=== PATIENT | female | born 1960 | race Hispanic/Latino ===

== ENCOUNTER 2017-09-16 21:11 | Emergency (ER) | payer OTHER ==
[2017-09-16 22:29] LABS: Absolute Lymphocytes (CBC) 1.5 K/uL (0.7-4.9); Absolute Monocytes 0.6 K/uL (0.1-1.3); Absolute Neutrophil 7.5 K/uL (1.8-8.0); Basophils % 0.9 % (0-1.3); Hematocrit 38.6 % (36.0-45.0); Lymphocytes % 14.8 % (15.3-44.8); MCV 85.4 fL (80-100); MPV 9.3 fL (7.6-11.3); RBC Red Blood Cell Count 4.52 M/uL (3.86-4.86)
[2017-09-16] MEDS ORDERED: AZITHROMYCIN 250 MG TAB ONE (23:40)
--- NOTE | 2017-09-16 23:41 | EDPHYS ---
Physician Documentation [facility] Name: Shana Patel Age: 57 yrs Sex: Female : 1960 Arrival Date: 09/16/2017 Time: 21:16 Bed 8 Private MD: ED Physician Brodie Hanson HPI: 09/16 23:38 This 57 yrs old Female presents to ER via Ambulatory with complaints of Sore pkl Throat, Fever, LEFT ARM NUMBNESS. 23:38 The patient presents with sore throat. The patient describes throat pain as constant. pkl Onset: The symptoms/episode began/occurred today. Associated signs and symptoms: Pertinent positives: chest pain. Historical: - Allergies: 21:29 Adhesives; aa1 21:29 Metformin HCl; aa1 - Home Meds: 21:29 hydrocodone-acetaminophen Oral [Active]; Lyrica Oral [Active]; Lisinopril Oral aa1 [Active]; Novolog Sub-Q [Active]; - PMHx: 21:29 Diabetes - IDDM; Fibromyalgia; GERD; Hypothyroidism; Hypertension; aa1 - PSHx: 21:29 ; Hernia repair; Knee surgery; aa1 - Immunization history:: Flu vaccine is not up to date. - Social history:: Smoking status: Patient/guardian denies using tobacco. ROS: 23:38 Eyes: Negative for injury, pain, redness, and discharge, ENT: Negative for injury, pkl pain, and discharge, Neck: Negative for injury, pain, and swelling. 23:38 Cardiovascular: Positive for chest pain. 23:38 Respiratory: Negative for acute changes. 23:38 Abdomen/GI: Negative for abdominal pain, nausea, vomiting, and diarrhea. 23:38 Back: Negative for pain at rest. 23:38 : Negative for urinary symptoms. 23:38 MS/extremity: Negative for acute changes. 23:38 Skin: Negative for rash. 23:38 Neuro: Negative for altered mental status. Exam: 23:38 Head/Face: Normocephalic, atraumatic. Eyes: Pupils equal round and reactive to light, pkl extra-ocular motions intact. Lids and lashes normal. Conjunctiva and sclera are non-icteric and not injected. Cornea within normal limits. Periorbital areas with no swelling, redness, or edema. 23:38 ENT: Posterior pharynx: erythema, that is mild. 23:38 Neck: Exam negative for acute changes. 23:38 Chest/axilla: Exam negative for acute changes. 23:38 Cardiovascular: Rate: normal, Rhythm: regular. 23:38 Respiratory: Exam negative for acute changes. 23:38 Abdomen/GI: Exam negative for acute changes. 23:38 Back: Exam negative for acute changes. 23:38 : Exam negative for acute changes. 23:38 Musculoskeletal/extremity: Exam is negative for acute changes. 23:38 Skin: Exam negative for rash. 23:38 Neuro: Orientation: is normal, Mentation: is normal, Cranial nerves: grossly normal, Motor: is normal. Vital Signs: 21:29 BP 148 / 85; Pulse 82; Resp 18; Temp 100.0(O); Pulse Ox 95% on R/A; Weight 77.11 kg; aa1 Height 5 ft. 0 in. (152.40 cm); Pain 9/10; 23:24 BP 108 / 74; Pulse 74; Resp 18 S; Pulse Ox 94% on R/A; bb 23:51 BP 118 / 77; Pulse 73; Resp 18 S; Temp 97.8(TE); Pulse Ox 94% on R/A; bb 21:29 Body Mass Index 33.20 (77.11 kg, 152.40 cm) aa1 MDM: 22:02 Patient medically screened. pkl 23:38 Data reviewed: vital signs, nurses notes, lab test result(s), EKG. pkl 09/16 22:07 Order name: CBC with Diff; Complete Time: 23:22 pkl 09/16 22:07 Order name: Chem 7; Complete Time: 23:22 pkl 09/16 22:07 Order name: Strep; Complete Time: 23:22 pkl 09/16 22:08 Order name: Troponin (emerg Dept Use Only); Complete Time: 23:22 pkl 09/16 22:35 Order name: Throat Culture EDNJ 09/16 22:08 Order name: EKG; Complete Time: 22:08 pkl 09/16 23:23 Order name: EKG - Nurse/Tech; Complete Time: 23:33 ak1 Administered Medications: 23:45 Drug: Zithromax 500 mg Route: PO; bb 23:51 Follow up: Response: No adverse reaction bb Disposition: 09/16/17 23:41 Discharged to Home. Impression: Acute pharyngitis. Chest pain. - Condition is Stable. - Prescriptions for Zithromax Z- Jerome 250 mg Oral Tablet - take 1 tablet by ORAL route as directed for 5 days Day 1 - take two (2) tablets one time. Day 2, 3, 4 , 5 take one (1) tablet once daily.; 6 tablet. - Medication Reconciliation Form, Thank You Letter, Antibiotic Education, Prescription Opioid Use form. - Follow up: Private Physician; When: 2 - 3 days; Reason: Re-evaluation by your physician. - Problem is new. - Symptoms have improved. Signatures: Dispatcher [employer] EDDiana Pulido RN RN aa1 Brodie Hanson MD MD pkl Ballard, Brenda, RN RN bb Janel Mazariegos RN RN ak1
--- NOTE | 2017-09-16 23:41 | ER ---
Nurse's Notes [facility] Name: Shana Patel Age: 57 yrs Sex: Female : 1960 Arrival Date: 09/16/2017 Time: 21:16 Bed 8 Private MD: Diagnosis: Acute pharyngitis. Chest pain Presentation: 09/16 21:26 Presenting complaint: Patient states: fever and sore throat since this afternoon and aa1 has also had tingling in her L arm. Transition of care: patient was not received from another setting of care. Onset of symptoms was September 16, 2017. Initial Sepsis Screen: Does the patient meet any 2 criteria? No. Patient's initial sepsis screen is negative. Does the patient have a suspected source of infection? No. Patient's initial sepsis screen is negative. Care prior to arrival: None. 21:26 Method Of Arrival: Ambulatory aa1 21:26 Acuity: TERESA 3 aa1 Triage Assessment: 21:29 General: Appears in no apparent distress. comfortable, Behavior is calm, cooperative, aa1 appropriate for age. Historical: - Allergies: 21:29 Adhesives; aa1 21:29 Metformin HCl; aa1 - Home Meds: 21:29 hydrocodone-acetaminophen Oral [Active]; Lyrica Oral [Active]; Lisinopril Oral aa1 [Active]; Novolog Sub-Q [Active]; - PMHx: 21:29 Diabetes - IDDM; Fibromyalgia; GERD; Hypothyroidism; Hypertension; aa1 - PSHx: 21:29 ; Hernia repair; Knee surgery; aa1 - Immunization history:: Flu vaccine is not up to date. - Social history:: Smoking status: Patient/guardian denies using tobacco. Screenin:03 Abuse screen: Denies threats or abuse. Denies injuries from another. Nutritional ak1 screening: No deficits noted. Tuberculosis screening: No symptoms or risk factors identified. Fall Risk None identified. Assessment: 22:03 General: Appears in no apparent distress. Behavior is calm, cooperative. Pain: ak1 Complains of pain in throat. Neuro: Level of Consciousness is awake, alert, obeys commands, Oriented to person, place, time, situation, Lithographic Etcher are equal bilaterally Moves all extremities. Gait is steady, Speech is normal, Facial symmetry appears normal. Cardiovascular: No deficits noted. Respiratory: Airway is patent Respiratory effort is even, unlabored, Breath sounds are clear bilaterally. GI: No signs and/or symptoms were reported involving the gastrointestinal system. : No signs and/or symptoms were reported regarding the genitourinary system. EENT: Throat is clear pt swallowing own secretions. no resp distress noted.. Derm: No signs and/or symptoms reported regarding the dermatologic system. Musculoskeletal: No signs and/or symptoms reported regarding the musculoskeletal system. 23:23 Reassessment: Patient is alert, oriented x 3, equal unlabored respirations, skin bb warm/dry/pink. pt resting quietly awaiting results, IV site intact, family at bedside. 23:50 Reassessment: Patient is alert, oriented x 3, equal unlabored respirations, skin bb warm/dry/pink. pt verbalized understanding of and agrees to plan of care discharge instructions given pt ambulated with steady gait to exit accompanied by family. Vital Signs: 21:29 BP 148 / 85; Pulse 82; Resp 18; Temp 100.0(O); Pulse Ox 95% on R/A; Weight 77.11 kg; aa1 Height 5 ft. 0 in. (152.40 cm); Pain 9/10; 23:24 BP 108 / 74; Pulse 74; Resp 18 S; Pulse Ox 94% on R/A; bb 23:51 BP 118 / 77; Pulse 73; Resp 18 S; Temp 97.8(TE); Pulse Ox 94% on R/A; bb 21:29 Body Mass Index 33.20 (77.11 kg, 152.40 cm) aa1 ED Course: 21:16 Patient arrived in ED. al2 21:27 Triage completed. aa1 21:29 Arm band placed on left wrist. Patient placed in waiting room, Patient notified of wait aa1 time. 22:02 Brodie Hanson MD is Attending Physician. pkl 22:03 Patient has correct armband on for positive identification. Bed in low position. Call ak1 light in reach. Side rails up X 1. Adult w/ patient. 22:15 Initial lab(s) drawn, by me, sent to lab. Strep swab sent to lab. Inserted saline lock: bb 22 gauge in left hand, using aseptic technique. Blood collected. 22:20 Maureen Lr RN is Primary Nurse. bb 23:52 No provider procedures requiring assistance completed. IV discontinued, intact, bb bleeding controlled, No redness/swelling at site. Pressure dressing applied. Administered Medications: 23:45 Drug: Zithromax 500 mg Route: PO; iris 23:51 Follow up: Response: No adverse reaction iris Outcome: 23:41 Discharge ordered by . flor 23:52 Discharged to home ambulatory, with family. iris :52 Condition: stable 23:52 Discharge instructions given to patient, Instructed on discharge instructions, follow up and referral plans. medication usage, Demonstrated understanding of instructions, follow-up care, medications, Prescriptions given X 1. 23:52 Patient left the ED. bb Signatures: Diana Lockhart RN RN Brodie Fernandez MD MD pkl Ballard, Brenda, RN RN Janel Aguilar RN RN ak1 Graciela Singh
[2017-09-16 23:58] VITALS: O2SAT 94
[2017-09-16 23:59] VITALS: BP 118/77; TEMP 97.8
--- NOTE | 2017-09-17 14:38 | EKG ---
Test Date: 2017-09-16 Test Time: 23:27:58 Sheriffs: DIAN MEASUREMENT RESULTS: Intervals: Rate: 71 WI: 148 QRSD: 92 QT: 480 QTc: 521 [place]: P: 35 WI: 148 QRS: -73 T: 4 INTERPRETIVE STATEMENTS: Normal sinus rhythm Left anterior fascicular block Anterolateral infarct, age undetermined Abnormal ECG Compared to ECG 05/30/2017 15:38:05 Myocardial infarct finding now present T-wave abnormality no longer present Electronically Signed On 09-17-17 14:34:18 CDT by Sudhakar Benitez
== END 2017-09-16 23:52 | disposition home or self-care (01) ==
LOC: ER 21:11
DX: J02.9 Acute pharyngitis, unspecified (principal); R07.9 Chest pain, unspecified; E11.9 Type 2 diabetes mellitus without complications; I10 Essential (primary) hypertension; M79.7 Fibromyalgia; Z88.8 Allergy status to other drugs, medicaments and biological substances
CPT/HCPCS: 36415; 80048; 84484; 85025; 87070; 87081; 93005; 99284

== ENCOUNTER 2017-11-16 01:45 | Emergency (ER) | payer OTHER ==
[2017-11-16] MEDS ORDERED: HYDROCODONE/APAP 10/325 TAB ONE (02:51)
--- NOTE | 2017-11-16 03:48 | EDPHYS ---
Physician Documentation [facility] Name: Shana Patel Age: 57 yrs Sex: Female : 1960 Arrival Date: 11/16/2017 Time: 01:49 Bed 8 Private MD: Nicolas Waldrop ED Physician Jerald Melchor HPI: 11/16 03:40 This 57 yrs old Female presents to ER via Ambulatory with complaints of wa Toothache, Urinary Problem. 03:40 This 57 yrs old Female presents to ER via Ambulatory with complaints of wa Toothache, Urinary Problem. 03:40 The patient presents with pain. The problem is located in the R side upper and lower wa jaw. Onset: The symptoms/episode began/occurred 3 day(s) ago. Duration: The symptoms are continuous, and are steadily getting worse. Modifying factors: The symptoms are alleviated by nothing, the symptoms are aggravated by chewing. Associated signs and symptoms: The patient has no apparent associated signs or symptoms. Severity of symptoms: At their worst the symptoms were. The patient has experienced similar episodes in the past. The patient has not recently seen a physician. Historical: - Allergies: 02:20 Adhesives; fc 02:20 Metformin HCl; fc - Home Meds: 02:20 hydrocodone-acetaminophen 7.5-325 mg oral tab 1 tab every 6 hours [Active]; lisinopril fc 10 mg oral tab 1 tab once daily [Active]; levothyroxine oral 1 tab once daily [Active]; Lyrica Oral 2 times per day [Active]; Novolog Sub-Q 40 units in am and 50 units pm [Active]; - PMHx: 02:20 Diabetes - IDDM; Fibromyalgia; GERD; Hypertension; Hypothyroidism; fc - PSHx: 02:20 Hernia repair; knee surg; ; fc - Immunization history:: Last tetanus immunization: up to date. - Social history:: Smoking status: Patient/guardian denies using tobacco. - Ebola Screening: : Patient negative for fever greater than or equal to 101.5 degrees Fahrenheit, and additional compatible Ebola Virus Disease symptoms Patient denies exposure to infectious person Patient denies travel to an Ebola-affected area in the 21 days before illness onset. - Family history:: not pertinent. - Hospitalizations: : No recent hospitalization is reported. ROS: 03:41 Constitutional: Negative for fever, chills, and weight loss, Eyes: Negative for injury, wa pain, redness, and discharge, Neck: Negative for injury, pain, and swelling, Cardiovascular: Negative for chest pain, palpitations, and edema, Respiratory: Negative for shortness of breath, cough, wheezing, and pleuritic chest pain, Back: Negative for injury and pain, MS/Extremity: Negative for injury and deformity, Skin: Negative for injury, rash, and discoloration, Neuro: Negative for headache, weakness, numbness, tingling, and seizure, Psych: Negative for depression, anxiety, suicide ideation, homicidal ideation, and hallucinations. 03:41 ENT: Positive for dental pain. 03:41 Abdomen/GI: Positive for suprapubic pain. 03:41 : Positive for urinary symptoms, urinary frequency, dysuria. Exam: 03:43 Constitutional: This is a well developed, well nourished patient who is awake, alert, wa and in no acute distress. Head/Face: Normocephalic, atraumatic. Eyes: Pupils equal round and reactive to light, extra-ocular motions intact. Lids and lashes normal. Conjunctiva and sclera are non-icteric and not injected. Cornea within normal limits. Periorbital areas with no swelling, redness, or edema. Neck: Trachea midline, no thyromegaly or masses palpated, and no cervical lymphadenopathy. Supple, full range of motion without nuchal rigidity, or vertebral point tenderness. No Meningismus. Chest/axilla: Normal chest wall appearance and motion. Nontender with no deformity. No lesions are appreciated. Cardiovascular: Regular rate and rhythm with a normal S1 and S2. No gallops, murmurs, or rubs. Normal PMI, no JVD. No pulse deficits. Respiratory: Lungs have equal breath sounds bilaterally, clear to auscultation and percussion. No rales, rhonchi or wheezes noted. No increased work of breathing, no retractions or nasal flaring. Back: No spinal tenderness. No costovertebral tenderness. Full range of motion. Skin: Warm, dry with normal turgor. Normal color with no rashes, no lesions, and no evidence of cellulitis. MS/ Extremity: Pulses equal, no cyanosis. Neurovascular intact. Full, normal range of motion. Neuro: Awake and alert, GCS 15, oriented to person, place, time, and situation. Cranial nerves II-XII grossly intact. Motor strength 5/5 in all extremities. Sensory grossly intact. Cerebellar exam normal. Normal gait. Psych: Awake, alert, with orientation to person, place and time. Behavior, mood, and affect are within normal limits. 03:43 ENT: Dental exam: pain, that is moderate, specifically in the upper right first molar (#3) and lower right second bicuspid (#29), no erythema or fluctuance. no swelling. tendre to palpation however. 03:43 Abdomen/GI: Inspection: abdomen appears normal, Bowel sounds: normal, Palpation: soft, mild abdominal tenderness, in the suprapubic area. 03:43 : CVA tenderness, is absent, Bladder: is normal, tenderness, that is mild. Vital Signs: 02:12 BP 172 / 100; Pulse 71; Resp 18; Temp 98.8(O); Pulse Ox 97% on R/A; Weight 77.11 kg fc (R); Height 5 ft. 0 in. (152.40 cm) (R); Pain 9/10; 02:17 BP 145 / 92; bb 03:04 BP 157 / 93; Pulse 68; Resp 18; Pulse Ox 99% on R/A; tl2 04:09 BP 145 / 95; Pulse 65; Resp 18; Pulse Ox 97% on R/A; tl2 02:12 Body Mass Index 33.20 (77.11 kg, 152.40 cm) fc MDM: 02:07 Patient medically screened. wa 03:45 Differential diagnosis: dental pain. no obvious signs of infection. also c/o dysuria wa and freq. will cover with abx. close f/u with dentist. Data reviewed: vital signs, nurses notes. Test interpretation: by ED physician or midlevel provider: UA noted for glucosuria. blood. LE. . Response to treatment: the patient's symptoms have markedly improved after treatment. 11/16 02:26 Order name: Urine Dipstick--Ancillary (enter results) eb Administered Medications: 02:51 Drug: Kimper 10 mg-325 mg 1 tabs Route: PO; bb 03:31 Follow up: Response: No adverse reaction; Pain is decreased bb Disposition: 11/16/17 03:47 Discharged to Home. Impression: Acute Dental Pain , Acute UTI. - Condition is Stable. - Prescriptions for Augmentin 875- 125 mg Oral Tablet - take 1 tablet by ORAL route every 12 hours for 7 days; 14 tablet. - Medication Reconciliation Form, Thank You Letter, Antibiotic Education, Prescription Opioid Use form. - Follow up: Private Physician; Reason: Recheck today's complaints. - Problem is new. - Symptoms have improved. - Notes: take your pain medicines as prescribed. follow up with your doctor as discussed Signatures: Dispatcher [employer] EDEllen Harrington RN RN Maureen Lr RN RN bb Tanika Roque RN RN tl2 Jerald eMlchor MD MD wa Corrections: (The following items were deleted from the chart) 04:10 03:47 11/16/2017 03:47 Discharged to Home. Impression: Acute Dental Pain ; Acute UTI. tl2 Condition is Stable. Forms are Medication Reconciliation Form, Thank You Letter, Antibiotic Education, Prescription Opioid Use. Follow up: Private Physician; Reason: Recheck today's complaints. Problem is new. Symptoms have improved. wa
--- NOTE | 2017-11-16 03:48 | ER ---
Nurse's Notes [facility] Name: Shana Patel Age: 57 yrs Sex: Female : 1960 Arrival Date: 11/16/2017 Time: 01:49 Bed 8 Private MD: Nicolas Waldrop Diagnosis: Acute Dental Pain ;Acute UTI Presentation: 11/16 02:12 Presenting complaint: Patient states: that she has been having right upper and lower fc tooth pain since . Also yesterday started to have urinary frequency and right flank pain. Transition of care: patient was not received from another setting of care. Onset of symptoms was November 14, 2017. Risk Assessment: Do you want to hurt yourself or someone else? Patient reports no desire to harm self or others. Initial Sepsis Screen: Does the patient meet any 2 criteria? No. Patient's initial sepsis screen is negative. Does the patient have a suspected source of infection? No. Patient's initial sepsis screen is negative. Care prior to arrival: None. 02:12 Method Of Arrival: Ambulatory fc 02:12 Acuity: TERESA 3 fc Historical: - Allergies: 02:20 Adhesives; fc 02:20 Metformin HCl; fc - Home Meds: 02:20 hydrocodone-acetaminophen 7.5-325 mg oral tab 1 tab every 6 hours [Active]; lisinopril fc 10 mg oral tab 1 tab once daily [Active]; levothyroxine oral 1 tab once daily [Active]; Lyrica Oral 2 times per day [Active]; Novolog Sub-Q 40 units in am and 50 units pm [Active]; - PMHx: 02:20 Diabetes - IDDM; Fibromyalgia; GERD; Hypertension; Hypothyroidism; fc - PSHx: 02:20 Hernia repair; knee surg; ; fc - Immunization history:: Last tetanus immunization: up to date. - Social history:: Smoking status: Patient/guardian denies using tobacco. - Ebola Screening: : Patient negative for fever greater than or equal to 101.5 degrees Fahrenheit, and additional compatible Ebola Virus Disease symptoms Patient denies exposure to infectious person Patient denies travel to an Ebola-affected area in the 21 days before illness onset. - Family history:: not pertinent. - Hospitalizations: : No recent hospitalization is reported. Screenin:16 Abuse screen: Denies threats or abuse. Nutritional screening: No deficits noted. fc Tuberculosis screening: No symptoms or risk factors identified. Fall Risk None identified. Assessment: 02:17 General: Appears in no apparent distress. Behavior is calm, cooperative. Pain: bb Complains of pain in teeth and abdomen. Neuro: Level of Consciousness is awake, alert, obeys commands, Oriented to person, place, time, situation. Cardiovascular: Heart tones S1 S2 present Capillary refill < 3 seconds Patient's skin is warm and dry. Respiratory: Respiratory effort is even, unlabored, Respiratory pattern is regular, Breath sounds are clear bilaterally. GI: Abdomen is non-distended, Bowel sounds present X 4 quads. Abd is soft X 4 quads Abdomen is tender to palpation X 4 quads. pt reports hernias x 5. EENT: absence of teeth noted. Musculoskeletal: Circulation, motion, and sensation intact. 03:32 Reassessment: Patient is alert, oriented x 3, equal unlabored respirations, skin bb warm/dry/pink. pain is now 5/10 Patient states feeling better. Patient states symptoms have improved. 04:09 Reassessment: Patient appears in no apparent distress at this time. Patient and/or tl2 family updated on plan of care and expected duration. Pain level reassessed. Patient is alert, oriented x 3, equal unlabored respirations, skin warm/dry/pink. Pt verbalized understanding of discharge instructions, need for follow up and prescription usage. Vital Signs: 02:12 BP 172 / 100; Pulse 71; Resp 18; Temp 98.8(O); Pulse Ox 97% on R/A; Weight 77.11 kg (R); Height 5 ft. 0 in. (152.40 cm) (R); Pain 9/10; 02:17 BP 145 / 92; bb 03:04 BP 157 / 93; Pulse 68; Resp 18; Pulse Ox 99% on R/A; tl2 04:09 BP 145 / 95; Pulse 65; Resp 18; Pulse Ox 97% on R/A; tl2 02:12 Body Mass Index 33.20 (77.11 kg, 152.40 cm) ED Course: 01:49 Patient arrived in ED. es 01:49 Nicolas Waldrop MD is Private Physician. es 02:07 Jerald Melchor MD is Attending Physician. wa 02:12 Arm band placed on Patient placed in an exam room, on a stretcher. fc 02:14 Triage completed. fc 02:16 Patient has correct armband on for positive identification. 02:17 Maureen Lr, RN is Primary Nurse. bb 04:09 No provider procedures requiring assistance completed. Patient did not have IV access tl2 during this emergency room visit. Administered Medications: 02:51 Drug: Warner 10 mg-325 mg 1 tabs Route: PO; bb 03:31 Follow up: Response: No adverse reaction; Pain is decreased bb Outcome: 03:47 Discharge ordered by . wa 04:09 Discharged to home ambulatory, with family. tl2 04:09 Condition: stable 04:09 Discharge instructions given to patient, Instructed on discharge instructions, follow up and referral plans. medication usage, Demonstrated understanding of instructions, follow-up care, medications, Prescriptions given X 1. 04:10 Patient left the ED. tl2 Signatures: Suze Hawkins Felicia, RN RN Maureen Lr, Tanika Benavides RN, RN RN tl2 Jerald Melchor MD MD wa
[2017-11-16 04:14] VITALS: TEMP 98.8
[2017-11-16 04:17] VITALS: BP 145/95; O2SAT 97
[2017-11-16 04:41] LABS: Urine Blood TRACE (NEG); Urine Glucose 2+ (NEG); Urine Protein 2+ (NEG)
== END 2017-11-16 04:10 | disposition home or self-care (01) ==
LOC: ER 01:45
DX: K08.89 Other specified disorders of teeth and supporting structures (principal); N39.0 Urinary tract infection, site not specified; E03.9 Hypothyroidism, unspecified; E11.9 Type 2 diabetes mellitus without complications; Z79.4 Long term (current) use of insulin; Z88.8 Allergy status to other drugs, medicaments and biological substances; Z91.048 Other nonmedicinal substance allergy status
CPT/HCPCS: 81003; 99283

== ENCOUNTER 2018-01-04 00:19 | Emergency (ER) | payer OTHER ==
[2018-01-04] MEDS ORDERED: ONDANSETRON 4 MG/2 ML VIAL ONE (01:22)
[2018-01-04] MEDS ORDERED: NA CHLORIDE 0.9% 1,000 ML ONE (01:22)
[2018-01-04] MEDS ORDERED: FAMOTIDINE 20 MG/2 ML VIAL IV ONE (01:22)
[2018-01-04] MEDS ORDERED: MORPHINE 4 MG/ML SYR ONE (01:22)
[2018-01-04 01:56] LABS: Absolute Lymphocytes (CBC) 2.2 K/uL (0.7-4.9); Absolute Monocytes 0.5 K/uL (0.1-1.3); Absolute Neutrophil 3.4 K/uL (1.8-8.0); Basophils % 0.8 % (0-1.3); Eosinophils % 3.1 % (0-4.4); Hematocrit 35.6 % (36.0-45.0); Lymphocytes % 34.8 % (15.3-44.8); MCH 29.5 pg (27.0-35.0); MCV 86.3 fL (80-100); MPV 8.8 fL (7.6-11.3); Monocytes % 7.3 % (3.3-12.3); RBC Red Blood Cell Count 4.13 M/uL (3.86-4.86)
[2018-01-04 01:59] LABS: Protime INR 0.91
[2018-01-04 02:14] LABS: ALT/SGPT 16 U/L (12-78); AST/SGOT 12 U/L (15-37); Albumin 3.1 g/dL (3.4-5.0); Alkaline Phosphatase 108 U/L (45-117); BUN Blood Urea Nitrogen 15 mg/dL (7-18); Bicarbonate 27 mmol/L (21-32); Bilirubin Direct < 0.1 mg/dL (0-0.2); Bilirubin Total 0.5 mg/dL (0.2-1.0); CKMB Creatine Kinase MB < 1.0 ng/mL (0.3-3.6); Creatine Phosphokinase 28 U/L (26-192); Glucose Level 305 mg/dL (74-106); Lipase 141 U/L (73-393); Magnesium 1.7 mg/dL (1.8-2.4); NT PRO-BNP 113 pg/mL (<125); Potassium 3.5 mmol/L (3.5-5.1); Sodium Level 139 mmol/L (136-145)
[2018-01-04] MEDS ORDERED: MAGNESIUM SULFATE 1 gm IVPB 1 GM/100 ML BAG IV ONE (03:01)
[2018-01-04 04:26] LABS: Urine Blood 1+ (NEG); Urine Glucose 2+ (NEG); Urine Protein 2+ (NEG); Urine Specific Gravity >1.030 (1.005-1.030); Urine pH 5.5 (5.0-7.0)
--- NOTE | 2018-01-04 05:00 | ER ---
Nurse's Notes [facility] Name: Shana Patel Age: 57 yrs Sex: Female : 1960 Arrival Date: 01/04/2018 Time: 00:20 Bed 14 Private MD: Diagnosis: Abdominal tenderness;Type 1 diabetes mellitus;Hypomagnesemia;Diarrhea, unspecified;Left sided colitis Presentation: 01/04 00:40 Presenting complaint: Patient states: she is having diarrhea after she eats since bb Saturday she was vomiting but has not vomited today, she is having abdominal pain and was feeling feverish today with a sore throat she could also hear a rattle in her chest. Transition of care: patient was not received from another setting of care. Onset of symptoms was December 31, 2017. Risk Assessment: Do you want to hurt yourself or someone else? Patient reports no desire to harm self or others. Initial Sepsis Screen: Does the patient meet any 2 criteria? No. Patient's initial sepsis screen is negative. Does the patient have a suspected source of infection? No. Patient's initial sepsis screen is negative. Care prior to arrival: None. 00:40 Method Of Arrival: Ambulatory bb 00:40 Acuity: TERESA 3 bb Historical: - Allergies: 01:01 Adhesives; bb 01: Metformin HCl; bb - Home Meds: 01:01 hydrocodone-acetaminophen 7.5-325 mg Oral tab 1 tab every 6 hours [Active]; bb levothyroxine oral 1 tab once daily [Active]; lisinopril 10 mg Oral tab 1 tab once daily [Active]; Lyrica Oral 2 times per day [Active]; Novolog Sub-Q 40 units in am and 50 units pm [Active]; - PMHx: 01:01 Diabetes - IDDM; Fibromyalgia; GERD; Hypertension; Hypothyroidism; bb - PSHx: 01:01 Hernia repair; Knee surgery; ; bb - Immunization history:: Adult Immunizations up to date. - Social history:: Smoking status: Patient/guardian denies using tobacco, Patient/guardian denies using alcohol, street drugs. - Ebola Screening: : No symptoms or risks identified at this time. Screenin:59 Abuse screen: Denies threats or abuse. Denies injuries from another. Nutritional ao screening: No deficits noted. Tuberculosis screening: No symptoms or risk factors identified. Fall Risk None identified. Assessment: 01:10 General: Appears in no apparent distress. comfortable, Behavior is calm, cooperative, ao appropriate for age. Pain: Complains of pain in abdomen Pain currently is 6 out of 10 on a pain scale. Neuro: Level of Consciousness is awake, alert, obeys commands, Oriented to person, place, time, situation, Appropriate for age Moves all extremities. Full function Speech is normal. Cardiovascular: Capillary refill < 3 seconds Patient's skin is warm and dry. Respiratory: Airway is patent Respiratory effort is even, unlabored, Respiratory pattern is regular, symmetrical, Breath sounds are clear bilaterally. GI: Abdomen is round distended. : No signs and/or symptoms were reported regarding the genitourinary system. EENT: Throat is clear is pink. Derm: Skin is intact, Skin is pink, warm \\T\\ dry. normal, Skin temperature is warm. Musculoskeletal: Circulation, motion, and sensation intact. Range of motion: intact in all extremities. 02:20 Reassessment: Patient appears in no apparent distress at this time. Patient and/or ao family updated on plan of care and expected duration. Pain level reassessed. Patient is alert, oriented x 3, equal unlabored respirations, skin warm/dry/pink. 03:40 Reassessment: Was called from CT that patient's IV infiltrated. CT was done without ao contrast. A new IV to be started. 03:57 Reassessment: Patient appears in no apparent distress at this time. Patient and/or ao family updated on plan of care and expected duration. Pain level reassessed. Patient is alert, oriented x 3, equal unlabored respirations, skin warm/dry/pink. IV started using ultrasound technique. 04:50 Reassessment: Patient appears in no apparent distress at this time. Patient and/or ao family updated on plan of care and expected duration. Pain level reassessed. Patient is alert, oriented x 3, equal unlabored respirations, skin warm/dry/pink. Patient to be discharge. Waiting on new orders. 05:35 Reassessment: Patient appears in no apparent distress at this time. Patient and/or ao family updated on plan of care and expected duration. Pain level reassessed. Patient is alert, oriented x 3, equal unlabored respirations, skin warm/dry/pink. Dr Jordan had ordered Cipro and Flagyl IV. Patient to be send after those antibiotic are complete. 06:39 Reassessment: DC instructions given to patient. Patient agree with the POC and to ao follow up with PCP. No questions at this time. Vital Signs: 00:45 BP 149 / 88; Pulse 62; Resp 16 S; Temp 98.8(O); Pulse Ox 95% on R/A; Weight 74.84 kg bb (R); Height 5 ft. 0 in. (152.40 cm) (R); Pain 10/10; 02:20 BP 155 / 84; Pulse 62; Resp 16; Pulse Ox 96% on R/A; ao 03:35 BP 146 / 82; Pulse 62; Resp 16; Pulse Ox 97% on R/A; ao 04:00 BP 152 / 83; Pulse 64; Resp 18; Pulse Ox 98% on R/A; ao 05:10 BP 135 / 76; Pulse 58; Resp 16; Pulse Ox 98% on R/A; ao 06:00 BP 142 / 76; Pulse 60; Resp 18; Pulse Ox 96% on R/A; ao 00:45 Body Mass Index 32.22 (74.84 kg, 152.40 cm) bb ED Course: 00:20 Patient arrived in ED. ds1 00:45 Arm band placed on Patient placed in an exam room, on a stretcher, on pulse oximetry. bb Family accompanied patient. 00:46 Clyde Jordan MD is Attending Physician. orly 01:00 Triage completed. bb 01:10 Zion Moody, RN is Primary Nurse. ao 01:13 EKG done, by ED staff, reviewed by Clyde Jordan MD. Inserted saline lock: 20 gauge in ao right antecubital area, using aseptic technique. ,using aseptic technique. by [employer] exercise equipment repair technician Blood collected. 01:21 X-ray completed. Portable x-ray completed in exam room. Patient tolerated procedure ml well. 01:23 XRAY Chest (1 view) In Process Unspecified. EDMS 03:[address] via stretcher. kw1 03:33 CT Abd/Pelvis - W/Contrast In Process Unspecified. EDMS 03:33 CT completed. Pt tolerated procedure poorly. Patient moved back from CT. kw1 03:59 Patient has correct armband on for positive identification. Pulse ox on. NIBP on. ao 04:59 Tino Mcintosh MD is Referral Physician. orly 06:39 No provider procedures requiring assistance completed. IV discontinued, intact, ao bleeding controlled, No redness/swelling at site. Pressure dressing applied. Administered Medications: 01:24 Drug: morphine 4 mg Route: IVP; Site: right antecubital; ao 03:08 Follow up: Response: No adverse reaction ao 01:25 Drug: Zofran 4 mg Route: IVP; Site: right antecubital; ao 03:08 Follow up: Response: No adverse reaction ao 01:25 Drug: NS 0.9% 1000 ml Route: IV; Rate: 1 bolus; Site: right antecubital; ao 03:08 Follow up: IV Status: Completed infusion; IV Intake: 1000ml ao 01:25 Drug: Pepcid 20 mg Route: IVP; Site: right antecubital; ao 03:08 Follow up: Response: No adverse reaction ao 03:07 Drug: Magnesium Sulfate 1 grams Route: IVPB; Infused Over: 1 hrs; Site: right ao antecubital; 05:25 Drug: Flagyl 500 mg Volume: 100 ml; Route: IVPB; Rate: 200 ml/hr; Infused Over: 30 ea mins; Site: left antecubital; 05:26 Drug: Cipro 400 mg Volume: 200 ml; Route: IVPB; Infused Over: 60 mins; Site: left ea antecubital; Intake: 03:08 IV: 1000ml; Total: 1000ml. ao Outcome: 04:59 Discharge ordered by . orly 06:40 Discharged to home ambulatory. ao 06:40 Condition: stable 06:40 Discharge instructions given to patient, Instructed on discharge instructions, follow up and referral plans. Demonstrated understanding of instructions, follow-up care, medications. 06:43 Patient left the ED. ao Addendum: 01/07/2018 09:14 Addendum: Culture Results: Positive urine culture. "No change to antibiotic if s s improving" per KATERYNA Cox. Attempted to call patient to follow up. No answer, NO VM SETUP. Bacteria is resistant to, has intermediate sensitivity, or is not tested against prescribed antibiotics. Report given to KAYDEN for further evaluation and then to secondary set up man for follow up with patient. Signatures: Dispatcher [employer] Clyde Cooper MD MD cha Sanford, Demi ds1 Maureen Lr RN RN Davina Fonseca Shelby, RN RN ss Ortiz, Alex, RN RN ao Antunez, Elena, RN RN ea Wilhelm, Kimberly kw1 Corrections: (The following items were deleted from the chart) 01/04 01:03 01:01 BP 149 / 88; Pulse 62bpm; Resp 16bpm; Spontaneous; Pulse Ox 95% RA; Temp 98.8F bb Oral; 74.84 kg Reported; Height 5 ft. 0 in. Reported; BMI: 32.2; Pain 10/10; bb
--- NOTE | 2018-01-04 05:00 | EDPHYS ---
Physician Documentation [facility] Name: Shana Patel Age: 57 yrs Sex: Female : 1960 Arrival Date: 01/04/2018 Time: 00:20 Bed 14 Private MD: ED Physician Clyde Jordan HPI: 01/04 01:08 This 57 yrs old Female presents to ER via Ambulatory with complaints of Sore orly Throat, Abdominal Pain, Diarrhea, Fever. 01:08 The patient presents with sore throat. Severity of symptoms: At their worst the orly symptoms were very mild. Historical: - Allergies: 01: Adhesives; bb 01: Metformin HCl; bb - Home Meds: : hydrocodone-acetaminophen 7.5-325 mg Oral tab 1 tab every 6 hours [Active]; bb levothyroxine oral 1 tab once daily [Active]; lisinopril 10 mg Oral tab 1 tab once daily [Active]; Lyrica Oral 2 times per day [Active]; Novolog Sub-Q 40 units in am and 50 units pm [Active]; - PMHx: 01:01 Diabetes - IDDM; Fibromyalgia; GERD; Hypertension; Hypothyroidism; bb - PSHx: 01: Hernia repair; Knee surgery; ; bb - Immunization history:: Adult Immunizations up to date. - Social history:: Smoking status: Patient/guardian denies using tobacco, Patient/guardian denies using alcohol, street drugs. - Ebola Screening: : No symptoms or risks identified at this time. ROS: 01:09 Constitutional: Negative for fever, chills, and weight loss, Eyes: Negative for injury, orly pain, redness, and discharge, Neck: Negative for injury, pain, and swelling, Cardiovascular: Negative for chest pain, palpitations, and edema, Respiratory: Negative for shortness of breath, cough, wheezing, and pleuritic chest pain, Back: Negative for injury and pain, : Negative for injury, bleeding, discharge, and swelling, MS/Extremity: Negative for injury and deformity, Skin: Negative for injury, rash, and discoloration, Neuro: Negative for headache, weakness, numbness, tingling, and seizure, Psych: Negative for depression, anxiety, suicide ideation, homicidal ideation, and hallucinations, Allergy/Immunology: Negative for hives, rash, and allergies, Endocrine: Negative for neck swelling, polydipsia, polyuria, polyphagia, and marked weight changes, Hematologic/Lymphatic: Negative for swollen nodes, abnormal bleeding, and unusual bruising. : ENT: Positive for sore throat. : Abdomen/GI: Positive for abdominal pain, diarrhea, of the left upper quadrant and left lower quadrant. Exam: : Constitutional: This is a well developed, well nourished patient who is awake, alert, orly and in no acute distress. Head/Face: Normocephalic, atraumatic. Eyes: Pupils equal round and reactive to light, extra-ocular motions intact. Lids and lashes normal. Conjunctiva and sclera are non-icteric and not injected. Cornea within normal limits. Periorbital areas with no swelling, redness, or edema. ENT: Nares patent. No nasal discharge, no septal abnormalities noted. Tympanic membranes are normal and external auditory canals are clear. Oropharynx with no redness, swelling, or masses, exudates, or evidence of obstruction, uvula midline. Mucous membranes moist. Neck: Trachea midline, no thyromegaly or masses palpated, and no cervical lymphadenopathy. Supple, full range of motion without nuchal rigidity, or vertebral point tenderness. No Meningismus. Chest/axilla: Normal chest wall appearance and motion. Nontender with no deformity. No lesions are appreciated. Cardiovascular: Regular rate and rhythm with a normal S1 and S2. No gallops, murmurs, or rubs. Normal PMI, no JVD. No pulse deficits. Respiratory: Lungs have equal breath sounds bilaterally, clear to auscultation and percussion. No rales, rhonchi or wheezes noted. No increased work of breathing, no retractions or nasal flaring. Back: No spinal tenderness. No costovertebral tenderness. Full range of motion. Female : Normal external genitalia. Skin: Warm, dry with normal turgor. Normal color with no rashes, no lesions, and no evidence of cellulitis. MS/ Extremity: Pulses equal, no cyanosis. Neurovascular intact. Full, normal range of motion. Neuro: Awake and alert, GCS 15, oriented to person, place, time, and situation. Cranial nerves II-XII grossly intact. Motor strength 5/5 in all extremities. Sensory grossly intact. Cerebellar exam normal. Normal gait. Psych: Awake, alert, with orientation to person, place and time. Behavior, mood, and affect are within normal limits. 01:09 Abdomen/GI: Inspection: distension, Bowel sounds: normal, Palpation: mild abdominal tenderness, in the right upper quadrant, left upper quadrant, right lower quadrant and left lower quadrant, Liver: no appreciated palpable abnormalities, Hernia: not appreciated. Vital Signs: 00:45 BP 149 / 88; Pulse 62; Resp 16 S; Temp 98.8(O); Pulse Ox 95% on R/A; Weight 74.84 kg bb (R); Height 5 ft. 0 in. (152.40 cm) (R); Pain 10/10; 02:20 BP 155 / 84; Pulse 62; Resp 16; Pulse Ox 96% on R/A; ao 03:35 BP 146 / 82; Pulse 62; Resp 16; Pulse Ox 97% on R/A; ao 04:00 BP 152 / 83; Pulse 64; Resp 18; Pulse Ox 98% on R/A; ao 05:10 BP 135 / 76; Pulse 58; Resp 16; Pulse Ox 98% on R/A; ao 06:00 BP 142 / 76; Pulse 60; Resp 18; Pulse Ox 96% on R/A; ao 00:45 Body Mass Index 32.22 (74.84 kg, 152.40 cm) bb MDM: 00:46 Patient medically screened. [facility] 01:10 Data reviewed: vital signs, nurses notes, lab test result(s), EKG, radiologic studies, [facility] CT scan, plain films. 01/04 01:08 Order name: Basic Metabolic Panel [facility] 01/04 01:08 Order name: CBC with Diff; Complete Time: 02:40 [facility] 01/04 01:08 Order name: Ckmb; Complete Time: 02:40 [facility] 01/04 01:08 Order name: CPK; Complete Time: 02:40 [facility] 01/04 01:08 Order name: LFT's; Complete Time: 02:40 [facility] 01/04 01:08 Order name: Magnesium; Complete Time: 02:40 [facility] 01/04 01:08 Order name: NT PRO-BNP; Complete Time: 02:40 [facility] 01/04 01:08 Order name: PT-INR; Complete Time: 02:40 [facility] 01/04 01:08 Order name: Ptt, Activated; Complete Time: 02:40 [facility] 01/04 01:08 Order name: Troponin (emerg Dept Use Only); Complete Time: 02:40 [facility] 01/04 01:08 Order name: Lipase; Complete Time: 02:40 [facility] 01/04 01:08 Order name: Urine Culture [facility] 01/04 01:09 Order name: Basic Metabolic Panel; Complete Time: 02:40 EDMS 01/04 01:08 Order name: XRAY Chest (1 view) [facility] 01/04 01:08 Order name: Cardiac monitoring; Complete Time: 01:13 [facility] 01/04 01:08 Order name: EKG - Nurse/Tech; Complete Time: 01:12 [facility] 01/04 01:08 Order name: IV Saline Lock; Complete Time: 01:13 [facility] 01/04 01:08 Order name: Labs collected and sent; Complete Time: 01: [facility] 01/04 03:14 Order name: Urine Dipstick--Ancillary (enter results); Complete Time: 04:[address] [facility] 01/04 01:08 Order name: O2 Per Protocol; Complete Time: 01:13 [facility] 01/04 01:08 Order name: O2 Sat Monitoring; Complete Time: 01:13 [facility] 01/04 01:08 Order name: Urine Dipstick-Ancillary (obtain specimen); Complete Time: 03:09 [facility] Administered Medications: 01:24 Drug: morphine 4 mg Route: IVP; Site: right antecubital; ao 03:08 Follow up: Response: No adverse reaction ao 01:25 Drug: Zofran 4 mg Route: IVP; Site: right antecubital; ao 03:08 Follow up: Response: No adverse reaction ao 01:25 Drug: NS 0.9% 1000 ml Route: IV; Rate: 1 bolus; Site: right antecubital; ao 03:08 Follow up: IV Status: Completed infusion; IV Intake: 1000ml ao 01:25 Drug: Pepcid 20 mg Route: IVP; Site: right antecubital; ao 03:08 Follow up: Response: No adverse reaction ao 03:07 Drug: Magnesium Sulfate 1 grams Route: IVPB; Infused Over: 1 hrs; Site: right ao antecubital; 05:25 Drug: Flagyl 500 mg Volume: 100 ml; Route: IVPB; Rate: 200 ml/hr; Infused Over: 30 ea mins; Site: left antecubital; 05:26 Drug: Cipro 400 mg Volume: 200 ml; Route: IVPB; Infused Over: 60 mins; Site: left ea antecubital; Disposition: 01/04/18 04:59 Discharged to Home. Impression: Abdominal tenderness, Type 1 diabetes mellitus, Hypomagnesemia, Diarrhea, unspecified, Left sided colitis. - Condition is Stable. - Discharge Instructions: Abdominal Pain, Adult, Food Choices to Help Relieve Diarrhea, Adult, Type 1 Diabetes Mellitus, Diagnosis, Adult, Diarrhea, Adult, Abdominal Pain, Adult, [id number], Diarrhea, Adult, [id number], Type 1 Diabetes Mellitus, Diagnosis, Adult, [id number]. - Prescriptions for Bentyl 20 mg Oral Tablet - take 1 tablet by ORAL route every 6 hours As needed; 20 tablet. Zofran 4 mg Oral Tablet - take 1 tablet by ORAL route every 12 hours As needed; 14 tablet. Flagyl 500 mg Oral Tablet - take 1 tablet by ORAL route every 8 hours for 7 days; 21 tablet. Cipro 500 mg Oral Tablet - take 1 tablet by ORAL route every 12 hours for 7 days; 14 tablet. - Medication Reconciliation Form, Thank You Letter, Antibiotic Education, Prescription Opioid Use form. - Follow up: Private Physician; When: 2 - 3 days; Reason: Recheck today's complaints, Continuance of care, Re-evaluation by your physician. Follow up: Tino Mcintosh; When: 1 - 2 days; Reason: Recheck today's complaints, Continuance of care, Re-evaluation by your physician. - Problem is new. - Symptoms have improved. Signatures: Dispatcher [employer] EDMS Clyde Jordan MD MD cha Ballard, Brenda, RN Zion Earl, RN Kimberly Rankin RN RN ea Corrections: (The following items were deleted from the chart) 06:43 04:59 01/04/2018 04:59 Discharged to Home. Impression: Abdominal tenderness; Type 1 ao diabetes mellitus; Hypomagnesemia; Diarrhea, unspecified; Left sided colitis. Condition is Stable. Discharge Instructions: Abdominal Pain, Adult, Food Choices to Help Relieve Diarrhea, Adult, Type 1 Diabetes Mellitus, Diagnosis, Adult, Diarrhea, Adult, Abdominal Pain, Adult, Sbql-[id number], Diarrhea, Adult, [id number], Type 1 Diabetes Mellitus, Diagnosis, Adult, Wfsy-[id number]. Prescriptions for Bentyl 20 mg Oral Tablet - take 1 tablet by ORAL route every 6 hours As needed; 20 tablet, Zofran 4 mg Oral Tablet - take 1 tablet by ORAL route every 12 hours As needed; 14 tablet. and Forms are Medication Reconciliation Form, Thank You Letter, Antibiotic Education, Prescription Opioid Use. Follow up: Private Physician; When: 2 - 3 days; Reason: Recheck today's complaints, Continuance of care, Re-evaluation by your physician. Follow up: Tino Mcintosh; When: 1 - 2 days; Reason: Recheck today's complaints, Continuance of care, Re-evaluation by your physician. Problem is new. Symptoms have improved. orly
[2018-01-04] MEDS ORDERED: METRONIDAZOLE 500mg IVPB 500 MG/100 ML BAG IV ONE (05:20)
[2018-01-04] MEDS ORDERED: CIPROFLOXACIN 400mg IV 400 MG/200 ML BAG IV ONE (05:20)
[2018-01-04 06:47] VITALS: TEMP 98.8
[2018-01-04 06:52] VITALS: BP 142/76; O2SAT 96
--- NOTE | 2018-01-04 11:22 | RAD REPORT ---
EXAM DESCRIPTION: Panda Single View01/04/2018 1:24 am CLINICAL HISTORY: Chest pain COMPARISON: September 2017 FINDINGS: The lungs appear clear of acute infiltrate. The heart is mildly enlarged IMPRESSION: No acute abnormalities displayed
--- NOTE | 2018-01-04 12:47 | RAD REPORT ---
EXAM DESCRIPTION: CT - Abdomen Pelvis Wo Contrast - 01/04/2018 11:19 am CLINICAL HISTORY: Abdominal pain vomiting and diarrhea COMPARISON: June 2017 TECHNIQUE: Computed axial tomography of the abdomen and pelvis was obtained. Oral contrast was not r equested. Some intravenous contrast was administered but extravasated so no additional IV contrast wa s given. The patient's nurse was notified and came over to the CT department to evaluate. The orderin g physician decided to then performed the examination without IV contrast. A preliminary report was generated by [employer] and reviewed prior to this dictation All CT scans are performed using dose optimization technique as appropriate and may include automated exposure control or mA/KV adjustment according to patient size. FINDINGS: The evaluation of solid organs, vessels and bowel is limited secondary to the lack of con trast administration. The liver, spleen, pancreas, adrenals and kidneys appear grossly normal. The wall of the descending colon is mildly thickened. Diverticula stem from the colon without evidenc e diverticulitis. A 28 millimeter Bartholin cyst is suspected within the vagina. Postsurgical changes of a ventral hernia repair are present. A left anterolateral hernia contains fat within the upper abdomen. The neck measures 1 centimeter IMPRESSION: Mild left colitis
== END 2018-01-04 06:43 | disposition home or self-care (01) ==
LOC: ER 00:19
DX: R10.819 Abdominal tenderness, unspecified site (principal); E83.42 Hypomagnesemia; R19.7 Diarrhea, unspecified; K52.9 Noninfective gastroenteritis and colitis, unspecified; Z88.8 Allergy status to other drugs, medicaments and biological substances; Z91.048 Other nonmedicinal substance allergy status; E10.9 Type 1 diabetes mellitus without complications; Z79.4 Long term (current) use of insulin; M79.7 Fibromyalgia; I10 Essential (primary) hypertension; E03.9 Hypothyroidism, unspecified
CPT/HCPCS: 36415; 71045; 74176; 80048; 80076; 81003; 82550; 82553; 83690; 83735; 83880; 84484; 85025; 85610; 85730; 87077; 87086; 87088; 87186; 99284; J0744; J2405; J3475; J7030

== ENCOUNTER 2018-03-27 12:48 | Emergency (ER) | payer OTHER ==
[2018-03-27] MEDS ORDERED: TETANUS & DIPHTHERIA TOX,ADULT 0.5 ML VIAL ONE (13:30)
[2018-03-27] MEDS ORDERED: LIDOCAINE 1% MPF 30 ML VIAL ONE (13:30)
--- NOTE | 2018-03-27 14:01 | RAD REPORT ---
EXAM DESCRIPTION: RAD - Hand Right 3 View - 03/27/2018 1:45 pm CLINICAL HISTORY: Right hand pain status post injury FINDINGS: No fracture or dislocation is seen. A radiopaque foreign body is not seen. Small bony density adjacent to second DIP joint likely is c hronic
--- NOTE | 2018-03-27 15:04 | EDPHYS ---
Physician Documentation [facility] Name: Shana Patel Age: 57 yrs Sex: Female : 1960 Arrival Date: 03/27/2018 Time: 12:51 Bed 24 Private MD: Nicolas Waldrop ED Physician David Mathur HPI: 03/27 15:00 This 57 yrs old Female presents to ER via Ambulatory with complaints of pm1 Laceration - FINGER. 15:00 The patient or guardian reports a laceration. The complaints affect the palmar aspect pm1 of distal phalanx of right index finger. 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 Onset: The symptoms/episode began/occurred this morning. Modifying factors: The symptoms are alleviated by nothing, the symptoms are aggravated by nothing. Associated signs and symptoms: Pertinent negatives: cyanosis distally, decreased sensation distally, fever, numbness distally, tingling distally. Severity of symptoms: in the emergency department the symptoms are unchanged. The patient has not recently seen a physician. Historical: - Allergies: 13:02 Adhesives; aj1 13:02 Metformin HCl; aj1 - Home Meds: 13:02 hydrocodone-acetaminophen 7.5-325 mg Oral tab 1 tab every 6 hours [Active]; aj1 levothyroxine oral 1 tab once daily [Active]; lisinopril 10 mg Oral tab 1 tab once daily [Active]; Lyrica Oral 2 times per day [Active]; Novolog Sub-Q 40 units in am and 50 units pm [Active]; - PMHx: 13:02 Diabetes - IDDM; Fibromyalgia; GERD; Hypertension; Hypothyroidism; aj1 - Immunization history:: Flu vaccine is not up to date. Last tetanus immunization: unknown. - Social history:: Smoking status: Patient/guardian denies using tobacco. - Ebola Screening: : Patient denies travel to an Ebola-affected area in the 21 days before illness onset. ROS: 15:00 Constitutional: Negative for fever, chills, and weight loss, Eyes: Negative for injury, pm1 pain, redness, and discharge, ENT: Negative for injury, pain, and discharge, Neck: Negative for injury, pain, and swelling, Cardiovascular: Negative for chest pain, palpitations, and edema, Respiratory: Negative for shortness of breath, cough, wheezing, and pleuritic chest pain, Abdomen/GI: Negative for abdominal pain, nausea, vomiting, diarrhea, and constipation, Back: Negative for injury and pain. 15:00 Neuro: Negative for headache, weakness, numbness, tingling, and seizure. 15:00 MS/extremity: Positive for laceration, of the palmar aspect of distal phalanx of right index finger. 15:00 Skin: Positive for laceration(s), of the palmar aspect of distal phalanx of right index finger. Exam: 15:00 Constitutional: This is a well developed, well nourished patient who is awake, alert, pm1 and in no acute distress. Head/Face: Normocephalic, atraumatic. Eyes: Pupils equal round and reactive to light, extra-ocular motions intact. Lids and lashes normal. Conjunctiva and sclera are non-icteric and not injected. Cornea within normal limits. Periorbital areas with no swelling, redness, or edema. ENT: Nares patent. No nasal discharge, no septal abnormalities noted. Tympanic membranes are normal and external auditory canals are clear. Oropharynx with no redness, swelling, or masses, exudates, or evidence of obstruction, uvula midline. Mucous membranes moist. Neck: Trachea midline, no thyromegaly or masses palpated, and no cervical lymphadenopathy. Supple, full range of motion without nuchal rigidity, or vertebral point tenderness. No Meningismus. Chest/axilla: Normal chest wall appearance and motion. Nontender with no deformity. No lesions are appreciated. Cardiovascular: Regular rate and rhythm with a normal S1 and S2. No gallops, murmurs, or rubs. Normal PMI, no JVD. No pulse deficits. Respiratory: Lungs have equal breath sounds bilaterally, clear to auscultation and percussion. No rales, rhonchi or wheezes noted. No increased work of breathing, no retractions or nasal flaring. Abdomen/GI: Soft, non-tender, with normal bowel sounds. No distension or tympany. No guarding or rebound. No evidence of tenderness throughout. Back: No spinal tenderness. No costovertebral tenderness. Full range of motion. 15:00 MS/ Extremity: Pulses equal, no cyanosis. Neurovascular intact. Full, normal range of motion. 15:00 Skin: Appearance: injury, laceration(s), the wound is approximately 2 cm(s), of the palmar aspect of distal phalanx of right index finger. 15:00 Neuro: Orientation: is normal, Mentation: is normal, Motor: moves all fours, Sensation: is normal, no obvious gross deficits. Vital Signs: 13:02 BP 149 / 92; Pulse 66; Resp 18; Temp 98.7; Pulse Ox 96% on R/A; Weight 77.11 kg (R); aj1 Height 5 ft. 0 in. (152.40 cm) (R); Pain 9/10; 13:30 BP 146 / 73 LA Sitting (auto/lg); Pulse 69; Pulse Ox 98% on R/A; Pain 8/10; jp3 14:26 BP 148 / 80; Pulse 61; Resp 18; Pulse Ox 96% on R/A; kr2 15:00 BP 152 / 81 LA Sitting (auto/reg); Pulse 66; Resp 18; Pulse Ox 98% ; jp3 13:02 Body Mass Index 33.20 (77.11 kg, 152.40 cm) aj1 Laceration: 15:00 Wound Repair of 2cm ( 0.8in ) subcutaneous laceration to palmar aspect of distal pm1 phalanx of right index finger. Distal neuro/vascular/tendon intact. Anesthesia: Digital block administered with 2 mls of 1% lidocaine. Wound prep: Extensive cleansing with betadine by apprentice technician, Wound irrigation with saline by apprentice technician, Wound explored extensively, Copious irrigation. Skin closed with 3 5-0 Prolene using simple suture x 2 and horizontal mattress x 1. Dressed with 4x4's. Patient tolerated well. MDM: 13:18 Patient medically screened. pm1 15:00 Data reviewed: vital signs. Data interpreted: Pulse oximetry: on room air is 96 %. pm1 Interpretation: normal. Counseling: I had a detailed discussion with the patient and/or guardian regarding: the historical points, exam findings, and any diagnostic results supporting the discharge/admit diagnosis, radiology results, the need for outpatient follow up, to return to the emergency department if symptoms worsen or persist or if there are any questions or concerns that arise at home. 03/27 13:19 Order name: Hand Right 3 View XRAY; Complete Time: 14:04 pm1 03/27 13:19 Order name: Wound Care; Complete Time: 13:27 pm1 03/27 13:19 Order name: Prolene, Sutures; Complete Time: 13:32 pm1 03/27 13:19 Order name: Dressing - Wound; Complete Time: 15:22 pm1 03/27 13:19 Order name: Gloves, Sterile; Complete Time: 13:32 pm1 03/27 13:19 Order name: Setup Suture Tray; Complete Time: 13:32 pm1 Administered Medications: 13:27 Drug: Tetanus-Diphtheria Toxoid Adult 0.5 ml {Per Diem: [employer]. Exp: kr2 05/07/2020. Lot #: [id number]. } Route: IM; Site: right deltoid; 15:36 Follow up: Response: No adverse reaction kr2 15:00 Drug: Lidocaine (1 %) 5 ml {Note: Given by provider, NP. Hosea} Volume: 5 ml; kr2 Route: Infiltration; 15:36 Follow up: Response: No adverse reaction; Pain is decreased kr2 Disposition: 16:27 Co-signature as Attending Physician, David Mathur MD I agree with the assessment and kdr plan of care. Disposition: 03/27/18 15:03 Discharged to Home. Impression: Laceration without foreign body of right index finger without damage to nail. - Condition is Stable. - Discharge Instructions: Laceration Care, Adult. - Prescriptions for Keflex 500 mg Oral Capsule - take 1 capsule by ORAL route every 12 hours for 10 days; 20 capsule. - Medication Reconciliation Form, Thank You Letter, Antibiotic Education, Prescription Opioid Use form. - Follow up: Emergency Department; When: As needed; Reason: Worsening of condition. Follow up: Nicolas Waldrop MD; When: 7 - 10 days; Reason: Recheck today's complaints, Continuance of care, Staple/Suture removal, Re-evaluation by your physician. - Problem is new. - Symptoms have improved. Signatures: Dispatcher [employer] EDMS Mena Philippe RN RN aj1 David Mathur MD MD kdr Marinas, Patrick, NP TELEPHONE MAINTAINER pm1 Zaina North RN RN kr2 Corrections: (The following items were deleted from the chart) 15:36 15:03 03/27/2018 15:03 Discharged to Home. Impression: Laceration without foreign body kr2 of right index finger without damage to nail. Condition is Stable. Forms are Medication Reconciliation Form, Thank You Letter, Antibiotic Education, Prescription Opioid Use. Follow up: Emergency Department; When: As needed; Reason: Worsening of condition. Follow up: Nicolas Waldrop; When: 7 - 10 days; Reason: Recheck today's complaints, Continuance of care, Staple/Suture removal, Re-evaluation by your physician. Problem is new. Symptoms have improved. pm1
--- NOTE | 2018-03-27 15:04 | ER ---
Nurse's Notes [facility] Name: Shana Patel Age: 57 yrs Sex: Female : 1960 Arrival Date: 03/27/2018 Time: 12:51 Bed 24 Private MD: Nicolas Waldrop Diagnosis: Laceration without foreign body of right index finger without damage to nail Presentation: 03/27 13:00 Presenting complaint: Patient states: "I cut my finger on my back office lead" Laceration aj1 noted to right index finger. Transition of care: patient was not received from another setting of care. Complicating Factors: There are no complicating factors for this patient. Onset of symptoms was March 27, 2018 at 00:30. Risk Assessment: Do you want to hurt yourself or someone else? Patient reports no desire to harm self or others. Initial Sepsis Screen: Does the patient meet any 2 criteria? No. Patient's initial sepsis screen is negative. Does the patient have a suspected source of infection? Yes: Skin breakdown/wound. Care prior to arrival: None. 13:00 Method Of Arrival: Ambulatory aj1 13:00 Acuity: TERESA 4 aj1 Triage Assessment: 13:02 General: Appears in no apparent distress. comfortable, Behavior is calm, cooperative, aj1 appropriate for age. Pain: Complains of pain in right hand Pain currently is 9 out of 10 on a pain scale. Neuro: Level of Consciousness is awake, alert, obeys commands. Cardiovascular: Patient's skin is warm and dry. Respiratory: Airway is patent Respiratory effort is even, unlabored, Respiratory pattern is regular, symmetrical. Injury Description: Laceration sustained to right index finger. Historical: - Allergies: 13:02 Adhesives; aj1 13:02 Metformin HCl; aj1 - Home Meds: 13:02 hydrocodone-acetaminophen 7.5-325 mg Oral tab 1 tab every 6 hours [Active]; aj1 levothyroxine oral 1 tab once daily [Active]; lisinopril 10 mg Oral tab 1 tab once daily [Active]; Lyrica Oral 2 times per day [Active]; Novolog Sub-Q 40 units in am and 50 units pm [Active]; - PMHx: 13:02 Diabetes - IDDM; Fibromyalgia; GERD; Hypertension; Hypothyroidism; aj1 - Immunization history:: Flu vaccine is not up to date. Last tetanus immunization: unknown. - Social history:: Smoking status: Patient/guardian denies using tobacco. - Ebola Screening: : Patient denies travel to an Ebola-affected area in the 21 days before illness onset. Screenin:30 Abuse screen: Denies threats or abuse. Denies injuries from another. Nutritional kr2 screening: No deficits noted. Tuberculosis screening: No symptoms or risk factors identified. Fall Risk None identified. Assessment: 13:20 General: Appears in no apparent distress. comfortable, well groomed, well developed, kr2 well nourished, Behavior is calm, cooperative, appropriate for age. Pain: Complains of pain in palmar aspect of distal phalanx of right index finger Pain radiates to right hand Pain currently is 8 out of 10 on a pain scale. Quality of pain is described as aching, tender, Pain began 1 day ago. Is continuous, Alleviated by medications. Neuro: Level of Consciousness is awake, alert, obeys commands, Oriented to person, place, time, situation, Orchid Transplanter are equal bilaterally Moves all extremities. Gait is steady. Cardiovascular: Capillary refill < 3 seconds in bilateral fingers Patient's skin is warm and dry. Respiratory: Airway is patent Respiratory effort is even, unlabored, Respiratory pattern is regular, symmetrical. GI: Abdomen is non-distended. EENT: Oral mucosa is moist. Derm: Skin is healthy with good turgor, Skin is pink, warm \\T\\ dry. Musculoskeletal: Circulation, motion, and sensation intact. Injury Description: Puncture sustained to palmar aspect of distal phalanx of right index finger is through and through, was sustained 12-24 hours ago. 14:26 Reassessment: Patient appears in no apparent distress at this time. Patient and/or kr2 family updated on plan of care and expected duration. Pain level reassessed. Patient is alert, oriented x 3, equal unlabored respirations, skin warm/dry/pink. 15:34 Reassessment: Patient appears in no apparent distress at this time. Patient and/or kr2 family updated on plan of care and expected duration. Pain level reassessed. Patient is alert, oriented x 3, equal unlabored respirations, skin warm/dry/pink. Vital Signs: 13:02 BP 149 / 92; Pulse 66; Resp 18; Temp 98.7; Pulse Ox 96% on R/A; Weight 77.11 kg (R); aj1 Height 5 ft. 0 in. (152.40 cm) (R); Pain 9/10; 13:30 BP 146 / 73 LA Sitting (auto/lg); Pulse 69; Pulse Ox 98% on R/A; Pain 8/10; jp3 14:26 BP 148 / 80; Pulse 61; Resp 18; Pulse Ox 96% on R/A; kr2 15:00 BP 152 / 81 LA Sitting (auto/reg); Pulse 66; Resp 18; Pulse Ox 98% ; jp3 13:02 Body Mass Index 33.20 (77.11 kg, 152.40 cm) aj1 ED Course: 12:51 Patient arrived in ED. sb2 12:51 Nicolas Waldrop MD is Private Physician. sb2 13:02 Triage completed. aj1 13:02 Arm band placed on Patient placed in an exam room. aj1 13:15 Pulse ox on. NIBP on. jp3 13:16 Marin Boyle NP is PHCP. pm1 13:16 David Mathur MD is Attending Physician. pm1 13:20 Wound care: to puncture located on palmar aspect of distal phalanx of right index jp3 finger was cleaned with soap and water, soaked in normal saline solution, Patient tolerated well. 13:30 Call light in reach. Side rails up X 1. Warm blanket given. Pillow given. jp3 13:45 Hand Right 3 View XRAY In Process Unspecified. EDMS 14:25 Zaina North, ESPERANZA is Primary Nurse. kr2 15:03 Nicolas Waldrop MD is Referral Physician. pm1 15:15 Wound care: was cleaned with soap and water, dressed with Neosporin, band aid. jp3 15:34 No provider procedures requiring assistance completed. Patient did not have IV access kr2 during this emergency room visit. Administered Medications: 13:27 Drug: Tetanus-Diphtheria Toxoid Adult 0.5 ml {Move Coordinator: [employer]. Exp: kr2 05/07/2020. Lot #: [id number]. } Route: IM; Site: right deltoid; 15:36 Follow up: Response: No adverse reaction kr2 15:00 Drug: Lidocaine (1 %) 5 ml {Note: Given by provider, PEDRO Jc.} Volume: 5 ml; kr2 Route: Infiltration; 15:36 Follow up: Response: No adverse reaction; Pain is decreased kr2 Outcome: 15:03 Discharge ordered by MD. pm1 15:35 Discharged to home ambulatory, with family. kr2 15:35 Condition: good 15:35 Discharge instructions given to patient, family, Instructed on discharge instructions, follow up and referral plans. medication usage, Demonstrated understanding of instructions, follow-up care, medications, Prescriptions given X 1. 15:36 Patient left the ED. kr2 Signatures: Dispatcher [employer] EDMS Mena Philippe RN RN aj1 Marin Boyle NP RESORT KEEPER pm1 Zaina North RN RN kr2 Harmony Arambula sb2 Toni Myers jp3
[2018-03-27 15:41] VITALS: TEMP 98.7
[2018-03-27 15:45] VITALS: BP 152/81; O2SAT 98
== END 2018-03-27 15:36 | disposition home or self-care (01) ==
LOC: ER 12:48
PROC: 0JQJ0ZZ Repair Right Hand Subcutaneous Tissue and Fascia, Open Approach (ICD-10-PCS; principal; 2018-03-27)
DX: S61.210A Laceration without foreign body of right index finger without damage to nail, initial encounter (principal); Z23 Encounter for immunization; W45.8XXA Other foreign body or object entering through skin, initial encounter; Y93.9 Activity, unspecified; Y92.009 Unspecified place in unspecified non-institutional (private) residence as the place of occurrence of the external cause; Z79.4 Long term (current) use of insulin; Z88.8 Allergy status to other drugs, medicaments and biological substances; I10 Essential (primary) hypertension; E03.9 Hypothyroidism, unspecified; E11.9 Type 2 diabetes mellitus without complications
CPT/HCPCS: 90714; 99284

== ENCOUNTER 2018-04-04 23:40 | Emergency (ER) | payer OTHER ==
--- NOTE | 2018-04-05 01:26 | EDPHYS ---
Physician Documentation [facility] Name: Shana Patel Age: 57 yrs Sex: Female : 1960 Arrival Date: 04/04/2018 Time: 23:45 Bed 5 Private MD: Nicolas Waldrop ED Physician Clyde Jordan HPI: 04/05 00:40 This 57 yrs old Female presents to ER via Ambulatory with complaints of Suture cp Removal, cough. 00:40 The patient has sutures on the palmar aspect of distal phalanx of right index finger. cp Previous treatment: The patient was initially treated on March 27, 2018, the care was rendered at [facility], Treatment type: The patient's original treatment included sutures. Sutures/harmeet progress: The patient has no c/o's. The wound is well-healing with no redness, swelling, discharge, or dehiscence reported. 00:41 The patient or guardian reports cough, that is intermittent, with productive sputum, cp that is yellow. Onset: The symptoms/episode began/occurred yesterday. Associated signs and symptoms: Pertinent positives: sore throat, Pertinent negatives: chest pain, diarrhea, fever, vomiting. Severity of symptoms: in the emergency department the symptoms are unchanged patient denies taking any OTC ibuprofen or tylenol today. Historical: - Allergies: 00:04 Adhesives; ao 00:04 Metformin HCl; ao - Home Meds: 00:04 hydrocodone-acetaminophen 7.5-325 mg Oral tab 1 tab every 6 hours [Active]; ao levothyroxine oral 1 tab once daily [Active]; lisinopril 10 mg Oral tab 1 tab once daily [Active]; Lyrica Oral 2 times per day [Active]; Novolog Sub-Q 40 units in am and 50 units pm [Active]; - PMHx: 00:04 Diabetes - IDDM; Fibromyalgia; GERD; Hypertension; Hypothyroidism; ao - PSHx: 00:04 None; ao - Immunization history:: Adult Immunizations up to date. - Social history:: Smoking status: Patient/guardian denies using tobacco, Patient/guardian denies using alcohol, street drugs. - Ebola Screening: : Patient negative for fever greater than or equal to 101.5 degrees Fahrenheit, and additional compatible Ebola Virus Disease symptoms Patient denies exposure to infectious person Patient denies travel to an Ebola-affected area in the 21 days before illness onset. ROS: 00:45 Constitutional: Negative for body aches, chills, fever, poor PO intake. cp 00:45 Eyes: Negative for injury, pain, redness, and discharge. cp 00:45 ENT: Positive for sore throat, Negative for drainage from ear(s), ear pain, sinus congestion, sinus pain, difficulty swallowing, difficulty handling secretions. 00:45 Neck: Negative for pain with movement, pain at rest, stiffness. 00:45 Cardiovascular: Negative for chest pain, edema. 00:45 Respiratory: Positive for cough, with yellow sputum, Negative for shortness of breath, wheezing. 00:45 Abdomen/GI: Negative for abdominal pain, vomiting, diarrhea, constipation. 00:45 Neuro: Negative for altered mental status, headache, weakness. 00:45 All other systems are negative. Exam: 00:50 Constitutional: The patient appears in no acute distress, alert, awake, comfortable, cp non-toxic, well developed, well nourished. 00:50 Head/Face: Normocephalic, atraumatic. cp 00:50 Eyes: Periorbital structures: appear normal, Conjunctiva: normal, no exudate, no injection, Sclera: no appreciated abnormality, Lids and lashes: appear normal, bilaterally. 00:50 ENT: External ear(s): are unremarkable, Ear canal(s): are normal, clear, TM's: bulging, is not appreciated, bilaterally, dullness, bilaterally, erythema, is not appreciated, bilaterally, Nose: is normal, Mouth: Lips: moist, Oral mucosa: pink and intact, moist, Posterior pharynx: Airway: no evidence of obstruction, patent, Tonsils: no enlargement, no exudate, Uvula: midline, swelling, is not appreciated, erythema, that is mild, exudate, is not appreciated, Voice: is normal. 00:50 Neck: ROM/movement: is normal, is supple, without pain, no range of motions limitations, no meningismus, no nuchal rigidity, Lymph nodes: no appreciated lymphadenopathy. 00:50 Chest/axilla: Inspection: normal, Palpation: is normal, no crepitus, no tenderness. 00:50 Cardiovascular: Rate: normal, Rhythm: regular, Edema: is not appreciated, JVD: is not appreciated. 00:50 Respiratory: the patient does not display signs of respiratory distress, Respirations: normal, no use of accessory muscles, no retractions, no splinting, no tachypnea, labored breathing, is not present, Breath sounds: decreased breath sounds, are not appreciated, rhonchi, are not appreciated, stridor, is not appreciated, + upper airway congestion. wheezing: is not appreciated. 00:50 Abdomen/GI: Exam negative for discomfort, distension, guarding, Inspection: abdomen appears normal. 00:50 Skin: cellulitis, is not appreciated, no rash present. 00:50 Skin: Wound recheck: Suture laceration closure: the wound is healing well, the edges are well approximated, no evidence of dehiscence, no drainage, no erythema, no swelling. 00:50 Neuro: Orientation: to person, place \T\ time. Mentation: is normal, Cerebellar function: is grossly normal, Motor: moves all fours, strength is normal, Sensation: is normal. Vital Signs: 00:04 BP 176 / 93; Pulse 71; Resp 18; Temp 98.4(O); Pulse Ox 98% on R/A; Weight 77.11 kg (R); ao Height 1 ft. 50 in. (157.48 cm); Pain 4/10; 01:12 BP 142 / 80; Pulse 64; Resp 17; Pulse Ox 98% on R/A; rr5 01:32 BP 134 / 80; Pulse 65; Resp 16; Pulse Ox 99% on R/A; Pain 0/10; rr5 00:04 Body Mass Index 31.09 (77.11 kg, 157.48 cm) ao Procedures: 00:29 Suture/Staple removal: Removed 3 sutures, from palmar aspect of distal phalanx of right cp index finger, site appears well healed, Patient tolerated well. MDM: 04/04 23:52 Patient medically screened. cp 04/05 01:25 Data reviewed: vital signs, nurses notes, lab test result(s), and as a result, I will cp discharge patient. 01:25 Counseling: I had a detailed discussion with the patient and/or guardian regarding: the cp historical points, exam findings, and any diagnostic results supporting the discharge/admit diagnosis, lab results, to return to the emergency department if symptoms worsen or persist or if there are any questions or concerns that arise at home. 04/05 00:29 Order name: Influenza Screen (a \T\ B) 04/05 00:29 Order name: Strep cp 04/05 01:16 Order name: Throat Culture [facility] Administered Medications: No medications were administered Disposition: 04/05/18 01:26 Discharged to Home. Impression: Encounter for removal of sutures, Cough. - Condition is Stable. - Discharge Instructions: Suture Removal, Care After, Cool Mist Vaporizer, Cough, Adult. - Prescriptions for Tessalon Perles 100 mg Oral Capsule - take 1 capsule by ORAL route every 8 hours As needed; 15 capsule. - Medication Reconciliation Form, Thank You Letter, Antibiotic Education, Prescription Opioid Use form. - Follow up: Private Physician; When: 2 - 3 days; Reason: symptoms continue. - Problem is new. - Symptoms have improved. Addendum: 04/07/2018 06:59 Co-signature as Attending Physician, Clyde Jordan MD I agree with the assessment and c garcia plan of care. Signatures: Dispatcher [employer] [facility] Clyde Jordan MD MD cha Page, Corey, PA PA Zion Moody, RN RN Germain León, RN RN rr5 Corrections: (The following items were deleted from the chart) 04/05 01:33 01:26 04/05/2018 01:26 Discharged to Home. Impression: Encounter for removal of rr5 sutures; Cough. Condition is Stable. Forms are Medication Reconciliation Form, Thank You Letter, Antibiotic Education, Prescription Opioid Use. Follow up: Private Physician; When: 2 - 3 days; Reason: symptoms continue. Problem is new. Symptoms have improved. cp
--- NOTE | 2018-04-05 01:26 | ER ---
Nurse's Notes [facility] Name: Shana Patel Age: 57 yrs Sex: Female : 1960 Arrival Date: 04/04/2018 Time: 23:45 Bed 5 Private MD: Nicolas Waldrop Diagnosis: Encounter for removal of sutures;Cough Presentation: 04/04 23:57 Presenting complaint: Patient states: "I'm her to get my stitches remove as I was ao instructed last time I was here. I also have some time of pressure of my Bronchitis and I cough with no sputum.". Transition of care: patient was not received from another setting of care. Onset of symptoms is unknown. Risk Assessment: Do you want to hurt yourself or someone else? Patient reports no desire to harm self or others. Initial Sepsis Screen: Does the patient meet any 2 criteria? No. Patient's initial sepsis screen is negative. Does the patient have a suspected source of infection? No. Patient's initial sepsis screen is negative. Care prior to arrival: None. 23:57 Method Of Arrival: Ambulatory ao 23:57 Acuity: TERESA 3 ao Triage Assessment: 04/05 00:07 General: Appears in no apparent distress. comfortable, Behavior is calm, cooperative, ao appropriate for age. Pain: Complains of pain in chest from bronchotis as reported by patient. Historical: - Allergies: 00:04 Adhesives; ao 00:04 Metformin HCl; ao - Home Meds: 00:04 hydrocodone-acetaminophen 7.5-325 mg Oral tab 1 tab every 6 hours [Active]; ao levothyroxine oral 1 tab once daily [Active]; lisinopril 10 mg Oral tab 1 tab once daily [Active]; Lyrica Oral 2 times per day [Active]; Novolog Sub-Q 40 units in am and 50 units pm [Active]; - PMHx: 00:04 Diabetes - IDDM; Fibromyalgia; GERD; Hypertension; Hypothyroidism; ao - PSHx: 00:04 None; ao - Immunization history:: Adult Immunizations up to date. - Social history:: Smoking status: Patient/guardian denies using tobacco, Patient/guardian denies using alcohol, street drugs. - Ebola Screening: : Patient negative for fever greater than or equal to 101.5 degrees Fahrenheit, and additional compatible Ebola Virus Disease symptoms Patient denies exposure to infectious person Patient denies travel to an Ebola-affected area in the 21 days before illness onset. Screenin:06 Abuse screen: Denies threats or abuse. Denies injuries from another. Nutritional ao screening: No deficits noted. Tuberculosis screening: No symptoms or risk factors identified. Fall Risk None identified. Assessment: 00:12 General: Appears in no apparent distress. comfortable, Behavior is calm, cooperative. rr5 Pain: Denies pain. Neuro: Level of Consciousness is awake, alert, obeys commands, Oriented to person, place, time, situation. Cardiovascular: Capillary refill < 3 seconds Patient's skin is warm and dry. Respiratory: Reports cough that is dry, Airway is patent Respiratory effort is even, unlabored, Respiratory pattern is regular, symmetrical. GI: Abdomen is round. : No signs and/or symptoms were reported regarding the genitourinary system. EENT: No signs and/or symptoms were reported regarding the EENT system. Derm: Skin is intact, Skin is dry, Skin is pink, warm \\T\\ dry. Wound noted palmar aspect of distal phalanx of right index finger. Musculoskeletal: No signs and/or symptoms reported regarding the musculoskeletal system. Capillary refill < 3 seconds, Range of motion: intact in all extremities. 00:35 Reassessment: suture removed by alexander AVENDAÑO wound is dry and intact. simple dressing rr5 applied. 01:13 Reassessment: Patient and/or family updated on plan of care and expected duration. Pain rr5 level reassessed. Patient is alert, oriented x 3, equal unlabored respirations, skin warm/dry/pink. Patient states feeling better. Patient states symptoms have improved. Vital Signs: 00:04 BP 176 / 93; Pulse 71; Resp 18; Temp 98.4(O); Pulse Ox 98% on R/A; Weight 77.11 kg (R); ao Height 1 ft. 50 in. (157.48 cm); Pain 4/10; 01:12 BP 142 / 80; Pulse 64; Resp 17; Pulse Ox 98% on R/A; rr5 01:32 BP 134 / 80; Pulse 65; Resp 16; Pulse Ox 99% on R/A; Pain 0/10; rr5 00:04 Body Mass Index 31.09 (77.11 kg, 157.48 cm) ao ED Course: 04/04 23:45 Patient arrived in ED. es 23:46 Nicolas Waldrop MD is Private Physician. es 23:52 Clyde Ortiz PA is PHCP. cp 23:52 Clyde Jordan MD is Attending Physician. cp 04/05 00:02 Triage completed. ao 00:05 Arm band placed on right wrist. Patient placed in an exam room, on a stretcher, on ao market investigator, on pulse oximetry, Patient notified of wait time. 00:06 Patient has correct armband on for positive identification. Bed in low position. Call ao light in reach. Side rails up X2. baggage checker on. Pulse ox on. NIBP on. 00:08 Germain Peraza, RN is Primary Nurse. rr5 01:30 No provider procedures requiring assistance completed. Patient did not have IV access rr5 during this emergency room visit. Administered Medications: No medications were administered Outcome: 01:26 Discharge ordered by MD. cp 01:30 Discharged to home ambulatory. rr5 01:30 Condition: stable 01:30 Discharge instructions given to patient, Instructed on discharge instructions, follow up and referral plans. medication usage, Demonstrated understanding of instructions, follow-up care, medications, Prescriptions given X 1. 01:33 Patient left the ED. rr5 Signatures: Suze Hawkins Corey, PA PA cp Ortiz, Alex, RN RN Germain León, RN RN rr5
[2018-04-05 03:08] VITALS: TEMP 98.4
[2018-04-05 03:10] VITALS: BP 134/80; O2SAT 99
== END 2018-04-05 01:33 | disposition home or self-care (01) ==
LOC: ER 23:40
DX: Z48.02 Encounter for removal of sutures (principal); R05 Cough
CPT/HCPCS: 87070; 87081; 87804; 99284

== ENCOUNTER 2018-04-19 03:43 | Emergency (ER) | payer OTHER ==
--- NOTE | 2018-04-19 04:14 | ER ---
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 04:00 Transition of care: patient was not received from another setting of care. Onset of rr5 symptoms was February 2018. Risk Assessment: Do you want to hurt yourself or someone else? Patient reports no desire to harm self or others. Initial Sepsis Screen: Does the patient meet any 2 criteria? No. Patient's initial sepsis screen is negative. Does the patient have a suspected source of infection? No. Patient's initial sepsis screen is negative. Care prior to arrival: None. 04:00 Method Of Arrival: Ambulatory rr5 04:00 Acuity: TERESA 4 rr5 Triage Assessment: 04:00 General: Appears in no apparent distress. comfortable. General: Behavior is calm, rr5 cooperative, appropriate for age. Pain: Complains of pain in right foot heel area Pain does not radiate. Pain: Pain currently is 4 out of 10 on a pain scale. Quality of pain is described as aching. EENT: No signs and/or symptoms were reported regarding the EENT system. Musculoskeletal: Capillary refill < 3 seconds, Range of motion: intact in all extremities, Swelling present in right foot. Injury Description: cut wound. Historical: - Allergies: 04:00 Adhesives; rr5 04:00 Metformin HCl; rr5 - Home Meds: 04:00 hydrocodone-acetaminophen 7.5-325 mg Oral tab 1 tab every 6 hours [Active]; rr5 levothyroxine oral 1 tab once daily [Active]; lisinopril 10 mg Oral tab 1 tab once daily [Active]; Lyrica Oral 2 times per day [Active]; Novolog Sub-Q 40 units in am and 50 units pm [Active]; - PMHx: 04:00 Diabetes - IDDM; Fibromyalgia; GERD; Hypertension; Hypothyroidism; rr5 - PSHx: 04:00 ; rr5 - Immunization history:: Adult Immunizations up to date. - Social history:: Smoking status: Patient/guardian denies using tobacco, Patient/guardian denies using alcohol, street drugs. - Ebola Screening: : Patient negative for fever greater than or equal to 101.5 degrees Fahrenheit, and additional compatible Ebola Virus Disease symptoms Patient denies exposure to infectious person Patient denies travel to an Ebola-affected area in the 21 days before illness onset. Screenin:00 Abuse screen: Denies threats or abuse. Denies injuries from another. Nutritional rr5 screening: No deficits noted. Tuberculosis screening: No symptoms or risk factors identified. Fall Risk None identified. Assessment: 04:05 General: Appears in no apparent distress. comfortable, Behavior is calm, cooperative, rr5 appropriate for age. Pain: Complains of pain in right foot heel area Pain currently is 4 out of 10 on a pain scale. Quality of pain is described as aching, Pain began gradually. Neuro: Level of Consciousness is awake, alert, Oriented to person, place, time, situation. Cardiovascular: Denies chest pain, Capillary refill < 3 seconds Patient's skin is warm and dry. Respiratory: Airway is patent Respiratory effort is even, unlabored, Respiratory pattern is regular, symmetrical. GI: No signs and/or symptoms were reported involving the gastrointestinal system. : No signs and/or symptoms were reported regarding the genitourinary system. EENT: No signs and/or symptoms were reported regarding the EENT system. Derm: Skin cut wound right heel area. Musculoskeletal: Capillary refill < 3 seconds, Range of motion: intact in all extremities, Swelling present in right foot. Injury Description: cut wound. 04:32 Reassessment: Patient appears in no apparent distress at this time. Patient is alert, aa1 oriented x 3, equal unlabored respirations, skin warm/dry/pink. Discussed d/c \T\ f/u instructions with pt \T\ spouse; denies questions or concerns at this time. Vital Signs: 04:00 BP 158 / 90; Pulse 70; Resp 17; Temp 98.2; Pulse Ox 98% on R/A; Weight 79.38 kg; Height rr5 5 ft. 5 in. (165.10 cm); 04:00 Body Mass Index 29.12 (79.38 kg, 165.10 cm) rr5 ED Course: 03:47 Patient arrived in ED. al2 03:55 Germain Peraza, RN is Primary Nurse. rr5 03:59 Irvin Hicks MD is Attending Physician. gs 04:00 Arm band placed on right wrist. rr5 04:10 Triage completed. rr5 04:10 Patient has correct armband on for positive identification. Placed in gown. Bed in low rr5 position. Call light in reach. Side rails up X 1. 04:32 No provider procedures requiring assistance completed. Patient did not have IV access aa1 during this emergency room visit. Dressings: Band aid x 1 lateral side of right heel. Administered Medications: No medications were administered Outcome: 04:13 Discharge ordered by . 04:32 Discharged to home ambulatory, with significant other. aa1 04:32 Condition: good 04:32 Discharge instructions given to patient, significant other, Instructed on discharge instructions, follow up and referral plans. medication usage, Demonstrated understanding of instructions, follow-up care, medications, Prescriptions given X 2. 04:33 Patient left the ED. aa1 Signatures: Diana Lockhart, RN RN aa1 Irvin Hicks MD MD gs Love, Angelica al2 Germain Peraza, RN RN rr5
--- NOTE | 2018-04-19 04:14 | EDPHYS ---
Physician Documentation [facility] Name: Shana Patel Age: 57 yrs Sex: Female : 1960 Arrival Date: 04/19/2018 Time: 03:47 Bed 17 Private MD: ED Physician Irvin Hciks HPI: 04/19 04:08 This 57 yrs old Female presents to ER via Unassigned with complaints of Foot gs Lesion. 04:08 The patient presents with sore/ulcer. The complaints affect the right foot, lateral gs side of right heel. Onset: The symptoms/episode began/occurred 3 day(s) ago. Associated signs and symptoms: Pertinent negatives: fever. Severity of symptoms: At their worst the symptoms were moderate, in the emergency department the symptoms are unchanged. Historical: - Allergies: 04:00 Adhesives; rr5 04:00 Metformin HCl; rr5 - Home Meds: 04:00 hydrocodone-acetaminophen 7.5-325 mg Oral tab 1 tab every 6 hours [Active]; rr5 levothyroxine oral 1 tab once daily [Active]; lisinopril 10 mg Oral tab 1 tab once daily [Active]; Lyrica Oral 2 times per day [Active]; Novolog Sub-Q 40 units in am and 50 units pm [Active]; - PMHx: 04:00 Diabetes - IDDM; Fibromyalgia; GERD; Hypertension; Hypothyroidism; rr5 - PSHx: 04:00 ; rr5 - Immunization history:: Adult Immunizations up to date. - Social history:: Smoking status: Patient/guardian denies using tobacco, Patient/guardian denies using alcohol, street drugs. - Ebola Screening: : Patient negative for fever greater than or equal to 101.5 degrees Fahrenheit, and additional compatible Ebola Virus Disease symptoms Patient denies exposure to infectious person Patient denies travel to an Ebola-affected area in the 21 days before illness onset. ROS: 04:08 All other systems are negative. gs Exam: 04:08 Constitutional: The patient appears in no acute distress, alert, awake. gs 04:08 Musculoskeletal/extremity: Extremities: noted in the : 2cm callous with central ulcer no purelent dc noted, minimal if any cellulitis, Perfusion: the patient is pink. 04:08 Skin: Exam negative for abscess. Vital Signs: 04:00 BP 158 / 90; Pulse 70; Resp 17; Temp 98.2; Pulse Ox 98% on R/A; Weight 79.38 kg; Height rr5 5 ft. 5 in. (165.10 cm); 04:00 Body Mass Index 29.12 (79.38 kg, 165.10 cm) rr5 MDM: 04:08 Patient medically screened. 04:08 Data reviewed: vital signs, nurses notes. Counseling: I had a detailed discussion with the patient and/or guardian regarding: the historical points, exam findings, and any diagnostic results supporting the discharge/admit diagnosis, the need for outpatient follow up. Administered Medications: No medications were administered Disposition: 04/19/18 04:13 Discharged to Home. 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 - Condition is Stable. - Discharge Instructions: Diabetes and Foot Care. - Prescriptions for Levaquin 250 mg Oral Tablet - take 1 tablet by ORAL route once daily for 5 days; 5 tablet. Silvadene 1 % Topical Cream - Apply to affected area 1 application by TOPICAL route every 12 hours; 20 gram. - Medication Reconciliation Form, Thank You Letter, Antibiotic Education, Prescription Opioid Use form. - Follow up: Private Physician; When: 2 - 3 days; Reason: Re-evaluation by your physician. Signatures: Diana Lockhart RN RN aa1 Irvin Hicks MD MD Germain Peraza RN RN rr5 Corrections: (The following items were deleted from the chart) 04:33 04:13 04/19/2018 04:13 Discharged to Home. Impression: Non-pressure chronic ulcer of aa1 unspecified heel and midfoot. Condition is Stable. Forms are Medication Reconciliation Form, Thank You Letter, Antibiotic Education, Prescription Opioid Use. Follow up: Private Physician; When: 2 - 3 days; Reason: Re-evaluation by your physician.
[2018-04-19 14:39] VITALS: BP 158/90; TEMP 98.2; O2SAT 98
== END 2018-04-19 04:33 | disposition home or self-care (01) ==
LOC: ER 03:43
DX: E11.621 Type 2 diabetes mellitus with foot ulcer (principal); L97.419 Non-pressure chronic ulcer of right heel and midfoot with unspecified severity; L84 Corns and callosities; E03.9 Hypothyroidism, unspecified; I10 Essential (primary) hypertension; K21.9 Gastro-esophageal reflux disease without esophagitis; M79.7 Fibromyalgia; Z79.4 Long term (current) use of insulin; Z79.891 Long term (current) use of opiate analgesic; Z79.899 Other long term (current) drug therapy
CPT/HCPCS: 99282

== ENCOUNTER 2018-05-18 17:11 | Emergency (ER) | payer OTHER ==
[2018-05-18] MEDS ORDERED: HYDROCODONE/APAP 5/325 MG TAB ONE (18:22)
--- NOTE | 2018-05-18 19:06 | RAD REPORT ---
EXAM DESCRIPTION: RAD - Ribs Left - 05/18/2018 6:34 pm CLINICAL HISTORY: injury Left-sided chest pain following injury COMPARISON: Chest Single View dated 01/04/2018 FINDINGS: No displaced rib fracture is seen on the left. No aggressive rib lesion.
--- NOTE | 2018-05-18 19:35 | ER ---
Nurse's Notes [facility] Name: Shana Patel Age: 57 yrs Sex: Female : 1960 Arrival Date: 05/18/2018 Time: 17:14 Bed 23 Private MD: Nicolas Waldrop Diagnosis: Strain of muscle and tendon of front wall of thorax Presentation: 05/18 17:19 Presenting complaint: Patient states: i was reaching for my purse last night and i tw2 think i pulled a muscle between my ribs on the left side and now its swollen, it might be fractured. Transition of care: patient was not received from another setting of care. Onset of symptoms was May 18, 2018. Risk Assessment: Do you want to hurt yourself or someone else? Patient reports no desire to harm self or others. Initial Sepsis Screen: Does the patient meet any 2 criteria? No. Patient's initial sepsis screen is negative. Does the patient have a suspected source of infection? No. Patient's initial sepsis screen is negative. Care prior to arrival: None. 17:19 Method Of Arrival: Wheelchair tw2 17:19 Acuity: TERESA 4 tw2 Triage Assessment: 17:21 General: Appears in no apparent distress. Behavior is calm, cooperative, appropriate tw2 for age. Pain: Complains of pain in left ribs. Historical: - Allergies: 17:20 Adhesives; tw2 17:20 Metformin HCl; tw2 - Home Meds: 17:20 Novolog Sub-Q 40 units in am and 50 units pm [Active]; Lyrica Oral 2 times per day tw2 [Active]; lisinopril 10 mg Oral tab 1 tab once daily [Active]; levothyroxine oral 1 tab once daily [Active]; hydrocodone-acetaminophen 7.5-325 mg Oral tab 1 tab every 6 hours [Active]; - PMHx: 17:20 Diabetes - IDDM; Fibromyalgia; GERD; Hypertension; Hypothyroidism; tw2 - PSHx: 17:20 ; tw2 - Immunization history:: Adult Immunizations. - Social history:: Smoking status: Patient/guardian denies using tobacco. - Ebola Screening: : Patient denies travel to an Ebola-affected area in the 21 days before illness onset. Screenin:38 Abuse screen: Denies threats or abuse. Denies injuries from another. Nutritional ed1 screening: No deficits noted. Tuberculosis screening: No symptoms or risk factors identified. Fall Risk None identified. Assessment: 17:38 General: Appears uncomfortable, Behavior is calm, cooperative. Pain: Complains of pain ed1 in left lateral anterior chest Pain does not radiate. Pain currently is 9 out of 10 on a pain scale. Quality of pain is described as sharp, Pain began 1 day ago. Is continuous. Neuro: Level of Consciousness is awake, alert, obeys commands, Oriented to person, place, time, situation. Cardiovascular: Denies chest pain, Heart tones S1 S2 present. Respiratory: Airway is patent Respiratory effort is even, unlabored, Respiratory pattern is regular, symmetrical, Breath sounds are clear bilaterally. GI: No signs and/or symptoms were reported involving the gastrointestinal system. : No signs and/or symptoms were reported regarding the genitourinary system. EENT: No signs and/or symptoms were reported regarding the EENT system. Derm: Skin is intact, is healthy with good turgor, Skin is dry, Skin is normal, Skin temperature is warm. Musculoskeletal: Circulation, motion, and sensation intact. 17:40 General: The previous assessment is accurate, call light remains within reach. ss Vital Signs: 17:19 BP 149 / 68; Pulse 73; Resp 17; Temp 97.5(TE); Pulse Ox 95% on R/A; Pain 9/10; tw2 ED Course: 17:14 Patient arrived in ED. sb2 17:15 Nicolas Waldrop MD is Private Physician. sb2 17:19 Triage completed. tw2 17:19 Arm band placed on. tw2 17:21 Karen Martinez LVN is Primary Nurse. ed1 17:25 Anastacio Casanova PA is PHCP. jmm 17:25 Didier Gonzalez MD is Attending Physician. jmm 17:38 Patient has correct armband on for positive identification. Bed in low position. Call ed1 light in reach. Side rails up X 1. Adult w/ patient. 18:30 Ribs Left XRAY In Process Unspecified. EDMS 19:03 Primary Nurse role handed off by Karen Martinez LVN ed1 19:13 Gary Lerma, RN is Primary Nurse. la1 19:32 Nicolas Waldrop MD is Referral Physician. jmm 19:46 No provider procedures requiring assistance completed. Patient did not have IV access la1 during this emergency room visit. Administered Medications: 18:14 Drug: [place] 5 mg-325 mg 1 tabs Route: PO; ed1 Outcome: 19:34 Discharge ordered by . [facility] 19:46 Discharged to home ambulatory. la1 19:46 Condition: stable 19:46 Discharge instructions given to patient, Instructed on discharge instructions, follow up and referral plans. medication usage, Demonstrated understanding of instructions, follow-up care, incentive spirpmetry 19:47 Patient left the ED. la1 Signatures: Dispatcher [employer] EDMS Anastacio Casanova PA PA [facility] Sydni Corbin, RN RN ss Karen Martinez LVN WELL TENDER ed1 Gary Lerma RN RN la1 Therese Jurado RN RN tw2 Harmony Arambula sb2
--- NOTE | 2018-05-18 19:35 | EDPHYS ---
Physician Documentation [facility] Name: Shana Patel Age: 57 yrs Sex: Female : 1960 Arrival Date: 05/18/2018 Time: 17:14 Bed 23 Private MD: Nicolas Waldrop ED Physician Didier Gonzalez HPI: 05/18 18:16 This 57 yrs old Female presents to ER via Wheelchair with complaints of SIDE jmm PAIN. 18:16 The patient presents with pain that is acute. Onset: The symptoms/episode jmm began/occurred acutely, 1 day(s) ago. The pain does not radiate. Associated signs and symptoms: Pertinent negatives: SOB. This is a 57 year old female with a history of DM, fibromyalgia, that presents to the ED with left sided rib pain after reaching for an object on her right side. patient states sustaining rib fractures with a similar episode. patient denies shortness of breath. . Historical: - Allergies: 17:20 Adhesives; tw2 17:20 Metformin HCl; tw2 - Home Meds: 17:20 Novolog Sub-Q 40 units in am and 50 units pm [Active]; Lyrica Oral 2 times per day tw2 [Active]; lisinopril 10 mg Oral tab 1 tab once daily [Active]; levothyroxine oral 1 tab once daily [Active]; hydrocodone-acetaminophen 7.5-325 mg Oral tab 1 tab every 6 hours [Active]; - PMHx: 17:20 Diabetes - IDDM; Fibromyalgia; GERD; Hypertension; Hypothyroidism; tw2 - PSHx: 17:20 ; tw2 - Immunization history:: Adult Immunizations. - Social history:: Smoking status: Patient/guardian denies using tobacco. - Ebola Screening: : Patient denies travel to an Ebola-affected area in the 21 days before illness onset. ROS: 18:16 Constitutional: Negative for fever, chills, and weight loss, Cardiovascular: Negative jmm for chest pain, palpitations, and edema, Respiratory: Negative for shortness of breath, cough, wheezing, and pleuritic chest pain. 18:16 Back: Positive for pain at rest. 18:16 All other systems are negative. Exam: 18:16 Constitutional: This is a well developed, well nourished patient who is awake, alert, jmm and in no acute distress. Head/Face: atraumatic. Eyes: EOMI, no conjunctival erythema appreciated ENT: Moist Mucus Membranes Neck: Trachea midline, Supple 18:16 Chest/axilla: Palpation: tenderness, that is moderate, of the left lateral posterior chest. 18:16 Cardiovascular: Rate: normal, Rhythm: regular. 18:16 Respiratory: the patient does not display signs of respiratory distress, Respirations: normal, Breath sounds: are clear throughout. 18:16 Abdomen/GI: Inspection: abdomen appears normal, Bowel sounds: normal. 18:16 Back: left side rib pain. 18:16 Musculoskeletal/extremity: ROM: intact in all extremities. 18:16 Skin: Appearance: Color: normal in color. 18:16 Neuro: Orientation: is normal, Mentation: is normal, Memory: is normal. 18:16 Psych: Behavior/mood is pleasant, cooperative. Vital Signs: 17:19 BP 149 / 68; Pulse 73; Resp 17; Temp 97.5(TE); Pulse Ox 95% on R/A; Pain 9/10; tw2 MDM: 18:06 Patient medically screened. [facility] 19:30 Data reviewed: vital signs, nurses notes, radiologic studies, plain films. Data [facility] interpreted: Pulse oximetry: on room air is 95 %. Interpretation: normal. Counseling: I had a detailed discussion with the patient and/or guardian regarding: the historical points, exam findings, and any diagnostic results supporting the discharge/admit diagnosis, radiology results, the need for outpatient follow up, to return to the emergency department if symptoms worsen or persist or if there are any questions or concerns that arise at home. Response to treatment: the patient's symptoms have markedly improved after treatment, and as a result, I will discharge patient. ED course: Patient is alert, in no respiratory distress, non toxic in appearance on discharge. Patient given IS with education. Patient given return precautions and otherwise advised to follow up with PCP for reevaluation. . 05/18 18:08 Order name: Ribs Left XRAY; Complete Time: 19:08 [facility] 05/18 18:08 Order name: INCENTIVE SPIROMETRY [facility] 05/18 18:42 Order name: RC INCENTIVE SPIROMETRY EDMS Administered Medications: 18:14 Drug: [place] 5 mg-325 mg 1 tabs Route: PO; ed1 Disposition: 05/19 09:54 Co-signature as Attending Physician, Didier Gonzalez MD. rn Disposition: 05/18/18 19:34 Discharged to Home. Impression: Strain of muscle and tendon of front wall of thorax. - Condition is Stable. - Discharge Instructions: Rib Contusion, Incentive Spirometer. - Medication Reconciliation Form, Thank You Letter, Antibiotic Education, Prescription Opioid Use form. - Follow up: Nicolas Waldrop MD; When: 2 - 3 days; Reason: Recheck today's complaints, Continuance of care, Re-evaluation by your physician. Signatures: Dispatcher [employer] EDMS Anastacio Casanova, KATERYNA PA Didier Rosado MD MD rn Karen Martinez, HOG CUTTER HOG CUTTER ed1 Gary Lerma RN RN la1 Therese Jurado RN RN tw2 Corrections: (The following items were deleted from the chart) 05/18 19:47 19:34 05/18/2018 19:34 Discharged to Home. Impression: Strain of muscle and tendon of la1 front wall of thorax. Condition is Stable. Forms are Medication Reconciliation Form, Thank You Letter, Antibiotic Education, Prescription Opioid Use. Follow up: Nicolas Waldrop; When: 2 - 3 days; Reason: Recheck today's complaints, Continuance of care, Re-evaluation by your physician. stephany
[2018-05-18 20:45] VITALS: BP 149/68; TEMP 97.5; O2SAT 95
== END 2018-05-18 19:47 | disposition home or self-care (01) ==
LOC: ER 17:11
DX: S29.011A Strain of muscle and tendon of front wall of thorax, initial encounter (principal); X58.XXXA Exposure to other specified factors, initial encounter; Y93.89 Activity, other specified; Y92.9 Unspecified place or not applicable; Z79.4 Long term (current) use of insulin; Z88.8 Allergy status to other drugs, medicaments and biological substances; Z91.048 Other nonmedicinal substance allergy status; I10 Essential (primary) hypertension; E11.9 Type 2 diabetes mellitus without complications; E03.9 Hypothyroidism, unspecified; K21.9 Gastro-esophageal reflux disease without esophagitis
CPT/HCPCS: 99283

== ENCOUNTER 2018-09-24 14:12 | Emergency (ER) | payer OTHER ==
[2018-09-24 16:16] LABS: Urine Blood 3+ (NEG); Urine Glucose NEGATIVE (NEG); Urine Protein 2+ (NEG); Urine Specific Gravity 1.025 (1.005-1.030)
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
[2018-09-24 18:30] VITALS: O2SAT 99
[2018-09-24 18:32] VITALS: TEMP 98.7
[2018-09-24 18:35] VITALS: BP 144/86
== END 2018-09-24 18:23 | disposition home or self-care (01) ==
LOC: ER 14:12
DX: R10.84 Generalized abdominal pain (principal); V49.50XA Passenger injured in collision with unspecified motor vehicles in traffic accident, initial encounter; Z79.4 Long term (current) use of insulin; I10 Essential (primary) hypertension; E03.9 Hypothyroidism, unspecified; E11.9 Type 2 diabetes mellitus without complications; K21.9 Gastro-esophageal reflux disease without esophagitis
CPT/HCPCS: 74176; 81003; 82962; 99285

== ENCOUNTER 2018-10-16 22:20 | Emergency (ER) | payer OTHER ==
--- OUTSIDE RECORDS SUMMARY | 2018-10-16 22:22 | XMS REPORT ---
:1960 [facility] [address] [place] [address] Care Team Providers Name Role Phone Unavailable Unavailable Unavailable Problems This patient has no known problems. Allergies, Adverse Reactions, Alerts This patient has no known allergies or adverse reactions. Medications This patient has no known medications.
--- NOTE | 2018-10-16 23:51 | EDPHYS ---
Physician Documentation [facility] Name: Shana Patel Age: 58 yrs Sex: Female : 1960 Arrival Date: 10/16/2018 Time: 22:21 Bed 17 Private MD: Nioclas Waldrop ED Physician Didier Gonzalez HPI: 10/16 22:48 This 58 yrs old Female presents to ER via Ambulatory with complaints of Sore snw Throat. 22:48 The patient presents with sore throat. The patient describes throat pain as raw, snw scratchy. Onset: The symptoms/episode began/occurred suddenly, today. Severity of symptoms: At their worst the symptoms were moderate. Associated signs and symptoms: Pertinent positives: dry cough. It is unknown whether or not the patient has had similar symptoms in the past. It is unknown whether or not the patient has recently seen a physician. Historical: - Allergies: 22:50 Adhesives; bb 22:50 Metformin HCl; bb - Home Meds: 22:50 hydrocodone-acetaminophen 7.5-325 mg Oral tab 1 tab every 6 hours [Active]; bb levothyroxine oral 1 tab once daily [Active]; lisinopril 10 mg Oral tab 1 tab once daily [Active]; Novolog Sub-Q [Active]; Lyrica Oral 2 times per day [Active]; - PMHx: 22:50 Diabetes - IDDM; Fibromyalgia; GERD; Hypertension; Hypothyroidism; rectocele; bb - PSHx: 22:50 ; Cholecystectomy; Knee surgery; Hernia repair; bb - Immunization history:: Adult Immunizations up to date. - Social history:: Smoking status: Patient/guardian denies using tobacco. - Ebola Screening: : No symptoms or risks identified at this time. ROS: 22:47 Constitutional: Negative for fever, chills, and weight loss, Eyes: Negative for injury, snw pain, redness, and discharge, Neck: Negative for injury, pain, and swelling, Cardiovascular: Negative for chest pain, palpitations, and edema, Respiratory: Negative for shortness of breath, cough, wheezing, and pleuritic chest pain. 22:47 Back: Negative for injury and pain, : Negative for injury, bleeding, discharge, and swelling, MS/Extremity: Negative for injury and deformity, Skin: Negative for injury, rash, and discoloration, Neuro: Negative for headache, weakness, numbness, tingling, and seizure. 22:47 ENT: Positive for sore throat. 22:47 Abdomen/GI: Positive for history of multiple hernias, will be having surgery soon per Dr. Mcintosh, awaiting finding a accounts specialist surgeon to repair another hernia on the same day.. Exam: 22:46 Constitutional: This is a well developed, well nourished patient who is awake, alert, snw and in no acute distress. Head/Face: Normocephalic, atraumatic. Eyes: Pupils equal round and reactive to light, extra-ocular motions intact. Lids and lashes normal. Conjunctiva and sclera are non-icteric and not injected. Cornea within normal limits. Periorbital areas with no swelling, redness, or edema. Neck: Trachea midline, no thyromegaly or masses palpated, and no cervical lymphadenopathy. Supple, full range of motion without nuchal rigidity, or vertebral point tenderness. No Meningismus. Chest/axilla: Normal chest wall appearance and motion. Nontender with no deformity. No lesions are appreciated. Cardiovascular: Regular rate and rhythm with a normal S1 and S2. No gallops, murmurs, or rubs. Normal PMI, no JVD. No pulse deficits. Respiratory: Lungs have equal breath sounds bilaterally, clear to auscultation and percussion. No rales, rhonchi or wheezes noted. No increased work of breathing, no retractions or nasal flaring. Back: No spinal tenderness. No costovertebral tenderness. Full range of motion. Skin: Warm, dry with normal turgor. Normal color with no rashes, no lesions, and no evidence of cellulitis. MS/ Extremity: Pulses equal, no cyanosis. Neurovascular intact. Full, normal range of motion. Neuro: Awake and alert, GCS 15, oriented to person, place, time, and situation. Cranial nerves II-XII grossly intact. Motor strength 5/5 in all extremities. Sensory grossly intact. Cerebellar exam normal. Normal gait. 22:46 Abdomen/GI: Inspection: obese Bowel sounds: normal, Palpation: abdomen is soft and non-tender. Vital Signs: 22:50 BP 153 / 94; Pulse 72; Resp 18 S; Temp 99.2(O); Pulse Ox 99% on R/A; Weight 77.11 kg bb (R); Height 5 ft. 0 in. (152.40 cm) (R); Pain 10/10; 23:35 BP 132 / 74; Pulse 70; Resp 17; Temp 99.4; Pulse Ox 99% on R/A; rr5 10/17 00:10 BP 133 / 70; Pulse 78; Resp 18; Temp 98.4; Pulse Ox 99% on R/A; Pain 5/10; rr5 10/16 22:50 Body Mass Index 33.20 (77.11 kg, 152.40 cm) bb MDM: 10/16 22:36 Patient medically screened. snw 23:52 Data reviewed: vital signs, nurses notes. Data interpreted: Pulse oximetry: on room air snw is 99 %. Interpretation: normal. Counseling: I had a detailed discussion with the patient and/or guardian regarding: the historical points, exam findings, and any diagnostic results supporting the discharge/admit diagnosis, lab results, the need for outpatient follow up, to return to the emergency department if symptoms worsen or persist or if there are any questions or concerns that arise at home. Special discussion: Based on the history and exam findings, there is no indication for further emergent testing or inpatient evaluation. I discussed with the patient/guardian the need to see the primary care provider for further evaluation of the symptoms. 10/16 22:46 Order name: Strep snw 10/16 22:47 Order name: Group A Streptococcus Rapid Sc; Complete Time: 23:49 EDMS 10/16 23:50 Order name: Throat Culture EDMS Administered Medications: 23:55 Drug: GI Cocktail without - (Maalox Suspension 30 ml, Lidocaine Liquid 2 % 15 rr5 ml) Route: PO; 10/17 00:10 Follow up: Response: Medication administered at discharge. rr5 Disposition: 00:25 Co-signature as Attending Physician, Didier Gonzalez MD. rn Disposition: 10/16/18 23:50 Discharged to Home. Impression: Acute pharyngitis. - Condition is Stable. - Discharge Instructions: Clear Liquid Diet, Adult, Pharyngitis, Rehydration, Adult. - Medication Reconciliation Form, Thank You Letter, Antibiotic Education, Prescription Opioid Use form. - Follow up: Nicolas Waldrop MD; When: 2 - 3 days; Reason: Recheck today's complaints, Continuance of care, Re-evaluation by your physician. Follow up: Emergency Department; When: As needed; Reason: Worsening of condition. Signatures: Dispatcher [employer] EDMS Sirisha Herrera, ANITA-C OPTICAL EFFECTS CAMERA OPERATOR-Csnw Maureen Lr RN RN Didier Quintana MD MD rn Roque, Raymond, RN RN rr5 Corrections: (The following items were deleted from the chart) 00:15 10/16 23:50 10/16/2018 23:50 Discharged to Home. Impression: Acute pharyngitis. rr5 Condition is Stable. Discharge Instructions: Pharyngitis. Forms are Medication Reconciliation Form, Thank You Letter, Antibiotic Education, Prescription Opioid Use. Follow up: Nicolsa Waldrop; When: 2 - 3 days; Reason: Recheck today's complaints, Continuance of care, Re-evaluation by your physician. Follow up: Emergency Department; When: As needed; Reason: Worsening of condition. snw
--- NOTE | 2018-10-16 23:51 | ER ---
Nurse's Notes [facility] Name: Shana Patel Age: 58 yrs Sex: Female : 1960 Arrival Date: 10/16/2018 Time: 22:21 Bed 17 Private MD: Nicolas Waldrop Diagnosis: Acute pharyngitis Presentation: 10/16 02:35 Presenting complaint: Patient states: she has a dry cough and a sore throat since this bb morning states her immune system is low because she is a diabetic. Transition of care: patient was not received from another setting of care. Onset of symptoms was October 16, 2018. Risk Assessment: Do you want to hurt yourself or someone else? Patient reports no desire to harm self or others. Initial Sepsis Screen: Does the patient meet any 2 criteria? No. Patient's initial sepsis screen is negative. Does the patient have a suspected source of infection? No. Patient's initial sepsis screen is negative. Care prior to arrival: None. 02:35 Method Of Arrival: Ambulatory bb 02:35 Acuity: TERESA 4 bb Historical: - Allergies: 22:50 Adhesives; bb 22:50 Metformin HCl; bb - Home Meds: 22:50 hydrocodone-acetaminophen 7.5-325 mg Oral tab 1 tab every 6 hours [Active]; bb levothyroxine oral 1 tab once daily [Active]; lisinopril 10 mg Oral tab 1 tab once daily [Active]; Novolog Sub-Q [Active]; Lyrica Oral 2 times per day [Active]; - PMHx: 22:50 Diabetes - IDDM; Fibromyalgia; GERD; Hypertension; Hypothyroidism; rectocele; bb - PSHx: 22:50 ; Cholecystectomy; Knee surgery; Hernia repair; bb - Immunization history:: Adult Immunizations up to date. - Social history:: Smoking status: Patient/guardian denies using tobacco. - Ebola Screening: : No symptoms or risks identified at this time. Screenin:37 Abuse screen: Denies threats or abuse. Denies injuries from another. Nutritional rr5 screening: No deficits noted. Tuberculosis screening: No symptoms or risk factors identified. Fall Risk None identified. Total Francis Fall Scale indicates No Risk (0-24 pts). Assessment: 23:00 General: Appears in no apparent distress. uncomfortable, Behavior is calm, cooperative, rr5 appropriate for age. Pain: Complains of pain in throat Pain does not radiate. Pain currently is 8 out of 10 on a pain scale. Quality of pain is described as aching, Pain began gradually, Is intermittent. 23:00 Neuro: Level of Consciousness is awake, alert, obeys commands, Oriented to person, rr5 place, time, situation, Appropriate for age. Cardiovascular: Capillary refill < 3 seconds Patient's skin is warm and dry. Respiratory: Airway is patent Respiratory effort is even, unlabored, Respiratory pattern is regular, symmetrical. GI: No signs and/or symptoms were reported involving the gastrointestinal system. : No signs and/or symptoms were reported regarding the genitourinary system. EENT: Throat is clear with gag reflex present. Derm: Skin is intact, Skin temperature is warm. Musculoskeletal: Capillary refill < 3 seconds, Range of motion: intact in all extremities. 23:00 Respiratory: Breath sounds are clear bilaterally. rr5 23:37 Reassessment: Patient appears in no apparent distress at this time. No changes from rr5 previously documented assessment. Patient is alert, oriented x 3, equal unlabored respirations, skin warm/dry/pink. 10/17 00:10 Reassessment: Patient appears in no apparent distress at this time. Patient is alert, rr5 oriented x 3, equal unlabored respirations, skin warm/dry/pink. discharge instruction given and explained without complaints made. Patient states feeling better. Patient states symptoms have improved. Vital Signs: 10/16 22:50 BP 153 / 94; Pulse 72; Resp 18 S; Temp 99.2(O); Pulse Ox 99% on R/A; Weight 77.11 kg bb (R); Height 5 ft. 0 in. (152.40 cm) (R); Pain 10/10; 23:35 BP 132 / 74; Pulse 70; Resp 17; Temp 99.4; Pulse Ox 99% on R/A; rr5 10/17 00:10 BP 133 / 70; Pulse 78; Resp 18; Temp 98.4; Pulse Ox 99% on R/A; Pain 5/10; rr5 10/16 22:50 Body Mass Index 33.20 (77.11 kg, 152.40 cm) ED Course: 10/16 22:21 Patient arrived in ED. am2 22:21 Nicolas Waldrop MD is Private Physician. am2 22:23 Sirisha Herrera FNP-C [facility]. snw 22:23 Didier Gonzalez MD is Attending Physician. snw 22:47 Triage completed. bb 22:50 Arm band placed on Patient placed in an exam room, on a stretcher, on pulse oximetry. bb Family accompanied patient. 23:00 Patient has correct armband on for positive identification. Bed in low position. Call rr5 light in reach. Side rails up X2. Pulse ox on. NIBP on. 23:31 Germain Peraza, RN is Primary Nurse. rr5 23:37 No provider procedures requiring assistance completed. rr5 23:49 Nicolas Waldrop MD is Referral Physician. snw 10/17 00:13 Patient did not have IV access during this emergency room visit. rr5 Administered Medications: 10/16 23:55 Drug: GI Cocktail without - (Maalox Suspension 30 ml, Lidocaine Liquid 2 % 15 rr5 ml) Route: PO; 10/17 00:10 Follow up: Response: Medication administered at discharge. rr5 Outcome: 10/16 23:50 Discharge ordered by . snw 10/17 00:10 Discharged to home ambulatory, with family. rr5 Condition: stable Discharge instructions given to patient, Instructed on discharge instructions, follow up and referral plans. Demonstrated understanding of instructions, follow-up care, Prescriptions given X 00:15 Patient left the ED. rr5 Signatures: Sirisha Herrera FNP-C SUBSTANCE ADDICTION COORDINATOR[facility] Maureen Lr RN RN bb Citlalli Sam [facility] Germain Peraza, RN RN rr5
[2018-10-17] MEDS ORDERED: MAGNE/ALUM HYDROXD 30 ML UCUP ONE (00:10)
[2018-10-17] MEDS ORDERED: LIDOCAINE VISCOUS 2% SOLN 15 ML UDC ONE (00:10)
[2018-10-17 01:22] VITALS: O2SAT 99
[2018-10-17 01:25] VITALS: BP 133/70; TEMP 98.4
== END 2018-10-17 00:15 | disposition home or self-care (01) ==
LOC: ER 22:20
DX: J02.9 Acute pharyngitis, unspecified (principal); I10 Essential (primary) hypertension; E11.9 Type 2 diabetes mellitus without complications; E03.9 Hypothyroidism, unspecified; K21.9 Gastro-esophageal reflux disease without esophagitis; Z79.4 Long term (current) use of insulin; Z88.8 Allergy status to other drugs, medicaments and biological substances; Z91.048 Other nonmedicinal substance allergy status
CPT/HCPCS: 87070; 87081; 99283

== ENCOUNTER 2019-02-01 12:07 | Emergency (ER) | payer OTHER ==
--- OUTSIDE RECORDS SUMMARY | 2019-02-01 12:09 | XMS REPORT ---
:1960 [facility] [address] [place] [address] Care Team Providers Name Role Phone Unavailable Unavailable Unavailable Problems This patient has no known problems. Allergies, Adverse Reactions, Alerts This patient has no known allergies or adverse reactions. Medications This patient has no known medications. Encounters Start End Encounter Admission Attending Care Care Encounter Date/Time Date/Time Type Type Clinicians Facility Department ID 2018-10-20 2018-10-20 Emergency E [id number] 10:28:00 10:28:00
[2019-02-01] MEDS ORDERED: ONDANSETRON 4 MG/2 ML VIAL ONE (13:36)
[2019-02-01] MEDS ORDERED: MORPHINE 4 MG/ML SYR ONE (13:36)
[2019-02-01 13:59] LABS: Absolute Lymphocytes (CBC) 1.3 K/uL (0.7-4.9); Basophils % 0.9 % (0-1.3); Hematocrit 35.4 % (36.0-45.0); Lymphocytes % 25.7 % (15.3-44.8); MPV 9.1 fL (7.6-11.3); RBC Red Blood Cell Count 4.12 M/uL (3.86-4.86)
[2019-02-01 14:34] LABS: ALT/SGPT 13 U/L (12-78); AST/SGOT 6 U/L (15-37); Albumin 3.4 g/dL (3.4-5.0); Alkaline Phosphatase 121 U/L (45-117); BUN Blood Urea Nitrogen 20 mg/dL (7-18); Bicarbonate 26 mmol/L (21-32); Bilirubin Direct < 0.1 mg/dL (0-0.2); Bilirubin Total 0.5 mg/dL (0.2-1.0); Lipase 68 U/L (73-393); Potassium 4.1 mmol/L (3.5-5.1); Protein, Total 7.4 g/dL (6.4-8.2); Sodium Level 138 mmol/L (136-145)
[2019-02-01 14:37] LABS: Glucose Level 413 mg/dL (74-106)
--- NOTE | 2019-02-01 14:37 | RAD REPORT ---
EXAM DESCRIPTION: CT - Stone Protocol - 02/01/2019 2:26 pm CLINICAL HISTORY: Flank pain. abdominal pain, back pain COMPARISON: Abdomen Pelvis Wo Contrast dated 09/24/2018 TECHNIQUE: Axial images were obtained without oral or IV contrast. Lack of contrast limits solid org an and vascular assessment. The [id number] spans the entirety of the system partially obscuring uppermost abdomen and lung bases. Coronal reformatted images were obtained and reviewed. All CT scans are performed using dose optimization technique as appropriate and may include automated exposure control or mA/KV adjustment according to patient size. FINDINGS: The lower lung mckenzie are clear. Cholecystectomy clips. Imaged portions of the liver and spleen show no suspicious findings on non-contrast imaging. The panc reas and adrenal glands are normal. No pathologic lymphadenopathy in the abdomen or pelvis. No urinary tract stones or obstructive uropathy. No bowel obstruction, free air, free fluid or abscess. Prominent sigmoid diverticulosis is present wi thout evidence of diverticulitis. Evidence of previous anterior ventral hernia repair. Mild lower lumbar spondylosis. Small fat containing bilateral inguinal hernias. IMPRESSION: No urinary tract stones or obstructive uropathy. Sigmoid diverticulosis without diverticulitis. Small bilateral fat containing inguinal hernias.
--- NOTE | 2019-02-01 15:27 | RAD REPORT ---
EXAM DESCRIPTION: US - Extremity Venous Uni Ltd - 02/01/2019 2:58 pm CLINICAL HISTORY: leg pain Leg swelling and edema. COMPARISON: No comparisons FINDINGS: Right lower extremity venous system was interrogated with Doppler technique. Normal flow, compressibility and augmentation was noted. There is no DVT present.3 cm Steel's cyst. IMPRESSION: No evidence of right lower extremity deep venous thrombosis.
--- NOTE | 2019-02-01 16:36 | ER ---
Nurse's Notes [facility] Name: Shana Patel Age: 58 yrs Sex: Female : 1960 Arrival Date: 02/01/2019 Time: 12:09 Bed 17 Private MD: Nicolas Waldrop Diagnosis: Low back pain;Unspecified abdominal pain;Synovial cyst of popliteal space [Steel], right knee Presentation: 02/01 12:30 Presenting complaint: Patient states: bilateral low back pain x 1 week, bilateral hand sv tingling, RLE pain and swelling. States she has a rectocele. Transition of care: patient was not received from another setting of care. Onset of symptoms was January 2019. Risk Assessment: Do you want to hurt yourself or someone else? Patient reports no desire to harm self or others. Care prior to arrival: None. 12:30 Method Of Arrival: Ambulatory sv 12:30 Acuity: TERESA 3 sv 13:10 Initial Sepsis Screen: Does the patient meet any 2 criteria? No. Patient's initial em sepsis screen is negative. Does the patient have a suspected source of infection? No. Patient's initial sepsis screen is negative. Triage Assessment: 12:30 General: Appears in no apparent distress. uncomfortable, Behavior is cooperative, sv appropriate for age, anxious. Pain: Complains of pain in left low back and right low back Pain radiates to right leg. Neuro: Level of Consciousness is awake, alert, obeys commands, Moves all extremities. Full function Gait is steady, Reports tingling to bilateral hands. Respiratory: Respiratory effort is even, unlabored, Respiratory pattern is regular, symmetrical. Historical: - Allergies: 12:33 Adhesives; sv 12:33 Metformin HCl; sv 13:41 iv contrast; em - PMHx: 12:33 Diabetes - IDDM; Fibromyalgia; GERD; Hypertension; Hypothyroidism; rectocele; sv - PSHx: 12:33 ; Cholecystectomy; Knee surgery; Hernia repair; sv - Immunization history:: Adult Immunizations up to date. - Social history:: Smoking status: Patient/guardian denies using tobacco. - Ebola Screening: : Patient negative for fever greater than or equal to 101.5 degrees Fahrenheit, and additional compatible Ebola Virus Disease symptoms Patient denies exposure to infectious person Patient denies travel to an Ebola-affected area in the 21 days before illness onset No symptoms or risks identified at this time. Screenin:10 Abuse screen: Denies threats or abuse. Nutritional screening: No deficits noted. em Tuberculosis screening: No symptoms or risk factors identified. Fall Risk None identified. Assessment: 13:10 General: Appears in no apparent distress. comfortable, Behavior is calm, cooperative, em Denies fever. Pain: Complains of pain in abdomen, pelvis, right leg and left leg Pain currently is 10 out of 10 on a pain scale. Neuro: Level of Consciousness is awake, alert, obeys commands, Oriented to person, place, time, situation, Appropriate for age. Cardiovascular: Capillary refill < 3 seconds Patient's skin is warm and dry. Respiratory: Airway is patent Respiratory effort is even, unlabored, Respiratory pattern is regular, symmetrical. GI: Patient currently denies nausea, vomiting. Derm: Skin is intact, is healthy with good turgor, Skin is pink, warm \T\ dry. Musculoskeletal: Capillary refill < 3 seconds, Range of motion: intact in all extremities. 13:30 Reassessment: I agree with previous assessment. hb 14:22 Reassessment: Patient appears in no apparent distress at this time. Patient and/or em family updated on plan of care and expected duration. Pain level reassessed. Patient is alert, oriented x 3, equal unlabored respirations, skin warm/dry/pink. 16:10 Reassessment: Patient appears in no apparent distress at this time. Patient and/or em family updated on plan of care and expected duration. Pain level reassessed. Patient is alert, oriented x 3, equal unlabored respirations, skin warm/dry/pink. Vital Signs: 12:33 BP 160 / 102; Pulse 72; Resp 20; Temp 97.8; Pulse Ox 99% ; Weight 77.11 kg; Height 5 sv ft. 0 in. (152.40 cm); Pain 10/10; 13:37 BP 153 / 95; Pulse 68; Resp 17; Pulse Ox 98% on R/A; Pain 10/10; em 15:35 BP 146 / 92; Pulse 72; Resp 19; Pulse Ox 100% on R/A; Pain 7/10; em 12:33 Body Mass Index 33.20 (77.11 kg, 152.40 cm) sv ED Course: 12:09 Patient arrived in ED. rg4 12:09 Nicolas Waldrop MD is Private Physician. rg4 12:32 Triage completed. sv 12:33 Arm band placed on Patient placed in waiting room, Patient notified of wait time. sv 12:51 Carmelo Chi LVN is Primary Nurse. em 13:08 Anastacio Casanova PA is PHCP. [facility] 13:08 David Mathur MD is Attending Physician. [facility] 13:10 Patient has correct armband on for positive identification. Placed in gown. Bed in low em position. Call light in reach. Side rails up X2. Adult w/ patient. Pulse ox on. NIBP on. 14:08 Initial lab(s) drawn, by me, sent to lab. Inserted saline lock: 22 gauge in left kj1 antecubital area, using aseptic technique. 14:56 Ultrasound completed. Patient tolerated well. Notified HOUSEKEEPING LEAD/PA . sg3 16:30 Nicolas Waldrop MD is Referral Physician. [facility] 16:30 Dao Rivera MD is Referral Physician. [facility] 17:03 No provider procedures requiring assistance completed. IV discontinued, intact, em bleeding controlled, No redness/swelling at site. Pressure dressing applied. Administered Medications: 13:49 Drug: morphine 4 mg Route: IVP; Site: right antecubital; hb 14:31 Follow up: Response: No adverse reaction; Pain is decreased em 13:49 Drug: Zofran 4 mg Route: IVP; Site: right antecubital; hb 14:31 Follow up: Response: No adverse reaction em Outcome: 16:30 Discharge ordered by MD. [facility] 17:03 Discharged to home ambulatory, with family. em 17:03 Condition: good 17:03 Discharge instructions given to patient, family, Instructed on discharge instructions, follow up and referral plans. medication usage, Demonstrated understanding of instructions, follow-up care, medications, Prescriptions given X 1. 17:05 Patient left the ED. em Signatures: Deborah Clark RN RN Anastacio Casanova PA PA [facility] Carmelo Chi LVN LVN em Cadence Mills RN RN Kristie Chacon rg4 Lizzie Denis sg3 Maureen Tavera kj1 Corrections: (The following items were deleted from the chart) 12:34 12:33 Pulse 72bpm; Resp 20bpm; Pulse Ox 99%; Temp 97.8F; 77.11 kg; Height 5 ft. 0 in.; sv BMI: 33.2; Pain 10/10; sv
--- NOTE | 2019-02-01 16:36 | EDPHYS ---
Physician Documentation [facility] Name: Shana Patel Age: 58 yrs Sex: Female : 1960 Arrival Date: 02/01/2019 Time: 12:09 Bed 17 Private MD: Nicolas Waldrop ED Physician David Mathur HPI: 02/01 13:09 This 58 yrs old Female presents to ER via Ambulatory with complaints of Low jmm Back Pain, Leg Pain, Hip Pain, Numbness Of Hand. 13:09 The patient presents with pain that is acute. The symptoms are located in the low back. jmm The pain radiates to the right leg. Onset: The symptoms/episode began/occurred gradually, 2 day(s) ago. Associated signs and symptoms: Pertinent positives: abdominal pain. This is a 58 year old female with a history of DM, fibromyalgia, GERD, HTN, hypothyroidism that presents to the ED with complaints of bilateral hand pain, lower back pain, generalized abdominal pain, and right leg pain beginning approx 2 days ago worsening today. Patient denies injury. Patient denies fever. . Historical: - Allergies: 12:33 Adhesives; sv 12:33 Metformin HCl; sv 13:41 iv contrast; em - PMHx: 12:33 Diabetes - IDDM; Fibromyalgia; GERD; Hypertension; Hypothyroidism; rectocele; sv - PSHx: 12:33 ; Cholecystectomy; Knee surgery; Hernia repair; sv - Immunization history:: Adult Immunizations up to date. - Social history:: Smoking status: Patient/guardian denies using tobacco. - Ebola Screening: : Patient negative for fever greater than or equal to 101.5 degrees Fahrenheit, and additional compatible Ebola Virus Disease symptoms Patient denies exposure to infectious person Patient denies travel to an Ebola-affected area in the 21 days before illness onset No symptoms or risks identified at this time. ROS: 13:09 Constitutional: Negative for fever, chills, and weight loss, Cardiovascular: Negative jmm for chest pain, palpitations, and edema, Respiratory: Negative for shortness of breath, cough, wheezing, and pleuritic chest pain. 13:09 Abdomen/GI: Positive for abdominal pain. 13:09 Back: Positive for pain at rest. 13:09 MS/extremity: Positive for pain. 13:09 All other systems are negative. Exam: 13:09 Constitutional: This is a well developed, well nourished patient who is awake, alert, jmm and in no acute distress. Head/Face: atraumatic. Eyes: EOMI, no conjunctival erythema appreciated ENT: Moist Mucus Membranes Neck: Trachea midline, Supple Chest/axilla: Normal chest wall appearance and motion. 13:09 Abdomen/GI: Non distended, soft Back: Normal ROM Skin: General appearance color normal MS/ Extremity: Moves all extremities, no obvious deformities appreciated, no edema noted to the lower extremities Neuro: Awake and alert, normal gait Psych: Behavior is normal, Mood is normal, Patient is cooperative and pleasant 13:09 Cardiovascular: Rate: normal, Rhythm: regular, Pulses: no pulse deficits are appreciated. 13:09 Respiratory: the patient does not display signs of respiratory distress, Respirations: normal, Breath sounds: are clear throughout. Vital Signs: 12:33 BP 160 / 102; Pulse 72; Resp 20; Temp 97.8; Pulse Ox 99% ; Weight 77.11 kg; Height 5 sv ft. 0 in. (152.40 cm); Pain 10/10; 13:37 BP 153 / 95; Pulse 68; Resp 17; Pulse Ox 98% on R/A; Pain 10/10; em 15:35 BP 146 / 92; Pulse 72; Resp 19; Pulse Ox 100% on R/A; Pain 7/10; em 12:33 Body Mass Index 33.20 (77.11 kg, 152.40 cm) sv MDM: 13:09 Patient medically screened. [facility] 16:28 Data reviewed: vital signs, nurses notes. Counseling: I had a detailed discussion with [facility] the patient and/or guardian regarding: the historical points, exam findings, and any diagnostic results supporting the discharge/admit diagnosis, lab results, radiology results, the need for outpatient follow up, to return to the emergency department if symptoms worsen or persist or if there are any questions or concerns that arise at home. ED course: Patient is alert and non toxic in appearance in the ED. Patient advised to follow up with ortho for cyst and follow up with pcp otherwise. Patient is otherwise given strict return precautions. patient understood and agrees with the plan of care. . 02/01 13:30 Order name: Basic Metabolic Panel [facility] 02/01 13:30 Order name: CBC with Diff [facility] 02/01 13:30 Order name: Creatinine for Radiology [facility] 02/01 13:30 Order name: Hepatic Function [facility] 02/01 13:30 Order name: Lipase [facility] 02/01 14:08 Order name: CBC with Automated Diff; Complete Time: 14:38 EDMN 02/01 13:31 Order name: CT Abd/Pelvis - IV Contrast Only [facility] 02/01 13:50 Order name: CT Stone Protocol [facility] 02/01 13:50 Order name: US Extremity Venous Unilateral Ltd [facility] 02/01 14:09 Order name: Creatinine (Radiology Only); Complete Time: 14:38 EDMN 02/01 14:38 Order name: Basic Metabolic Panel; Complete Time: 14:38 EDMN 02/01 14:38 Order name: Liver (Hepatic) Function; Complete Time: 14:38 [facility] 02/01 14:38 Order name: Lipase; Complete Time: 14:38 [facility] 02/01 17:00 Order name: Urine Dipstick--Ancillary (enter results) 02/01 13:30 Order name: IV Saline Lock; Complete Time: 13:49 [facility] 02/01 13:30 Order name: Labs collected and sent; Complete Time: 13:56 [facility] 02/01 14:39 Order name: CT; Complete Time: 14:39 [facility] 02/01 15:29 Order name: US; Complete Time: 15:37 [facility] 02/01 16:04 Order name: Urine Dipstick-Ancillary (obtain specimen); Complete Time: 16:20 [facility] Administered Medications: 13:49 Drug: morphine 4 mg Route: IVP; Site: right antecubital; hb 14:31 Follow up: Response: No adverse reaction; Pain is decreased em 13:49 Drug: Zofran 4 mg Route: IVP; Site: right antecubital; hb 14:31 Follow up: Response: No adverse reaction em Disposition: 02/02 08:58 Co-signature as Attending Physician, David Mathur MD I agree with the assessment and kdr plan of care. Disposition: 02/01/19 16:30 Discharged to Home. Impression: Low back pain, Unspecified abdominal pain, Synovial cyst of popliteal space [Steel], right knee. - Condition is Stable. - Discharge Instructions: Abdominal Pain, Adult, Back Pain, Adult, Steel Cyst. - Prescriptions for Ultram 50 mg Oral Tablet - take 1 tablet by ORAL route every 6 hours As needed; 12 tablet. - Medication Reconciliation Form, Thank You Letter, Antibiotic Education, Prescription Opioid Use form. - Follow up: Nicolas Waldrop MD; When: 2 - 3 days; Reason: Recheck today's complaints, Continuance of care, Re-evaluation by your physician. Follow up: Dao Rivera MD; When: 2 - 3 days; Reason: Recheck today's complaints, Continuance of care, Re-evaluation by your physician. Signatures: Dispatcher [employer] Deborah Sanchez, RN RN sv David Mathur MD MD kdr Mickail, Joel, PA PA jmm Munoz, Edgar, DISTILLATION OPERATOR DISTILLATION OPERATOR em Cadence Mills RN RN Corrections: (The following items were deleted from the chart) 02/01 17:05 16:30 02/01/2019 16:30 Discharged to Home. Impression: Low back pain; Unspecified em abdominal pain; Synovial cyst of popliteal space [Steel], right knee. Condition is Stable. Forms are Medication Reconciliation Form, Thank You Letter, Antibiotic Education, Prescription Opioid Use. Follow up: Nicolas Waldrop; When: 2 - 3 days; Reason: Recheck today's complaints, Continuance of care, Re-evaluation by your physician. Follow up: Dao Rivera; When: 2 - 3 days; Reason: Recheck today's complaints, Continuance of care, Re-evaluation by your physician. [facility]
[2019-02-01 17:33] LABS: Urine Blood 1+ (NEG); Urine Glucose 3+ (NEG); Urine Protein 3+ (NEG)
[2019-02-01 17:34] VITALS: TEMP 97.8
[2019-02-01 17:43] VITALS: BP 146/92; O2SAT 100
== END 2019-02-01 17:05 | disposition home or self-care (01) ==
LOC: ER 12:07
DX: M71.21 Synovial cyst of popliteal space [Baker], right knee (principal); R10.9 Unspecified abdominal pain; I10 Essential (primary) hypertension; E03.9 Hypothyroidism, unspecified; K21.9 Gastro-esophageal reflux disease without esophagitis; Z88.8 Allergy status to other drugs, medicaments and biological substances; Z91.041 Radiographic dye allergy status; Z91.048 Other nonmedicinal substance allergy status
CPT/HCPCS: 85025; 80048; 36415; 80076; 81003; 83690; 76377; 74176; 93971; 96375; 96374; 99284; J2405

== ENCOUNTER 2019-04-10 14:39 | Emergency (ER) | payer OTHER ==
--- OUTSIDE RECORDS SUMMARY | 2019-04-10 14:40 | XMS REPORT ---
:1960 [facility] Address [address] [place] [address] [address] [place] [address] Care Team Providers Name Role Phone Unavailable Unavailable Unavailable Problems This patient has no known problems. Allergies, Adverse Reactions, Alerts This patient has no known allergies or adverse reactions. Medications This patient has no known medications. Encounters Start End Encounter Admission Attending Care Care Encounter Date/Time Date/Time Type Type Clinicians Facility Department ID 2019-04-08 2019-04-08 Emergency E [id number] 20:32:00 20:32:00 2018-10-20 2018-10-20 Emergency E [id number] 10:28:00 10:28:00
--- OUTSIDE RECORDS SUMMARY | 2019-04-10 14:41 | XMS REPORT | Summary of Care ---
:1960 Author Organization [facility] Address [address] [place] [address] Care Team Providers Name Role Phone Nicolas Waldrop Primary Care Provider Reason for Referral Radiology Services (Routine) Status Reason Specialty Diagnoses / Referred By Referred To Procedures Contact Contact New Request Diagnostic Diagnoses Bilateral primary osteoarthritis of knee Reese Steel Radiology Procedures XR KNEE <3 VW RIGHT S, [place] [address] Reason for Visit Reason Comments New Patient Knee Pain steel cyst behind right knee Auth/Cert Status Reason Specialty Diagnoses / Referred By Referred To Procedures Contact Contact Orthopedic Surgery [facility] [address] [place] [address] Encounter Details Date Type Department Care Team Description 02/05/2019 Office Visit [facility] Reese Steel S, Bilateral primary Orthopaedic Surgery- PAC osteoarthritis of knee [place] [address] Sharmaine Sanchez (Primary Dx) [address] [place] [phone] Allergies Active Allergy Reactions Severity Noted Date Comments Adhesive Rash 10/07/2018 Iodine And Iodide Containing Products Itching 10/31/2018 Metformin Anaphylaxis 04/05/2015 documented as of this encounter (statuses as of 02/05/2019) Medications Medication Sig Dispensed Refills Start Date End Date Status INSULIN NPH HUM/REG inject under the 0 Active INSULIN HM (NOVOLIN skin. 70/30 PENFILL SC) LEVOTHYROXINE SODIUM Take by mouth. 0 Active (LEVOTHYROXINE ORAL) PREGABALIN (LYRICA Take by mouth. 0 Active ORAL) GABAPENTIN ORAL Take by mouth. 0 Active PHENYLEPHRINE/HYDROCO Take by mouth. 0 Active DONE/CP (HYDROCODONE HD ORAL) CARISOPRODOL (SOMA Take by mouth. 0 Active ORAL) famotidine (PEPCID) Take 1 Tab by 30 Tab 0 09/05/2015 Active 20 mg tablet mouth 2 (two) times daily. sulfamethoxazole-trim Take 1 tablet by 20 tablet 0 09/09/2015 Active ethoprim (BACTRIM DS) mouth every 12 800-160 mg per tablet (twelve) hours. traMADOL (ULTRAM) 50 Take 1 tablet by mouth every 6 (six) hours as needed for Pain (scale 4-6). Dominik Oleary PA-C / Ramirez Jay MD 20 tablet 0 2015 Active mg tablet EVELYN# [id number] DPS# [id number] [place] Lic.# [id number] NPI# [id number] benzonatate (TESSALON Take 1 capsule by 14 capsule 0 04/08/2016 Active PERLES) 100 mg mouth 3 (three) capsule times daily as needed for Cough. azithromycin 250 mg Take 1 tablet by 1 Package 0 12/01/2016 Active tablet mouth daily. clindamycin 300 mg TAKE 1 CAPSULE BY 0 09/26/2018 Active capsule MOUTH THREE TIMES DAILY NOVOLOG MIX 70-30 100 INJECT 40 UNITS 2 09/02/2018 Active unit/mL (70-30) UNDER THE SKIN injection EVERY MORNING AND 15 UNITS EVERY EVENING gabapentin 300 mg TAKE 1 CAPSULE BY 3 09/30/2018 Active capsule MOUTH THREE TIMES DAILY HYDROcodone-acetamino TAKE 1 TABLET BY 0 10/02/2018 Active phen 7.5-325 mg per MOUTH FOUR TIMES tablet DAILY LYRICA 150 mg capsule TAKE 1 CAPSULE BY 1 09/30/2018 Active MOUTH TWICE DAILY traMADOL (ULTRAM) 50 Take 1 tablet by 20 tablet 0 11/01/2018 Active mg tabletIndications: mouth every 6 Acute pharyngitis, (six) hours as unspecified etiology needed for Pain (scale 7-10). diclofenac 75 mg EC Take 1 tablet by 60 tablet 0 02/05/2019 03/07/2019 Active tabletIndications: mouth 2 (two) Bilateral primary times daily with osteoarthritis of meals for 30 knee days. documented as of this encounter (statuses as of 02/05/2019) Active Problems Problem Noted Date Rectocele 10/07/2018 Overview: 10/06/18 rectocele and enterocele on clinical exam Enterocele 10/07/2018 Obesity (BMI 30-39.9) 04/08/2016 documented as of this encounter (statuses as of 02/05/2019) Social History Tobacco Use Types Packs/Day Years Used Date Never Smoker Smokeless Tobacco: Never Used Alcohol Use Drinks/Week oz/Week Comments No Sex Assigned at Date Recorded Not on file Job Start Date Occupation Industry Not on file Not on file Not on file Travel History Travel Start Travel End No recent travel history available. documented as of this encounter Last Filed Vital Signs Vital Sign Reading Time Taken Comments Blood Pressure - - Pulse - - Temperature - - Respiratory Rate - - Oxygen Saturation - - Inhaled Oxygen Concentration - - Weight 77.1 kg (170 lb) 02/05/2019 1:33 PM CDT Height - - Body Mass Index 33.2 10/07/2018 3:10 PM CDT documented in this encounter Progress Notes Reese Steel, PAC - 02/05/2019 1:45 PM CDT Cc: Chief Complaint Patient presents with New Patient Knee Pain steel cyst behind right knee Shana Patel is a 58 year old female. Here for a Steel cyst that was identified on an ultrasound at [facility] she brought the ultrasound in with no report. She is having pain in her right knee has been going on since 01/21/2019, the pain is intense enough tomake her cry. The pain in her knee is lancinating down her pretibial area. 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 She has hydrocodone [address] Lafleur. She also has of fibromyalgia and peripheral neuropathy. Allergies Shana is allergic to adhesive; ivp dye [iodine and iodide containing products]; and metformin. Medications Outpatient Medications Prior to Visit Medication Sig Dispense Refill traMADOL (ULTRAM) 50 mg tablet Take 1 tablet by mouth every 6 (six) hours as needed for Pain (scale 7-10). 20 tablet 0 clindamycin 300 mg capsule TAKE 1 CAPSULE BY MOUTH THREE TIMES DAILY 0 gabapentin 300 mg capsule TAKE 1 CAPSULE BY MOUTH THREE TIMES DAILY 3 HYDROcodone-acetaminophen 7.5-325 mg per tablet TAKE 1 TABLET BY MOUTH FOUR TIMES DAILY 0 LYRICA 150 mg capsule TAKE 1 CAPSULE BY MOUTH TWICE DAILY 1 NOVOLOG MIX 70-30 100 unit/mL (70-30) injection INJECT 40 UNITS UNDER THE SKIN EVERY MORNING AND15 UNITS EVERY EVENING 2 azithromycin 250 mg tablet Take 1 tablet by mouth daily. 1 Package 0 benzonatate (TESSALON PERLES) 100 mg capsule Take 1 capsule by mouth 3 ( three) times daily as needed for Cough. 14 capsule 0 sulfamethoxazole-trimethoprim (BACTRIM DS) 800-160 mg per tablet Take 1 tablet by mouth every 12(twelve) hours. 20 tablet 0 traMADOL (ULTRAM) 50 mg tablet Take 1 tablet by mouth every 6 (six) hours as needed for Pain (scale 4-6). Dominik Oleary PA-C / Ramirez Jay MD EVELYN# [id number] DPS# [id number] Al Lic.# [id number] NPI# [id number] 20 tablet 0 famotidine (PEPCID) 20 mg tablet Take 1 Tab by mouth 2 (two) times daily. 30 Tab 0 CARISOPRODOL (SOMA ORAL) Take by mouth. GABAPENTIN ORAL Take by mouth. INSULIN NPH HUM/REG INSULIN HM (NOVOLIN 70/30 PENFILL SC) inject under the skin. LEVOTHYROXINE SODIUM (LEVOTHYROXINE ORAL) Take by mouth. PHENYLEPHRINE/HYDROCODONE/CP (HYDROCODONE HD ORAL) Take by mouth. PREGABALIN (LYRICA ORAL) Take by mouth. No facility-administered medications prior to visit. Histories Past Medical History: Diagnosis Date Diabetes mellitus Fibromyalgia Hypertension Neuropathy Tendinitis Thyroid disease Transfusion history Past Surgical History: Procedure Laterality Date SECTION CHOLECYSTECTOMY [place] ANESTH,KNEE AREA SURGERY Social History Socioeconomic History Marital status: Spouse name: Not on file Number of children: Not on file Years of education: Not on file Highest education level: Not on file Occupational History Not on file Social Needs Financial resource strain: Not on file Food insecurity: Worry: Not on file Inability: Not on file Transportation needs: Medical: Not on file Non-medical: Not on file Tobacco Use Smoking status: Never Smoker Smokeless tobacco: Never Used Substance and Sexual Activity Alcohol use: No Drug use: No Sexual activity: Not Currently Partners: Male Lifestyle Physical activity: Days per week: Not on file Minutes per session: Not on file Stress: Not on file Relationships Social connections: Talks on phone: Not on file Gets together: Not on file Attends pentecostal service: Not on file Active member of club or organization: Not on file Attends meetings of clubs or organizations: Not on file Relationship status: Not on file Intimate partner violence: Fear of current or ex partner: Not on file Emotionally abused: Not on file Physically abused: Not on file Forced sexual activity: Not on file Other Topics Concern Not on file Social History Narrative Pt denies physical and sexual abuse. Family History Problem Relation Age of Onset Diabetes Mother Heart Brother Review of Systems Constitutional: Negative. HENT: Negative. Eyes: Negative. Respiratory: Negative. Breasts: Negative. Cardiovascular: Negative. Gastrointestinal: Negative. Genitourinary: Negative. Musculoskeletal: Negative. Skin: Negative. Neurological: Negative. Psychiatric/Behavioral: Negative. Endocrine: Endocrine negative Vital Signs Wt 77.1 kg (170 lb) | BMI 33.20 kg/m Physical Exam Musculoskeletal: Physical Exam Constitutional: oriented to person, place, and time. appears well-developed and well-nourished. HENT: Head: Normocephalic and atraumatic. Right Ear: External ear normal. Left Ear: External ear normal. Eyes: Conjunctivae are normal. Neck: Normal range of motion. No strabismus Neck supple. Cardiovascular: Normal rate and regular rhythm. Pulmonary/Chest: Normal respiratory rate equal chest rise and fall in no apparent distress Abdominal: Abdomen nondistended nontender Neurological: alert and oriented to person, place, and time. No asymmetry Skin: Skin is warm and dry. Psychiatric: normal mood and affect. behavior is normal. Judgment and thought content normal. Nursing note and vitals reviewed. Right knee has some grossly varus alignment she is complaining of pain in her medial joint line as well as some proximal pretibial pain stable ligamentous exam Assessment/Plan Diagnosis 1. Bilateral primary osteoarthritis of knee XR KNEE <3 VW RIGHT Osteoarthritis is first managed with twbi-pqz-lmkltzu medications such as Tylenol arthritis or anti-inflammatories without no longer working we can go to prescription strength anti-inflammatory medicationsNo medication is without risk anti-inflammatory's inhibit the buffy coat of the stomach which canlead to gastrointestinal bleeding. They can decrease the blood flow to the kidneys. If you're taking an anticoagulant to prevent cardiac disease they can inhibit that anticoagulants ability to protect you. Whether they are prescribed or over -the-counter. Cortisone injections take a day to take effect and have a duration of 1-2 months you cannot get morethan 3 cortisone injections in a year and may have to be at least 3 months apart If the cortisone injections work, I molecular hyaluronic acid injections are effective for 6 months of pain relief in 3 out of 4 people there administered one shot a week for 3 weeks Through a combination of these conservative methods we will try as long as possible not to do surgery. Eventually we may need to do a total knee replacement total knee replacements are effective in alleviating the pain of arthritis in the knee but there is a chance of needing revision and so we shouldwait as long as possible before doing that. No decision for surgery has been made. Plan She has tried Tylenol arthritis without getting relief Her pain was severe enough for her to have some episodes of crying so we will go ahead and administered a cortisone injection today there are no signs of heat or swelling or infection. Her her weight is down to 170 from 360. Patient received an ultrasound guided injection of 1cc kenalog and 4cc lidocaine to the right knee. The knee was examined and the knee was marked with the needle In the middle of the lateral joint linejust lateral to the patellar tendon the knee was then prepped 3 times with Betadine in a Bullseye fashion and then once with alcohol allowing it to soak at least 20 seconds. Ultrasound guidance was used to direct the needle posterior to the fat pad and an injection was administered of 1 cc Kenalog with 4 cc 1% lidocaine without epinephrine without resistance. The skin was cleansed with alcohol and then dried with a sterile 4 x 4 and a sterile Band-Aid was applied patient tolerated procedure without difficulty.Electronically signed by Reese Steel PAC at 2:32 PM CDTdocumented in this encounter Plan of Treatment Date Type Specialty Care Team Description 10/08/2019 Office Visit Obstetrics & Gynecology Celeste Avalos PA-C [address] [place] [phone] Health Maintenance Due Date Last Done Comments HEPATITIS C (HCV) SCREEN 1960 DTaP,Tdap,and Td Vaccines 1980 (1 - Tdap) MAMMOGRAM 04/04/2011 04/04/2010 COLONOSCOPY 08/30/2011 Zoster Recombinant Vaccine 08/30/2011 (SHINGRIX) (1 of 2) INFLUENZA VACCINE (#1) 2019 PAP SMEAR 10/08/2023 10/07/2018, 02/14/2010, 04/24/2007, Additional history exists PNEUMOCOCCAL 0-64 YEARS Aged Out No longer eligible COMBINED SERIES based on patient's age to complete this topic documented as of this encounter Results XR KNEE <3 VW RIGHT (02/05/2019 2:09 PM CDT) Specimen Narrative Performed At [facility] osteoarthritis in the medial and lateral joint space of the PACS right knee and in the lateral joint space of the left knee there is a valgus deformity in the left knee and a varus deformity in the right knee that is subtle there is also some patellofemoral arthritic change on the lateral view of the right knee with iptc-vu-blnr at the joint line in the lateral view Performing Organization Address City/State/Zipcode Phone Number PACS documented in this encounter Visit Diagnoses Diagnosis Bilateral primary osteoarthritis of knee - Primary documented in this encounter Insurance Payer Benefit Plan / Subscriber ID Effective Dates Phone Address Type Group [facility] xxxxxxxxx 2015-[facility] Medicaid COMM PLAN - PLUS t MANAGED MEDICAID documented as of this encounter"
--- OUTSIDE RECORDS SUMMARY | 2019-04-10 14:41 | XMS REPORT | Summary of Care ---
:[address] [facility] Address [address] [place] [address] Care Team Providers Name Role Phone Nicolas Waldrop Primary Care Provider Reason for Visit Reason Comments Rx Concern/Question Encounter Details Date Type Department Care Team Description 02/05/2019 Telephone [facility] Orthopaedic Reese Steel, LUCIANA Rx Concern/Question Surgery- [place] [address] [facility] [address] [facility], [place] [address] [place] [phone] Allergies Active Allergy Reactions Severity Noted Date Comments Adhesive Rash 10/07/2018 Iodine And Iodide Containing Products Itching 10/31/2018 Metformin Anaphylaxis 04/05/2015 documented as of this encounter (statuses as of 02/06/2019) Medications Medication Sig Dispensed Refills Start Date [...] 20 tablet 0 2015 Active mg tablet [facility]# [id number] DPS# [id number] [place] Lic.# [id number] [facility]# [id number] benzonatate (TESSALON Take 1 capsule by 14 [...] as of this encounter (statuses as of 02/06/2019) Active Problems Problem Noted Date Rectocele 10/07/2018 Overview: 10/06/18 rectocele and enterocele on clinical exam Enterocele 10/07/2018 Obesity (BMI 30-39.9) 04/08/2016 documented as of this encounter (statuses as of 02/06/2019) Social History Tobacco Use Types Packs/Day Years Used Date Never Smoker Smokeless Tobacco: Never Used Alcohol Use Drinks/Week oz/Week Comments No Sex Assigned at Date Recorded Not on file Job Start Date Occupation Industry Not on file Not on file Not on file Travel History Travel Start Travel End No recent travel history available. documented as of this encounter Last Filed Vital Signs Not on filedocumented in this encounter Plan of Treatment Date Type Specialty Care Team Description 10/08/2019 Office Visit Obstetrics & Gynecology Celeste Avalos PA-C [address] [phone] Health Maintenance Due Date Last Done Comments [...] topic documented as of this encounter Results Not on filedocumented in this encounter Insurance Payer Benefit Plan / Subscriber ID Effective Dates Phone Address Type Group [facility] xxxxxxxxx 2015-[facility] Medicaid COMM PLAN - PLUS t MANAGED MEDICAID documented as of this encounter
--- OUTSIDE RECORDS SUMMARY | 2019-04-10 14:41 | XMS REPORT | Summary of Care ---
:1960 Author Organization [facility] Address [address] [place] [address] Care Team Providers Name Role Phone Nicolas Waldrop Primary Care Provider Reason for Referral Radiology Services (Routine) Status Reason Specialty Diagnoses / Referred By Referred To Procedures Contact Contact New Request Diagnostic Diagnoses Bilateral primary osteoarthritis of knee Reese Steel Radiology Procedures XR KNEE <3 VW RIGHT S, [place] [address] Reason for Visit Reason Comments New Patient Knee Pain steel cyst behind right knee Auth/Cert Status Reason Specialty Diagnoses / Referred By Referred To Procedures Contact Contact Orthopedic Surgery [facility] [address] [place] [address] Encounter Details Date Type Department Care Team Description 02/05/2019 Office Visit [facility] Reese Steel S, Bilateral primary Orthopaedic Surgery- PAC osteoarthritis of knee [place] [address] Sharmaine Sanchez (Primary Dx) [address] [place] [phone] Allergies Active Allergy Reactions [...] tablet 0 2015 Active mg tablet EVELYN# [id number] DPS# [id number] [place] Lic.# [id number] NPI# [id number] benzonatate (TESSALON Take 1 capsule by 14 [...] that was identified on an ultrasound at [facility] she brought the ultrasound in with no [...] Oleary PA-C / Ramirez Jay MD EVELYN# [id number] DPS# [id number] [place] Lic.# [id number] NPI# [id number] 20 tablet 0 famotidine (PEPCID) 20 mg [...] Surgical History: Procedure Laterality Date SECTION CHOLECYSTECTOMY [place] ANESTH,KNEE AREA SURGERY Social History Socioeconomic History [...] file Gets together: Not on file Attends presybeterian service: Not on file Active member of [...] VW RIGHT Osteoarthritis is first managed with huld-aho-njxvloz medications such as Tylenol arthritis or anti-inflammatories [...] Visit Obstetrics & Gynecology Celeste Avalos PA-C [address] [place] [phone] Health Maintenance Due Date Last Done Comments [...] 2:09 PM CDT) Specimen Narrative Performed At [facility] osteoarthritis in the medial and lateral joint space of the PACS right knee and in the lateral joint space of the left knee there is a valgus deformity in the left knee and a varus deformity in the right knee that is subtle there is also some patellofemoral arthritic change on the lateral view of the right knee with yzsq-cw-jpiu at the joint line in the lateral view Performing Organization Address City/State/Zipcode Phone Number PACS documented in this encounter Visit Diagnoses Diagnosis Bilateral primary osteoarthritis of knee - Primary documented in this encounter Insurance Payer Benefit Plan / Subscriber ID Effective Dates Phone Address Type Group [facility] xxxxxxxxx 2015-[facility] Medicaid COMM PLAN - PLUS t MANAGED MEDICAID documented as of this encounter"
--- OUTSIDE RECORDS SUMMARY | 2019-04-10 14:41 | XMS REPORT | Summary of Care ---
:1960 Author Organization [facility] Address [address] [place] [address] Care Team Providers Name Role Phone Nicolas Waldrop Primary Care Provider Reason for Visit Auth/Cert Status Reason Specialty Diagnoses / Referred By Referred To Procedures Contact Contact Orthopedic Surgery [facility] [address] [place] [address] Encounter Details Date Type Department Care Team Description 02/05/2019 [facility] Radiology [address] [facility] [place] [address] [place] [address] [place], [place] [phone] Allergies Active Allergy Reactions Severity Noted [...] 20 tablet 0 2015 Active mg tablet [facility]# [id number] [facility]# [id number] [place] Lic.# [id number] NPI# [id number] benzonatate (TESSALON Take 1 capsule by 14 [...] Visit Obstetrics & Gynecology Celeste Avalos PA-C [address] [place] [phone] Health Maintenance Due Date Last Done [...] this topic documented as of this encounter Procedures Procedure Name Priority Date/Time Associated Diagnosis Comments XR KNEE <3 VW RIGHT Routine 02/05/2019 2:09 PM Right knee pain, Results for this CDT unspecified procedure are in chronicity the results section. documented in this encounter Results XR KNEE <3 VW RIGHT (02/05/2019 2:09 PM CDT) Specimen Narrative Performed At [facility] osteoarthritis in the medial and lateral joint space of the PACS right knee and in the lateral joint space of the left knee there is a valgus deformity in the left knee and a varus deformity in the right knee that is subtle there is also some patellofemoral arthritic change on the lateral view of the right knee with kiul-rg-nkee at the joint line in the lateral view Performing Organization Address City/State/Zipcode Phone Number PACS documented in this encounter Visit Diagnoses Diagnosis Right knee pain, unspecified chronicity documented in this encounter Insurance Payer Benefit Plan / Subscriber ID Effective Dates Phone Address Type Group [facility] xxxxxxxxx 2015-[employer] Medicaid COMM PLAN - PLUS t MANAGED MEDICAID documented as of this encounter
--- OUTSIDE RECORDS SUMMARY | 2019-04-10 14:41 | XMS REPORT | Summary of Care ---
:1960 Author Organization [facility] Address [address] [place] [id number] Care Team Providers Name Role Phone Nicolas Waldrop Primary Care Provider Reason for Referral Radiology Services (Routine) Status Reason Specialty Diagnoses / Referred By Referred To Procedures Contact Contact New Request Diagnostic Diagnoses Bilateral primary osteoarthritis of knee Reese Steel Radiology Procedures XR KNEE <3 VW RIGHT S, [place] [address] Reason for Visit Reason Comments New Patient Knee Pain steel cyst behind right knee Auth/Cert Status Reason Specialty Diagnoses / Referred By Referred To Procedures Contact Contact Orthopedic Surgery [facility] [address] [place] [address] Encounter Details Date Type Department Care Team Description 02/05/[address] [facility] Reese Steel S, Bilateral primary Orthopaedic Surgery- PAC osteoarthritis of knee [place] [address] Sharmaine Sanchez (Primary Dx) [address] [place] [phone] Allergies Active Allergy Reactions [...] tablet 0 2015 Active mg tablet EVELYN# [id number] DPS# [id number] Ar Lic.# [id number] NPI# [id number] benzonatate (TESSALON Take 1 capsule by 14 [...] that was identified on an ultrasound at [facility] she brought the ultrasound in with no [...] Oleary PA-C / Ramirez Jay MD EVELYN# [id number] DPS# [id number] Ar Lic.# [id number] NPI# [id number] 20 tablet 0 famotidine (PEPCID) 20 mg [...] Surgical History: Procedure Laterality Date SECTION CHOLECYSTECTOMY MA ANESTH,KNEE AREA SURGERY Social History Socioeconomic History [...] file Gets together: Not on file Attends denominational service: Not on file Active member of [...] VW RIGHT Osteoarthritis is first managed with wmum-woq-lyjpreo medications such as Tylenol arthritis or anti-inflammatories [...] Visit Obstetrics & Gynecology Celeste Avalos PA-C [address] [place] [phone] Health Maintenance Due Date Last Done Comments [...] 2:09 PM CDT) Specimen Narrative Performed At [facility] osteoarthritis in the medial and lateral joint space of the PACS right knee and in the lateral joint space of the left knee there is a valgus deformity in the left knee and a varus deformity in the right knee that is subtle there is also some patellofemoral arthritic change on the lateral view of the right knee with gyqr-jg-jokz at the joint line in the lateral view Performing Organization Address City/State/Zipcode Phone Number PACS documented in this encounter Visit Diagnoses Diagnosis Bilateral primary osteoarthritis of knee - Primary documented in this encounter Insurance Payer Benefit Plan / Subscriber ID Effective Dates Phone Address Type Group [facility] xxxxxxxxx 2015-[facility] Medicaid COMM PLAN - PLUS t MANAGED MEDICAID documented as of this encounter"
[2019-04-10] MEDS ORDERED: HYDROCODONE/APAP 10/325 TAB ONE (14:58)
--- NOTE | 2019-04-10 15:48 | RAD REPORT ---
EXAM DESCRIPTION: RAD - Knee Right 3 View - 04/10/2019 3:22 pm CLINICAL HISTORY: Right knee pain, twisting injury, limited ability to bear weight COMPARISON: None. FINDINGS: No fracture, dislocation or periosteal reaction.No joint effusion seen. No joint space thai rowing. Minimal spurring along the articular margins of the patella and minimal spurring along the ti bial spine. No significant soft tissue finding. IMPRESSION: Minimal degenerative change with no acute bone or joint finding. Clinical concerns for internal derangement or occult bony injury could be further assessed with MR im aging.
--- NOTE | 2019-04-10 16:06 | EDPHYS ---
Physician Documentation [facility] Name: Shana Patel Age: 58 yrs Sex: Female : 1960 Arrival Date: 04/10/2019 Time: 14:40 Bed 14 Private MD: ED Physician David Mathur HPI: 04/10 15:57 This 58 yrs old Female presents to ER via Wheelchair with complaints of Knee nh Pain, Leg Pain. 15:57 Onset: The symptoms/episode began/occurred acutely, just prior to arrival. The patient nh has not experienced similar symptoms in the past. The patient has not recently seen a physician. Patient states she was walking into [facility] and felt a pop in right knee with pain immediately following. Denies fall. Historical: - Allergies: 14:48 Adhesives; sv 14:48 IV contrast; sv 14:48 Metformin HCl; sv - PMHx: 14:48 Diabetes - IDDM; Fibromyalgia; GERD; Hypertension; Hypothyroidism; rectocele; sv Arthritis; spinal stenosis; Neuropathy; - PSHx: 14:48 ; Cholecystectomy; Knee surgery; Hernia repair; sv - Immunization history:: Flu vaccine is not up to date. - Social history:: Smoking status: Patient/guardian denies using tobacco. - Ebola Screening: : No symptoms or risks identified at this time. ROS: 15:57 Constitutional: Negative for fever, chills, and weight loss, Eyes: Negative for injury, nh pain, redness, and discharge, ENT: Negative for injury, pain, and discharge, Neck: Negative for injury, pain, and swelling, Cardiovascular: Negative for chest pain, palpitations, and edema, Respiratory: Negative for shortness of breath, cough, wheezing, and pleuritic chest pain, Abdomen/GI: Negative for abdominal pain, nausea, vomiting, diarrhea, and constipation, Back: Negative for injury and pain, : Negative for injury, bleeding, discharge, and swelling, Skin: Negative for injury, rash, and discoloration, Neuro: Negative for headache, weakness, numbness, tingling, and seizure, Psych: Negative for depression, anxiety, suicide ideation, homicidal ideation, and hallucinations. 15:57 MS/extremity: Positive for pain, swelling, tenderness. Exam: 15:57 Constitutional: This is a well developed, well nourished patient who is awake, alert, nh and in no acute distress. Head/Face: Normocephalic, atraumatic. Eyes: Pupils equal round and reactive to light, extra-ocular motions intact. Lids and lashes normal. Conjunctiva and sclera are non-icteric and not injected. Cornea within normal limits. Periorbital areas with no swelling, redness, or edema. ENT: Nares patent. No nasal discharge, no septal abnormalities noted. Tympanic membranes are normal and external auditory canals are clear. Oropharynx with no redness, swelling, or masses, exudates, or evidence of obstruction, uvula midline. Mucous membranes moist. Neck: Trachea midline, no thyromegaly or masses palpated, and no cervical lymphadenopathy. Supple, full range of motion without nuchal rigidity, or vertebral point tenderness. No Meningismus. Chest/axilla: Normal chest wall appearance and motion. Nontender with no deformity. No lesions are appreciated. Cardiovascular: Regular rate and rhythm with a normal S1 and S2. No gallops, murmurs, or rubs. Normal PMI, no JVD. No pulse deficits. Respiratory: Lungs have equal breath sounds bilaterally, clear to auscultation and percussion. No rales, rhonchi or wheezes noted. No increased work of breathing, no retractions or nasal flaring. Abdomen/GI: Soft, non-tender, with normal bowel sounds. No distension or tympany. No guarding or rebound. No evidence of tenderness throughout. Back: No spinal tenderness. No costovertebral tenderness. Full range of motion. Skin: Warm, dry with normal turgor. Normal color with no rashes, no lesions, and no evidence of cellulitis. Neuro: Awake and alert, GCS 15, oriented to person, place, time, and situation. Cranial nerves II-XII grossly intact. Motor strength 5/5 in all extremities. Sensory grossly intact. Cerebellar exam normal. Normal gait. Psych: Awake, alert, with orientation to person, place and time. Behavior, mood, and affect are within normal limits. 15:57 Musculoskeletal/extremity: Extremities: noted in the right knee: pain, swelling, tenderness, ROM: limited active range of motion due to pain, in the right knee, limited passive range of motion due to pain, in the right knee, Circulation is intact in all extremities. Sensation intact. Vital Signs: 14:48 BP 151 / 78; Pulse 73; Resp 22; Temp 97.9; Pulse Ox 96% ; Weight 74.84 kg; Height 5 ft. sv 0 in. (152.40 cm); Pain 10/10; 15:42 BP 153 / 85; Pulse 65; Resp 16; Pulse Ox 99% on R/A; mh5 16:30 BP 143 / 85; Pulse 67; Resp 18 S; Pulse Ox 98% on R/A; Pain 4/10; ca1 14:48 Body Mass Index 32.22 (74.84 kg, 152.40 cm) sv Procedures: 15:57 Splinting: Splint applied to right knee using knee immobilizer, applied by tech. nh Examined by me, post splint application: neurovascular intact, 2+ distal pulses palpable, brisk capillary refill noted, Patient tolerated well. MDM: 14:42 Patient medically screened. ca 15:57 Data reviewed: vital signs, nurses notes, radiologic studies, I have discussed the ca patient's presentation/case with the attending Emergency Department Physician; and as a result, I will discharge patient. Counseling: I had a detailed discussion with the patient and/or guardian regarding: the historical points, exam findings, and any diagnostic results supporting the discharge/admit diagnosis, radiology results, the need for outpatient follow up, to return to the emergency department if symptoms worsen or persist or if there are any questions or concerns that arise at home. 04/10 14:51 Order name: Knee Right 3 View XRAY; Complete Time: 15:54 ca 04/10 15:54 Order name: Knee Immobilizer; Complete Time: 16:09 ca Administered Medications: 14:59 Drug: Wildrose 10 mg-325 mg 1 tabs Route: PO; ca1 16:30 Follow up: Response: No adverse reaction; Pain is decreased ca1 Disposition: 04/11 07:20 Co-signature as Attending Physician, David Mathur MD I agree with the assessment and kdr plan of care. Disposition: 04/10/19 16:05 Discharged to Home. Impression: Pain in right knee. - Condition is Stable. - Discharge Instructions: Knee Pain. - Prescriptions for Tramadol 50 mg Oral Tablet - take 1 tablet by ORAL route every 8 hours As needed as needed; 12 tablet. - Medication Reconciliation Form, Thank You Letter, Antibiotic Education, Prescription Opioid Use form. - Follow up: Hebert Caballero MD; When: 2 - 3 days; Reason: Recheck today's complaints. - Problem is new. - Symptoms are unchanged. Signatures: Dispatcher [employer] Deborah Sanchez, RN RN David Pena MD MD [facility] Graciela Leigh, HOME CARE NURSE HOME CARE NURSE ca Laura, Anahi RN RN ca1 Corrections: (The following items were deleted from the chart) 04/10 16:31 16:05 04/10/2019 16:05 Discharged to Home. Impression: Pain in right knee. Condition is ca1 Stable. Forms are Medication Reconciliation Form, Thank You Letter, Antibiotic Education, Prescription Opioid Use. Follow up: Dr. Hebert Caballero; When: 2 - 3 days; Reason: Recheck today's complaints. Problem is new. Symptoms are unchanged. nh
--- NOTE | 2019-04-10 16:06 | ER ---
Nurse's Notes [facility] Name: Shana Patel Age: 58 yrs Sex: Female : 1960 Arrival Date: 04/10/2019 Time: 14:40 Bed 14 Private MD: Diagnosis: Pain in right knee Presentation: 04/10 14:46 Presenting complaint: Patient states: "I heard a pop in my right knee today after sv twisting wrong and then I couldn't put any weight on it.". Transition of care: patient was not received from another setting of care. Onset of symptoms was April 10, 2019. Risk Assessment: Do you want to hurt yourself or someone else? Patient reports no desire to harm self or others. Initial Sepsis Screen: Does the patient meet any 2 criteria? No. Patient's initial sepsis screen is negative. Does the patient have a suspected source of infection? No. Patient's initial sepsis screen is negative. Care prior to arrival: None. 14:46 Method Of Arrival: Wheelchair sv 14:46 Acuity: TERESA 4 sv Historical: - Allergies: 14:48 Adhesives; sv 14:48 IV contrast; sv 14:48 Metformin HCl; sv - PMHx: 14:48 Diabetes - IDDM; Fibromyalgia; GERD; Hypertension; Hypothyroidism; rectocele; sv Arthritis; spinal stenosis; Neuropathy; - PSHx: 14:48 ; Cholecystectomy; Knee surgery; Hernia repair; sv - Immunization history:: Flu vaccine is not up to date. - Social history:: Smoking status: Patient/guardian denies using tobacco. - Ebola Screening: : No symptoms or risks identified at this time. Screenin:47 Abuse screen: Denies threats or abuse. Denies injuries from another. Nutritional ca1 screening: No deficits noted. Tuberculosis screening: No symptoms or risk factors identified. Fall Risk Ambulatory Aid- Crutches/Cane/Walker (15 pts). Assessment: 14:47 General: Appears in no apparent distress. comfortable, Behavior is calm, cooperative, ca1 appropriate for age. Pain: Complains of pain in right knee Pain currently is 10 out of 10 on a pain scale. Pain began today. Neuro: Level of Consciousness is awake, alert, obeys commands, Oriented to person, place, time, situation. Derm: Skin is intact, is healthy with good turgor, Skin is pink, warm \\T\\ dry. Musculoskeletal: Circulation, motion, and sensation intact. Capillary refill < 3 seconds, Range of motion: intact in all extremities. 16:00 Reassessment: Patient appears in no apparent distress at this time. Patient is alert, ca1 oriented x 3, equal unlabored respirations, skin warm/dry/pink. Vital Signs: 14:48 BP 151 / 78; Pulse 73; Resp 22; Temp 97.9; Pulse Ox 96% ; Weight 74.84 kg; Height 5 ft. sv 0 in. (152.40 cm); Pain 10/10; 15:42 BP 153 / 85; Pulse 65; Resp 16; Pulse Ox 99% on R/A; mh5 16:30 BP 143 / 85; Pulse 67; Resp 18 S; Pulse Ox 98% on R/A; Pain 4/10; ca1 14:48 Body Mass Index 32.22 (74.84 kg, 152.40 cm) sv ED Course: 14:40 Patient arrived in ED. rg4 14:42 Graciela Leigh FNP is [facility]. nh 14:42 David Mathur MD is Attending Physician. nh 14:43 Anahi Sanchez, ESPERANZA is Primary Nurse. ca1 14:47 Triage completed. sv 14:48 Arm band placed on Patient placed in an exam room, on a stretcher. sv 14:49 Patient has correct armband on for positive identification. Bed in low position. Call ca1 light in reach. Side rails up X 1. Pulse ox on. NIBP on. 14:49 No provider procedures requiring assistance completed. ca1 15:23 Knee Right 3 View XRAY In Process Unspecified. EDMS 16:05 Hebert Caballero MD is Referral Physician. nh 16:09 Knee immobilizer applied on right knee. mh5 16:30 Patient did not have IV access during this emergency room visit. ca1 Administered Medications: 14:59 Drug: Howard 10 mg-325 mg 1 tabs Route: PO; ca1 16:30 Follow up: Response: No adverse reaction; Pain is decreased ca1 Outcome: 16:05 Discharge ordered by . nh 16:30 Discharged to home ambulatory, with family. ca1 16:30 Condition: stable 16:30 Discharge instructions given to patient, Instructed on discharge instructions, follow up and referral plans. medication usage, Demonstrated understanding of instructions, follow-up care, medications, Prescriptions given X 1. 16:31 Patient left the ED. ca1 Signatures: Dispatcher [employer] Deborah Sanchez, RN RN Graciela Brown, VICE PRESIDENT [employer] VICE PRESIDENT [employer] Kristie Pimentel 4 Shana Leonard [facility] Anahi Sanchez RN RN ca1 Corrections: (The following items were deleted from the chart) 14:49 14:47 Patient has correct armband on for positive identification. Bed in low position. ca1 Call light in reach. Side rails up X 1. ca1 14:49 14:47 Pulse ox on. NIBP on. ca1 ca1
[2019-04-10 16:49] VITALS: TEMP 97.9
[2019-04-10 16:58] VITALS: BP 143/85; O2SAT 98
== END 2019-04-10 16:31 | disposition home or self-care (01) ==
LOC: ER 14:39
DX: M25.561 Pain in right knee (principal); I10 Essential (primary) hypertension; Z88.8 Allergy status to other drugs, medicaments and biological substances; Z91.041 Radiographic dye allergy status; Z91.048 Other nonmedicinal substance allergy status
CPT/HCPCS: 99284

== ENCOUNTER 2019-08-02 20:55 | Emergency (ER) | payer OTHER ==
--- OUTSIDE RECORDS SUMMARY | 2019-08-02 20:57 | XMS REPORT ---
:1960 [facility] Address [address] [place] [address] Care Team Providers Name Role Phone Unavailable [...]
--- OUTSIDE RECORDS SUMMARY | 2019-08-02 20:58 | XMS REPORT | Summary of Care ---
:1960 Author Organization [facility] Address [address] [place] [address] Care Team Providers Name Role Phone Aldo Waldropricathleen Cruz Primary Care Provider Reason for Referral Radiology Services (STAT) Status Reason Specialty Diagnoses / Referred By Referred To Procedures Contact Contact New Request Diagnostic Diagnoses Rib pain Ana Means Radiology Procedures XR RIBS <3 VW LEFT J, DO [address] [place] [address] Reason for Visit Reason Comments Rib Pain Auth/Cert Status Reason Specialty Diagnoses / Referred By Referred To Procedures Contact Contact Emergency Medicine Diagnoses L FLANK PAIN [facility] Emergency Dept [address] [place] [address] [place] [address] Encounter Details Date Type Department Care Team Description 07/21/2019 Emergency ADC-Emergency Ana Means, Rib pain (Primary Dx ) Department DO [address] [place], [place] [id number] [phone] Allergies Active Allergy Reactions Severity Noted Date Comments Adhesive Rash 10/07/2018 Iodine And Iodide Containing Products Itching 10/31/2018 Metformin Anaphylaxis 04/05/2015 documented as of this encounter (statuses as of 07/21/2019) Medications Medication Sig Dispensed Refills Start Date End Date Status LEVOTHYROXINE SODIUM Take 150 mcg by 0 Active (LEVOTHYROXINE ORAL) mouth every morning. NOVOLOG MIX 70-30 100 INJECT 40 UNITS 2 09/02/2018 Active unit/mL (70-30) UNDER THE SKIN injection EVERY MORNING AND 15 UNITS EVERY EVENING gabapentin 300 mg TAKE 1 CAPSULE BY 3 09/30/2018 Active capsule MOUTH THREE TIMES DAILY HYDROcodone-acetaminop TAKE 1 TABLET BY 0 10/02/2018 Active hen 7.5-325 mg per MOUTH FOUR TIMES tablet DAILY LYRICA 150 mg capsule TAKE 1 CAPSULE BY 1 09/30/2018 Active MOUTH TWICE DAILY amLODIPine 10 mg Take by mouth 0 Active tablet daily. atorvastatin 40 mg Take 40 mg by 0 Active tablet mouth at bedtime. enalapril 20 mg tablet Take 20 mg by 0 Active mouth daily. FAMOTIDINE ORAL Take 20 mg by 0 Active mouth daily. FLUoxetine 40 mg Take 40 mg by 0 Active capsule mouth daily. albuterol (PROAIR HFA) Inhale 2 Puffs 0 Active 90 mcg/actuation every 6 (six) inhaler hours as needed for Wheezing or Shortness of Breath. diclofenac 50 mg Take 1 tablet by 60 tablet 1 04/08/2019 Active tabletIndications: mouth 2 (two) Primary osteoarthritis times daily. of right knee benzonatate 100 mg Take 1 capsule by 20 capsule 0 04/30/2019 Active capsuleIndications: mouth 3 (three) Viral URI with cough times daily as needed for Cough. ibuprofen 600 mg Take 1 tablet by 30 tablet 0 04/30/2019 Active tabletIndications: mouth every 6 Viral URI with cough (six) hours as needed for Pain (scale 4-6). documented as of this encounter (statuses as of 07/21/2019) Active Problems Problem Noted Date Acute pancreatitis without infection or necrosis, unspecified pancreatitis type Pancreatitis 02/09/2019 Diabetes 02/09/2019 Hypertension 02/09/2019 Rectocele 10/07/2018 Overview: 10/06/18 rectocele and enterocele on clinical exam Enterocele 10/07/2018 Obesity (BMI 30-39.9) 04/08/2016 documented as of this encounter (statuses as of 07/21/2019) Social History Tobacco Use Types Packs/Day Years [...] Sign Reading Time Taken Comments Blood Pressure 211/104 07/21/2019 8:17 PM CHIPPER Pulse 69 07/21/2019 8:17 PM CHIPPER Temperature 37.4 C (99.4 F) 07/21/2019 8:17 PM CHIPPER Respiratory Rate 18 07/21/2019 8:17 PM CHIPPER Oxygen Saturation 97% 07/21/2019 8:17 PM CHIPPER Inhaled Oxygen Concentration - - Weight 76.2 kg (168 lb) 07/21/2019 8:17 PM CHIPPER Height 152.4 cm (5') 07/21/2019 8:17 PM CHIPPER Body Mass Index 32.81 07/21/2019 8:17 PM CHIPPER documented in this encounter Discharge Instructions Ana Perry, - 07/21/2019DIAGNOSIS 1. Rib pain NO LIFE-THREATENING FINDINGS ON TODAY'S EXAM. PROCEDURES IN THE ER TODAY: Rib xray MEDICATIONS ADMINISTERED IN THE ER TODAY: [place] YOUR PRESCRIPTIONS AND [id number] MEDICATION RECOMMENDATIONS: You may use over the counter anti-inflammatories such as Advil or Motrin three times a day with foodas needed for pain. You may use warm compresses, icy hot and rest. SPECIAL CARE INSTRUCTIONS: None FOLLOW-UP RECOMMENDATIONS: RECOMMEND FOLLOW-UP WITH A PRIMARY CARE PROVIDER OR SPECIALIST IN 2-5 DAYS, ESPECIALLY IF NO IMPROVEMENT IN SYMPTOMS. TO FOLLOW-UP WITHIN THE [facility], TRY THESE OPTIONS (CLINIC APPOINTMENTS AVAILABLE ON KVKT-WH-IVGH BASIS): 1. SCHEDULE AN APPOINTMENT ONLINE AT [email or web address] 2. OR CALL THE [facility] AT OR 3. OR CALL YOUR [facility] PHYSICIAN'S OFFICE DIRECTLY IF YOU ARE ALREADY AN ESTABLISHED [facility] PATIENT. OR, YOU MAY FOLLOW-UP WITH A PROVIDER OF YOUR CHOICE, SUCH : 1. A PHYSICIAN OF YOUR CHOICE 2. [facility], . LOCATIONS IN [facility] 3. [facility], [address], [place]; RETURN TO ER FOR WORSENING OF SYMPTOMS. AttachmentsThe following attachments cannot be sent through Care Everywhere.Contusion, Rib (Kazakh)documented in this encounter Plan of Treatment Date Type Specialty Care Team Description 10/08/2019 Office Visit Obstetrics & Gynecology Celeste Avalos PA-C [address] [place] [phone] Name Type Priority Associated Diagnoses Date/Time XR RIBS <3 VW LEFT IMAGING STAT Rib pain 07/21/2019 9:06 PM CHIPPER Health Maintenance Due Date Last Done Comments HEPATITIS C (HCV) SCREEN 1960 PNEUMOCOCCAL 0-64 YEARS COMBINED 08/30/1967 SERIES (1 of 1 - PPSV23) EYE EXAM 08/30/1971 DTaP,Tdap,and Td Vaccines (1 - 1972 Tdap) FOOT EXAM 08/30/1979 Breast Cancer Screening 04/04/2011 04/04/2010 (MAMMOGRAM) COLONOSCOPY 08/30/2011 Zoster Recombinant Vaccine 08/30/2011 (SHINGRIX) (1 of 2) INFLUENZA VACCINE (#1) 2019 URINE MICROALBUMIN 08/12/2019 08/11/2018 HgA1C 09/23/2019 03/25/2019 LDL-C 02/10/2020 02/09/2019 CREATININE (SERUM) 02/11/2020 02/10/2019, 02/09/2019, 04/08/2016, Additional history exists PAP SMEAR 10/08/2023 10/07/2018, 02/14/2010, 04/24/2007, Additional history exists documented as of this encounter Procedures Procedure Name Priority Date/Time Associated Diagnosis Comments XR RIBS <3 VW LEFT STAT 07/21/2019 9:06 PM CHIPPER Rib pain Procedure Note - [facility], Radiant Results Inft User - 07/21/2019 9:17 PM CHIPPER XR RIBS <3 VW LEFT HISTORY: left lateral rib pain COMPARISON: X-ray dated 11/18/2015 FINDINGS: Radiographs of the left ribs were obtained. No acute rib fracture. Slight S-shaped curvature of the thoracolumbar spine Mild pulmonary edema. The costophrenic angles are clear. The heart is normal in size. No pneumothorax is found. IMPRESSION No acute osseous abnormality Mild pulmonary edema. Preliminary Report Dictated by Resident: Lyly Howell Zavala NOTICE OF PRIVACY PRACTICES Routine 07/21/2019 7:40 PM CHIPPER CONSENT/REFUSAL FOR DIAGNOSIS AND TREATMENT Routine 07/21/2019 7:40 PM CHIPPER documented in this encounter Results Not on filedocumented in this encounter Visit Diagnoses Diagnosis Rib pain - Primary Chest pain, unspecified documented in this encounter Administered Medications Medication Order MAR Action Action Date Dose Rate Site HYDROcodone-acetaminophen Given 07/21/2019 8:35 PM CHIPPER 1 tablet (NORCO 5) 5-325 mg tablet 1 tablet 1 tablet, Oral, ONCE, 1 dose, Tu07/21/19 at 2130, JUAN documented in this encounter Insurance Payer Benefit Plan / Subscriber ID Effective Dates Phone Address Type Group [facility] xxxxxxxxx 2015-[facility] Medicaid COMM PLAN - PLUS t MANAGED MEDICAID documented as of this encounter
--- NOTE | 2019-08-02 21:54 | RAD REPORT ---
EXAM DESCRIPTION: RAD - Ankle Left 3 View - 08/02/2019 9:47 pm CLINICAL HISTORY: PAIN COMPARISON: No comparisons FINDINGS: No acute fracture or dislocation is seen. Moderate soft tissue swelling is present about t he ankle.
--- NOTE | 2019-08-02 22:02 | ER ---
Nurse's Notes [facility] Name: Shana Patel Age: 58 yrs Sex: Female : 1960 Arrival Date: 08/02/2019 Time: 20:59 Bed 25 Private MD: Diagnosis: Sprain of unspecified ligament of left ankle Presentation: 08/01 21:13 Chief complaint: Patient states: Tripped today while walking. Landed on both knees, ll1 worse pain to left knee. Left ankle pain also. No blood thinners. Coronavirus screen: The patient has NOT traveled to a country currently being monitored by the CDC within the last 14 days. Ebola Screen: Patient denies travel to an Ebola-affected area in the 21 days before illness onset. Initial Sepsis Screen: Does the patient meet any 2 criteria? No. Patient's initial sepsis screen is negative. Does the patient have a suspected source of infection? No. Patient's initial sepsis screen is negative. Risk Assessment: Do you want to hurt yourself or someone else? Patient reports no desire to harm self or others. 21:13 Method Of Arrival: Wheelchair [facility] 21:13 Acuity: TERESA 4 1 21:23 Care prior to arrival: None. Mechanism of Injury: Fall tripped, fell from standing. 1 Trauma event details: Injury occurred: August 02, 2019. 21:25 Onset of symptoms was August 02, 2019 at 20:00. 1 Triage Assessment: 21:21 General: Appears in no apparent distress. Behavior is calm, cooperative, appropriate ll1 for age. Pain: Complains of pain in left leg Pain currently is 10 out of 10 on a pain scale. Quality of pain is described as aching, Pain began suddenly, Is continuous. Trauma Activation: Not Applicable Physician: ED Physician; Name: ; Notified At: ; Arrived At: Physician: General Surgeon; Name: ; Notified At: ; Arrived At: Physician: Radiology; Name: ; Notified At: ; Arrived At: Physician: Respiratory; Name: ; Notified At: ; Arrived At: Physician: Lab; Name: ; Notified At: ; Arrived At: Historical: - Allergies: 21:17 Adhesives; ll1 21:17 Metformin HCl; ll1 21:17 IV contrast; ll1 - PMHx: 21:17 Arthritis; Fibromyalgia; GERD; Hypothyroidism; Diabetes - IDDM; Hypertension; ll1 neuropathy; spinal stenosis; rectocele; - PSHx: 21:17 ; Cholecystectomy; Hernia repair; Knee surgery; ll1 - Immunization history:: Adult Immunizations up to date. - Social history:: Smoking status: Patient denies any tobacco usage or history of. Patient/guardian denies using alcohol, street drugs, tobacco products. - Immunization history: Last tetanus immunization: - up to date. Screenin:17 Abuse screen: Denies threats or abuse. Nutritional screening: No deficits noted. ll1 Tuberculosis screening: No symptoms or risk factors identified. Fall Risk Fall in past 12 months (25 points). Secondary diagnosis (15 points) impaired mobility, Gait- Impaired (20 pts.). Total Francis Fall Scale indicates High Risk Score (45 or more points). Fall prevention measures have been instituted. Side Rails Up X 2 Placed Close to Nursing Station Frequent Obs/Assessments Occuring Family Present and informed to notify staff if the need to leave the bedside As available patient and family educated on Fall Prevention Program and Strategies. Primary Survey: 21:18 NO uncontrolled hemorrhage observed. A: The patient is alert. Airway: patent, Trachea ll1 midline. Breathing/Chest: Respiratory pattern: regular, Respiratory effort: spontaneous, unlabored, Breath sounds: clear, bilaterally. Chest inspection: symmetrical rise and fall of the chest. Circulation: Cardiac rhythm: sinus rhythm Heart tones present. Pulses: palpable right radial artery, right dorsalis pedis artery, left radial artery and left dorsalis pedis artery. Skin color: pink, Skin temperature: warm, dry. Disability Alert. Exposure/Environment: There is no evidence of uncontrolled external bleeding. Obvious injury(ies) are noted at this time: left knee and left ankle. Given ice packs. A warming method has been applied: A warm blanket has been provided to the patient. 21:22 Reassessment Airway Airway Patent Breathing/Chest Respiratory pattern Regular ll1 Respiratory effort Spontaneous Unlabored Breath sounds Clear Circulation Heart rhythm Sinus rhythm Heart tones Present Pulses Palpable Color [place] Temperature Warm Dry Disability Alert. Assessment: 21:00 General: Appears in no apparent distress. Behavior is calm, cooperative. Pain: ll1 Complains of pain in left leg. Musculoskeletal: Circulation, motion, and sensation intact. Capillary refill < 3 seconds, Range of motion: intact in all extremities, Tenderness present in left knee Reports pain in left leg. Injury Description: Bruise. 21:00 Neuro: No deficits noted. Cardiovascular: No deficits noted. Respiratory: No deficits ll1 noted. GI: No deficits noted. 22:00 Reassessment: No changes from previously documented assessment. Patient and/or family ll1 updated on plan of care and expected duration. Pain level reassessed. Patient is alert, oriented x 3, equal unlabored respirations, skin warm/dry/pink. Vital Signs: 21:11 BP 180 / 93; Pulse 68; Resp 16; Temp 98.4(O); Pulse Ox 100% ; lt1 21:13 Weight 72.57 kg; Height 5 ft. 0 in. (152.40 cm); Pain 10/10; ll1 22:30 BP 161 / 96; Pulse 66; Resp 18; Temp 98.4; Pulse Ox 100% ; Pain 8/10; ll1 21:13 Body Mass Index 31.25 (72.57 kg, 152.40 cm) ll1 Sita Coma Score: 21:24 Eye Response: spontaneous(4). Verbal Response: oriented(5). Motor Response: obeys ll1 commands(6). Total: 15. Trauma Score (Adult): 21:20 Eye Response: spontaneous(1); Verbal Response: oriented(1); Motor Response: obeys ll1 commands(2); Systolic BP: > 89 mm Hg(4); Respiratory Rate: 10 to 29 per min(4); Sita Score: 15; Trauma Score: 12 ED Course: 20:59 Patient arrived in ED. cl3 21:00 Arm band placed on Patient placed in an exam room. ll1 21:02 Stephon Olivera MD is Attending Physician. tw4 21:04 Michael Lui RN is Primary Nurse. ll1 21:14 Triage completed. ll1 21:15 Door closed. Lights dimmed. Warm blanket given. Ice pack to injury. lt1 21:24 Patient has correct armband on for positive identification. Fall risk band placed. Bed ll1 in low position. Call light in reach. Side rails up X 1. Adult w/ patient. 21:25 Patient maintains SpO2 saturation greater than 95% on room air. ll1 21:25 Thermoregulation: warm blanket given to patient. ll1 21:44 Ankle Left 3 View In Process Unspecified. EDMS 22:18 Patient did not have IV access during this emergency room visit. Air splint to LLE. PMS ll1 intact pre and post splint application. 22:19 No provider procedures requiring assistance completed. ll1 Administered Medications: 22:13 Drug: Ibuprofen 800 mg Route: PO; ll1 22:31 Follow up: Response: No adverse reaction; Pain is decreased; RASS: Alert and Calm (0) ll1 Intake: 22:30 PO: 20ml; Total: 20ml. ll1 Output: 22:30 Urine: 0ml; Total: 0ml. ll1 Outcome: 22:00 Discharge ordered by . tw4 22:19 Discharged to home ambulatory. ll1 22:19 Condition: good 22:19 Patient's length of stay in the Emergency Department was greater than 2 hours. being discharged home, not a trauma alert.Patient's length of stay extended due to 22:32 Discharge instructions given to patient, Instructed on discharge instructions, follow ll1 up and referral plans. medication usage, Demonstrated understanding of instructions, follow-up care, medications, Prescriptions given X 2. 22:43 Patient left the ED. mw2 Signatures: Dispatcher [employer] EDMS Stephon Olivera MD MD tw4 Miriam Durbin mw2 Su Humphrey lt1 Tika Lui cl3 Michael Lui, RN RN ll1
--- NOTE | 2019-08-02 22:02 | EDPHYS ---
Physician Documentation [facility] Name: Shana Patel Age: 58 yrs Sex: Female : 1960 Arrival Date: 08/02/2019 Time: 20:59 Bed 25 Private MD: ED Physician Stephon Olivera HPI: 08/02 01:35 This 58 yrs old Female presents to ER via Wheelchair with complaints of Fall tw4 Injury, Ankle Injury. 01:35 Details of fall: The patient fell from an upright position, while walking. Onset: The tw4 symptoms/episode began/occurred just prior to arrival. Associated injuries: The patient sustained left lateral ankle, left Achilles, left medial ankle and anterior aspect of left ankle. Severity of symptoms: At their worst the symptoms were moderate, in the emergency department the symptoms are unchanged. The patient has not experienced similar symptoms in the past. Historical: - Allergies: 08/01 21:17 Adhesives; ll1 21:17 Metformin HCl; ll1 21:17 IV contrast; ll1 - PMHx: 21:17 Arthritis; Fibromyalgia; GERD; Hypothyroidism; Diabetes - IDDM; Hypertension; ll1 neuropathy; spinal stenosis; rectocele; - PSHx: 21:17 ; Cholecystectomy; Hernia repair; Knee surgery; ll1 - Immunization history:: Adult Immunizations up to date. - Social history:: Smoking status: Patient denies any tobacco usage or history of. Patient/guardian denies using alcohol, street drugs, tobacco products. - Immunization history: Last tetanus immunization: - up to date. ROS: 08/02 01:35 Constitutional: Negative for fever, chills, and weight loss, Eyes: Negative for injury, tw4 pain, redness, and discharge, Cardiovascular: Negative for chest pain, palpitations, and edema, Respiratory: Negative for shortness of breath, cough, wheezing, and pleuritic chest pain, Abdomen/GI: Negative for abdominal pain, nausea, vomiting, diarrhea, and constipation, Back: Negative for injury and pain. Skin: Negative for injury, rash, and discoloration, Neuro: Negative for headache, weakness, numbness, tingling, and seizure. MS/extremity: Positive for pain, tenderness. Exam: 01:35 Constitutional: This is a well developed, well nourished patient who is awake, alert, tw4 and in no acute distress. Head/Face: Normocephalic, atraumatic. Chest/axilla: Normal chest wall appearance and motion. Nontender with no deformity. No lesions are appreciated. Cardiovascular: Regular rate and rhythm with a normal S1 and S2. No gallops, murmurs, or rubs. Normal PMI, no JVD. No pulse deficits. Respiratory: Lungs have equal breath sounds bilaterally, clear to auscultation and percussion. No rales, rhonchi or wheezes noted. No increased work of breathing, no retractions or nasal flaring. Abdomen/GI: Soft, non-tender, with normal bowel sounds. No distension or tympany. No guarding or rebound. No evidence of tenderness throughout. Back: No spinal tenderness. No costovertebral tenderness. Full range of motion. Neuro: Awake and alert, GCS 15, oriented to person, place, time, and situation. Cranial nerves II-XII grossly intact. Motor strength 5/5 in all extremities. Sensory grossly intact. Cerebellar exam normal. Normal gait. 01:35 Musculoskeletal/extremity: Extremities: noted in the left lateral malleolus: contusion, pain, swelling, tenderness, There is no evidence of bite, contusion, deformity, ecchymosis, erythema, laceration, puncture, rash. Vital Signs: 08/01 21:11 BP 180 / 93; Pulse 68; Resp 16; Temp 98.4(O); Pulse Ox 100% ; lt1 21:13 Weight 72.57 kg; Height 5 ft. 0 in. (152.40 cm); Pain 10/10; ll1 22:30 BP 161 / 96; Pulse 66; Resp 18; Temp 98.4; Pulse Ox 100% ; Pain 8/10; ll1 21:13 Body Mass Index 31.25 (72.57 kg, 152.40 cm) ll1 Sita Coma Score: 21:24 Eye Response: spontaneous(4). Verbal Response: oriented(5). Motor Response: obeys ll1 commands(6). Total: 15. Trauma Score (Adult): 21:20 Eye Response: spontaneous(1); Verbal Response: oriented(1); Motor Response: obeys ll1 commands(2); Systolic BP: > 89 mm Hg(4); Respiratory Rate: 10 to 29 per min(4); Sita Score: 15; Trauma Score: 12 MDM: 21:09 Patient medically screened. tw4 08/02 01:35 Differential diagnosis: abrasion, fracture, laceration, sprain, strain. Data reviewed: tw4 vital signs, nurses notes. Data reviewed: radiologic studies, plain films. Counseling: I had a detailed discussion with the patient and/or guardian regarding: the historical points, exam findings, and any diagnostic results supporting the discharge/admit diagnosis. Medication response: ibuprofen administration has improved the patient's pain. Response to treatment: and as a result, I will discharge patient, administer pain medication, morphine. Special discussion: I discussed with the patient/guardian in detail that at this point there is no indication for admission to the hospital. It is understood, however, that if the symptoms persist or worsen the patient needs to return immediately for re-evaluation. 08/01 21:42 Order name: Ankle Left 3 View [facility] 08/01 21:59 Order name: Ankle Splint: Aircast; Complete Time: 22:14 tw4 Administered Medications: 08/01 22:13 Drug: Ibuprofen 800 mg Route: PO; ll1 22:31 Follow up: Response: No adverse reaction; Pain is decreased; RASS: Alert and Calm (0) ll1 Disposition: 08/02/19 22:00 Discharged to Home. Impression: Sprain of unspecified ligament of left ankle. - Condition is Stable. - Discharge Instructions: Ankle Sprain, [id number]. - Prescriptions for Ibuprofen 800 mg Oral Tablet - take 1 tablet by ORAL route every 8 hours As needed take with food; 30 tablet. - Medication Reconciliation Form, Thank You Letter, Antibiotic Education, Prescription Opioid Use form. - Follow up: Private Physician; When: Upon discharge from the Emergency Department; Reason: Recheck today's complaints, Continuance of care, Re-evaluation by your physician. - Problem is new. - Symptoms have improved. Signatures: Dispatcher [employer] JENNIEPR Stephon Olivera MD MD tw4 Miriam Durbin 2 Michael Lui RN RN ll1 Corrections: (The following items were deleted from the chart) 21:41 21:04 Ankle Right 3 View+RAD.RAD.BRZ ordered. [facility] 22:43 22:00 08/02/2019 22:00 Discharged to Home. Impression: Sprain of unspecified ligament mw2 of left ankle. Condition is Stable. Forms are Medication Reconciliation Form, Thank You Letter, Antibiotic Education, Prescription Opioid Use. Follow up: Private Physician; When: Upon discharge from the Emergency Department; Reason: Recheck today's complaints, Continuance of care, Re-evaluation by your physician. Problem is new. Symptoms have improved. tw4
[2019-08-02] MEDS ORDERED: IBUPROFEN 400 MG TAB ONE (22:11)
[2019-08-02 23:04] VITALS: BP 180/93; TEMP 98.4; O2SAT 100
== END 2019-08-02 22:43 | disposition home or self-care (01) ==
LOC: ER 20:55
DX: S93.402A Sprain of unspecified ligament of left ankle, initial encounter (principal); W19.XXXA Unspecified fall, initial encounter; Y93.01 Activity, walking, marching and hiking; Y92.9 Unspecified place or not applicable; I10 Essential (primary) hypertension; Z88.8 Allergy status to other drugs, medicaments and biological substances; Z91.041 Radiographic dye allergy status
CPT/HCPCS: 99284

== ENCOUNTER 2019-11-15 19:17 | Emergency (ER) | payer OTHER ==
--- OUTSIDE RECORDS SUMMARY | 2019-11-15 19:19 | XMS REPORT | Continuity of Care Document ---
:1960 Author Organization [facility] t Address [address] [place] [address] Care Team Providers Name Role Phone Arslan Means DO Attending Clinician Harjinder Sotelo Attending Clinician Doctor Unassigned, Name Attending Clinician Unavailable Mary Ellen Aguilar Attending Clinician Problems This patient has no known problems. Allergies, Adverse Reactions, Alerts This patient has no known allergies or adverse reactions. Medications This patient has no known medications. Procedures This patient has no known procedures. Encounters Start End Encounter Admission Attending Care Care Encounter Source Date/Time Date/Time Type Type Clinicians Facility Department ID 2019-07-21 2019-07-21 Emergency [facility] [id number] 20:08:29 21:48:00 Ana Grimaldo [id number] [place] [id number] [employer] [id number] 2019-07-01 2019-07-01 Emergency Wilmer [facility] [id number] 17:43:00 18:36:00 Garima Grimaldo [id number] [place] [id number] [employer] [id number] 2019-07-01 2019-07-01 Orders Doctor [place] [id number] 00:00:00 00:00:00 Only UnassignedJEFFREY [id number] [place] [id number] [id number] 2019-04-08 2019-04-08 Emergency E [facility]BL [facility] [id number] [facility]BL 20:32:00 20:32:00 2019-02-05 2019-02-05 [facility] [id number] 14:09:39 23:59:00 Encounter [facility] [employer] [id number] Surgical [id number] [employer] [id number] [address] [place] 2019-02-05 2019-02-05 Office [facility] [id number] 13:29:09 14:49:06 Visit [facility] [employer] [id number] Surgical [id number] [facility] [id number] [address] [place] 2019-02-05 2019-02-05 [facility] [id number] 00:00:00 00:00:00 [facility] [employer] [id number] Surgical [id number] [employer] [id number] [address] [place] 2018-10-20 2018-10-20 Emergency E MHBL MHBL [id number] MHBL 10:28:00 10:28:00 Results This patient has no known results.
[2019-11-15] MEDS ORDERED: HYDROCODONE/APAP 7.5/325 MG TAB ONE (20:32)
--- NOTE | 2019-11-15 20:56 | RAD REPORT ---
EXAM DESCRIPTION: RAD - Ribs Left - 11/15/2019 8:46 pm CLINICAL HISTORY: Rib pain FINDINGS: No fracture seen. Bones are osteoporotic
--- NOTE | 2019-11-15 20:57 | RAD REPORT ---
EXAM DESCRIPTION: Panda Single View11/15/2019 8:46 pm CLINICAL HISTORY: Congestion COMPARISON: 2017 FINDINGS: The lungs appear clear of acute infiltrate. The heart is borderline enlarged IMPRESSION: No acute abnormalities displayed
--- NOTE | 2019-11-15 22:01 | EDPHYS ---
Physician Documentation [facility] Name: Shana Patel Age: 59 yrs Sex: Female : 1960 Arrival Date: 11/15/2019 Time: 19:19 Bed 18 Private MD: ED Physician Omega Melgar HPI: 11/14 21:57 This 59 yrs old Female presents to ER via Ambulatory with complaints of Rib ma2 Pain. 21:57 The patient or guardian reports chest pain that is located primarily in the left ma2 breast. Associated signs and symptoms: Pertinent negatives: cough, headache, lower extremity pain. Severity of pain: At its worst the pain was moderate in the emergency department the pain is unchanged. The patient has not experienced similar symptoms in the past. lorena is started after her husbands tried to pick her up, she felt a pop . Historical: - Allergies: 19:48 Adhesives; ca1 19:48 IV contrast; ca1 19:48 Metformin HCl; ca1 - Home Meds: 19:48 levothyroxine oral 1 tab once daily [Active]; hydrocodone-acetaminophen 7.5-325 mg Oral ca1 tab 1 tab every 6 hours [Active]; lisinopril 10 mg Oral tab 1 tab once daily [Active]; Lyrica Oral 2 times per day [Active]; Novolog Sub-Q [Active]; - PMHx: 19:48 Arthritis; Diabetes - IDDM; Fibromyalgia; GERD; Hypertension; Hypothyroidism; ca1 neuropathy; rectocele; spinal stenosis; - PSHx: 19:48 ; Cholecystectomy; Hernia repair; Knee surgery; ca1 - Immunization history:: Adult Immunizations up to date. - Social history:: Smoking status: Patient denies any tobacco usage or history of. Patient/guardian denies using alcohol, street drugs, The patient lives with family. - Family history:: not pertinent. ROS: 21:57 Constitutional: Negative for fever, chills, and weight loss. ma2 21:57 All other systems are negative. Exam: 21:57 Constitutional: This is a well developed, well nourished patient who is awake, alert, ma2 and in no acute distress. Neck: Trachea midline, no thyromegaly or masses palpated, and no cervical lymphadenopathy. Supple, full range of motion without nuchal rigidity, or vertebral point tenderness. No Meningismus. Chest/axilla: has left lower ribs bruises, and ttp, denies abu no deformity. No lesions are appreciated. Cardiovascular: Regular rate and rhythm with a normal S1 and S2. No gallops, murmurs, or rubs. Normal PMI, no JVD. No pulse deficits. Respiratory: Lungs have equal breath sounds bilaterally, clear to auscultation and percussion. No rales, rhonchi or wheezes noted. No increased work of breathing, no retractions or nasal flaring. Abdomen/GI: Soft, non-tender, with normal bowel sounds. No distension or tympany. No guarding or rebound. No evidence of tenderness throughout. Back: No spinal tenderness. No costovertebral tenderness. Full range of motion. MS/ Extremity: Pulses equal, no cyanosis. Neurovascular intact. Full, normal range of motion. Neuro: Awake and alert, GCS 15, oriented to person, place, time, and situation. Cranial nerves II-XII grossly intact. Motor strength 5/5 in all extremities. Sensory grossly intact. Cerebellar exam normal. Normal gait. Vital Signs: 19:44 BP 152 / 89; Pulse 68; Resp 15 S; Temp 97.1(TE); Pulse Ox 100% on R/A; Weight 74.84 kg ca1 (R); Height 5 ft. 0 in. (152.40 cm) (R); Pain 9/10; 21:49 BP 155 / 81; Pulse 68; Resp 18; Temp 97.5; Pulse Ox 100% on R/A; mg2 19:44 Body Mass Index 32.22 (74.84 kg, 152.40 cm) ca1 MDM: 19:59 Patient medically screened. ma2 21:57 Differential diagnosis: Blunt Chest Trauma Chest Wall Contusion Chest Wall Injury Rib ma2 Fracture. Data reviewed: vital signs, nurses notes. Counseling: I had a detailed discussion with the patient and/or guardian regarding: the historical points, exam findings, and any diagnostic results supporting the discharge/admit diagnosis, the presence of at least one elevated blood pressure reading (>120/80) during this emergency department visit. Response to treatment: the patient's symptoms have markedly improved after treatment. 11/14 20:11 Order name: Chest Single View XRAY; Complete Time: 21:11 ma2 11/14 20:11 Order name: Ribs Left XRAY; Complete Time: 21:11 ma2 Administered Medications: 20:45 Drug: [place] (7.5 mg-325 mg) 2 tabs Route: PO; mg2 21:43 Follow up: Response: No adverse reaction mg2 Disposition: 11/15/19 22:00 Discharged to Home. Impression: Chest pain on breathing - left lower rib contusion. - Condition is Stable. - Discharge Instructions: Chest Wall Pain. - Prescriptions for Diclofenac Sodium 75 mg Oral Tablet Sustained Release - take 1 tablet by ORAL route 2 times per day; 30 tablet. - Medication Reconciliation Form, Thank You Letter, Antibiotic Education, Prescription Opioid Use form. - Follow up: Private Physician; When: Tomorrow; Reason: Continuance of care. Signatures: Dispatcher [employer] EDMS Omega Melgar MD MD ma2 Anmol Ogden RN RN mg2 Anahi Sanchez RN RN ca1 Corrections: (The following items were deleted from the chart) 22:12 22:00 11/15/2019 22:00 Discharged to Home. Impression: Chest pain on breathing - left mg2 lower rib contusion. Condition is Stable. Forms are Medication Reconciliation Form, Thank You Letter, Antibiotic Education, Prescription Opioid Use. Follow up: Private Physician; When: Tomorrow; Reason: Continuance of care. ma2
--- NOTE | 2019-11-15 22:01 | ER ---
Nurse's Notes [facility] Name: Shana Patel Age: 59 yrs Sex: Female : 1960 Arrival Date: 11/15/2019 Time: 19:19 Bed 18 Private MD: Diagnosis: Chest pain on breathing-left lower rib contusion Presentation: 11/14 19:44 Chief complaint: Patient states: I was sitting on the ground, my lifted me up ca1 and I heard a rib pop on the L side. This happened yesterday. C/O pain on L ribcage. Denies cough. Denies SOB. Coronavirus screen: Proceed with normal triage. Patient denies a cough. Patient denies shortness of breath or difficulty breathing. Patient denies measured and/or subjective temperature greater than 100.4F prior to today's visit. Patient denies travel on a cruise ship or to a country the [facility] currently lists as an affected area. Patient denies contact with known and/or suspected case of COVID-19. Ebola Screen: Patient negative for fever greater than or equal to 101.5 degrees Fahrenheit, and additional compatible Ebola Virus Disease symptoms Patient denies exposure to infectious person. Patient denies travel to an Ebola-affected area in the 21 days before illness onset. No symptoms or risks identified at this time. Initial Sepsis Screen: Does the patient meet any 2 criteria? No. Patient's initial sepsis screen is negative. Does the patient have a suspected source of infection? No. Patient's initial sepsis screen is negative. Risk Assessment: Do you want to hurt yourself or someone else? Patient reports no desire to harm self or others. Onset of symptoms was November 15, 2019. 19:44 Method Of Arrival: Ambulatory ca1 19:44 Acuity: TERESA 4 ca1 Triage Assessment: 21:30 General: Behavior is calm, cooperative. mg2 Historical: - Allergies: 19:48 Adhesives; ca1 19:48 IV contrast; ca1 19:48 Metformin HCl; ca1 - Home Meds: 19:48 levothyroxine oral 1 tab once daily [Active]; hydrocodone-acetaminophen 7.5-325 mg Oral ca1 tab 1 tab every 6 hours [Active]; lisinopril 10 mg Oral tab 1 tab once daily [Active]; Lyrica Oral 2 times per day [Active]; Novolog Sub-Q [Active]; - PMHx: 19:48 Arthritis; Diabetes - IDDM; Fibromyalgia; GERD; Hypertension; Hypothyroidism; ca1 neuropathy; rectocele; spinal stenosis; - PSHx: 19:48 ; Cholecystectomy; Hernia repair; Knee surgery; ca1 - Immunization history:: Adult Immunizations up to date. - Social history:: Smoking status: Patient denies any tobacco usage or history of. Patient/guardian denies using alcohol, street drugs, The patient lives with family. - Family history:: not pertinent. Screenin:45 Abuse screen: Denies threats or abuse. Denies injuries from another. Nutritional mg2 screening: No deficits noted. Tuberculosis screening: No symptoms or risk factors identified. Fall Risk None identified. Assessment: 20:35 General: patient in xray or ct scan, . mg2 20:45 General: Appears in no apparent distress. comfortable. Pain: Complains of pain in left mg2 lower chest. Neuro: Level of Consciousness is awake, alert, obeys commands, Oriented to person, place, time, situation. Cardiovascular: Capillary refill < 3 seconds Patient's skin is warm and dry. Respiratory: Airway is patent Respiratory effort is even, unlabored, Respiratory pattern is regular, symmetrical. GI: No signs and/or symptoms were reported involving the gastrointestinal system. : No signs and/or symptoms were reported regarding the genitourinary system. EENT: No signs and/or symptoms were reported regarding the EENT system. Derm: Skin is intact, is healthy with good turgor, Skin is pink, warm \T\ dry. normal. Musculoskeletal: Circulation, motion, and sensation intact. Capillary refill < 3 seconds, Reports pain in left lower chest. Vital Signs: 19:44 BP 152 / 89; Pulse 68; Resp 15 S; Temp 97.1(TE); Pulse Ox 100% on R/A; Weight 74.84 kg ca1 (R); Height 5 ft. 0 in. (152.40 cm) (R); Pain 9/10; 21:49 BP 155 / 81; Pulse 68; Resp 18; Temp 97.5; Pulse Ox 100% on R/A; mg2 19:44 Body Mass Index 32.22 (74.84 kg, 152.40 cm) ca1 ED Course: 19:19 Patient arrived in ED. ds1 19:46 Triage completed. ca1 19:48 Arm band placed on right wrist. ca1 19:58 Omega Melgar MD is Attending Physician. ma2 20:06 Anoml Ogden, RN is Primary Nurse. mg2 20:46 Chest Single View XRAY In Process Unspecified. EDMS 20:46 Ribs Left XRAY In Process Unspecified. EDMS 20:46 Patient has correct armband on for positive identification. Door closed. Warm blanket mg2 given. 20:46 No provider procedures requiring assistance completed. Patient did not have IV access mg2 during this emergency room visit. Administered Medications: 20:45 Drug: Tuttle (7.5 mg-325 mg) 2 tabs Route: PO; mg2 21:43 Follow up: Response: No adverse reaction mg2 Outcome: 22:00 Discharge ordered by . ma2 22:12 Discharged to home ambulatory, with family. mg2 22:12 Condition: stable 22:12 Discharge instructions given to patient, family, Instructed on discharge instructions, follow up and referral plans. medication usage, Demonstrated understanding of instructions, follow-up care, medications, Prescriptions given X 1. 22:12 Patient left the ED. mg2 Signatures: Dispatcher [employer] EDAZ Inés Velasuqez ds1 Omega Melgar MD MD ma2 Anmol Ogden, RN RN mg2 Anahi Sanchez RN RN ca1
[2019-11-15 22:20] VITALS: O2SAT 100
[2019-11-15 22:21] VITALS: BP 155/81; TEMP 97.5
== END 2019-11-15 22:12 | disposition home or self-care (01) ==
LOC: ER 19:17
DX: S20.212A Contusion of left front wall of thorax, initial encounter (principal); I10 Essential (primary) hypertension; E03.9 Hypothyroidism, unspecified; E11.9 Type 2 diabetes mellitus without complications; Z79.4 Long term (current) use of insulin; Z88.8 Allergy status to other drugs, medicaments and biological substances; Z91.041 Radiographic dye allergy status; Z91.048 Other nonmedicinal substance allergy status
CPT/HCPCS: 71045; 99283

== ENCOUNTER 2020-03-14 21:14 | Emergency (ER) | payer OTHER ==
--- OUTSIDE RECORDS SUMMARY | 2020-03-14 21:16 | XMS REPORT | Continuity of Care Document ---
:1960 Author Organization [facility] t Address [address] [place] [address] Care Team Providers Name Role Phone Doctor Unassigned, Name Attending Clinician Unavailable Evangelist GIBSON L Attending Clinician Problems This patient has no known problems. Allergies, Adverse Reactions, Alerts This patient has no known allergies or adverse reactions. Medications This patient has no known medications. Procedures This patient has no known procedures. Encounters Start End Encounter Admission Attending Care Care Encounter Source Date/Time Date/Time Type Type Clinicians Facility Department ID 2019-12-04 2019-12-04 Orders Doctor DARSHANA [id number] 00:00:00 00:00:00 Only Unassigned, JEFFREY [id number] [facility] [id number] 2019-11-25 2019-11-25 Office PARIS Blanca [id number] 14:41:52 15:49:56 Visit Erica Grimaldo [id number] [place] [id number] Tia [id number] [address] 2019-04-08 2019-04-08 Emergency E [facility] [id number] [facility] 20:32:00 20:32:00 2018-10-20 2018-10-20 Emergency E [facility] [id number] [facility] 10:28:00 10:28:00 Results This patient has no known results.
[2020-03-14] MEDS ORDERED: HYDROCODONE/APAP 10/325 TAB ONE (22:26)
--- NOTE | 2020-03-14 23:44 | EDPHYS ---
Physician Documentation [facility] Name: Shana Patel Age: 59 yrs Sex: Female : 1960 Arrival Date: 03/14/2020 Time: 21:17 Bed 8 Private MD: ED Physician Darien Faith HPI: 03/14 23:00 This 59 yrs old Female presents to ER via Ambulatory with complaints of Right pm1 ankle pain and left rib pain. 23:01 Details of fall: The patient fell from an upright position, while standing. Onset: The pm1 symptoms/episode began/occurred today. Associated injuries: The patient sustained right ankle, left lateral rib cage. Patient was bending over to put water in the dog bowl and she fell forward. She fell with her hands forward and landed on her left side on a guitar case on the floor. Patient presenting with left lateral rib cage pain and right ankle swelling. Patient able to walk without difficulty. 23:01 No head injury, headache, neck pain, LOC. pm1 Historical: - Allergies: 21:35 Adhesives; ca1 21:35 IV contrast; ca1 21:35 Metformin HCl; ca1 - Home Meds: 21:35 hydrocodone-acetaminophen 7.5-325 mg Oral tab 1 tab every 6 hours [Active]; ca1 levothyroxine oral 1 tab once daily [Active]; Novolog Sub-Q [Active]; Lyrica Oral 2 times per day [Active]; lisinopril 10 mg Oral tab 1 tab once daily [Active]; - PMHx: 21:35 Arthritis; Diabetes - IDDM; Fibromyalgia; GERD; Hypertension; Hypothyroidism; ca1 neuropathy; rectocele; spinal stenosis; - PSHx: 21:35 ; Cholecystectomy; Hernia repair; Knee surgery; ca1 - Immunization history:: Adult Immunizations up to date. - Social history:: Smoking status: Patient denies any tobacco usage or history of. ROS: 23:01 Constitutional: Negative for fever, chills, and weight loss, Neck: Negative for injury, pm1 pain, and swelling, Cardiovascular: Negative for chest pain, palpitations, and edema, Respiratory: Negative for shortness of breath, cough, wheezing, and pleuritic chest pain, Abdomen/GI: Negative for abdominal pain, nausea, vomiting, diarrhea, and constipation, Back: Negative for injury and pain. 23:01 Skin: Negative for injury, rash, and discoloration, Neuro: Negative for headache, weakness, numbness, tingling, and seizure. 23:01 MS/extremity: Positive for pain, swelling, of the right ankle, Negative for decreased range of motion, deformity. Exam: 23:01 Constitutional: This is a well developed, well nourished patient who is awake, alert, pm1 and in no acute distress. Head/Face: Normocephalic, atraumatic. Neck: Trachea midline, no thyromegaly or masses palpated, and no cervical lymphadenopathy. Supple, full range of motion without nuchal rigidity, or vertebral point tenderness. No Meningismus. 23:01 Back: No spinal tenderness. No costovertebral tenderness. Full range of motion. Skin: Warm, dry with normal turgor. Normal color with no rashes, no lesions, and no evidence of cellulitis. 23:01 Chest/axilla: Inspection: normal, Palpation: tenderness, of the left lateral anterior chest, that totally reproduces the patient's complaints. 23:01 Cardiovascular: Exam negative for acute changes, Rate: normal, Rhythm: regular, Pulses: no pulse deficits are appreciated. 23:01 Respiratory: Exam negative for acute changes, respiratory distress, shortness of breath. 23:01 Abdomen/GI: Inspection: abdomen appears normal, Palpation: abdomen is soft and non-tender, in all quadrants. 23:01 Musculoskeletal/extremity: Extremities: grossly normal except: noted in the right ankle: swelling, There is no evidence of decreased ROM, deformity, tenderness. 23:01 Neuro: Exam negative for acute changes, Orientation: is normal, Motor: is normal, moves all fours. Vital Signs: 21:27 BP 159 / 86; Pulse 72; Resp 16 S; Temp 97.4(TE); Pulse Ox 99% on R/A; Weight 77.11 kg ca1 (R); Height 5 ft. 0 in. (152.40 cm) (R); 23:30 BP 175 / 95; Pulse 79; Resp 19; Pulse Ox 99% ; Pain 8/10; rr5 03/15 00:00 BP 151 / 85; Pulse 70; Resp 17; Pulse Ox 98% ; rr5 03/14 21:27 Body Mass Index 33.20 (77.11 kg, 152.40 cm) ca1 MDM: 03/14 22:00 Patient medically screened. pm1 23:06 Data reviewed: vital signs. Data interpreted: Pulse oximetry: on room air is 99 %. pm1 Interpretation: normal. 23:42 Counseling: I had a detailed discussion with the patient and/or guardian regarding: the pm1 historical points, exam findings, and any diagnostic results supporting the discharge/admit diagnosis, radiology results, the need for outpatient follow up, to return to the emergency department if symptoms worsen or persist or if there are any questions or concerns that arise at home. 23:47 ED course: FILM COLOR TESTER aware reviewed. pm1 23:51 ED course: Patient has appointment with Dr Rocha at 1315 tomorrow. Patient reports pm1 that left rib pain has resolved and now feels some pain to right ankle area. Patient able to walk on both feet with walker therefore will apply estuardo wrap. 03/15 18:58 ED course: Informed patient of x-ray results. pm1 03/14 22:04 Order name: Ankle Right 3 View XRAY pm1 03/14 22:04 Order name: Ribs Left XRAY pm1 03/14 22:04 Order name: Chest Single View XRAY pm1 03/14 23:44 Order name: Estuardo wrap-joint; Complete Time: 00:03 pm1 Administered Medications: 03/14 22:20 Drug: HYDROcodone-acetaminophen 10 mg-325 mg 1 tabs {Note: rass 0.} Route: PO; rr5 23:20 Follow up: Response: No adverse reaction; Pain is decreased; RASS: Alert and Calm (0) rr5 Disposition: 03/15 00:15 Co-signature as Attending Physician, Darien Faith MD. mh7 Disposition: 03/14/20 23:43 Discharged to Home. Impression: Contusion of left front wall of thorax - rib contusion, Pain in right ankle and joints of right foot, Fall on same level, unspecified. - Condition is Stable. - Discharge Instructions: Ankle Sprain, Rib Contusion, Fall Prevention in the Home. - Medication Reconciliation Form, Thank You Letter, Antibiotic Education, Prescription Opioid Use form. - Follow up: Emergency Department; When: As needed; Reason: Worsening of condition. Follow up: Private Physician; When: 2 - 3 days; Reason: Recheck today's complaints, Continuance of care, Re-evaluation by your physician. - Problem is new. - Symptoms have improved. Signatures: Dispatcher [employer] EDMS Marin Boyle, ASSOCIATE DIRECTOR CAREER SERVICES ASSOCIATE DIRECTOR CAREER SERVICES pm1 Germain Peraza, RN RN rr5 Anahi Sanchez RN RN ca1 Darien Faith MD MD 7 Corrections: (The following items were deleted from the chart) 03/14 23:43 23:43 03/14/2020 23:43 Discharged to Home. Impression: Contusion of left front wall of pm1 thorax - rib contusion; Pain in right ankle and joints of right foot. Condition is Stable. Forms are Medication Reconciliation Form, Thank You Letter, Antibiotic Education, Prescription Opioid Use. Follow up: Emergency Department; When: As needed; Reason: Worsening of condition. Follow up: Private Physician; When: 2 - 3 days; Reason: Recheck today's complaints, Continuance of care, Re-evaluation by your physician. Problem is new. Symptoms have improved. pm1 03/15 00:05 03/14 23:43 03/14/2020 23:43 Discharged to Home. Impression: Contusion of left front rr5 wall of thorax - rib contusion; Pain in right ankle and joints of right foot; Fall on same level, unspecified. Condition is Stable. Forms are Medication Reconciliation Form, Thank You Letter, Antibiotic Education, Prescription Opioid Use. Follow up: Emergency Department; When: As needed; Reason: Worsening of condition. Follow up: Private Physician; When: 2 - 3 days; Reason: Recheck today's complaints, Continuance of care, Re-evaluation by your physician. Problem is new. Symptoms have improved. pm1
--- NOTE | 2020-03-14 23:44 | ER ---
Nurse's Notes [facility] Name: Shana Ptael Age: 59 yrs Sex: Female : 1960 Arrival Date: 03/14/2020 Time: 21:17 Bed 8 Private MD: Diagnosis: Contusion of left front wall of thorax-rib contusion;Pain in right ankle and joints of right foot;Fall on same level, unspecified Presentation: 03/14 21:27 Chief complaint: Patient states: Yesterday, I bent over and fell forward. Denies LOC. ca1 Reports pain on L rib cage and R foot. Coronavirus screen: Client denies travel out of the [place] in the last 14 days. At this time, the client does not indicate any symptoms associated with coronavirus-19. Ebola Screen: Patient negative for fever greater than or equal to 101.5 degrees Fahrenheit, and additional compatible Ebola Virus Disease symptoms Patient denies exposure to infectious person. Patient denies travel to an Ebola-affected area in the 21 days before illness onset. No symptoms or risks identified at this time. Initial Sepsis Screen: Does the patient meet any 2 criteria? No. Patient's initial sepsis screen is negative. Does the patient have a suspected source of infection? No. Patient's initial sepsis screen is negative. Risk Assessment: Do you want to hurt yourself or someone else? Patient reports no desire to harm self or others. Onset of symptoms was March 14, 2020. 21:27 Method Of Arrival: Ambulatory ca1 21:27 Acuity: TERESA 4 ca1 Triage Assessment: 21:45 General: Appears in no apparent distress. uncomfortable, Behavior is calm, cooperative, rr5 appropriate for age. Historical: - Allergies: 21:35 Adhesives; ca1 21:35 IV contrast; ca1 21:35 Metformin HCl; ca1 - Home Meds: 21:35 hydrocodone-acetaminophen 7.5-325 mg Oral tab 1 tab every 6 hours [Active]; ca1 levothyroxine oral 1 tab once daily [Active]; Novolog Sub-Q [Active]; Lyrica Oral 2 times per day [Active]; lisinopril 10 mg Oral tab 1 tab once daily [Active]; - PMHx: 21:35 Arthritis; Diabetes - IDDM; Fibromyalgia; GERD; Hypertension; Hypothyroidism; ca1 neuropathy; rectocele; spinal stenosis; - PSHx: 21:35 ; Cholecystectomy; Hernia repair; Knee surgery; ca1 - Immunization history:: Adult Immunizations up to date. - Social history:: Smoking status: Patient denies any tobacco usage or history of. Screenin:44 Abuse screen: Denies threats or abuse. Denies injuries from another. Nutritional rr5 screening: No deficits noted. Tuberculosis screening: No symptoms or risk factors identified. Fall Risk Fall in past 12 months (25 points). Ambulatory Aid- Crutches/Cane/Walker (15 pts). Total Francis Fall Scale indicates High Risk Score (45 or more points). Fall prevention measures have been instituted. Side Rails Up X 2 Frequent Obs/Assessments Occuring Family Present and informed to notify staff if the need to leave the bedside As available patient and family educated on Fall Prevention Program and Strategies. Assessment: 21:45 General: Appears in no apparent distress. uncomfortable. Pain: Complains of pain in rr5 anterior aspect of left lateral abdomen and right foot Pain Quality of pain is described as aching, Pain began suddenly, Is intermittent. Neuro: Level of Consciousness is awake, alert, obeys commands, Oriented to person, place, time, situation. Cardiovascular: Capillary refill < 3 seconds Patient's skin is warm and dry. Respiratory: Airway is patent Respiratory effort is even, unlabored, Respiratory pattern is regular, symmetrical. GI: No signs and/or symptoms were reported involving the gastrointestinal system. : No signs and/or symptoms were reported regarding the genitourinary system. EENT: No signs and/or symptoms were reported regarding the EENT system. Derm: Skin is intact, is healthy with good turgor, Skin temperature is warm. Musculoskeletal: Capillary refill < 3 seconds, Reports pain in anterior aspect of left lateral abdomen and right foot. Vital Signs: 21:27 BP 159 / 86; Pulse 72; Resp 16 S; Temp 97.4(TE); Pulse Ox 99% on R/A; Weight 77.11 kg ca1 (R); Height 5 ft. 0 in. (152.40 cm) (R); 23:30 BP 175 / 95; Pulse 79; Resp 19; Pulse Ox 99% ; Pain 8/10; rr5 03/15 00:00 BP 151 / 85; Pulse 70; Resp 17; Pulse Ox 98% ; rr5 03/14 21:27 Body Mass Index 33.20 (77.11 kg, 152.40 cm) ca1 ED Course: 03/14 21:17 Patient arrived in ED. bp1 21:30 Germain Peraza, RN is Primary Nurse. rr5 21:33 Triage completed. ca1 21:35 Arm band placed on right wrist. ca1 21:44 Patient has correct armband on for positive identification. Bed in low position. Call rr5 light in reach. Side rails up X2. Pulse ox on. NIBP on. 21:45 No provider procedures requiring assistance completed. rr5 21:48 Marin Boyle NP is PHCP. pm1 21:48 Darien Faith MD is Attending Physician. pm1 03/15 00:04 Patient did not have IV access during this emergency room visit. Estuardo wrap to right rr5 ankle. Administered Medications: 03/14 22:20 Drug: HYDROcodone-acetaminophen 10 mg-325 mg 1 tabs {Note: rass 0.} Route: PO; rr5 23:20 Follow up: Response: No adverse reaction; Pain is decreased; RASS: Alert and Calm (0) rr5 Outcome: 23:43 Discharge ordered by MD. pm1 03/15 00:05 Discharged to home ambulatory, with family. rr5 Condition: stable Discharge instructions given to patient, Instructed on discharge instructions, follow up and referral plans. Demonstrated understanding of instructions, follow-up care. 00:05 Patient left the ED. rr5 Signatures: Marin Boyle NP TRAFFIC EXPERT pm1 Germain Peraza RN RN rr5 Anahi Sanchez RN RN ca1 Gabriela Prasad bp1
[2020-03-15 03:00] VITALS: TEMP 97.4
[2020-03-15 03:04] VITALS: BP 151/85; O2SAT 98
--- NOTE | 2020-03-15 07:19 | RAD REPORT ---
EXAM DESCRIPTION: RAD - Chest Single View - 03/14/2020 10:59 pm CLINICAL HISTORY: RIB PAIN - LEFT COMPARISON: Single-view chest November 14 TECHNIQUE: AP portable chest image was obtained 03/14/2020 10:59 pm . FINDINGS: Chronic interstitial opacification is present. The interstitial pattern is similar to comp arison. There is slight accentuation due to shallow inspiration. Medial right base opacification matc hes the prior study. Pulmonary contusion or acute lung parenchymal process not seen. Heart and vasculature are normal. No measurable pleural effusion and no pneumothorax. Bones are oste openic for age. No acute bone process identifiable. Rib assessment is limited on the single view exam ination. No acute aortic findings suspected. IMPRESSION: Chronic interstitial lung pattern with no acute pleural or parenchymal process identifia ble. Bones appear osteopenic for age. No acute bone process seen though no bone detail is limited on a sin gle view examination.
--- NOTE | 2020-03-15 07:22 | RAD REPORT ---
EXAM DESCRIPTION: RAD - Ribs Left - 03/14/2020 10:59 pm CLINICAL HISTORY: Left-sided rib pain, trauma COMPARISON: November 15, 2019. FINDINGS: No displaced rib fractures identifiable. No acute rib fracture confirmed. There are angula tion deformities of the left seventh, eighth and tenth ribs at the anterior margin. These appear to b e similar to a November 14 examination. No aggressive rib lesion. No underlying pneumothorax, effusion, i nfiltrate or pulmonary contusion. IMPRESSION: No acute rib fracture confirmed. The angulation deformity of the anterior margin seventh, eighth and tenth ribs appears to be old rib trauma. Correlation can be made with any acute pain symptoms.
--- NOTE | 2020-03-15 07:24 | RAD REPORT ---
EXAM DESCRIPTION: RAD - Ankle Right 3 View - 03/14/2020 10:59 pm CLINICAL HISTORY: PAIN, ankle trauma COMPARISON: Ankle Left 3 View dated 08/02/2019 FINDINGS: No fracture, dislocation or periosteal reaction. No joint effusion seen. No joint space na rrowing. Bones do appear to be osteopenic for the patient's age. Prominent arterial tree calcificatio ns are present. Soft tissues are prominent around the ankle joint but not significantly different from the July 2019 study. No foreign body. IMPRESSION: Ankle soft tissue swelling is present. Bones are osteopenic for patient's age. No fracture or acute finding.
== END 2020-03-15 00:05 | disposition home or self-care (01) ==
LOC: ER 21:14
DX: S20.212A Contusion of left front wall of thorax, initial encounter (principal); W19.XXXA Unspecified fall, initial encounter; Y93.89 Activity, other specified; Y92.9 Unspecified place or not applicable; I10 Essential (primary) hypertension; E11.9 Type 2 diabetes mellitus without complications; E03.9 Hypothyroidism, unspecified; Z79.4 Long term (current) use of insulin; Z88.8 Allergy status to other drugs, medicaments and biological substances; Z91.041 Radiographic dye allergy status; Z91.048 Other nonmedicinal substance allergy status
CPT/HCPCS: 71045; 99283

== ENCOUNTER 2020-04-08 22:15 | Inpatient (IN) | payer OTHER ==
--- OUTSIDE RECORDS SUMMARY | 2020-04-08 22:18 | XMS REPORT | Continuity of Care Document ---
:1960 Author Organization [facility] t Address [address] [place] [address] Care Team Providers Name Role Phone Doctor [...] ID 2019-12-04 2019-12-04 Orders Doctor DARSHANA [id number] 00:00:00 00:00:00 Only Unassigned, JEFFREY [id number] [facility] [id number] 2019-11-25 2019-11-25 Office [place] Blanca [id number] 14:41:52 15:49:56 Visit Erica Grimaldo [id number] [place] [id number] Tia [id number] [address] 2019-04-08 2019-04-08 Emergency E [facility] [id number] [facility] 20:32:00 20:32:00 2018-10-20 2018-10-20 Emergency E [facility] [id number] [facility] 10:28:00 10:28:00 Results This patient has no known results.
[2020-04-08 23:17] LABS: Absolute Lymphocytes (CBC) 1.8 K/uL (0.7-4.9); Basophils % 1.2 % (0-1.3); Lymphocytes % 28.3 % (15.3-44.8); MPV 9.2 fL (7.6-11.3); RBC Red Blood Cell Count 3.81 M/uL (3.86-4.86)
[2020-04-08 23:19] LABS: Protime INR 0.86
[2020-04-08 23:39] LABS: Albumin 3.2 g/dL (3.4-5.0); Bilirubin Direct 0.1 mg/dL (0-0.2); Bilirubin Total 0.5 mg/dL (0.2-1.0); Magnesium 1.9 mg/dL (1.8-2.4); Potassium 4.2 mmol/L (3.5-5.1); Protein, Total 7.2 g/dL (6.4-8.2)
[2020-04-08 23:41] LABS: Troponin (Emerg Dept Use Only) 0.72 ng/mL (0.0-0.045)
[2020-04-08] MEDS ORDERED: DIPHENHYDRAMINE 50 MG/ML VIAL ONE (23:47)
[2020-04-08] MEDS ORDERED: METHYLPREDNISOLONE 125 MG INJ ONE (23:47)
[2020-04-08] MEDS ORDERED: FAMOTIDINE 20 MG/2 ML VIAL IV ONE (23:47)
--- NOTE | 2020-04-09 00:02 | ER ---
Nurse's Notes [facility] Name: Shana Patel Age: 59 yrs Sex: Female : 1960 Arrival Date: 04/08/2020 Time: 22:19 Bed 5 Private MD: Diagnosis: Chest pain, unspecified Presentation: 04/08 22:38 Chief complaint: Patient states: chest pain started at around 8-9pm. sharp, 10/10 pain rv scale, with SOB. Coronavirus screen: Client denies travel out of the [place] in the last 14 days. Ebola Screen: No symptoms or risks identified at this time. Initial Sepsis Screen: Does the patient meet any 2 criteria? No. Patient's initial sepsis screen is negative. Does the patient have a suspected source of infection? No. Patient's initial sepsis screen is negative. Risk Assessment: Do you want to hurt yourself or someone else? Patient reports no desire to harm self or others. Onset of symptoms was April 08, 2020 at 20:00. 22:38 Method Of Arrival: Ambulatory rv 22:38 Acuity: TERESA 3 rv Triage Assessment: 22:41 General: Appears comfortable, Behavior is calm, cooperative. Pain: Complains of pain in rv chest Pain radiates to back Pain currently is 10 out of 10 on a pain scale. Quality of pain is described as sharp, Pain began 3 hours ago. EENT: No signs and/or symptoms were reported regarding the EENT system. Neuro: Level of Consciousness is awake, alert, obeys commands, Oriented to person, place, time, situation. Cardiovascular: Patient's skin is warm and dry. Rhythm is sinus rhythm. Respiratory: Airway is patent Respiratory effort is even, unlabored, Breath sounds are clear bilaterally. Derm: Skin is intact. Historical: - Allergies: 22:41 Adhesives; rv 22:41 IV contrast; rv 22:41 Metformin HCl; rv - PMHx: 22:41 Arthritis; Diabetes - IDDM; Fibromyalgia; GERD; Hypertension; Hypothyroidism; rv neuropathy; rectocele; spinal stenosis; - PSHx: 22:41 ; Hernia repair; Cholecystectomy; rv - Immunization history:: Adult Immunizations up to date. - Social history:: Smoking status: Patient denies any tobacco usage or history of. Screenin:42 Abuse screen: Denies threats or abuse. Denies injuries from another. Nutritional rv screening: No deficits noted. Tuberculosis screening: No symptoms or risk factors identified. Fall Risk None identified. Assessment: 23:30 Reassessment: Patient appears in no apparent distress at this time. Patient is alert, rr5 oriented x 3, equal unlabored respirations, skin warm/dry/pink. ED provider ordered for anti allergy medication prior to CT scan with contrast. 04/09 00:30 Reassessment: AWAITING CT SCAN REPORT. rv 02:00 Reassessment: AWAITING COVID RESULT. rv Vital Signs: 04/08 22:38 BP 175 / 98; Pulse 72; Resp 17; Temp 98; Pulse Ox 100% ; rv 04/09 00:30 BP 179 / 95; Pulse 64; Resp 15; Pulse Ox 96% on R/A; rv 01:00 BP 176 / 97; Pulse 65; Resp 16; Pulse Ox 97% on R/A; rv 01:23 Weight 77.56 kg; rv 01:46 BP 177 / 92; Pulse 66; Resp 16; Pulse Ox 100% on R/A; rv 02:00 BP 138 / 89; Pulse 71; Resp 17; Pulse Ox 97% on R/A; rv 02:30 BP 128 / 82; Pulse 68; Resp 16; Pulse Ox 97% on R/A; rv 03:00 BP 105 / 69; Pulse 76; Resp 16; Temp 98.1; Pulse Ox 96% on R/A; rv ED Course: 04/08 22:19 Patient arrived in ED. [facility] 22:27 Anastacio Casanova PA is PHCP. [facility] 22:27 Darien Faith MD is Attending Physician. [facility] 22:38 Zhen Banks RN is Primary Nurse. rv 22:40 Triage completed. rv 22:42 Arm band placed on right wrist. Patient placed in the treatment room, on a stretcher, rv Patient notified of wait time. 22:42 Patient has correct armband on for positive identification. Bed in low position. Call rv light in reach. Side rails up X 1. alarm security or surveillance monitor on. Pulse ox on. NIBP on. 23:00 XRAY Chest (1 view) In Process Unspecified. EDMS 23:00 Inserted saline lock: 20 gauge in right antecubital area, using aseptic technique. rv Blood collected. 23:00 Patient maintains SpO2 saturation greater than 95% on room air. rv 23:40 Notified ED physician of a critical lab result(s). Troponin 0.72. dm5 04/09 00:01 Reji Trotter is Hospitalizing Provider. jmm 00:43 Chest For PE Angio CT In Process Unspecified. EDMS 01:47 No provider procedures requiring assistance completed. rv 01:49 covid. rr5 03:07 IV is patent, with fluids infusing freely, Patient admitted, IV remains in place. rv Administered Medications: 04/08 23:35 Drug: diphenhydrAMINE 50 mg Route: IVP; Site: right antecubital; rr5 04/09 01:45 Follow up: Response: No adverse reaction rv 04/08 23:37 Drug: SOLU-Medrol 125 mg Route: IVP; Site: right antecubital; rr5 04/09 01:45 Follow up: Response: No adverse reaction rv 04/08 23:39 Drug: Pepcid 20 mg Route: IVP; Site: right antecubital; rr5 04/09 01:45 Follow up: Response: No adverse reaction rv 00:32 Drug: Zofran (Ondansetron) 4 mg Route: IVP; Site: right antecubital; rv 01:46 Follow up: Response: No adverse reaction rv 00:32 Drug: Norvasc 10 mg Route: PO; rv 01:46 Follow up: Response: No adverse reaction; Blood pressure is lowered rv 00:33 Drug: morphine 4 mg {Note: rass 0.} Route: IVP; Site: right antecubital; rv 01:45 Follow up: Response: No adverse reaction; Pain is decreased; RASS: Alert and Calm (0) rv 01:29 Drug: Aspirin Chewable Tablet 324 mg Route: PO; rr5 01:46 Follow up: Response: No adverse reaction rv 01:30 Drug: Lovenox 1 mg/kg Route: Sub-Q; Site: right lower abdomen; rr5 01:46 Follow up: Response: No adverse reaction rv 01:45 Drug: Nitroglycerin 0.4 mg Route: Sublingual; rv 03:08 Follow up: Response: No adverse reaction; Marked relief of symptoms; Pain is decreased rv Outcome: 00:01 Decision to Hospitalize by Provider. jmm 03:07 Admitted to Tele accompanied by nigel, via stretcher, room 405, Other SBAR, EKG rv 03:07 Condition: good 03:07 Instructed on the need for admit. 03:18 Patient left the ED. rv Signatures: Dispatcher [employer] Sarahi Kelly, RN RN dm5 Anastacio Casanova PA PA jmm Vicente, Ronaldo RN RN rv Germain Peraza RN RN rr5 Gabriela Prasad [facility]
--- NOTE | 2020-04-09 00:02 | EDPHYS ---
Physician Documentation [facility] Name: Shana Patel Age: 59 yrs Sex: Female : 1960 Arrival Date: 04/08/2020 Time: 22:19 Bed 5 Private MD: ED Physician Darien Faith HPI: 04/08 22:50 This 59 yrs old Female presents to ER via Ambulatory with complaints of Chest jmm Pain. 22:50 The patient or guardian reports chest pain that is located primarily in the substernal jmm area. Onset: gradually, 5 hour(s) ago. The pain does not radiate. Associated signs and symptoms: Pertinent positives: shortness of breath. This is a 59 year old female with a history DM, fibromyalgia, GERD, HTN, that presents to the ED with complaints of substernal chest pain which radiates to the right side of the chest beginning approx 5 hours ago. Pain has been constant. Denies history of CAD. . Historical: - Allergies: 22:41 Adhesives; rv 22:41 IV contrast; rv 22:41 Metformin HCl; rv - PMHx: 22:41 Arthritis; Diabetes - IDDM; Fibromyalgia; GERD; Hypertension; Hypothyroidism; rv neuropathy; rectocele; spinal stenosis; - PSHx: 22:41 ; Hernia repair; Cholecystectomy; rv - Immunization history:: Adult Immunizations up to date. - Social history:: Smoking status: Patient denies any tobacco usage or history of. ROS: 22:50 Constitutional: Negative for fever, chills, and weight loss, Respiratory: Negative for jmm shortness of breath, cough, wheezing, and pleuritic chest pain. 22:50 Cardiovascular: Positive for chest pain. 22:50 All other systems are negative. Exam: 22:50 Constitutional: This is a well developed, well nourished patient who is awake, alert, jmm and in no acute distress. Head/Face: atraumatic. Eyes: EOMI, no conjunctival erythema appreciated ENT: Moist Mucus Membranes Neck: Trachea midline, Supple Chest/axilla: Normal chest wall appearance and motion. Cardiovascular: Regular rate and rhythm. No edema appreciated Respiratory: Normal respirations, no respiratory distress appreciated Abdomen/GI: Non distended, soft Back: Normal ROM Skin: General appearance color normal MS/ Extremity: Moves all extremities, no obvious deformities appreciated, no edema noted to the lower extremities Neuro: Awake and alert, normal gait Psych: Behavior is normal, Mood is normal, Patient is cooperative and pleasant 22:50 ECG was reviewed by the Attending Physician. Vital Signs: 22:38 BP 175 / 98; Pulse 72; Resp 17; Temp 98; Pulse Ox 100% ; rv 04/09 00:30 BP 179 / 95; Pulse 64; Resp 15; Pulse Ox 96% on R/A; rv 01:00 BP 176 / 97; Pulse 65; Resp 16; Pulse Ox 97% on R/A; rv 01:23 Weight 77.56 kg; rv 01:46 BP 177 / 92; Pulse 66; Resp 16; Pulse Ox 100% on R/A; rv 02:00 BP 138 / 89; Pulse 71; Resp 17; Pulse Ox 97% on R/A; rv 02:30 BP 128 / 82; Pulse 68; Resp 16; Pulse Ox 97% on R/A; rv 03:00 BP 105 / 69; Pulse 76; Resp 16; Temp 98.1; Pulse Ox 96% on R/A; rv MDM: 04/08 22:43 Patient medically screened. [facility] 04/09 00:00 Data reviewed: vital signs, nurses notes. Counseling: I had a detailed discussion with [facility] the patient and/or guardian regarding: the historical points, exam findings, and any diagnostic results supporting the discharge/admit diagnosis, lab results, the need for further work-up and treatment in the hospital. ED course: I discussed the patient with Koby Wetzel whom accepted the patient to Dr. Trotter's service. . 04/08 22:29 Order name: Basic Metabolic Panel [facility] 04/08 22:29 Order name: CBC with Diff; Complete Time: 23:28 [facility] 04/08 22:29 Order name: LFT's; Complete Time: 23:54 [facility] 04/08 22:29 Order name: Magnesium; Complete Time: 23:54 [facility] 04/08 22:29 Order name: NT PRO-BNP; Complete Time: 23:54 [facility] 04/08 22:29 Order name: PT-INR; Complete Time: 23:36 [facility] 04/08 22:29 Order name: Troponin (emerg Dept Use Only); Complete Time: 23:54 [facility] 04/08 22:29 Order name: XRAY Chest (1 view) [facility] 04/08 22:30 Order name: Basic Metabolic Panel; Complete Time: 23:54 [facility] 04/08 23:12 Order name: D-Dimer; Complete Time: 23:36 [facility] 04/08 23:47 Order name: Chest For PE Angio CT rv 04/09 02:58 Order name: SARS-COV-2 RT PCR [facility] 04/08 22:29 Order name: EKG; Complete Time: 22:30 [facility] 04/08 22:29 Order name: Cardiac monitoring; Complete Time: 22:50 [facility] 04/08 22:29 Order name: EKG - Nurse/Tech; Complete Time: 22:50 [facility] 04/08 22:29 Order name: IV Saline Lock; Complete Time: 23:07 [facility] 04/08 22:29 Order name: Labs collected and sent; Complete Time: 23:07 [facility] 04/08 22:29 Order name: O2 Per Protocol; Complete Time: 23:07 [facility] 04/08 22:29 Order name: O2 Sat Monitoring; Complete Time: 23:07 jm EC/20 22:50 Rate is 71 beats/min. Rhythm is regular. Right axis deviation noted. CO interval is jmm normal. QRS interval is normal. QT interval is normal. No Q waves. T waves are Normal. No ST changes noted. Reviewed by me. Administered Medications: 23:35 Drug: diphenhydrAMINE 50 mg Route: IVP; Site: right antecubital; rr5 04/09 01:45 Follow up: Response: No adverse reaction rv 04/08 23:37 Drug: SOLU-Medrol 125 mg Route: IVP; Site: right antecubital; rr5 04/09 01:45 Follow up: Response: No adverse reaction rv 04/08 23:39 Drug: Pepcid 20 mg Route: IVP; Site: right antecubital; rr5 04/09 01:45 Follow up: Response: No adverse reaction rv 00:32 Drug: Zofran (Ondansetron) 4 mg Route: IVP; Site: right antecubital; rv 01:46 Follow up: Response: No adverse reaction rv 00:32 Drug: Norvasc 10 mg Route: PO; rv 01:46 Follow up: Response: No adverse reaction; Blood pressure is lowered rv 00:33 Drug: morphine 4 mg {Note: rass 0.} Route: IVP; Site: right antecubital; rv 01:45 Follow up: Response: No adverse reaction; Pain is decreased; RASS: Alert and Calm (0) rv 01:29 Drug: Aspirin Chewable Tablet 324 mg Route: PO; rr5 01:46 Follow up: Response: No adverse reaction rv 01:30 Drug: Lovenox 1 mg/kg Route: Sub-Q; Site: right lower abdomen; rr5 01:46 Follow up: Response: No adverse reaction rv 01:45 Drug: Nitroglycerin 0.4 mg Route: Sublingual; rv 03:08 Follow up: Response: No adverse reaction; Marked relief of symptoms; Pain is decreased rv Disposition: 06:32 Co-signature as Attending Physician, Darien Faith MD. [email or web address] Disposition: 04/09/20 00:01 Hospitalization ordered by Reji Trotter for Inpatient Admission. Preliminary diagnosis is Chest pain, unspecified. - Bed requested for Telemetry/MedSurg (Inpatient). - Status is Inpatient Admission. rv - Condition is Stable. - Problem is new. - Symptoms are unchanged. Signatures: Dispatcher [employer] [facility] Jazzy Torres RN RN Anastacio Casanova PA PA [facility] Koby Wetzel PA PA jr8 Zhen Banks RN RN Germain Peraza RN RN rr5 Darien Faith MD MD [email or web address] Corrections: (The following items were deleted from the chart) 04/08 23:11 22:48 D-DIMER+COAG.LAB.BRZ ordered. [facility] 04/09 01:58 01:27 CORONAVIRUS+MR.LAB.BRZ ordered. [facility] 01:59 00:01 Hospitalization Ordered by Reji Trotter for Inpatient Admission. Preliminary diagnosis is Chest pain, unspecified. Bed requested for Telemetry/MedSurg (Inpatient). Status is Inpatient Admission. Condition is Stable. Problem is new. Symptoms are unchanged. [facility] 03:18 01:59 04/09/2020 00:01 Hospitalization Ordered by Reji Trotter for Inpatient rv Admission. Preliminary diagnosis is Chest pain, unspecified. Bed requested for Telemetry/MedSurg (Inpatient). Status is Inpatient Admission. Condition is Stable. Problem is new. Symptoms are unchanged. mw
[2020-04-09] MEDS ORDERED: MORPHINE 4 MG/ML SYR ONE (00:40)
[2020-04-09] MEDS ORDERED: AMLODIPINE 10 MG TAB ONE (00:40)
[2020-04-09] MEDS ORDERED: ONDANSETRON 4 MG/2 ML VIAL ONE (00:40)
[2020-04-09] MEDS ORDERED: ENOXAPARIN 80 MG/0.8 ML SQ ONE (01:38)
[2020-04-09] MEDS ORDERED: ASPIRIN 81 MG CHEWABLE TABLET ONE (01:38)
--- NOTE | 2020-04-09 01:54 | P.HP ---
Certification for Inpatient Patient admitted to: Inpatient With expected LOS: >2 Midnights Patient will require the following post-hospital care: None Practitioner: I am a practitioner with admitting privileges, knowledge of patient current condition, hospital course, and medical plan of care. Services: Services provided to patient in accordance with Admission requirements found in Title 42 Section 412.3 of the Code of Federal Regulations <Philly Wetzelshua - Last Filed: 04/09/20 01:46> Patient History Date of Service: 04/09/20 Primary Care Provider: Dr. Waldrop Reason for admission: NSTEMI History of Present Illness: This is a 59-year-old female patient that presented to the emergency room tonight after having sudden onset of chest pain that radiated to the back and right shoulder and that also caused shortness of breath. Patient [facility] Patient arrived to the emergency room at approximately 10:19 p.m. patient has a notable history of insulin-dependent diabetes, hypertension, hypothyroidism. Patient denies cardiac history in the past. Patient was worked up in the emergency room and found to have a troponin of 0.7 and also an elevated D-dimer in the 800s. Patient patient received CT chest PE with no thoracic aortic or pulmonary findings. Hospitalist team was consulted at that time for admission for NSTEMI. Patient on exam had no acute findings but was hypertensive still and complaining of some pressure in her chest 3 of 10 pain. Was given nitroglycerin in the emergency room with improvement. Home medications list reviewed: Yes - Past Medical/Surgical History Has patient received pneumonia vaccine in the past: No Diabetic: Yes -: hypothyroidism -: knee problems -: lavell -: 10 surgical scars due to allergy to metformin -: 5 c - sections - Social History Smoking Status: Never smoker Smoking therapy provided: No Alcohol use: No CD- Drugs: No Caffeine use: Yes Place of Residence: Home <Morales Wetzel - Last Filed: 04/09/20 01:46> Date of Service: 04/10/20 <jaquelin christensen - Last Filed: 04/10/20 14:57> Allergies Latex, Natural Rubber Allergy (Severe, Verified 04/09/20 05:26) Hives/Rash metformin Allergy (Severe, Verified 11/21/20 05:26) Anaphylaxis Metformin HCl Allergy (Severe, Uncoded 04/09/20 05:26) Anaphylaxis Adhesives Allergy (Mild, Uncoded 04/09/20 05:26) Itching/Hives/Rash Tape Allergy (Mild, Uncoded 04/09/20 05:26) Itching/Hives/Rash Home Medications: Insulin 70/30 NPH/Reg Human [Novolin 70/30*] 40 unit SQ DAILY WITH BREAKFAST 05/10/13 Gabapentin 1 cap PO TID 04/09/20 Hydrocodone Bit/Acetaminophen [[place] 7.5-325 Tablet] 1 tab PO Q8H PRN 04/09/20 Insulin Aspart Prot/Insuln Asp [Novolog Mix 70-30 Flexpen] 15 units SQ BEDTIME 04/09/20 Levothyroxine Sodium [Synthroid] 25 mcg PO DAILY 04/09/20 Lisinopril [Zestril] 1 tab PO DAILY 04/09/20 Review of Systems General: Unremarkable Eyes: Unremarkable ENT: As per HPI Respiratory: Shortness of Breath Cardiovascular: Chest Pain Gastrointestinal: Unremarkable Genitourinary: Unremarkable Musculoskeletal: Unremarkable Integumentary: Unremarkable Neurological: Unremarkable Lymphatics: Unremarkable <Philly Wetzelshua - Last Filed: 04/09/20 01:46> Physical Examination - Vital Signs Temperature: 98 F Blood Pressure: 175/98 Pulse: 72 Respirations: 16 Pulse Ox (%): 100 (Room air) - Physical Exam General: Alert, In no apparent distress, Oriented x3 HEENT: Normocephalic, PERRLA, Mucous membr. moist/pink, EOMI Neck: Supple, 2+ carotid pulse no bruit, JVD not distended, No Thyromegaly Respiratory: Clear to auscultation bilaterally, Normal air movement Cardiovascular: No edema, Normal pulses, Regular rate/rhythm, Normal S1 S2, No gallops, No rubs, No murmurs Gastrointestinal: Normal bowel sounds, Soft and benign, Non-distended, No ascites, No tenderness, No masses, No rebound, No guarding Musculoskeletal: No clubbing, No swelling, No contractures, No erythema, No tenderness, No warmth Integumentary: No rashes, No breakdown, No significant lesion, No tenderness/swelling, No erythema, No warmth, No cyanosis Neurological: Normal speech, Normal strength at 5/5 x4 extr, Normal tone, Sensation intact, Cranial nerves 3-12 intact, Normal affect Lymphatics: No axilla or inguinal lymphadenopathy - Studies Laboratory Data (last 24 hrs) 04/08/20 23:00: PT 10.2, INR 0.86 04/08/20 23:00: WBC 6.5, Hgb 11.3 L, Hct 33.0 L, Plt Count 222 04/08/20 23:00: Sodium 138, Potassium 4.2, BUN 27 H, Creatinine 1.24, Glucose 245 H, Magnesium 1.9, Total Bilirubin 0.5, AST 15, ALT 13, Alkaline Phosphatase 113 <Morales Wetzel - Last Filed: 04/09/20 01:46> Assessment and Plan - Problems (Diagnosis) (1) Hypertension Current Visit: Yes Status: Acute Qualifiers: Hypertension type: essential hypertension Qualified Code(s): I10 - [place] l (primary) hypertension (2) Acute non-ST segment elevation myocardial infarction Current Visit: Yes Status: Acute (3) Insulin dependent diabetes mellitus Current Visit: Yes Status: Chronic (4) Chest pain Current Visit: Yes Status: Acute Qualifiers: Chest pain type: unspecified Qualified Code(s): R07.9 - Chest pain, unspecified - Plan 1. control chest pain as needed with morphine nitroglycerin 2. Patient will be monitored for hemodynamic stability and for any EKG changes or worsening of chest pain 3. Patient will be therapeutically heparinized for her NSTEMI and cardiology will be consulted for further workup 4. Diabetes will be managed with sliding scale while in the inpatient setting 5. Blood pressure will be monitored and antihypertensives will be given 6. Patient currently not on cholesterol medicine but will check for hyperlipidemia and triglyceridemia. Will initiate statin therapy if need be. Discharge Plan: Home Plan to discharge in: 48 Hours - Advance Directives Does patient have a Living Will: No Does patient have a Durable POA for Healthcare: No - Code Status/Comfort Care Code Status Assessed: Yes Code Status: Full Code Critical Care: No Time Spent Managing Pts Care (In Minutes): 70 <Morales Wetzel - Last Filed: 04/09/20 01:46> - Problems (Diagnosis) (1) Acute non-ST segment elevation myocardial infarction Current Visit: Yes Status: Acute (2) Hypertension Current Visit: Yes Status: Acute Qualifiers: Hypertension type: essential hypertension Qualified Code(s): I10 - Essential (primary) hypertension (3) Insulin dependent diabetes mellitus Current Visit: Yes Status: Chronic Physician Review: Patient Assessed, Agree with Above Assessment and Plan Physician Review Additional Text: NSTEMI DM type 2 Plan: Full dose lovenox metoprolol, ASA Check lipid profile Cardiology consult <jaquelin christensen - Last Filed: 04/10/20 14:57>
[2020-04-09] MEDS ORDERED: NITROGLYCERIN 0.4 MG/TAB SL ONE (01:57)
[2020-04-09] MEDS ORDERED: GLUCAGON 1 MG/VIAL IM PRN ×3 (04:18→21:47)
[2020-04-09] MEDS ORDERED: D50W 25 GM/50 ML SYRINGE IV PRN ×3 (04:18→21:47)
[2020-04-09] MEDS: METOPROLOL TAR 25 MG TAB PO SCH ×2 (05:19→17:17)
[2020-04-09] MEDS: INSULIN -REGULAR HUMAN 50 UNIT/0.5 ML ML SQ SCH ×4 (08:08→21:37)
[2020-04-09] MEDS: ASPIRIN EC 81 MG TAB PO SCH (08:08)
[2020-04-09] MEDS: MORPHINE 4 MG/ML SYR IV PRN (08:09)
--- NOTE | 2020-04-09 08:21 | RAD REPORT ---
EXAM DESCRIPTION: Panda Single View04/08/2020 10:59 pm CLINICAL HISTORY: Shortness of breath COMPARISON: February 2020 FINDINGS: Mild bilateral pulmonary opacities The heart is mildly enlarged IMPRESSION: Mild bilateral pulmonary opacities may represent pulmonary edema or pneumonitis
--- NOTE | 2020-04-09 10:44 | P.PN ---
Date of Service: 04/09/20 Patient complaining of mild chest pain. She received a dose of IV morphine this morning. Troponin trended up to 8.8. Diagnosis: NSTEMI DM type 2 Hyperlipidemia Left big toe burn wound Dr. Benitez to see patient this morning. Patient given full-dose Lovenox. She is started on metoprolol and aspirin. Will add lipitor for hyperlipidemia.
[2020-04-09] MEDS: ENOXAPARIN 80 MG/0.8 ML SQ SCH ×2 (12:34→21:37)
[2020-04-09] MEDS ORDERED: HUMALOG MIX 75/25 100 UNITS/ML SQ SCH (21:00)
[2020-04-09] MEDS: HYDROCODONE/APAP 7.5/325 MG TAB PO PRN (21:36)
[2020-04-09] MEDS: GABAPENTIN 400 MG CAP PO SCH (21:37)
[2020-04-09] MEDS: ATORVASTATIN 40 MG TAB PO SCH (21:37)
[2020-04-09] MEDS: INSULIN 70/30 100 UNITS/ML SQ SCH (21:53)
[2020-04-10] MEDS: HYDROCODONE/APAP 7.5/325 MG TAB PO PRN ×2 (05:32→16:06)
[2020-04-10] MEDS: METOPROLOL TAR 25 MG TAB PO SCH ×2 (05:32→17:49)
[2020-04-10 05:50] LABS: Absolute Lymphocytes (CBC) 2.7 K/uL (0.7-4.9); Basophils % 0.5 % (0-1.3); Hematocrit 32.4 % (36.0-45.0); Lymphocytes % 24.1 % (15.3-44.8); MPV 9.3 fL (7.6-11.3)
--- NOTE | 2020-04-10 07:47 | PN ---
Date of Progress Note: 04/10/2020 Ms. Patel was admitted and seen on 04/09/2020 for a non-ST elevation myocardial infarction. She o vernight has had no complaint of chest pain. Her vital signs remained stable. Her blood pressure is 121/63. She is afebrile with a pulse of 60, sinus rhythm. Her glucose remains elevated and being t reated by Dr. Trotter. Creatinine is 1.25. Her D-dimer was 865. A CT angiogram is still pending. H er troponin went up to 8.82. She is on Lovenox, aspirin, statin, and a beta-leslie. We will keep h er n.p.o. after midnight. She will receive 60 mg of prednisone tonight and tomorrow morning as well as Solu-Medrol and Benadryl during her catheterization because of iodine allergy. We will continue p resent regimen. We will see what her catheterization shows before making final decisions. COSME/ANA Voice ID: [id number] Report ID: [id number]
[2020-04-10] MEDS: GABAPENTIN 400 MG CAP PO SCH ×4 (07:59→21:00)
[2020-04-10] MEDS: lisinopriL 10 MG TAB PO SCH (07:59)
[2020-04-10] MEDS: LEVOTHYROXINE SOD 0.025 MG TAB PO SCH (07:59)
[2020-04-10] MEDS: ENOXAPARIN 80 MG/0.8 ML SQ SCH (07:59)
[2020-04-10] MEDS: ASPIRIN EC 81 MG TAB PO SCH (08:00)
[2020-04-10] MEDS: INSULIN 70/30 100 UNITS/ML SQ SCH ×2 (08:00→21:03)
[2020-04-10] MEDS: INSULIN -REGULAR HUMAN 50 UNIT/0.5 ML ML SQ SCH ×4 (08:01→21:00)
--- NOTE | 2020-04-10 09:17 | CON ---
Date of Consultation: 04/09/2020 Reason For Consultation: Non-ST elevation myocardial infarction. History Of Present Illness: Ms. Patel is a 59-year-old [place] woman. She has not had any previous cardiac history. She does have a history of diabetes, hypertension, and dyslipidemia. She sees Dr. Nicolas Waldrop in [facility]. Came in with rather classic symptoms that lasted about 4 hours wi th substernal chest pressure, diaphoresis, shortness of breath, radiating to the arm. She had a trop onin that was elevated consistent with myocardial infarction. Her troponin came back at 4.43. The p atient denied any fever or chills. She denied any PND, orthopnea, pedal edema. She denied any palpi tation or syncope. Past Medical History: Includes hypertension, diabetes, dyslipidemia, arthritis, fibromyalgia, gastro esophageal reflux disease, rectocele, and spinal stenosis as well as hypothyroidism and neuropathy. Past Surgical History: She has had a , a hernia repair, and cholecystectomy in the past. Allergies: SHE IS ALLERGIC TO ADHESIVES, IV CONTRAST, AND METFORMIN. Review of Systems: Negative. Social History: Negative. Family History: Noncontributory. Medications: At home include gabapentin, Tylenol No.3, insulin, Synthroid, and Zestril. Physical Examination: Vital Signs: Stable. She was afebrile. HEENT: Negative. Neck: Supple with no bruit. Chest: Clear to auscultation and percussion. Cardiac: Revealed a regular rhythm and rate. No murmurs, gallops, or rubs. Abdomen: Benign. Extremities: Revealed no clubbing, cyanosis, or edema. Diagnostic Data: Her glucose was 114, creatinine is 1.25. Hemoglobin was 10.9. Her white count was 6.5. Her D-dimer was 865. Her troponin was 0.72. Chest x-ray showed possible pneumonitis versus p ulmonary edema. Impression And Plan: The patient with multiple cardiac risk factors for coronary artery disease with hypertension, diabetes, dyslipidemia, positive troponin consistent with subendocardial myocardial in farction. Her blood pressure and dyslipidemia are well controlled. Her diabetes is very poorly cont rolled. Dr. Trotter was handling that. Chest x-ray shows some pneumonitis versus pulmonary edema. A n echocardiogram is pending. We will plan to perform a left heart catheterization with possible marvin nary intervention on 04/11/2020. This will define her coronary anatomy. The patient understands the risks and the benefits of the procedure and she agrees to proceed. She is presently on Lovenox, met oprolol, Lipitor, aspirin, and insulin. We will continue the present regimen. She has allergy to IV iodine. I will pre-treat her with 60 mg of prednisone the night before and the morning of the proce dure, and we will give her some Solu-Medrol and Benadryl during the procedure. COSME/ANA Voice ID: [id number] Report ID: [id number]
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
--- NOTE | 2020-04-10 15:13 | RAD REPORT ---
EXAM DESCRIPTION: CT - Chest For Pe Angio - 04/09/2020 7:12 am CLINICAL HISTORY: 59-year-old female with chest pain around 8:00 to 9:00 PM. COMPARISON: None. TECHNIQUE: CT angiography of the pulmonary arteries was performed following intravenous administrati on of contrast. Coronal and bilateral oblique maximum intensity projections (MIPS) were created. This exam was performed according to our departmental dose optimization program which includes use of aut omated exposure control, adjustment of the mA and/or kV according to patient size and/or use of itera tive reconstruction technique. FINDINGS: Chest: Motion limited evaluation through the lungs reveals bilateral mosaic attenuation, a finding which can be seen with small vessel versus small airways disease. With appearance of diffuse groundglass opaci fication in a geographic peripheral distribution, the possibility of infectious process is also consi dered. No pleural effusion or pneumothorax. There is minimal dependent basilar atelectasis and scarring. The tracheobronchial airways are patent. No significant mediastinal or axillary lymphadenopathy by CT me asurement criteria. Mildly prominent heart size. No pericardial effusion. Limited evaluation of the upper abdomen shows no acute intra-abdominal abnormalities. The osseous structures are within normal limits. CT angiography: Diagnostic CT angiography of the pulmonary arteries without intraluminal filling defe ct noted to suggest pulmonary arterial embolus. IMPRESSION: 1. Diagnostic pulmonary angiography without findings to suggest pulmonary arterial embol us. 2. Bilateral diffuse geographic groundglass attenuation with differential as detailed above. Commonly reported imaging features of viral pneumonia are present. Other processes such as influenza pneumonia and organizing pneumonia, as can be seen with drug toxicity and connective tissue disease, can cause a similar imaging pattern. PneTyp Reference: https://pubs.rsna.org/doi/full/10.1148/[email or web address] Electronically signed by: Lizzie Mckeon MD 04/09/2020 1:09 AM PAYMENT POSTER Due to temporary technical issues with the PACS/Fluency reporting system, reports are being signed by the in house radiologists without review as a courtesy to insure prompt reporting. The interpreting radiologist is fully responsible for the content of the report.
[2020-04-10] MEDS ORDERED: INFLUENZA VACCINE (for 3y+) 0.5 ML DOSE IMVAC ONE (16:00)
[2020-04-10] MEDS: ATORVASTATIN 40 MG TAB PO SCH (21:01)
[2020-04-11 04:47] LABS: Potassium 4.3 mmol/L (3.5-5.1)
[2020-04-11] MEDS: ASPIRIN EC 81 MG TAB PO SCH (05:02)
[2020-04-11] MEDS: METOPROLOL TAR 25 MG TAB PO SCH ×2 (05:02→18:40)
[2020-04-11] MEDS: HYDROCODONE/APAP 7.5/325 MG TAB PO PRN (05:03)
[2020-04-11] MEDS ORDERED: HEPA 1000U/500MLS 2,000 UNIT/1,000 ML BAG IV ONE ×2 (06:15→13:06)
[2020-04-11] MEDS: INSULIN -REGULAR HUMAN 50 UNIT/0.5 ML ML SQ SCH ×4 (07:30→21:00)
[2020-04-11] MEDS: GABAPENTIN 400 MG CAP PO SCH ×3 (07:59→21:44)
[2020-04-11] MEDS: LEVOTHYROXINE SOD 0.025 MG TAB PO SCH (08:00)
[2020-04-11] MEDS: lisinopriL 10 MG TAB PO SCH (08:00)
[2020-04-11] MEDS: INSULIN 70/30 100 UNITS/ML SQ SCH ×2 (08:01→21:42)
[2020-04-11] MEDS: MORPHINE 4 MG/ML SYR IV PRN ×2 (08:22→17:30)
[2020-04-11] MEDS ORDERED: NA CHLORIDE 0.9% 500 ML ONE ×3 (10:31→18:23)
[2020-04-11] MEDS ORDERED: MIDAZOLAM HCL 2 MG/2 ML INJ ONE (10:44)
[2020-04-11] MEDS ORDERED: HEPARIN 5000 UNIT/ML 1 ML VIAL ONE (10:44)
[2020-04-11] MEDS ORDERED: ATROPINE SULF 1 MG/10 ML SYR IV ONE (10:44)
[2020-04-11] MEDS ORDERED: VERAPAMIL HCL 10 MG/4 ML VIAL IV ONE (10:44)
[2020-04-11] MEDS ORDERED: FENTANYL CITR 100 MCG/2 ML ONE (10:44)
[2020-04-11] MEDS ORDERED: DIPHENHYDRAMINE 50 MG/ML VIAL ONE (11:08)
[2020-04-11] MEDS ORDERED: METHYLPREDNISOLONE 125 MG INJ ONE (11:08)
[2020-04-11] MEDS ORDERED: ADENOSINE 6 MG/ 2ML VIAL IV ONE ×2 (11:38→13:10)
[2020-04-11] MEDS ORDERED: Phenylephrine HCl 10 MG/ML 1 ML VIAL ONE (11:49)
[2020-04-11] MEDS ORDERED: NA CHLORIDE 0.9% 100 ML IV ONE (11:51)
[2020-04-11] MEDS ORDERED: NA CHLORIDE 0.9% 1,000 ML ONE (11:51)
--- NOTE | 2020-04-11 11:54 | P.PN ---
Subjective Date of Service: 04/11/20 Primary Care Provider: Dr. Waldrop Chief Complaint: NSTEMI Patient complaining of chest pain this morning. She stated the chest pain is associated with tingling sensation in left arm. She denies shortness of breath. Physical Examination - Vital Signs Temperature: 97.4 F Blood Pressure: 127/75 Pulse: 60 Respirations: 20 Pulse Ox (%): 96 - Physical Exam General: Alert, In no apparent distress Neck: JVD not distended Respiratory: Clear to auscultation bilaterally, Normal air movement Cardiovascular: No edema, Regular rate/rhythm, Normal S1 S2 Gastrointestinal: Soft and benign, No tenderness Musculoskeletal: No swelling Assessment And Plan - Current Problems (Diagnosis) (1) Acute non-ST segment elevation myocardial infarction Current Visit: Yes Status: Acute (2) Hypertension Current Visit: Yes Status: Acute Qualifiers: Hypertension type: essential hypertension Qualified Code(s): I10 - Ess ential (primary) hypertension (3) Insulin dependent diabetes mellitus Current Visit: Yes Status: Chronic - Plan Patient scheduled for cardiac catheterization today. Continue aspirin, metoprolol, lipitor. Continue home insulin regimen. Morphine p.r.n. for pain. Repeat EKG: No ST elevation.
[2020-04-11] MEDS ORDERED: HEPA 1000U/500MLS 1,000 UNIT/500 ML BAG IV ONE (12:03)
[2020-04-11] MEDS ORDERED: TICAGRELOR 90 MG TABLET PO ONE (12:08)
[2020-04-11] MEDS ORDERED: EPTIFIBATIDE 75 MG/100 ML VIAL IV ONE ×2 (12:21→17:32)
[2020-04-11] MEDS ORDERED: EPTIFIBATIDE 20 MG/10 ML VIAL IV ONE (12:28)
[2020-04-11] MEDS ORDERED: NOREPINEPHRINE 4 MG in D5W 250 ML IV PRN (12:51)
[2020-04-11] MEDS ORDERED: NITROPRUSSIDE 50 MG VIAL IV ONE (13:24)
[2020-04-11] MEDS ORDERED: D5W 250 ML IV ONE (13:25)
--- NOTE | 2020-04-11 15:14 | ECHO ---
HEIGHT: 5 ft 0 in WEIGHT: 178 lb 14.4 oz DATE OF STUDY: 04/11/[address]: jaquelin christensen 2-DIMENSIONAL: YES M.MODE: YES DOPPLER: YES COLOR FLOW: YES TDS: PORTABLE: DEFINITY: BUBBLE STUDY: DIAGNOSIS: NON ST ELEVATION MYOCARDIAL INFARCTION CARDIAC HISTORY: CATHERIZATION: NO SURGERY: NO PROSTHETIC VALVE: NO PACEMAKER: NO MEASUREMENTS (cm) DIASTOLIC (NORMALS) SYSTOLIC (NORMALS) IVSd 1.0 (0.6-1.2) LA Diam 3.5 (1.9-4.0) LVEF 69% LVIDd 4.6 (3.5-5.7) LVIDs 2.8 (2.0-3.5) %FS 39% LVPWd 1.1 (0.6-1.2) Ao Diam 2.9 (2.0-3.7) 2 DIMENSIONAL ASSESSMENT: RIGHT ATRIUM: NORMAL LEFT ATRIUM: NORMAL RIGHT VENTRICLE: NORMAL LEFT VENTRICLE: SEE BELOW TRICUSPID VALVE: NORMAL MITRAL VALVE: TRACE MITRAL REGURGITATION PULMONIC VALVE: NORMAL AORTIC VALVE: NORMAL PERICARDIAL EFFUSION: NONE AORTIC ROOT: NORMAL LEFT VENTRICULAR WALL MOTION: MILD INFERIOR WALL HYPOKINESIS DOPPLER/COLOR FLOW: DIASTOLIC DYSFUNCTION COMMENTS: NORMAL LEFT VENTRICULAR EJECTION FRACTION 55-60%. MILD INFERIOR WALL HYPOKINESIS. GRADE ONE DIASTOLIC DYSFUNCTION. TECHNOLOGIST: NOAH ARAUJO
[2020-04-11] MEDS ORDERED: MORPHINE 4 MG/ML SYR ONE (17:31)
--- NOTE | 2020-04-11 18:18 | P.PN ---
Cardiology-Dr. Rosen report patient had multiple Coronary artery vessels of occluded by clots. Patient was hypotensive after the procedure and was started on vasopressors. Patient started on Integrilin drip. Cardiology also recommended Brilinta and cardiac catheterization within 48 hrs. Monitor closely in the ICU. Morphine p.r.n. for pain. Cardiology to follow.
[2020-04-11] MEDS: EPTIFIBATIDE 75 MG/100 ML VIAL IV SCH (18:23)
[2020-04-11] MEDS ORDERED: NITROGLYCERIN/D5W 50 MG/250 ML BTL IV PRN (18:37)
--- NOTE | 2020-04-11 18:45 | OP ---
Date of Procedure: 04/11/2020 Surgeon: KAREL CONNELL Procedure Performed: 1.Selective coronary angiogram. 2.PCI of severe mid to distal RCA using 4.0 x 24 mm Synergy drug-eluting stent and PCI of severe mor e than 99% stenosis of the right PLB branch using a 2.5 x 28 mm Synergy drug-eluting stent. 3.Balloon angioplasty of severe 90% mid right PDA stenosis. Access: Right radial artery 6-Bermudian, the sheath was left for monitoring in ICU. Total Sedation Time: 130 minutes. Estimated Blood Loss: Less than 50 mL. Description Of Procedure: After risks, benefits, and alternatives were explained to the patient, the patient agreed to the procedure and signed informed consent. Then, we brought the patient to [facility] catheterization laboratory, prepped and draped in usual sterile fashion. Then, we accessed right r adial artery using pediatric micropuncture kit. We used fentanyl and Versed in incremental doses to achieve adequate moderate sedation and we took a 5-Bermudian [place] catheter into the aortic root, engage d left main and then right coronary artery, took standard views and then decided for intervention. Intervention Details: The patient was given systemic heparin to assure ACT level above 250 throughou t the procedure. Then, we took a JR4 guide 6-Bermudian into the aortic root, engaged the right coronary artery, took short run-through wire all the way through the PLB crossing the lesion of the PLB and p re-dilated the PLB lesion and using a 2.5 x 50 mm Compliant balloon and then we placed a 2.5 x 28 mm Synergy drug-eluting stent and then we pre-dilated the mid to distal RCA lesion using a 3.5 x 20 mm N C balloon and then placed a 4.0 x 24 mm Synergy drug-eluting stent. Then, we had no reflow in the ar bautista due to a large thrombus burden. We started an Integrilin, bolus was given and then given adenos ine intracoronary, and then the patient at that time had a chest pain of 8, started to improve to 6, and then shortly after that, she started having chest pain again, so went back and took an injection, and there was significant improvement in the flow from RUBA 1 to RUBA 2 flow. I gave an additional 2 doses of adenosine, total of 600 mcg, and gave a 100 mcg of the Nipride intracoronary and then took final injection. We had a good flow all the way to the end of the artery and stents were patent, an d there was flow through the PDA as well. At this point, the patient's chest pain was 0/10. We took the guide out and kept the radial sheath in for monitoring and admit the patient to ICU with Integri jasvir infusion for another 16 hours. The patient was loaded with Brilinta also throughout the procedur e on the table. Findings: 1.Left main large with luminal irregularities. 2.LAD mid, 80% focal, and then diffuse mild disease. 3.Left circumflex small diffuse disease. 4.RCA severe mid to distal stenosis, status post PCI as above. 5.Right PLB severe mid 99% stenosis, is 1 of the culprit lesions, status post PCI as above. 6.Right PDA severe mid 90% stenosis, status post balloon angioplasty as above. Impression: 1.Severe right coronary artery stenosis, that is the culprit for the acute myocardial infarction wit h large thrombus burden, status post percutaneous coronary intervention as above and on Integrilin no w with good flow on the last picture. 2.Severe mid left anterior descending artery disease to be staged. Recommendations: 1.Continue Integrilin for 16 hours and then resume Brilinta 90 mg q.12 hours after that. 2.Aspirin 81 mg daily. 3.The patient is to be brought back into the medical laboratory technicians in the next 48 hours for re-evaluation of the RCA and possible PCI of mid LAD. SR/MODL Voice ID: [id number] Report ID: [id number]
[2020-04-11] MEDS ORDERED: NITROGLYCERIN/D5W 50 MG/250 ML BTL IV ONE (18:49)
[2020-04-11] MEDS ORDERED: METOPROLOL TAR 25 MG TAB ONE (18:49)
[2020-04-11] MEDS ORDERED: ATORVASTATIN 40 MG TAB ONE (21:42)
[2020-04-11] MEDS: ATORVASTATIN 40 MG TAB PO SCH (21:43)
[2020-04-12 00:07] VITALS: BMI 34.7
[2020-04-12] MEDS: MORPHINE 4 MG/ML SYR IV PRN ×4 (00:30→12:55)
[2020-04-12] MEDS ORDERED: MORPHINE 4 MG/ML SYR ONE ×4 (00:39→13:07)
[2020-04-12] MEDS ORDERED: EPTIFIBATIDE 75 MG/100 ML VIAL IV ONE (02:36)
[2020-04-12] MEDS: EPTIFIBATIDE 75 MG/100 ML VIAL IV SCH (03:00)
[2020-04-12 05:27] LABS: Absolute Lymphocytes (CBC) 0.9 K/uL (0.7-4.9); Basophils % 0.2 % (0-1.3); Hematocrit 29.9 % (36.0-45.0); Lymphocytes % 7.4 % (15.3-44.8); MPV 9.4 fL (7.6-11.3); RBC Red Blood Cell Count 3.44 M/uL (3.86-4.86)
[2020-04-12 06:03] LABS: Albumin 2.5 g/dL (3.4-5.0); Phosphorus 2.9 mg/dL (2.5-4.9); Potassium 4.3 mmol/L (3.5-5.1)
[2020-04-12] MEDS: METOPROLOL TAR 25 MG TAB PO SCH ×2 (06:16→18:00)
[2020-04-12] MEDS ORDERED: METOPROLOL TAR 25 MG TAB ONE (06:26)
[2020-04-12] MEDS ORDERED: INSULIN -REGULAR HUMAN 50 UNIT/0.5 ML ML ONE (08:09)
[2020-04-12] MEDS ORDERED: ASPIRIN 81 MG CHEWABLE TABLET ONE (08:11)
[2020-04-12] MEDS ORDERED: lisinopriL 10 MG TAB ONE (08:11)
[2020-04-12] MEDS ORDERED: TICAGRELOR 90 MG TABLET PO ONE (08:11)
[2020-04-12] MEDS: LEVOTHYROXINE SOD 0.025 MG TAB PO SCH (08:34)
[2020-04-12] MEDS: TICAGRELOR 90 MG TABLET PO SCH ×2 (08:36→22:01)
[2020-04-12] MEDS: ASPIRIN EC 81 MG TAB PO SCH (08:36)
[2020-04-12] MEDS: INSULIN 70/30 100 UNITS/ML SQ SCH ×2 (08:36→21:00)
[2020-04-12] MEDS: INSULIN -REGULAR HUMAN 50 UNIT/0.5 ML ML SQ SCH ×4 (08:37→21:00)
[2020-04-12] MEDS: lisinopriL 10 MG TAB PO SCH (08:37)
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
[2020-04-12] MEDS: GABAPENTIN 400 MG CAP PO SCH ×3 (10:10→21:00)
--- NOTE | 2020-04-12 11:59 | P.CNS ---
Date of Consult: 04/12/20 Primary Care Provider: Dr. Waldrop Chief Complaint: NSTEMI Allergies Latex, Natural Rubber Allergy (Severe, Verified 04/09/20 05:26) Hives/Rash metformin Allergy (Severe, Verified 04/09/20 05:26) Anaphylaxis iodine Allergy (Mild, Verified 04/10/20 16:15) Itching/Hives/Rash Metformin HCl Allergy (Severe, Uncoded 04/09/20 05:26) Anaphylaxis Adhesives Allergy (Mild, Uncoded 04/09/20 05:26) Itching/Hives/Rash Tape Allergy (Mild, Uncoded 04/09/20 05:26) Itching/Hives/Rash Home Medications: Insulin 70/30 NPH/Reg Human [Novolin 70/30*] 40 unit SQ DAILY WITH BREAKFAST 05/10/13 Gabapentin 1 cap PO TID 04/09/20 Hydrocodone Bit/Acetaminophen [[place] 7.5-325 Tablet] 1 tab PO Q8H PRN 04/09/20 Insulin Aspart Prot/Insuln Asp [Novolog Mix 70-30 Flexpen] 15 units SQ BEDTIME 04/09/20 Levothyroxine Sodium [Synthroid] 25 mcg PO DAILY 04/09/20 Lisinopril [Zestril] 1 tab PO DAILY 04/09/20 - Past Medical/Surgical History Diabetic: Yes -: hypothyroidism -: knee problems -: htn -: gerd -: IDDM -: neuropathy -: rectocele -: spinal stenosis -: sleep apnea -: fibromyalgia -: lavell -: 10 surgical scars due to allergy to metformin -: 5 c - sections - Social History Smoking Status: Never smoker Alcohol use: No CD- Drugs: No Caffeine use: Yes Place of Residence: Home Review of Systems 10-point ROS is otherwise unremarkable Physical Examination Temp Pulse Resp BP Pulse Ox 98.8 F 75 18 108/53 L 96 04/12/20 09:41 04/12/20 09:41 04/12/20 10:09 04/12/20 09:41 04/12/20 10:09 General: Alert, In no apparent distress, Oriented x3 Cardiovascular: No edema, Abnormal pulses Capillary refill: <2 Seconds Musculoskeletal: No clubbing, No swelling, No contractures, No erythema, No tenderness, No warmth Integumentary: Diabetic ulcer (wound distal left hallux with dusky base, no erythema, no drainage noted) Neurological: Abnormal sensation - Problems (1) Type 2 diabetes mellitus with foot ulcer Current Visit: Yes Status: Acute Conclusions/Impression: Wound to left hallux is stable. Has dusky appearance, will follow as area is likely to demarcate. Silvadene to wound bid. Patient to follow up in wound care 04/18/20 if d/c from hospital by then Physician Review: Patient Assessed, Agree with Above Assessment and Plan
[2020-04-12] MEDS ORDERED: D50W 50 ML IV ONE (16:45)
[2020-04-12] MEDS: ONDANSETRON 4 MG/2 ML VIAL IV PRN (17:02)
[2020-04-12] MEDS ORDERED: ONDANSETRON 4 MG/2 ML VIAL ONE (17:12)
--- NOTE | 2020-04-12 19:47 | RAD REPORT ---
EXAM DESCRIPTION: CT - Head Brain Wo Cont - 04/12/2020 7:17 pm CLINICAL HISTORY: Altered Mental Status Headache, drowsiness COMPARISON: Head Brain Wo Cont dated 11/14/2016Head Brain Wo Cont dated 11/14/2016 TECHNIQUE: All CT scans are performed using dose optimization technique as appropriate and may inclu de automated exposure control or mA/KV adjustment according to patient size. FINDINGS: No intracranial hemorrhage, hydrocephalus or extra-axial fluid collection.No areas of brai n edema or evidence of midline shift. Mild vertebral atherosclerosis. The paranasal sinuses and mastoids are clear. The calvarium is intact. IMPRESSION: No acute intracranial abnormality.
[2020-04-12] MEDS: ATORVASTATIN 40 MG TAB PO SCH (22:01)
[2020-04-12] MEDS: SILVER SULFADIAZINE 1% 25 GM TOP SCH (22:04)
[2020-04-12] MEDS: HYDROCODONE/APAP 7.5/325 MG TAB PO PRN (23:48)
[2020-04-12] MEDS ORDERED: HYDROCODONE/APAP 7.5/325 MG TAB ONE (23:53)
--- NOTE | 2020-04-13 03:47 | PN ---
Date of Progress Note: 04/12/2020 Ms. Patel had come over the weekend with non-ST elevation myocardial infarction. Underwent a hear t catheterization by Dr. Rosen on 04/11/2020. She was found to have severe RCA disease with large a mount of thrombus in the RCA. She was given intracoronary nitroglycerin and intracoronary adenosine. She was placed on Integrilin following a stent of her PDA and mid RCA and was observed overnight wi Integrilin for 16 hours. Continues to have some mild substernal chest pain with some mild ST elev ation. She also has LAD stenosis. She is hemodynamically stable, afebrile without any arrhythmia, a nd no evidence of congestive heart failure. Echocardiogram revealed an ejection fraction of 55% to 6 0% with grade 1 diastolic dysfunction, mild inferior wall hypokinesis. The plan is to continue her p resent regimen for now and [place]2020 to look her RCA and maybe perf orm an angioplasty and stent on her LAD. The patient's last blood pressure was 118/68. She has 96% O2 saturation on room air. Her creatinine is 1.17. Hemoglobin is 10.1. She is presently on aspirin , Lipitor, insulin, Synthroid, lisinopril, and metoprolol. We will continue to follow her along. COSME/AAN Voice ID: [id number] Report ID: [id number]
[2020-04-13 05:26] LABS: Absolute Lymphocytes (CBC) 2.1 K/uL (0.7-4.9); Basophils % 0.5 % (0-1.3); Hematocrit 28.3 % (36.0-45.0); Lymphocytes % 18.5 % (15.3-44.8); RBC Red Blood Cell Count 3.24 M/uL (3.86-4.86)
[2020-04-13] MEDS ORDERED: MORPHINE 4 MG/ML SYR ONE ×2 (05:35→10:52)
[2020-04-13 05:40] LABS: Albumin 2.4 g/dL (3.4-5.0); Potassium 4.6 mmol/L (3.5-5.1)
[2020-04-13] MEDS: MORPHINE 4 MG/ML SYR IV PRN ×2 (06:00→10:39)
[2020-04-13] MEDS: METOPROLOL TAR 25 MG TAB PO SCH ×3 (07:06→17:01)
[2020-04-13] MEDS: INSULIN 70/30 100 UNITS/ML SQ SCH ×2 (07:11→21:19)
[2020-04-13] MEDS ORDERED: METOPROLOL TAR 25 MG TAB ONE ×2 (07:18→17:09)
[2020-04-13] MEDS: INSULIN -REGULAR HUMAN 50 UNIT/0.5 ML ML SQ SCH ×4 (07:30→21:11)
[2020-04-13] MEDS: GABAPENTIN 400 MG CAP PO SCH ×4 (08:51→21:12)
[2020-04-13] MEDS: lisinopriL 10 MG TAB PO SCH (08:51)
[2020-04-13] MEDS: ASPIRIN EC 81 MG TAB PO SCH (08:51)
[2020-04-13] MEDS: TICAGRELOR 90 MG TABLET PO SCH ×2 (08:51→21:19)
[2020-04-13] MEDS ORDERED: TICAGRELOR 90 MG TABLET PO ONE ×3 (09:03→21:29)
[2020-04-13] MEDS ORDERED: ASPIRIN EC 81 MG TAB PO ONE (09:03)
[2020-04-13] MEDS ORDERED: HEPA 1000U/500MLS 2,000 UNIT/1,000 ML BAG IV ONE (10:34)
[2020-04-13] MEDS ORDERED: LIDOCAINE 1% 20 ML MDV ONE (10:34)
[2020-04-13] MEDS ORDERED: MIDAZOLAM HCL 2 MG/2 ML INJ ONE (12:17)
[2020-04-13] MEDS ORDERED: HEPARIN 5000 UNIT/ML 1 ML VIAL ONE (12:17)
[2020-04-13] MEDS ORDERED: FENTANYL CITR 100 MCG/2 ML ONE (12:17)
[2020-04-13] MEDS ORDERED: VERAPAMIL HCL 10 MG/4 ML VIAL IV ONE (12:17)
[2020-04-13] MEDS ORDERED: NA CHLORIDE 0.9% 500 ML ONE (12:18)
[2020-04-13] MEDS ORDERED: ATROPINE SULF 1 MG/10 ML SYR IV ONE (12:18)
[2020-04-13] MEDS ORDERED: DIPHENHYDRAMINE 50 MG/ML VIAL ONE (12:29)
[2020-04-13] MEDS ORDERED: METHYLPREDNISOLONE 125 MG INJ ONE (12:29)
[2020-04-13] MEDS: SILVER SULFADIAZINE 1% 25 GM TOP SCH ×2 (13:50→21:00)
--- NOTE | 2020-04-13 15:40 | OP ---
Date of Procedure: 04/13/2020 Surgeon: KAREL CONNELL Procedure Performed: 1.Selective coronary angiogram. 2.Left heart catheterization. Indication: Constant chest pain with ST-elevation inferior leads. Access: Right femoral artery 6-Thai, closed with a 6-Thai Angio-Seal. Description Of Procedure: After risks, benefits, and alternatives were explained, the patient agreed to procedure and signed informed consent. We brought the patient to cardiac catheterization [facility], prepped and draped in usual sterile fashion. We used fentanyl and Versed for adequate moderate sedation. Then, we accessed the right femoral artery using ultrasound guidance and fluoroscopy and m icropuncture kit and placed a 6-Thai sheath. Then, we took a 6-Thai JR4 catheter into the aortic root and engaged the RCA and took 2 pictures, use only 11 cc of contrast and then removed the cathet er. The access was removed and a 6-Thai Angio-Seal was deployed with good hemostasis. Findings: 1.Patent mid to distal RCA stent with patent right PLB stents and RUBA-3 flow in the whole artery. 2.Severe proximal RV branch stenosis which is a large branch that is chronic. 3.There is a mild proximal edge dissection of the stent, however, no issues with the blood flow thro ughout the artery. Recommendations: Continue medical management for now and due to the acute kidney injury with creatin ine being 1.6, we will plan to staged LAD at a later time rightly after hospital discharge. If creat inine normalize, however, throughout the next 48 hours, we will plan to bring her back on Saturday for possible intervention. Otherwise, the patient feeling to be stable and she can probably be released. We plan for staged LAD at a later time once her kidney function completely recovers. SR/MODL Voice ID: [id number] Report ID: [id number]
[2020-04-13] MEDS: LEVOTHYROXINE SOD 0.025 MG TAB PO SCH (16:53)
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
[2020-04-13] MEDS ORDERED: NA CHLORIDE 0.9% 1,000 ML ONE (17:51)
[2020-04-13] MEDS ORDERED: NA CHLORIDE 0.9% 1,000 ML IV SCH (19:00)
[2020-04-13] MEDS ORDERED: SODIUM CHL 0.9% IV SCH (19:00)
[2020-04-13] MEDS: ATORVASTATIN 40 MG TAB PO SCH (21:12)
[2020-04-13] MEDS ORDERED: INSULIN -REGULAR HUMAN 50 UNIT/0.5 ML ML ONE (21:18)
[2020-04-13] MEDS ORDERED: INSULIN 70/30 100 UNITS/ML SQ ONE (21:22)
[2020-04-14] MEDS: SILVER SULFADIAZINE 1% 25 GM TOP SCH ×2 (04:30→09:00)
[2020-04-14 05:33] LABS: Absolute Lymphocytes (CBC) 0.5 K/uL (0.7-4.9); Basophils % 0.1 % (0-1.3); Hematocrit 27.7 % (36.0-45.0); Lymphocytes % 4.8 % (15.3-44.8); MPV 10.6 fL (7.6-11.3); RBC Red Blood Cell Count 3.09 M/uL (3.86-4.86)
[2020-04-14 05:50] LABS: Albumin 2.2 g/dL (3.4-5.0); Bilirubin Total 0.5 mg/dL (0.2-1.0); Phosphorus 5.1 mg/dL (2.5-4.9); Potassium 5.1 mmol/L (3.5-5.1); Protein, Total 5.9 g/dL (6.4-8.2)
[2020-04-14] MEDS: METOPROLOL TAR 25 MG TAB PO SCH ×2 (06:00→18:00)
[2020-04-14] MEDS ORDERED: INSULIN -REGULAR HUMAN 50 UNIT/0.5 ML ML ONE ×6 (06:16→20:50)
[2020-04-14] MEDS ORDERED: INSULIN 70/30 100 UNITS/ML SQ ONE (06:19)
[2020-04-14] MEDS: INSULIN -REGULAR HUMAN 50 UNIT/0.5 ML ML SQ SCH ×7 (07:30→21:10)
[2020-04-14] MEDS: INSULIN 70/30 100 UNITS/ML SQ SCH ×2 (07:40→21:13)
[2020-04-14] MEDS ORDERED: TICAGRELOR 90 MG TABLET PO ONE (08:07)
[2020-04-14] MEDS ORDERED: ASPIRIN EC 81 MG TAB PO ONE (08:07)
[2020-04-14] MEDS: TICAGRELOR 90 MG TABLET PO SCH ×2 (08:34→21:11)
[2020-04-14] MEDS: ASPIRIN EC 81 MG TAB PO SCH (08:34)
[2020-04-14] MEDS: GABAPENTIN 400 MG CAP PO SCH ×3 (08:35→21:00)
--- NOTE | 2020-04-14 08:39 | P.PN ---
Subjective Date of Service: 04/14/20 Primary Care Provider: Dr. Waldrop Chief Complaint: NSTEMI Subjective: Improving (feeling well, continues with some confusion - thinks it 1997 still, but recalls events of hospitalization reports chest pain is improved, denies SOB. Elevated glucose this morning, nursing reports patient ate food from outside hospital and was eating candy last night) Review of Systems 10-point ROS is otherwise unremarkable Physical Examination - Vital Signs Temperature: 98.8 F Blood Pressure: 99/64 Pulse: 74 Respirations: 15 Pulse Ox (%): 98 - Physical Exam General: Alert, In no apparent distress, Oriented x2 HEENT: PERRLA, Sclerae nonicteric Cardiovascular: No edema, Regular rate/rhythm Gastrointestinal: Soft and benign, Tenderness (mild (chronic)) Musculoskeletal: No tenderness Integumentary: No rashes Neurological: Normal speech, Normal strength at 5/5 x4 extr Assessment & Plan Physician Review Additional Text: Acute NSTEMI HTN IDDM2 confusion / delirium MISAEL L great toe burn injury/wound TTE (04/11): mild inferior wall hypokinesis. grade 1 diastolic dysfunction s/p cardiac cath (04/11) - multiple coronary artery vessel disease. Reportedly was hypotensive after procedure, briefly received vasopressors. She received 16hrs of integrilin drip per Cardiology and transitioned to Brilinta 90mg q12hr had repeat cath on 04/13, no stent placed due to worsening renal function MISAEL likely contrast induced, will consult nephrology Continue aspirin, metoprolol, lipitor. heart healthy / diabetic diet Dr. Cristobal consulted for wound - to see as outpatient continues with confusion, CT brain negative, likely ICU delirium, neuro exam nonfocal; ammonia normal hyperglycemic >400 this morning, didn't received morning 70/30 due to NPO for procedure and low glc, and she was noncompliant with diet yesterday evening - had fried chicken, bread, tea, etc will monitor closely, frequent glc checks Dispo: continue to monitor in ICU for now Time Spent Managing Pts Care (In Minutes): 35
[2020-04-14 08:54] LABS: Blood Morphology Comment NOT SEEN (NOT SEEN); Platelet Estimate ADEQ
[2020-04-14] MEDS: lisinopriL 10 MG TAB PO SCH (09:00)
[2020-04-14] MEDS ORDERED: INSULIN -REGULAR HUMAN 50 UNIT/0.5 ML ML SQ SCH ×2 (09:00→17:15)
[2020-04-14] MEDS: NA CHLORIDE 0.9% 1,000 ML IV SCH ×2 (09:03→12:07)
[2020-04-14] MEDS: HYDROCODONE/APAP 7.5/325 MG TAB PO PRN (09:07)
[2020-04-14] MEDS ORDERED: HYDROCODONE/APAP 7.5/325 MG TAB ONE (09:21)
[2020-04-14] MEDS ORDERED: INSULIN -REGULAR HUMAN 50 UNIT/0.5 ML ML IV ONE ×3 (11:54→15:36)
[2020-04-14] MEDS: LEVOTHYROXINE SOD 0.025 MG TAB PO SCH (11:59)
[2020-04-14] MEDS ORDERED: NA CHLORIDE 0.9% 1,000 ML ONE (12:20)
--- NOTE | 2020-04-14 13:36 | PN ---
Date of Progress Note: 04/14/2020 Subjective: Seen by bedside. She does not have any chest pain. Feeling well. Review of Systems: No chest pain, shortness of breath, orthopnea, cough. No nausea, vomiting, diarrhea. No abdominal p ain. No history of urinary urgency. All other systems reviewed are negative Objective: Vital Signs: Temperature is 97.4, pulse is 74, breathing at 18, blood pressure is 101/68 , satting 96%. General: Middle-aged female, in no distress. Head and neck: Pupils are equal, reactive to light. Intact eye movements. No JVD. No cervical lym phadenopathy. Neck is supple. Thyroid is not enlarged. Lungs: Clear to auscultation bilaterally. No rhonchi, rales, or crackles. No accessory muscle use. Heart: Regular rate and rhythm. No extra sounds. Abdomen: Soft, nontender. Bowel sounds are positive. No organomegaly. No masses or hernia. No ri gidity or rebound. Extremities: No clubbing, cyanosis. Intact pulses. Skin: No rashes. Neurologic: Alert, awake, with some confusion, but no focal deficits appreciated. Lymph nodes: No cervical or axillary lymphadenopathy Investigations: Labs were reviewed. Creatinine today is 1.89, but her blood sugar is above 500. Assessment And Plan: 1.Mnw-[id number] myocardial infarction. Culprit was RCA. It was a very difficult intervention du e to large thrombus burden, status post Integrilin infusion and PCI of the RCA. Took the patient angela k to the laborer yesterday with a very minimal amount of contrast. The RCA had RUBA-3 flow. The pa tient will need further workup on the mid LAD and possible LV branch, however, we will hold off on th at pending recovery of kidney function. 2.Acute kidney failure. Could be in part due to contrast-induced nephropathy, but also the patient has been hypotensive and her sugars are very high today. Consult Nephrology to further help in this matter and tight blood glucose control and gentle hydration could be beneficial. SR/MODL Voice ID: [id number] Report ID: [id number]
[2020-04-14 15:19] LABS: Potassium 4.8 mmol/L (3.5-5.1)
--- NOTE | 2020-04-14 16:07 | P.CNS ---
Date of Consult: 04/14/20 Reason for Consult: elevated creatinine Primary Care Provider: Dr. Waldrop Chief Complaint: NSTEMI History of Present Illness: 59 yr old female with past medical history of HTN, DM-2, history of CKD admitted for chest pain. Noted with acute TN. Patient underwent cardiac catheterization 3 days ago and repeat with PCI yesterday. On presentation, she was noted with creatinine elevation to 1.17 but worsen to 1.8 today. Patient denies any known history of CKD.She denies any nausea, vomiting and loss of appetite. She has been on NS IVF but noted by staff to have midl LE swelling now . She states he had labs own with her PCP about 8 months ago. She admit to her brother with kidney problems but not on dialysis prior to his . Of she denies any hematuria , fomay urine or dysuria . She appears to b a poor historian . History being supplemented by her spouse at bedside . Renal consuled for azotemia Allergies Latex, Natural Rubber Allergy (Severe, Verified 04/09/20 05:26) Hives/Rash metformin Allergy (Severe, Verified 04/09/20 05:26) Anaphylaxis iodine Allergy (Mild, Verified 04/10/20 16:15) Itching/Hives/Rash Metformin HCl Allergy (Severe, Uncoded 04/09/20 05:26) Anaphylaxis Adhesives Allergy (Mild, Uncoded 04/09/20 05:26) Itching/Hives/Rash Tape Allergy (Mild, Uncoded 04/09/20 05:26) Itching/Hives/Rash Home Medications: Insulin 70/30 NPH/Reg Human [Novolin 70/30*] 40 unit SQ DAILY WITH BREAKFAST 05/10/13 Gabapentin 1 cap PO TID 04/09/20 Hydrocodone Bit/Acetaminophen [[place] 7.5-325 Tablet] 1 tab PO Q8H PRN 04/09/20 Insulin Aspart Prot/Insuln Asp [Novolog Mix 70-30 Flexpen] 15 units SQ BEDTIME 04/09/20 Levothyroxine Sodium [Synthroid] 25 mcg PO DAILY 04/09/20 Lisinopril [Zestril] 1 tab PO DAILY 04/09/20 - Past Medical/Surgical History Diabetic: Yes -: hypothyroidism -: knee problems -: htn -: gerd -: IDDM -: neuropathy -: rectocele -: spinal stenosis -: sleep apnea -: fibromyalgia -: lavell -: 10 surgical scars due to allergy to metformin -: 5 c - sections - Social History Smoking Status: Never smoker Alcohol use: No CD- Drugs: No Caffeine use: Yes Place of Residence: Home Physical Examination Temp Pulse Resp BP Pulse Ox 98.8 F 72 13 108/69 100 04/14/20 08:39 04/14/20 12:00 04/14/20 12:00 04/14/20 12:00 04/14/20 12:00 General: Alert, In no apparent distress, Oriented x3 HEENT: Atraumatic, Normocephalic, PERRLA Neck: Supple, 2+ carotid pulse no bruit, JVD not distended Respiratory: Clear to auscultation bilaterally, Normal air movement Cardiovascular: No edema, Normal pulses, Regular rate/rhythm, Normal S1 S2 Gastrointestinal: Normal bowel sounds, Hypoactive, Soft and benign Musculoskeletal: No clubbing, No swelling Integumentary: No breakdown, No significant lesion Neurological: Normal speech, Normal strength at 5/5 x4 extr, Normal tone - Problems (1) Acute non-ST segment elevation myocardial infarction Current Visit: Yes Status: Acute (2) Hypertension Current Visit: Yes Status: Acute Qualifiers: Hypertension type: essential hypertension Qualified Code(s): I10 - Essential (primary) hypertension (3) Type 2 diabetes mellitus with foot ulcer Current Visit: Yes Status: Acute (4) Insulin dependent diabetes mellitus Current Visit: Yes Status: Chronic Conclusions/Impression: # ARF- likely due to ATN from contrast nephropathy -Baseline CKD stage III status suspected -Will obtain labs from PCP office -Obtain urine studies for fena -Avoid Nsaids -Avoid Nephrotoxins -Hold further cath or contrast except relatively emergent -Hold lisinopril -start gentle bicarb to minimize tubular acidosis -dc IVF NS # HTN- controlled , will dc lisinopril -c/w Toprol # Met Acidosis -mild , follow # DM - with marked hyperglycemia - on insulin bolus doses # Acute TN - follow cardiology Physician Review: Patient Assessed, Agree with Above Assessment and Plan Time Spent Managing Pts care (In Minutes): 60
[2020-04-14] MEDS: NACHLORIDE 0.45% 1,000 ML with NA BICARB 8.4% 75 MEQ IV SCH ×2 (16:20)
[2020-04-14] MEDS: ATORVASTATIN 40 MG TAB PO SCH (21:11)
[2020-04-14] MEDS: PENTOXIFYLLINE ER 400 MG TAB PO SCH (21:14)
[2020-04-14] MEDS: MORPHINE 4 MG/ML SYR IV PRN (21:17)
[2020-04-14] MEDS: ONDANSETRON 4 MG/2 ML VIAL IV PRN (21:28)
[2020-04-14] MEDS ORDERED: ONDANSETRON 4 MG/2 ML VIAL ONE (21:38)
[2020-04-15] MEDS: INSULIN -REGULAR HUMAN 50 UNIT/0.5 ML ML SQ SCH ×6 (00:03→20:34)
[2020-04-15] MEDS ORDERED: INSULIN -REGULAR HUMAN 50 UNIT/0.5 ML ML ONE (00:16)
[2020-04-15] MEDS: SILVER SULFADIAZINE 1% 25 GM TOP SCH ×3 (00:30→21:00)
[2020-04-15] MEDS ORDERED: SILVER SULFADIAZINE 1% 25 GM TOP ONE ×2 (00:34→01:47)
[2020-04-15] MEDS: METOPROLOL TAR 25 MG TAB PO SCH ×2 (05:48→17:56)
[2020-04-15 07:04] LABS: Absolute Lymphocytes (CBC) 1.3 K/uL (0.7-4.9); Basophils % 0.6 % (0-1.3); Hematocrit 25.5 % (36.0-45.0); Lymphocytes % 13.3 % (15.3-44.8); RBC Red Blood Cell Count 2.93 M/uL (3.86-4.86)
[2020-04-15 07:23] LABS: Magnesium 2.2 mg/dL (1.8-2.4); Potassium 4.5 mmol/L (3.5-5.1)
[2020-04-15] MEDS: ONDANSETRON 4 MG/2 ML VIAL IV PRN ×2 (10:15→21:18)
[2020-04-15] MEDS: GABAPENTIN 400 MG CAP PO SCH ×3 (10:18→20:34)
[2020-04-15] MEDS: INSULIN 70/30 100 UNITS/ML SQ SCH ×2 (10:19→21:00)
[2020-04-15] MEDS: PENTOXIFYLLINE ER 400 MG TAB PO SCH ×2 (10:19→20:33)
[2020-04-15] MEDS: ASPIRIN EC 81 MG TAB PO SCH (10:19)
[2020-04-15] MEDS: TICAGRELOR 90 MG TABLET PO SCH ×2 (10:19→20:33)
[2020-04-15] MEDS: HYDROCODONE/APAP 7.5/325 MG TAB PO PRN ×2 (10:30→20:33)
[2020-04-15] MEDS: LEVOTHYROXINE SOD 0.025 MG TAB PO SCH (10:31)
[2020-04-15] MEDS ORDERED: POLYETHYL GLY 3350 17 GM/DOSE PO PRN (10:43)
--- NOTE | 2020-04-15 13:29 | P.PN ---
Subjective Date of Service: 04/15/20 Primary Care Provider: Dr. Waldrop Chief Complaint: NSTEMI Subjective: No new changes Physical Examination - Vital Signs Temperature: 97.5 F Blood Pressure: 113/66 Pulse: 77 Respirations: 18 Pulse Ox (%): 98 - Physical Exam General: Alert, Oriented x3 HEENT: Atraumatic, Normocephalic Respiratory: Clear to auscultation bilaterally Cardiovascular: No edema, Regular rate/rhythm, Normal S1 S2 Gastrointestinal: Normal bowel sounds Neurological: Normal speech, Normal strength at 5/5 x4 extr, Cranial nerves 3-12 intact Assessment And Plan - Plan MISAEL-Creatinine is trending down post contrast exposure. still deemed due to contrast nephropathy. we will continue to avoid nephrotoxins and dose meds for eGFR. we will continue IV hydration till am. Hypertension-Stable BP reads. we will monitor. Diabetes type 2-Blood glucose control is still elevated. we will continue SSI and long acting insulin therapy. NSTEMI-Management as per cardiology team. Physician Review: Patient Assessed, Agree with Above Assessment and Plan
--- NOTE | 2020-04-15 17:43 | P.PN ---
Subjective Date of Service: 04/15/20 Primary Care Provider: Dr. Waldrop Chief Complaint: NSTEMI Subjective: Improving (Feeling much better this morning, does report slight bloating sensation, has not had a bowel movement in a few days which is not abnormal for her. She is passing lots of flatus. No nausea/vomiting) Review of Systems 10-point ROS is otherwise unremarkable Physical Examination - Vital Signs Temperature: 97.5 F Blood Pressure: 113/66 Pulse: 77 Respirations: 18 Pulse Ox (%): 98 - Physical Exam General: Alert, Oriented x3 HEENT: Mucous membr. moist/pink Respiratory: Clear to auscultation bilaterally Cardiovascular: No edema, Regular rate/rhythm Gastrointestinal: Soft and benign, Non-distended, Tenderness (Periumbilical, chronic) Musculoskeletal: No tenderness Integumentary: No rashes Neurological: Normal speech, Normal affect Assessment & Plan Physician Review Additional Text: Acute NSTEMI HTN IDDM2 confusion / delirium, resolved MISAEL L great toe burn injury/wound TTE (04/11): mild inferior wall hypokinesis. grade 1 diastolic dysfunction s/p cardiac cath (04/11) - multiple coronary artery vessel disease. Reportedly was hypotensive after procedure, briefly received vasopressors. She received 16hrs of integrilin drip per Cardiology and transitioned to Brilinta 90mg q12hr. repeat cath on 04/13, no stent placed due to worsening renal function MISAEL likely contrast induced, nephrology consulted, patient was started on very low NS/bicarb replacement, with improvement of renal function this moring Continue aspirin, metoprolol, lipitor. heart healthy / diabetic diet Dr. Cristobal consulted for wound - to see as outpatient glucose much more under control now that patient is more compliant Dispo: anticipate dc home tomorrow Time Spent Managing Pts Care (In Minutes): 35
[2020-04-15] MEDS: NACHLORIDE 0.45% 1,000 ML with NA BICARB 8.4% 75 MEQ IV SCH ×2 (17:55)
[2020-04-15] MEDS: ATORVASTATIN 40 MG TAB PO SCH (20:33)
[2020-04-16] MEDS: METOPROLOL TAR 25 MG TAB PO SCH ×2 (05:49→16:17)
[2020-04-16 06:08] LABS: Absolute Lymphocytes (CBC) 1.4 K/uL (0.7-4.9); Basophils % 0.6 % (0-1.3); Hematocrit 24.3 % (36.0-45.0); Lymphocytes % 17.6 % (15.3-44.8)
[2020-04-16 06:31] LABS: Magnesium 2.2 mg/dL (1.8-2.4); Potassium 4.2 mmol/L (3.5-5.1)
[2020-04-16] MEDS: SILVER SULFADIAZINE 1% 25 GM TOP SCH (09:00)
[2020-04-16] MEDS: GABAPENTIN 400 MG CAP PO SCH ×3 (09:00→14:00)
[2020-04-16] MEDS: INSULIN -REGULAR HUMAN 50 UNIT/0.5 ML ML SQ SCH ×3 (09:22→16:17)
[2020-04-16] MEDS: INSULIN 70/30 100 UNITS/ML SQ SCH (09:22)
[2020-04-16] MEDS: LEVOTHYROXINE SOD 0.025 MG TAB PO SCH (09:23)
[2020-04-16] MEDS: TICAGRELOR 90 MG TABLET PO SCH (09:23)
[2020-04-16] MEDS: ASPIRIN EC 81 MG TAB PO SCH (09:23)
[2020-04-16] MEDS: PENTOXIFYLLINE ER 400 MG TAB PO SCH (09:23)
[2020-04-16 09:33] VITALS: O2SAT 98
[2020-04-16 09:51] VITALS: BP 103/66; TEMP 97.8
[2020-04-16] MEDS ORDERED: ONDANSETRON 4 MG/2 ML VIAL IV PRN (11:46)
--- NOTE | 2020-04-16 14:46 | P.PN ---
Subjective Date of Service: 04/16/20 Primary Care Provider: Dr. Waldrop Chief Complaint: NSTEMI Subjective: No new changes, No C/O voiced Physical Examination - Vital Signs Temperature: 97.8 F Blood Pressure: 103/66 Pulse: 69 Respirations: 20 Pulse Ox (%): 98 - Physical Exam General: Other (drowsy ) Neck: Supple, 2+ carotid pulse no bruit Respiratory: Clear to auscultation bilaterally, Normal air movement Cardiovascular: Regular rate/rhythm, Normal S1 S2 Gastrointestinal: Normal bowel sounds, Soft and benign, Non-distended Musculoskeletal: No clubbing, No swelling Assessment & Plan - Problems (Diagnosis) (1) Acute non-ST segment elevation myocardial infarction Current Visit: Yes Status: Acute (2) Hypertension Current Visit: Yes Status: Acute Qualifiers: Hypertension type: essential hypertension Qualified Code(s): I10 - Essential (primary) hypertension (3) Type 2 diabetes mellitus with foot ulcer Current Visit: Yes Status: Acute (4) Insulin dependent diabetes mellitus Current Visit: Yes Status: Chronic Physician Review: Patient Assessed, Agree with Above Assessment and Plan Physician Review Additional Text: Acute NSTEMI HTN IDDM2 confusion / delirium, resolved MISAEL L great toe burn injury/wound TTE (04/11): mild inferior wall hypokinesis. grade 1 diastolic dysfunctions/p cardiac cath (04/11) - multiple coronary artery vessel disease. PLAN -creatinine improved , will dc Trental now - serum bicarb controlled - will dc bicarb gtt now and follow -unclear etiology for nausea or vx , follow GI eval if recurrent -follow repeat cr in am
--- NOTE | 2020-04-16 17:18 | P.DS ---
Admission Date: 04/09/20 Discharge Date: 04/16/20 Primary Care Provider: Dr. Waldrop Disposition: ROUTINE DISCHARGE Discharge Condition: GOOD Reason for Admission: NSTEMI Consultations: Cardiology - Dr. Benitez , Dr. Rosen Nephrology - Dr. Chaparro, Dr. Celestinogun Podiatry - Dr. Cristobal Procedures: CXR (04/08): Mild bilateral pulmonary opacities may represent pulmonary edema or pneumonitis CT Head (04/08): No acute intracranial abnormality. CTA Chest (04/08): 1. Diagnostic pulmonary angiography without findings to suggest pulmonary arterial embolus. 2. Bilateral diffuse geographic groundglass attenuation with differential as detailed below: Commonly reported imaging features of viral pneumonia are present. Other processes such as influenza pneumonia and organizing pneumonia, as can be seen with drug toxicity and connective tissue disease, can cause a similar imaging pattern. TTE (04/11): LVEF:55-60%, Grade 1 Diastolic dysfunction, mild inferior wall hypokinesis. Cardiac Cath (04/11): Procedure Performed: 1. Selective coronary angiogram. 2. PCI of severe mid to distal RCA using 4.0 x 24 mm Synergy drug-eluting stent and PCI of severe more than 99% stenosis of the right PLB branch using a 2.5 x 28 mm Synergy drug-eluting stent. 3. Balloon angioplasty of severe 90% mid right PDA stenosis. Findings: 1. Left main large with luminal irregularities. 2. LAD mid, 80% focal, and then diffuse mild disease. 3. Left circumflex small diffuse disease. 4. RCA severe mid to distal stenosis, status post PCI as above. 5. Right PLB severe mid 99% stenosis, is 1 of the culprit lesions, status post PCI as above. 6. Right PDA severe mid 90% stenosis, status post balloon angioplasty as above. Cardiac Cath (04/13): Procedure Performed: 1. Selective coronary angiogram. 2. Left heart catheterization. Findings: 1. Patent mid to distal RCA stent with patent right PLB stents and RUBA-3 flow in the whole artery. 2. Severe proximal RV branch stenosis which is a large branch that is chronic. 3. There is a mild proximal edge dissection of the stent, however, no issues with the blood flow throughout the artery. Problem list Acute NSTEMI HTN IDDM2 confusion / delirium, resolved MISAEL, resolved L great toe burn injury/wound Brief History of Present Illness: 59yo F presented to ED due to sudden onset chest pain with radiation to back and R shoulder with associated shortness of breath. ED workup revealed elevated troponin of 0.7, elevated D-dimer in the 800s. CT negative for PE. She was admitted for further evaluation for NSTEMI. Hospital Course: Cardiology was consulted, troponin increased to 8, and patient underwent further evaluation with echocardiogram, and cardiac catheterization as noted above. Patient has significant multivessel disease. During her initial cardiac catheterization, she did have an episode of hypotension and required vasopressors only during the procedure. She was monitored in the ICU on an Integrilin drip and eventually transitioned to Brilinta. She was briefly on a nitro drip due to continued chest pain and ST elevations seen on telemetry after her 1st cardiac catheterization. She underwent a 2nd cardiac catheterization on 04/13, at which time it was originally planned possibly please more stents, however stents were not placed due to the patient's worsening renal function. Nephrology was consulted, and was in agreement that this was likely due to contrast induced nephropathy, possibly compounded by the her brief episodes of hypotension and her hyperglycemia. She had notable improvement/near resolution by day of discharge with a bicarb drip. Her hospitalization was complicated by hyperglycemia up to 500s after her 1st cardiac catheterization. The patient was noncompliant and 8 candy and fried t akeout food that family had brought for her. Her glucose returned to normal ranges by the end of the day. Patient was also noted to have some mild confusion after her initial cardiac catheterization, lasting ~ 48hr. Believes it was 1996 and was stating her was just her boyfriend. She was otherwise alert and oriented, neuro exam was normal. A CT brain was performed which was negative for any acute process. This eventually resolved and was felt to be due to ICU delirium tremens patient had not had much sleep, was receiving opioid pain medication, and some mild anesthesia for her procedures. After her cardiac catheterization, the patient has been felt that the patient's left foot and great toe burn injury it appeared little bit darker than previous. Her assistant director of financial aid/wound care physician, Dr. Cristobal was consulted, advised treatment with Silvadene and to follow up with him in his office on 04/18 as an outpatient. Throughout the rest of her hospitalization, she was noted to have a low-normal blood pressure, her lisinopril is to be discontinued on discharge, and she is to follow up with nephrology and cardiology in 1 week. She will need to undergo further cardiac catheterization with Cardiology in the near future - this has been delayed due to her renal function. She is discharged with new prescriptions for aspirin, metoprolol, Lipitor, and Brilinta. Vital Signs/Physical Exam: Temp Pulse Resp BP Pulse Ox 97.8 F 69 20 103/66 98 04/16/20 14:46 04/16/20 14:46 04/16/20 14:46 04/16/20 14:46 04/16/20 14:46 General: Alert, In no apparent distress, Oriented x3 HEENT: Mucous membr. moist/pink, Sclerae nonicteric Neck: Supple Respiratory: Clear to auscultation bilaterally, Normal air movement Cardiovascular: Regular rate/rhythm, Edema (1+ b/l lower extremities just above ankles. mild swelling of L hand) Gastrointestinal: Soft and benign, Non-distended, Tenderness (mild, diffuse (chronic)) Musculoskeletal: No tenderness Integumentary: No rashes, Other (L great toe ulcer, no drainage, no surrounding erythema.) Neurological: Normal speech, Normal strength at 5/5 x4 extr, Cranial nerves 3-12 intact, Normal affect Laboratory Data at Discharge: WBC 8.0 K/uL (4.3-10.9) D 04/16/20 05:45 Hgb 8.4 g/dL (12.0-15.0) L 04/16/20 05:45 Hct 24.3 % (36.0-45.0) L 04/16/20 05:45 Plt Count 214 K/uL (152-406) 04/16/20 05:45 PT 10.2 SECONDS (9.5-12.5) 04/08/20 23:00 INR 0.86 04/08/20 23:00 Sodium 140 mmol/L (136-145) 04/16/20 05:45 Potassium 4.2 mmol/L (3.5-5.1) 04/16/20 05:45 BUN 45 mg/dL (7-18) H 04/16/20 05:45 Creatinine 1.15 mg/dL (0.55-1.3) 04/16/20 05:45 Glucose 155 mg/dL (74-106) H 04/16/20 05:45 Phosphorus 5.1 mg/dL (2.5-4.9) H 04/14/20 04:39 Magnesium 2.2 mg/dL (1.8-2.4) 04/16/20 05:45 Total Bilirubin 0.5 mg/dL (0.2-1.0) 04/14/20 04:39 AST 107 U/L (15-37) H 04/14/20 04:39 ALT 36 U/L (12-78) 04/14/20 04:39 Alkaline Phosphatase 97 U/L (45-117) 04/14/20 04:39 Troponin I 8.82 ng/mL (0.0-0.045) H* D 04/09/20 08:30 Triglycerides 154 mg/dL (<150) H 04/09/20 05:34 Cholesterol 269 mg/dL (<200) H 04/09/20 05:34 HDL Cholesterol 59 mg/dL (40-60) 04/09/20 05:34 Cholesterol/HDL Ratio 4.56 04/09/20 05:34 Home Medications: Insulin 70/30 NPH/Reg Human [Novolin 70/30*] 40 unit SQ DAILY WITH BREAKFAST 05/10/13 Gabapentin 1 cap PO TID 04/09/20 Hydrocodone Bit/Acetaminophen [[place] 7.5-325 Tablet] 1 tab PO Q8H PRN 04/09/20 Insulin Aspart Prot/Insuln Asp [Novolog Mix 70-30 Flexpen] 15 units SQ BEDTIME 04/09/20 Levothyroxine Sodium [Synthroid] 25 mcg PO DAILY 04/09/20 Aspirin [Aspirin EC 81 MG] 81 mg PO DAILY 30 Days #30 tablet. 04/16/20 Atorvastatin Calcium [Lipitor] 40 mg PO BEDTIME 30 Days #30 tab 04/16/20 Metoprolol Tartrate [Lopressor*] 25 mg PO BID 30 Days #60 tab 04/16/20 Ondansetron [Zofran] 4 mg PO Q6H PRN #10 tab 04/16/20 Ticagrelor [Brilinta] 90 mg PO BID 30 Days #60 tablet 04/16/20 New Medications: Aspirin [Aspirin EC 81 MG] 81 mg PO DAILY 30 Days #30 tablet. Ticagrelor [Brilinta] 90 mg PO BID 30 Days #60 tablet Atorvastatin Calcium [Lipitor] 40 mg PO BEDTIME 30 Days #30 tab Metoprolol Tartrate [Lopressor*] 25 mg PO BID 30 Days #60 tab Ondansetron [Zofran] 4 mg PO Q6H PRN #10 tab PRN Reason: Nausea / Vomiting Patient Discharge Instructions: Follow up with Dr. Rosen (Cardiology) in 1 week. Follow up with Nephrology (Dr. Chaparro or Dr. Duff) in 1 week. STOP taking lisinopril until you follow up with the nephrologists (kidney doctors). -- New Medications -- Aspirin 81mg daily, Brillinta (Ticagrelor) twice a day, Atorvastatin daily, and Metoprolol (twice a day) Diet: ADA (ivorian heart healthy diet) Activity: Ad matt Followup: NONE,NONE [Primary Care Provider] - Chino Rosen MD [ACTIVE - CAN ADMIT] - (Call to make an appointment. ) Darío Duff [COURTESY - CAN ADMIT] - (Call to make an appointment. ) Time spent managing pt's care (in minutes): 40
== END 2020-04-16 16:30 | disposition home or self-care (01) | DRG 247 ==
LOC: ER 22:15 → 4TH 04-09 03:12 → 2ND 04-11 10:06 → ERHOLD 04-11 17:14 → 2ND 04-15 02:31
PROVIDERS: ADMIT Internal Medicine; ATTEND Hospitalist
PROC: 027135Z Dilation of Coronary Artery, Two Arteries with Two Drug-eluting Intraluminal Devices, Percutaneous Approach (ICD-10-PCS; principal; 2020-04-11)
PROC: 4A023N7 Measurement of Cardiac Sampling and Pressure, Left Heart, Percutaneous Approach (ICD-10-PCS; 2020-04-11)
PROC: B2111ZZ Fluoroscopy of Multiple Coronary Arteries using Low Osmolar Contrast (ICD-10-PCS; 2020-04-11)
PROC: 4A023N7 Measurement of Cardiac Sampling and Pressure, Left Heart, Percutaneous Approach (ICD-10-PCS; 2020-04-13)
PROC: B2111ZZ Fluoroscopy of Multiple Coronary Arteries using Low Osmolar Contrast (ICD-10-PCS; 2020-04-13)
DX: I21.4 Non-ST elevation (NSTEMI) myocardial infarction (principal); N17.9 Acute kidney failure, unspecified; E87.2 Acidosis; K21.9 Gastro-esophageal reflux disease without esophagitis; E78.5 Hyperlipidemia, unspecified; I12.9 Hypertensive chronic kidney disease with stage 1 through stage 4 chronic kidney disease, or unspecified chronic kidney disease; N18.9 Chronic kidney disease, unspecified; E11.22 Type 2 diabetes mellitus with diabetic chronic kidney disease; E11.65 Type 2 diabetes mellitus with hyperglycemia; E11.40 Type 2 diabetes mellitus with diabetic neuropathy, unspecified; E11.621 Type 2 diabetes mellitus with foot ulcer; L97.529 Non-pressure chronic ulcer of other part of left foot with unspecified severity; I95.9 Hypotension, unspecified; E03.9 Hypothyroidism, unspecified; N14.1 Nephropathy induced by other drugs, medicaments and biological substances; T50.8X5A Adverse effect of diagnostic agents, initial encounter; T25.032A Burn of unspecified degree of left toe(s) (nail), initial encounter; R41.0 Disorientation, unspecified; Z91.041 Radiographic dye allergy status; Z88.8 Allergy status to other drugs, medicaments and biological substances; Z91.048 Other nonmedicinal substance allergy status; Z90.49 Acquired absence of other specified parts of digestive tract; Z91.040 Latex allergy status; Z91.11 Patient's noncompliance with dietary regimen; Z79.4 Long term (current) use of insulin; Z79.891 Long term (current) use of opiate analgesic; Z79.890 Hormone replacement therapy; Z79.899 Other long term (current) drug therapy; Z20.828 Contact with and (suspected) exposure to other viral communicable diseases
CPT/HCPCS: 36415; 70450; 71045; 71275; 80048; 80053; 80061; 80069; 80076; 82140; 82947; 83735; 83880; 84484; 85025; 85347; 85379; 85610; 93005; 93306; 93454; 93458; 96372; 96374; 96375; 97116; 97161; 97530; 99285; C1725; C1760; C1893; C9600; J0153; J1200; J1327; J1644; J1815; J2250; J2370; J2405; J2930; J3010; J7030; J7040; J7060; Q9967; U0003

== ENCOUNTER 2020-06-01 19:57 | Observation (INO) | payer OTHER ==
--- OUTSIDE RECORDS SUMMARY | 2020-06-01 20:01 | XMS REPORT | Continuity of Care Document ---
:1960 Author Organization [facility] t Address [address] [place] [address] Care Team Providers Name Role Phone Doctor Unassigned, Name Attending Clinician Unavailable Medhat Blanca MD Attending Clinician Problems This patient has no known problems. Allergies, Adverse Reactions, Alerts This patient has no known allergies or adverse reactions. Medications This patient has no known medications. Procedures This patient has no known procedures. Encounters Start End Encounter Admission Attending Care Care Encounter Source Date/Time Date/Time Type Type Clinicians Facility Department ID 2019-12-04 2019-12-04 Orders Doctor DARSHANA [id number] 00:00:00 00:00:00 Only UnassignedJEFFREY [id number] [place] [facility] [id number] 2019-11-25 2019-11-25 Office [place]IS Blanca [id number] 14:41:52 15:49:56 Visit Erica Grimaldo [id number] [place] [id number] [place] [id number] [address] 2019-04-08 2019-04-08 Emergency E [facility] [id number] [facility] 20:32:00 20:32:00 2018-10-20 2018-10-20 Emergency E [facility] [id number] [facility] 10:28:00 10:28:00 Results This patient has no known results.
[2020-06-01 22:59] LABS: Absolute Lymphocytes (CBC) 1.4 K/uL (0.7-4.9); Basophils % 1.3 % (0-1.3); Hematocrit 34.8 % (36.0-45.0); Lymphocytes % 23.6 % (15.3-44.8); MPV 9.5 fL (7.6-11.3)
[2020-06-01 23:03] LABS: Protime INR 0.95
[2020-06-01] MEDS ORDERED: FAMOTIDINE 20 MG/2 ML VIAL IV ONE (23:14)
[2020-06-01] MEDS ORDERED: ONDANSETRON 4 MG/2 ML VIAL ONE ×2 (23:14→23:46)
[2020-06-01 23:18] LABS: Albumin 3.5 g/dL (3.4-5.0); Bilirubin Direct 0.1 mg/dL (0-0.2); Bilirubin Total 0.7 mg/dL (0.2-1.0); Potassium 3.6 mmol/L (3.5-5.1); Protein, Total 7.6 g/dL (6.4-8.2); Troponin (Emerg Dept Use Only) 0.03 ng/mL (0.0-0.045)
--- NOTE | 2020-06-01 23:18 | EDPHYS ---
Physician Documentation [facility] Name: Shana Patel Age: 59 yrs Sex: Female : 1960 Arrival Date: 06/01/2020 Time: 19:59 Bed 15 Private MD: Nicolas Waldrop ED Physician Clyde Jordan HPI: 06/01 23:10 This 59 yrs old Female presents to ER via Wheelchair with complaints of orly Nausea/Vomiting, sweats, Decreased Appetite, Chest Pain. 23:10 The patient presents to the emergency department with nausea, vomiting. Onset: The orly symptoms/episode began/occurred 2 day(s) ago. Historical: - Allergies: 20:17 Adhesives; hb 20:17 IV contrast; hb 20:17 Metformin HCl; hb - Home Meds: 20:17 hydrocodone-acetaminophen 7.5-325 mg Oral tab 1 tab every 6 hours [Active]; hb levothyroxine oral 1 tab once daily [Active]; lisinopril 10 mg Oral tab 1 tab once daily [Active]; Lyrica Oral 2 times per day [Active]; Novolog Sub-Q [Active]; - PMHx: 20:17 Arthritis; Diabetes - IDDM; Fibromyalgia; GERD; Hypertension; Hypothyroidism; hb neuropathy; rectocele; spinal stenosis; - PSHx: 20:17 ; Hernia repair; Cholecystectomy; hb - Immunization history:: Adult Immunizations up to date. - Social history:: Smoking status: Patient denies any tobacco usage or history of. ROS: 23:11 Constitutional: Negative for fever, chills, and weight loss, Eyes: Negative for injury, orly pain, redness, and discharge, ENT: Negative for injury, pain, and discharge, Neck: Negative for injury, pain, and swelling, Abdomen/GI: Negative for abdominal pain, nausea, vomiting, diarrhea, and constipation, Back: Negative for injury and pain, : Negative for injury, bleeding, discharge, and swelling, Skin: Negative for injury, rash, and discoloration, Neuro: Negative for headache, weakness, numbness, tingling, and seizure, Psych: Negative for depression, anxiety, suicide ideation, homicidal ideation, and hallucinations, Allergy/Immunology: Negative for hives, rash, and allergies, Endocrine: Negative for neck swelling, polydipsia, polyuria, polyphagia, and marked weight changes, Hematologic/Lymphatic: Negative for swollen nodes, abnormal bleeding, and unusual bruising. 23:11 Cardiovascular: Positive for chest pain, of the chest. 23:11 Respiratory: Positive for cough, shortness of breath, at rest. 23:11 MS/extremity: Positive for decreased range of motion, pain, swelling, of the right leg and left leg. Exam: 23:11 Constitutional: This is a well developed, well nourished patient who is awake, alert, orly and in no acute distress. Head/Face: Normocephalic, atraumatic. Eyes: Pupils equal round and reactive to light, extra-ocular motions intact. Lids and lashes normal. Conjunctiva and sclera are non-icteric and not injected. Cornea within normal limits. Periorbital areas with no swelling, redness, or edema. ENT: Nares patent. No nasal discharge, no septal abnormalities noted. Tympanic membranes are normal and external auditory canals are clear. Oropharynx with no redness, swelling, or masses, exudates, or evidence of obstruction, uvula midline. Mucous membranes moist. Neck: Trachea midline, no thyromegaly or masses palpated, and no cervical lymphadenopathy. Supple, full range of motion without nuchal rigidity, or vertebral point tenderness. No Meningismus. Chest/axilla: Normal chest wall appearance and motion. Nontender with no deformity. No lesions are appreciated. Cardiovascular: Regular rate and rhythm with a normal S1 and S2. No gallops, murmurs, or rubs. Normal PMI, no JVD. No pulse deficits. Abdomen/GI: Soft, non-tender, with normal bowel sounds. No distension or tympany. No guarding or rebound. No evidence of tenderness throughout. Back: No spinal tenderness. No costovertebral tenderness. Full range of motion. Female : Normal external genitalia. Skin: Warm, dry with normal turgor. Normal color with no rashes, no lesions, and no evidence of cellulitis. Neuro: Awake and alert, GCS 15, oriented to person, place, time, and situation. Cranial nerves II-XII grossly intact. Motor strength 5/5 in all extremities. Sensory grossly intact. Cerebellar exam normal. Normal gait. Psych: Awake, alert, with orientation to person, place and time. Behavior, mood, and affect are within normal limits. 23:11 Respiratory: mild respiratory distress is noted, Respirations: labored breathing, is not present, Breath sounds: rales, that are moderate, are heard diffusely, are heard in the right middle lobe, left lower lobe, right lower lobe, left posterior upper lobe, left posterior lower lobe, right posterior middle lobe and right posterior lower lobe, decreased breath sounds, that are mild, are located in both bases, rhonchi, that are mild, are scattered. 23:11 Musculoskeletal/extremity: ROM: intact in all extremities, full active range of motion, full passive range of motion, Circulation is intact in all extremities. Sensation intact. Compartment Syndrome exam of affected extremity: is normal. Weight bearing: able to fully bear weight, DVT Exam: no pain, no swelling, no tenderness, negative Homans' sign noted on exam, no appreciated bluish discoloration, no erythema, no increased warmth. 23:19 ECG was reviewed by the Attending Physician. orly Vital Signs: 20:11 BP 155 / 99; Pulse 74; Resp 16; Temp 97.8; Pulse Ox 97% on R/A; Pain 8/10; hb 23:20 Weight 77.11 kg; Height 5 ft. 0 in. (152.40 cm); zb 23:20 BP 155 / 99; Pulse 69; Resp 16; Pulse Ox 97% on R/A; zb 23:59 BP 143 / 93; Pulse 71; Resp 18; Pulse Ox 96% on R/A; zb 06/02 01:30 BP 153 / 95; Pulse 65; Resp 16; Pulse Ox 98% ; rr5 06/01 23:20 Body Mass Index 33.20 (77.11 kg, 152.40 cm) zb MDM: 06/01 22:07 Patient medically screened. orly 23:14 Antibiotic administration: Not indicated. Differential diagnosis: CHF exacerbation, orly Chronic Obstructive Pulmonary Disease anxiety, gastritis, pancreatitis, gastroenteritis, pneumonia, pulmonary edema, Pulmonary Embolism reactive airway disease, Unstable Angina. HEART Score: History: Moderately Suspicious (1), ECG: Non specific repolarization disturbance / LBTB / PM (1), Age: > 45 and < 65 years (1), Risk Factors: > or = 3 Risk factors for atherosclerotic disease (2), [Hypercholesterolemia] [Hypertension] [DM] [+ Family HX] [Obesity] Troponin: < or = 1 x Normal Limit (0). The patient was given aspirin in the Emergency Department. The patient's Wells Deep Vein Thrombosis Score was calculated as follows: Total Score: 0. This patient was found to be at low risk for a deep vein thrombosis by using the Well's assessment criteria Total Score: 0-2 Pts- Low Risk. The patient's pulmonary embolism risk score was calculated as follows: Total Score: 0-2 points. This patient was found to be at low risk for a pulmonary embolism by using the Well's assessment criteria Total Score: 0-2 points. This patient was found to be at low risk for a pulmonary embolism by using the Well's assessment criteria. RUBA Risk Score: 1 - Three or more CAD risk factors, 1- Known CAD, 1 - ASA use in past 7 days, 1 - Recent [<24hrs] Severe Angina, TOTAL SCORE = 4. Immunization status: Influenza vaccine: Data reviewed: vital signs, nurses notes, lab test result(s), EKG, radiologic studies, plain films. Data interpreted: cardiac monitor: rate is 74 beats/min, rhythm is regular, Pulse oximetry: on room air is 97 %. Interpretation: normal. Test interpretation: by ED physician or midlevel provider: ECG, plain radiologic studies. 06/01 22:06 Order name: Basic Metabolic Panel; Complete Time: 23:34 [facility] 06/01 22:06 Order name: CBC with Diff; Complete Time: 23:10 [facility] 06/01 22:06 Order name: LFT's; Complete Time: 23:34 [facility] 06/01 22:06 Order name: Magnesium; Complete Time: 23:34 [facility] 06/01 22:06 Order name: NT PRO-BNP; Complete Time: 23:34 [facility] 06/01 22:06 Order name: PT-INR; Complete Time: 23:10 [facility] 06/01 22:06 Order name: Troponin (emerg Dept Use Only); Complete Time: 23:34 [facility] 06/01 22:06 Order name: Lipase; Complete Time: 23:34 [facility] 06/02 00:47 Order name: Urine Dipstick--Ancillary (enter results) tt3 06/02 00:48 Order name: Urine Culture [facility] 06/02 01:06 Order name: SARS-COV-2 RT PCR; Complete Time: 01:22 EDMS 06/02 01:36 Order name: Urine Dipstick-Ancillary EDMS 06/02 04:09 Order name: Troponin I [facility] 06/01 22:06 Order name: XRAY Chest (1 view) [facility] 06/01 22:06 Order name: EKG; Complete Time: 22:08 [facility] 06/01 22:06 Order name: Cardiac monitoring; Complete Time: 22:51 [facility] 06/01 22:06 Order name: EKG - Nurse/Tech; Complete Time: 22:51 [facility] 06/01 22:06 Order name: IV Saline Lock; Complete Time: 22:53 [facility] 06/01 22:06 Order name: Labs collected and sent; Complete Time: 22:53 [facility] 06/02 07:30 Order name: Glucose, Ancillary Testing [facility] 06/02 07:54 Order name: Troponin I [facility] 06/02 12:05 Order name: Glucose, Ancillary Testing [facility] 06/01 22:06 Order name: O2 Per Protocol; Complete Time: 22:53 [facility] 06/01 22:06 Order name: O2 Sat Monitoring; Complete Time: 22:53 [facility] 06/01 22:06 Order name: Urine Dipstick-Ancillary (obtain specimen); Complete Time: 00:48 [facility] EC:19 Rate is 72 beats/min. Rhythm is regular. QRS [place] is Normal. LA interval is normal. QRS orly interval is normal. QT interval is normal. No Q waves. T waves are Inverted in leads II, III, aVF, V4, V5, V6. No ST changes noted. Clinical impression: NSR w/ Non-specific ST/T Changes. Interpreted by me. Reviewed by me. Administered Medications: 23:11 Drug: Zofran (Ondansetron) 4 mg Route: IVP; Site: right antecubital; zb 23:42 Follow up: Response: No adverse reaction zb 23:11 Drug: Pepcid 20 mg Route: IVP; Site: right antecubital; zb 23:42 Follow up: Response: No adverse reaction zb 23:41 Drug: Lasix 40 mg Route: IVP; Site: right antecubital; zb 06/02 01:00 Follow up: Response: No adverse reaction rr5 06/01 23:41 Drug: Aspirin Chewable Tablet 324 mg Route: PO; b 06/02 00:50 Follow up: Response: No adverse reaction rr5 06/01 23:41 Drug: PlaVIX 150 mg Route: PO; zb 06/02 00:41 Follow up: Response: No adverse reaction rr5 06/01 23:41 Drug: Lovenox 1 mg/kg Route: Sub-Q; Site: right lower abdomen; zb 06/02 00:40 Follow up: Response: No adverse reaction rr5 01:20 Drug: Rocephin 1 grams Route: IV; Rate: per protocol; Site: right antecubital; rr5 02:00 Follow up: Response: No adverse reaction; IV Status: Completed infusion; IV Intake: [id number] Disposition: 06/01/20 23:18 Hospitalization ordered by Reji Trotter for Observation. Preliminary diagnosis are Chest pain, unspecified, Essential (primary) hypertension, Pleural effusion in conditions classified elsewhere, Systolic (congestive) heart failure, Type 1 diabetes mellitus. - Bed requested for [facility] ER HOLD. - Status is Observation. iw - Condition is Stable. - Problem is new. - Symptoms have improved. Signatures: Dispatcher [employer] EDMili Witt RN RN dw Anderson, Corey, MD MD cha Williams, Irene, RN RN iw Koby Wetzel PA PA jr8 Cadence Mills RN RN hb Roque, Raymond, RN RN rr5 Tiffanie Abbott RN ESPERANZA zb Corrections: (The following items were deleted from the chart) 06/01 23:18 23:18 Hospitalization Ordered by Omega Macedo MD for Inpatient Admission. Preliminary orly diagnosis is Chest pain, unspecified; Essential (primary) hypertension; Pleural effusion in conditions classified elsewhere; Systolic (congestive) heart failure. Bed requested for Telemetry/MedSurg (Inpatient). Status is Inpatient Admission. Condition is Fair. Problem is new. Symptoms have improved. orly 23:58 23:18 06/01/2020 23:18 Hospitalization Ordered by Omega Macedo MD for Inpatient jr8 Admission. Preliminary diagnosis is Chest pain, unspecified; Essential (primary) hypertension; Pleural effusion in conditions classified elsewhere; Systolic (congestive) heart failure; Type 1 diabetes mellitus. Bed requested for Telemetry/MedSurg (Inpatient). Status is Inpatient Admission. Condition is Fair. Problem is new. Symptoms have improved. orly 23:58 23:58 06/01/2020 23:18 Hospitalization Ordered by Reji Trotter for Observation. jr8 Preliminary diagnosis is Chest pain, unspecified; Essential (primary) hypertension; Pleural effusion in conditions classified elsewhere; Systolic (congestive) heart failure; Type 1 diabetes mellitus. Bed requested for Telemetry/MedSurg (observation). Status is Observation. Condition is Fair. Problem is new. Symptoms have improved. jr8 06/02 00:18 06/01 22:08 CORONAVIRUS+MR.LAB.BRZ ordered. EDMS EDMS 06/02 00:18 06/01 23:58 06/01/2020 23:18 Hospitalization Ordered by Reji Trotter for Observation. dw Preliminary diagnosis is Chest pain, unspecified; Essential (primary) hypertension; Pleural effusion in conditions classified elsewhere; Systolic (congestive) heart failure; Type 1 diabetes mellitus. Bed requested for Telemetry/MedSurg (observation). Status is Observation. Condition is Stable. Problem is new. Symptoms have improved. jr8 06/02 14:51 00:18 06/01/2020 23:18 Hospitalization Ordered by Reji Trotter for Observation. iw Preliminary diagnosis is Chest pain, unspecified; Essential (primary) hypertension; Pleural effusion in conditions classified elsewhere; Systolic (congestive) heart failure; Type 1 diabetes mellitus. Bed requested for [facility] ER HOLD. Status is Observation. Condition is Stable. Problem is new. Symptoms have improved. dw
--- NOTE | 2020-06-01 23:18 | ER ---
Nurse's Notes [facility] Name: Shana Patel Age: 59 yrs Sex: Female : 1960 Arrival Date: 06/01/2020 Time: 19:59 Bed 15 Private MD: Nicolas Waldrop Diagnosis: Chest pain, unspecified;Essential (primary) hypertension;Pleural effusion in conditions classified elsewhere;Systolic (congestive) heart failure;Type 1 diabetes mellitus Presentation: 06/01 20:10 Chief complaint: Chief complaint: Patient states: "I have been throwing up foam ever hb since I was here after my heart attack in March." [place] c/o chest pressure immediately after vomiting. Tolerating fluids. 20:11 Coronavirus screen: At this time, the client does not indicate any symptoms associated hb with coronavirus-19. Ebola Screen: No symptoms or risks identified at this time. Initial Sepsis Screen: Does the patient meet any 2 criteria? No. Patient's initial sepsis screen is negative. Does the patient have a suspected source of infection? No. Patient's initial sepsis screen is negative. Risk Assessment: Do you want to hurt yourself or someone else? Patient reports no desire to harm self or others. Onset of symptoms was March 2020. 20:11 Method Of Arrival: Wheelchair hb 20:11 Acuity: TERESA 3 hb Triage Assessment: 06/02 01:30 GI: Reports nausea. rr5 Historical: - Allergies: 06/01 20:17 Adhesives; hb 20:17 IV contrast; hb 20:17 Metformin HCl; hb - Home Meds: 20:17 hydrocodone-acetaminophen 7.5-325 mg Oral tab 1 tab every 6 hours [Active]; hb levothyroxine oral 1 tab once daily [Active]; lisinopril 10 mg Oral tab 1 tab once daily [Active]; Lyrica Oral 2 times per day [Active]; Novolog Sub-Q [Active]; - PMHx: 20:17 Arthritis; Diabetes - IDDM; Fibromyalgia; GERD; Hypertension; Hypothyroidism; hb neuropathy; rectocele; spinal stenosis; - PSHx: 20:17 ; Hernia repair; Cholecystectomy; hb - Immunization history:: Adult Immunizations up to date. - Social history:: Smoking status: Patient denies any tobacco usage or history of. Screenin:18 Abuse screen: Denies threats or abuse. Denies injuries from another. Nutritional zb screening: No deficits noted. Tuberculosis screening: No symptoms or risk factors identified. Fall Risk None identified. Assessment: 23:14 General: Appears in no apparent distress. uncomfortable, Behavior is calm, cooperative, zb appropriate for age. Pain: Complains of pain in chest Pain currently is 5 out of 10 on a pain scale. Quality of pain is described as pressure, Pain began after thanksgiving Is continuous. Neuro: Level of Consciousness is awake, alert, obeys commands, Oriented to person, place, time, situation. Cardiovascular: Heart tones S1 S2 present Murmur absent Patient's skin is warm and dry. Edema is 2+ to left leg and right leg Rhythm is regular Chest pain is described as mild, quality is pressure, is located in anterior. Cardiovascular: Reports chest pain, diaphoresis, nausea, shortness of breath, vomiting. Respiratory: Airway is patent Respiratory effort is even, unlabored, Respiratory pattern is regular, symmetrical, Breath sounds with crackles bilaterally. in left posterior upper lobe, right posterior upper lobe, left posterior lower lobe, right posterior middle lobe and right posterior lower lobe. GI: Abdomen is round non-distended, Bowel sounds present X 4 quads. Abd is soft and non tender X 4 quads. : No signs and/or symptoms were reported regarding the genitourinary system. EENT: No signs and/or symptoms were reported regarding the EENT system. Derm: Skin is intact, is healthy with good turgor, Skin is dry, Skin is normal, Skin temperature is warm. 23:14 Musculoskeletal: Circulation, motion, and sensation intact. Capillary refill < 3 zb seconds, in bilateral fingers. Range of motion: intact in all extremities. 23:58 Reassessment: Patient appears in no apparent distress at this time. Patient and/or zb family updated on plan of care and expected duration. Pain level reassessed. Patient is alert, oriented x 3, equal unlabored respirations, skin warm/dry/pink. educated on POC .explained that a urine sample would need to be collected. urine cup at bedside. 06/02 01:30 Reassessment: Patient appears in no apparent distress at this time. Patient is alert, rr5 oriented x 3, equal unlabored respirations, skin warm/dry/pink. for admission as ER hold. Vital Signs: 06/01 20:11 BP 155 / 99; Pulse 74; Resp 16; Temp 97.8; Pulse Ox 97% on R/A; Pain 8/10; hb 23:20 Weight 77.11 kg; Height 5 ft. 0 in. (152.40 cm); zb 23:20 BP 155 / 99; Pulse 69; Resp 16; Pulse Ox 97% on R/A; zb 23:59 BP 143 / 93; Pulse 71; Resp 18; Pulse Ox 96% on R/A; zb 06/02 01:30 BP 153 / 95; Pulse 65; Resp 16; Pulse Ox 98% ; rr5 06/01 23:20 Body Mass Index 33.20 (77.11 kg, 152.40 cm) zb ED Course: 06/01 19:59 Patient arrived in ED. am2 20:00 Nicolas Waldrop MD is Private Physician. am2 20:16 Triage completed. hb 20:17 Arm band placed on. hb 22:05 Clyde Jordan MD is Attending Physician. orly 22:16 Tiffanie Abbott, ESPERANZA is Primary Nurse. zb 22:49 XRAY Chest (1 view) In Process Unspecified. EDMS 23:17 Omega Macedo MD is Hospitalizing Provider. orly 23:19 Patient has correct armband on for positive identification. Bed in low position. Call zb light in reach. Side rails up X 1. Adult w/ patient. jewelry sales representative on. Pulse ox on. NIBP on. Door closed. Noise minimized. Warm blanket given. 23:19 Inserted saline lock: 20 gauge in right antecubital area, using aseptic technique. zb 23:58 Reji Trotter is Hospitalizing Provider. jr8 06/02 01:48 No provider procedures requiring assistance completed. Patient admitted, IV remains in rr5 place. intact, No redness/swelling at site. Administered Medications: 06/01 23:11 Drug: Zofran (Ondansetron) 4 mg Route: IVP; Site: right antecubital; zb 23:42 Follow up: Response: No adverse reaction zb 23:11 Drug: Pepcid 20 mg Route: IVP; Site: right antecubital; zb 23:42 Follow up: Response: No adverse reaction zb 23:41 Drug: Lasix 40 mg Route: IVP; Site: right antecubital; z06/02 01:00 Follow up: Response: No adverse reaction rr5 06/01 23:41 Drug: Aspirin Chewable Tablet 324 mg Route: PO; 06/02 00:50 Follow up: Response: No adverse reaction rr5 06/01 23:41 Drug: PlaVIX 150 mg Route: PO; 06/02 00:41 Follow up: Response: No adverse reaction rr5 06/01 23:41 Drug: Lovenox 1 mg/kg Route: Sub-Q; Site: right lower abdomen; zb 06/02 00:40 Follow up: Response: No adverse reaction rr5 01:20 Drug: Rocephin 1 grams Route: IV; Rate: per protocol; Site: right antecubital; rr5 02:00 Follow up: Response: No adverse reaction; IV Status: Completed infusion; IV Intake: [id number] Intake: 02:00 IV: 10ml; Total: 10ml. rr5 Outcome: 06/01 23:18 Decision to Hospitalize by Provider. [facility] 06/02 01:48 Admitted to ER Hold. Please see [facility] for further documentation. rr5 Condition: stable Instructed on the need for admit. 14:51 Patient left the ED. iw Signatures: Dispatcher [employer] EDClyde Cooper MD MD cha Williams, Irene, RN RN iw Koby Wetzel PA PA jr8 Cadence Mills RN RN hb Citlalli Sam Raymond RN RN rr5 Tiffanie Abbott RN RN zb Corrections: (The following items were deleted from the chart) 06/01 20:16 20:10 Chief complaint: hb hb
[2020-06-01] MEDS ORDERED: FUROSEMIDE 40 MG/4 ML VIAL ONE (23:45)
[2020-06-01] MEDS ORDERED: ASPIRIN 81 MG CHEWABLE TABLET ONE (23:45)
[2020-06-01] MEDS ORDERED: ENOXAPARIN 80 MG/0.8 ML SQ ONE (23:45)
[2020-06-01] MEDS ORDERED: CLOPIDOGREL 75 MG TABLET ONE (23:45)
[2020-06-01] MEDS ORDERED: METOCLOPRAMIDE 10 MG/2mL INJ ONE (23:46)
[2020-06-01] MEDS ORDERED: DIPHENHYDRAMINE 50 MG/ML VIAL ONE (23:46)
[2020-06-01] MEDS ORDERED: NA CHLORIDE 0.9% 1,000 ML ONE (23:46)
[2020-06-02] MEDS ORDERED: CEFTRIAXONE/SWI 1gm 1 GM/10 ML SYR ONE (01:06)
[2020-06-02 01:36] LABS: Urine Blood 1+ (NEG); Urine Glucose NEGATIVE (NEG); Urine Protein 3+ (NEG); Urine Specific Gravity 1.025 (1.005-1.030)
[2020-06-02 02:48] VITALS: BMI 33.1
[2020-06-02] MEDS ORDERED: ONDANSETRON 4 MG/2 ML VIAL IV PRN (02:55)
[2020-06-02] MEDS ORDERED: GLUCAGON 1 MG/VIAL IM PRN (02:55)
[2020-06-02] MEDS ORDERED: HYDROCODONE/APAP 5/325 MG TAB PO PRN (02:55)
[2020-06-02] MEDS ORDERED: ALBUTEROL 2.5 MG/3 ML NEB SOL NEB PRN (02:55)
[2020-06-02] MEDS ORDERED: D50W 25 GM/50 ML SYRINGE IV PRN (02:55)
[2020-06-02] MEDS ORDERED: IPRATROPIUM BROM 0.5MG/2.5ML NEB PRN (02:55)
--- NOTE | 2020-06-02 03:25 | P.HP ---
Certification for Inpatient Patient admitted to: Observation With expected LOS: <2 Midnights Patient will require the following post-hospital care: None Practitioner: I am a practitioner with admitting privileges, knowledge of patient current condition, hospital course, and medical plan of care. Services: Services provided to patient in accordance with Admission requirements found in Title 42 Section 412.3 of the Code of Federal Regulations <Philly Wetzelshua - Last Filed: 06/02/20 03:19> Patient History Date of Service: 06/02/20 Primary Care Provider: Dr. Waldrop Reason for admission: Congestive Heart Failure History of Present Illness: This is a 59-year-old female that presented to the emergency room today after having increased shortness of breath. Patient stated that since she had her heart catheterization back in April she has had continued nausea vomiting with occasional dyspnea. Patient stated that the dyspnea has increased over the last couple weeks. Patient has not been able to lay flat at night secondary to physical restraints and shortness of breath that ensues in the supine position. Patient was worked up in the emergency room today and found to have an elevated BNP. Chest x-ray today showed increased vascular changes compared to previous chest x-ray indicating volume overload secondary to presumed congestive heart failure. Patient was also found to have increased lower extremity edema. Troponin was negative in the emergency department. Patient was diuresed in the emergency room. Hospital medicine was consulted at that time for further evaluation of patient. Patient seems to be doing better in the emergency room. Patient will be admitted to the hospital for observation and have cardiology see her tomorrow for possible repeat echocardiogram to see if there is worsening cardiac function. Home medications list reviewed: Yes - Past Medical/Surgical History Diabetic: Yes -: hypothyroidism -: knee problems -: htn -: gerd -: IDDM -: neuropathy -: rectocele -: spinal stenosis -: sleep apnea -: fibromyalgia -: lavell -: 10 surgical scars due to allergy to metformin -: 5 c - sections - Social History Smoking Status: Unknown if ever smoked Smoking therapy provided: No Alcohol use: No CD- Drugs: No Caffeine use: No Place of Residence: Home <Moraels Wetzel - Last Filed: 06/02/20 03:19> Date of Service: 06/02/20 <jaquelin christensen - Last Filed: 06/02/20 13:52> Allergies Latex, Natural Rubber Allergy (Severe, Verified 11/21/20 05:26) Hives/Rash metformin Allergy (Severe, Verified 04/09/20 05:26) Anaphylaxis iodine Allergy (Mild, Verified 04/10/20 16:15) Itching/Hives/Rash Metformin HCl Allergy (Severe, Uncoded 04/09/20 05:26) Anaphylaxis Adhesives Allergy (Mild, Uncoded 04/09/20 05:26) Itching/Hives/Rash Tape Allergy (Mild, Uncoded 04/09/20 05:26) Itching/Hives/Rash Home Medications: Insulin 70/30 NPH/Reg Human [Novolin 70/30*] 45 unit SQ DAILY WITH BREAKFAST 05/10/13 Gabapentin 1 cap PO TID 04/09/20 Hydrocodone Bit/Acetaminophen [[place] 7.5-325 Tablet] 1 tab PO Q8H PRN 04/09/20 Levothyroxine Sodium [Synthroid] 150 mcg PO DAILY 04/09/20 Aspirin [Aspirin EC 81 MG] 81 mg PO DAILY 30 Days #30 tablet. 04/16/20 Atorvastatin Calcium [Lipitor*] 40 mg PO BEDTIME 30 Days #30 tab 04/16/20 Albuterol Inhaler [Ventolin Inhaler*] 2 puff IH Q4HP PRN 06/02/20 Amlodipine Besylate 10 mg PO DAILY 06/02/20 Clopidogrel Bisulfate [Plavix*] 75 mg PO DAILY #30 tablet 06/02/20 Dapagliflozin Propanediol [Farxiga] 1 tab PO DAILY 06/02/20 Enalapril [Vasotec*] 20 mg PO BID 06/02/20 Fluoxetine HCl [Prozac*] 40 mg PO DAILY 06/02/20 Furosemide [Lasix] 40 mg PO DAILY #30 tablet 06/02/20 Insulin 70/30 NPH/Reg Human [Novolin 70/30*] 20 unit SQ DAILY AT SUPPER 06/02/20 Silver [Silvasorb] 1 marybel TD DAILY 06/02/20 Review of Systems General: Unremarkable Eyes: Unremarkable ENT: Unremarkable Respiratory: Shortness of Breath, SOB with Excertion Cardiovascular: Unremarkable Gastrointestinal: Nausea, Vomiting Genitourinary: Unremarkable Musculoskeletal: Unremarkable Integumentary: Unremarkable Neurological: Unremarkable Lymphatics: Unremarkable <Morales Wetzel - Last Filed: 06/02/20 03:19> Physical Examination - Vital Signs Temperature: 97.8 F Blood Pressure: 155/99 Pulse: 74 Respirations: 16 Pulse Ox (%): 97 (RA) - Physical Exam General: Alert, In no apparent distress, Oriented x3, Cooperative HEENT: PERRLA, Mucous membr. moist/pink, EOMI Respiratory: Crackles/rales (Moderate rales auscultated bilaterally ) Cardiovascular: Regular rate/rhythm, Normal S1 S2, No gallops, No rubs, No murmurs, Edema (2+ bilateraly lower extremities) Gastrointestinal: Normal bowel sounds, Soft and benign, Non-distended, No ascites, No tenderness, No masses, No rebound, No guarding Musculoskeletal: No clubbing, No swelling, No contractures, No erythema, No tenderness, No warmth Integumentary: No rashes, No breakdown, No significant lesion, No tenderness/swelling, No erythema, No warmth, No cyanosis Neurological: Normal speech, Normal strength at 5/5 x4 extr, Normal tone, Sensation intact, Cranial nerves 3-12 intact, Normal reflexes 2+ Lymphatics: No axilla or inguinal lymphadenopathy - Studies Laboratory Data (last 24 hrs) 06/01/20 22:48: PT 11.2, INR 0.95 06/01/20 22:48: WBC 5.8, Hgb 11.1 L, Hct 34.8 L, Plt Count 260 06/01/20 22:48: Sodium 140, Potassium 3.6, BUN 17, Creatinine 0.98, Glucose 198 H, Magnesium 2.0, Total Bilirubin 0.7, AST 13 L, ALT 10 L, Alkaline Phosphatase 87, Lipase 53 L <Morales Wetzel - Last Filed: 06/02/20 03:19> - Studies Laboratory Data (last 24 hrs) 06/01/20 22:48: PT 11.2, INR 0.95 06/01/20 22:48: WBC 5.8, Hgb 11.1 L, Hct 34.8 L, Plt Count 260 06/01/20 22:48: Sodium 140, Potassium 3.6, BUN 17, Creatinine 0.98, Glucose 198 H, Magnesium 2.0, Total Bilirubin 0.7, AST 13 L, ALT 10 L, Alkaline Phosphatase 87, Lipase 53 L <jaquelin christensen - Last Filed: 06/02/20 13:52> Assessment and Plan - Problems (Diagnosis) (1) Congestive heart failure (CHF) Current Visit: Yes Status: Acute (2) Hypertension Current Visit: No Status: Acute (3) Insulin dependent diabetes mellitus Current Visit: No Status: Chronic - Plan 1. Patient will be monitored in observation room with telemetry for the next 23 hr 2. Patient be worked up for congestive heart failure and will be diuresed as such. We will consult Cardiology for further evaluation and to see if they want to read the echocardiogram which had been done about 1 month ago. Patient at that time had mild diastolic heart failure with inferior hypokinesis. We will wait further consultation from cardiology. 3. Patient's labs will be drawn in the morning to ensure stability 4. Glucose will be monitored and adjusted as needed with sliding scale 5. Blood pressure will be managed with anti hypertensive medications. 6. Will start patient back on her Plavix as she has missed several doses for not following up 7. Will monitor patient's respiratory status Discharge Plan: Home Plan to discharge in: 24 Hours - Advance Directives Does patient have a Living Will: No Does patient have a Durable POA for Healthcare: No - Code Status/Comfort Care Code Status Assessed: Yes Code Status: Full Code Critical Care: No Time Spent Managing Pts Care (In Minutes): 70 <Morales Wetzel - Last Filed: 06/02/20 03:19> Physician Review: Patient Assessed, Agree with Above Assessment and Plan Physician Review Additional Text: CHF exacerbation. Plan: Treat with IV Lasix Echocardiogram requested. Cardiology consult. <jaquelin christensen - Last Filed: 06/02/20 13:52>
[2020-06-02] MEDS: INSULIN -REGULAR HUMAN 50 UNIT/0.5 ML ML SQ SCH ×2 (07:30→11:30)
[2020-06-02] MEDS ORDERED: ASPIRIN 81 MG CHEWABLE TABLET ONE (08:26)
[2020-06-02] MEDS ORDERED: CLOPIDOGREL 75 MG TABLET ONE (08:27)
[2020-06-02] MEDS ORDERED: FUROSEMIDE 20 MG/ 2ML VIAL ONE (08:27)
[2020-06-02] MEDS ORDERED: lisinopriL 10 MG TAB ONE (08:28)
[2020-06-02] MEDS ORDERED: FUROSEMIDE 20 MG/ 2ML VIAL IV SCH (09:00)
[2020-06-02] MEDS ORDERED: CLOPIDOGREL 75 MG TABLET PO SCH (09:00)
[2020-06-02] MEDS ORDERED: ASPIRIN 81 MG CHEWABLE TABLET PO SCH (09:00)
[2020-06-02] MEDS ORDERED: lisinopriL 10 MG TAB PO SCH (09:00)
--- NOTE | 2020-06-02 09:02 | RAD REPORT ---
EXAM DESCRIPTION: RAD - Chest Single View - 06/01/2020 10:49 pm CLINICAL HISTORY: COUGH Chest pain. COMPARISON: Chest Single View dated 04/08/2020; Chest Single View dated 03/14/2020; Chest Single Vie w dated 11/15/2019; Chest Single View dated 01/04/2018 FINDINGS: Portable technique limits examination quality. Moderate bilateral pulmonary opacities are present likely representing pulmonary edema. Small bilater al pleural effusions. The heart is moderately enlarged in size. No displaced fractures. IMPRESSION: Moderate CHF.
[2020-06-02 09:47] VITALS: O2SAT 95
[2020-06-02] MEDS ORDERED: PNEUMOCOCCAL VACCINE 0.5 ML IMVAC ONE (11:00)
--- NOTE | 2020-06-02 11:21 | EKG ---
Test Date: 2020-06-01 Test Time: 22:30:52 Tongue Presser: CALE MEASUREMENT RESULTS: Intervals: Rate: 72 MN: 156 QRSD: 102 QT: 452 QTc: 494 [place]: P: 20 MN: 156 QRS: 131 T: -75 INTERPRETIVE STATEMENTS: Normal sinus rhythm Left posterior fascicular block Possible Inferior infarct, age undetermined T wave abnormality, consider lateral ischemia Abnormal ECG Compared to ECG 06/01/2020 22:29:57 No significant changes Electronically Signed On 06-02-20 11:20:45 DIE STORAGE WORKER by Sudhakar Benitez
--- NOTE | 2020-06-02 11:21 | EKG ---
Test Date: 2020-06-01 Test Time: 22:29:57 [employer]: CALE MEASUREMENT RESULTS: Intervals: Rate: 74 CT: 148 QRSD: 100 QT: 448 QTc: 497 [place]: P: 15 CT: 148 QRS: 131 T: -61 INTERPRETIVE STATEMENTS: Normal sinus rhythm Left posterior fascicular block Possible Inferior infarct, age undetermined T wave abnormality, consider lateral ischemia Abnormal ECG Compared to ECG 04/13/2020 12:54:00 Left posterior fascicular block now present Right-axis deviation no longer present Myocardial infarct finding still present T-wave abnormality still present Possible ischemia still present Electronically Signed On 06-02-20 11:20:45 HOUSEKEEPING ASSISTANT by Sudhakar Benitez
[2020-06-02 12:15] VITALS: BP 123/78; TEMP 98.3
--- NOTE | 2020-06-02 13:57 | P.DS ---
Admission Date: 06/02/20 Discharge Date: 06/02/20 Primary Care Provider: Dr. Waldrop Disposition: ROUTINE DISCHARGE Discharge Condition: FAIR Reason for Admission: Congestive Heart Failure Consultations: Cardiology-Dr. Benitez. Brief History of Present Illness: 59-year-old woman with a history of coronary artery disease status post recent cardiac catheterization with cardiac stent presented emergency department with a complaint of progressive shortness of breath and nausea. Patient had apparently stopped taking her Brilinta which was prescribed after cardiac catheterization. Chest x-ray done in emergency department suggested pulmonary vascular congestion. Her initial troponin was negative. Patient was started on IV Lasix and hospitalized for further management. Hospital Course: Patient placed under observation. Troponin trended was mildly elevated but flat and stable. She was treated with IV Lasix. Echocardiogram was obtained. Patient seen and evaluated by cardiology-Dr. Benitez. She has improved clinically. Now she denies any shortness of breath. She has not required oxygen. Patient is deemed clinically stable for discharge per cardiology, Cardiology recommend Plavix to replace Brilinta because patient mentioned she was not tolerating the Brilinta. She is also prescribed Lasix maintenance for diuresis. Vital Signs/Physical Exam: Temp Pulse Resp BP Pulse Ox 98.3 F 74 16 123/78 96 06/02/20 12:00 06/02/20 12:00 06/02/20 12:00 06/02/20 12:00 06/02/20 12:00 General: Alert, In no apparent distress Neck: Supple, JVD not distended Respiratory: Clear to auscultation bilaterally, Normal air movement Cardiovascular: Regular rate/rhythm, Normal S1 S2, No murmurs, Edema (Trace bilateral lower extremity pitting edema) Capillary refill: <2 Seconds Gastrointestinal: Normal bowel sounds, Soft and benign, Non-distended, No tenderness Musculoskeletal: No swelling, No tenderness Integumentary: No rashes Neurological: Normal strength at 5/5 x4 extr Laboratory Data at Discharge: WBC 5.8 K/uL (4.3-10.9) 06/01/20 22:48 Hgb 11.1 g/dL (12.0-15.0) L 06/01/20 22:48 Hct 34.8 % (36.0-45.0) L 06/01/20 22:48 Plt Count 260 K/uL (152-406) 06/01/20 22:48 PT 11.2 SECONDS (9.5-12.5) 06/01/20 22:48 INR 0.95 06/01/20 22:48 Sodium 140 mmol/L (136-145) 06/01/20 22:48 Potassium 3.6 mmol/L (3.5-5.1) 06/01/20 22:48 BUN 17 mg/dL (7-18) 06/01/20 22:48 Creatinine 0.98 mg/dL (0.55-1.3) 06/01/20 22:48 Glucose 198 mg/dL (74-106) H 06/01/20 22:48 Magnesium 2.0 mg/dL (1.8-2.4) 06/01/20 22:48 Total Bilirubin 0.7 mg/dL (0.2-1.0) 06/01/20 22:48 AST 13 U/L (15-37) L 06/01/20 22:48 ALT 10 U/L (12-78) L 06/01/20 22:48 Alkaline Phosphatase 87 U/L (45-117) 06/01/20 22:48 Troponin I 0.04 ng/mL (0.0-0.045) 06/02/20 07:12 Lipase 53 U/L (73-393) L 06/01/20 22:48 Home Medications: Insulin 70/30 NPH/Reg Human [Novolin 70/30*] 45 unit SQ DAILY WITH BREAKFAST 05/10/13 Gabapentin 1 cap PO TID 04/09/20 Hydrocodone Bit/Acetaminophen [[place] 7.5-325 Tablet] 1 tab PO Q8H PRN 04/09/20 Levothyroxine Sodium [Synthroid] 150 mcg PO DAILY 04/09/20 Aspirin [Aspirin EC 81 MG] 81 mg PO DAILY 30 Days #30 tablet. 04/16/20 Atorvastatin Calcium [Lipitor*] 40 mg PO BEDTIME 30 Days #30 tab 04/16/20 Albuterol Inhaler [Ventolin Inhaler*] 2 puff IH Q4HP PRN 06/02/20 Amlodipine Besylate 10 mg PO DAILY 06/02/20 Clopidogrel Bisulfate [Plavix*] 75 mg PO DAILY #30 tablet 06/02/20 Dapagliflozin Propanediol [Farxiga] 1 tab PO DAILY 06/02/20 Enalapril [Vasotec*] 20 mg PO BID 06/02/20 Fluoxetine HCl [Prozac*] 40 mg PO DAILY 06/02/20 Furosemide [Lasix] 40 mg PO DAILY #30 tablet 06/02/20 Insulin 70/30 NPH/Reg Human [Novolin 70/30*] 20 unit SQ DAILY AT SUPPER 06/02/20 Silver [Silvasorb] 1 marybel TD DAILY 06/02/20 New Medications: Furosemide [Lasix] 40 mg PO DAILY #30 tablet Clopidogrel Bisulfate [Plavix*] 75 mg PO DAILY #30 tablet Followup: Sudhakar Benitez MD [ACTIVE - CAN ADMIT] - (within 2 weeks.) Nicolas Waldrop MD [Primary Care Provider] - 1 Week
--- NOTE | 2020-06-03 08:41 | ECHO ---
HEIGHT: 5 ft 0 in WEIGHT: 169 lb 12.095 oz DATE OF STUDY: 06/02/[address]: Sudhakar Benitez MD 2-DIMENSIONAL: YES M.MODE: YES DOPPLER: YES COLOR FLOW: YES TDS: PORTABLE: DEFINITY: BUBBLE STUDY: DIAGNOSIS: ACUTE CONGESTIVE HEART FAILURE CARDIAC HISTORY: CATHERIZATION: YES SURGERY: NO PROSTHETIC VALVE: NO PACEMAKER: NO MEASUREMENTS (cm) DIASTOLIC (NORMALS) SYSTOLIC (NORMALS) IVSd 1.1 (0.6-1.2) LA Diam 2.9 (1.9-4.0) LVEF 34% LVIDd 5.3 (3.5-5.7) LVIDs 4.5 (2.0-3.5) %FS 16% LVPWd 1.1 (0.6-1.2) Ao Diam 2.8 (2.0-3.7) 2 DIMENSIONAL ASSESSMENT: RIGHT ATRIUM: NORMAL LEFT ATRIUM: NORMAL RIGHT VENTRICLE: NORMAL LEFT VENTRICLE: NORMAL TRICUSPID VALVE: NORMAL MITRAL VALVE: NORMAL PULMONIC VALVE: NORMAL AORTIC VALVE: NORMAL PERICARDIAL EFFUSION: NONE AORTIC ROOT: NORMAL LEFT VENTRICULAR WALL MOTION: MODERATE TO SEVERE GLOBAL HYPOKINESIS. DOPPLER/COLOR FLOW: NORMAL COMMENTS: MODERATE TO SEVERE GLOBAL HYPOKINESIS. NO EFFUSION. EJECTION FRACTION 34%. TECHNOLOGIST: RADHA TORRES
--- NOTE | 2020-06-04 16:50 | CON ---
Date of Consultation: 06/02/2020 Reason For Consultation: Congestive heart failure. History Of Present Illness: Ms. Patel is a 59-year-old [place]in[place] woman who recently had an R CA stent by Dr. Rosen that was a very complicated case with the thrombosis of the RCA that is resol ed. She was brought back a day after her stent and an angiography revealed patent RCA. She also has a very poor flow in the distal LAD with very small vessel and there was some consideration to do her LAD stent later. She came back with multiple symptoms including chest pain, nausea, vomiting, sweat ing, decreased appetite, congestive heart failure type symptoms. Denied fever or chills or cough. D enied PND or orthopnea but has had some pedal edema. She denied any palpitations or syncope. [place] [address]. Rest of her blood work was fairly unremarkable. Allergies: TO LATEX, IODINE, METFORMIN, AND TAPE. Past Medical History: Includes coronary artery disease, dyslipidemia, diabetes, neuropathy, hypothyr oidism, fibromyalgia, and spinal stenosis. Medications: Her medications at home include aspirin, Brilinta, Lipitor, metoprolol, insulin, Synthr oid, and Neurontin. Family History: Positive for heart disease. Social History: Negative. Review of Systems: Negative. Physical Examination: Vital Signs: Her blood pressure was 155/99. General: She was in sinus rhythm. HEENT: Negative. Neck: Supple without any bruit, lymphadenopathy, JVD, or thyromegaly. Chest: Clear to auscultation and percussion. Cardiac: Revealed a regular rhythm and rate. No murmurs, gallops, or rubs. Abdomen: Benign. Extremities: Revealed no clubbing, cyanosis, or edema. Diagnostic Data: As stated earlier. EKG was nonspecific. Chest x-ray was negative. Impression And Plan: 1.Acute on chronic diastolic congestive heart failure. 2.Chest pain secondary to coronary artery disease. Negative troponin. 3.Dyslipidemia, well controlled. 4.Diabetes, well controlled. 5.Neuropathy. 6.Hypothyroidism. 7.Fibromyalgia. 8.Spinal stenosis. I would continue her regimen, which is appropriate including aspirin, Lipitor, Brilinta, insulin, Syn throid, metoprolol, and Neurontin. I would add Lasix to her regimen when she goes home. I discussed may need to be brought back to the foundry laborer coreroom to see if we can fix her LAD. I will discuss the case f deangelo with Dr. Rosen who is her sod cutter. If she goes home, we will see her in the office in t he very near future. COSME/ANA Voice ID: [id number] Report ID: [id number]
== END 2020-06-02 14:55 | disposition home or self-care (01) ==
LOC: ER 19:57 → ERHOLD 06-02 00:03
PROVIDERS: ADMIT Internal Medicine; ATTEND Internal Medicine
DX: I11.0 Hypertensive heart disease with heart failure (principal); I50.33 Acute on chronic diastolic (congestive) heart failure; I25.10 Atherosclerotic heart disease of native coronary artery without angina pectoris; Z95.5 Presence of coronary angioplasty implant and graft; Z20.822 Contact with and (suspected) exposure to COVID-19; E03.9 Hypothyroidism, unspecified; K21.9 Gastro-esophageal reflux disease without esophagitis; E11.40 Type 2 diabetes mellitus with diabetic neuropathy, unspecified; Z79.4 Long term (current) use of insulin; G47.30 Sleep apnea, unspecified; M79.7 Fibromyalgia; M48.00 Spinal stenosis, site unspecified; R94.31 Abnormal electrocardiogram [ECG] [EKG]
CPT/HCPCS: 96365; 93005 ×2; 93306; 87088; 85025; 87086; 80048; 36415; 83735; 85610; 82947 ×2; 80076; 81003; 84484 ×3; 83690; 83880; 71045; 96375; 96372; 99285; U0003; J1940 ×2; J2765; J1200; J0696; J7030; J2405 ×2; G0378 ×2

== ENCOUNTER 2020-06-29 21:20 | Observation (INO) | payer OTHER ==
--- OUTSIDE RECORDS SUMMARY | 2020-06-29 21:22 | XMS REPORT | Continuity of Care Document ---
:1960 Author Organization [facility] t Address [address] [place] [address] Care Team Providers Name Role Phone Doctor [...] ID 2019-12-04 2019-12-04 Orders Doctor DARSHANA [id number] 00:00:00 00:00:00 Only UnassignedJEFFREY [id number] [place]urt [facility] [id number] [id number] 2019-11-25 2019-11-25 Office [place] Blanca [id number] 14:41:52 15:49:56 Visit Erica Grimaldo [id number] [place] [id number] Tia [id number] [address] 2019-04-08 2019-04-08 Emergency E [facility] [id number] [facility] 20:32:00 20:32:00 2018-10-20 2018-10-20 Emergency E [facility] [id number] [facility] 10:28:00 10:28:00 Results This patient has no known results.
[2020-06-29 22:28] LABS: Protime INR 0.93
[2020-06-29 22:29] LABS: Absolute Lymphocytes (CBC) 0.4 K/uL (0.7-4.9); Basophils % 0.8 % (0-1.3); Hematocrit 33.6 % (36.0-45.0); Lymphocytes % 12.2 % (15.3-44.8); MPV 9.6 fL (7.6-11.3); RBC Red Blood Cell Count 4.01 M/uL (3.86-4.86)
[2020-06-29 22:41] LABS: Albumin 3.4 g/dL (3.4-5.0); Bilirubin Direct 0.1 mg/dL (0-0.2); Bilirubin Total 0.7 mg/dL (0.2-1.0); Potassium 3.5 mmol/L (3.5-5.1); Protein, Total 7.5 g/dL (6.4-8.2); Troponin (Emerg Dept Use Only) 0.05 ng/mL (0.0-0.045)
[2020-06-29] MEDS ORDERED: FAMOTIDINE 20 MG/2 ML VIAL IV ONE (23:09)
[2020-06-29] MEDS ORDERED: MAGNES/ALUMIN/SIMET 30ML UCUP ONE (23:09)
[2020-06-29] MEDS ORDERED: MORPHINE 4 MG/ML SYR ONE (23:09)
[2020-06-29] MEDS ORDERED: ONDANSETRON 4 MG/2 ML VIAL ONE (23:09)
[2020-06-29] MEDS ORDERED: LIDOCAINE VISCOUS 2% SOLN 15 ML UDC ONE (23:09)
[2020-06-29] MEDS ORDERED: NA CHLORIDE 0.9% 1,000 ML ONE (23:10)
--- NOTE | 2020-06-29 23:55 | EDPHYS ---
Physician Documentation [facility] Name: Shana Patel Age: 59 yrs Sex: Female : 1960 Arrival Date: 06/29/2020 Time: 21:38 Bed 5 Private MD: ED Physician Omega Melgar HPI: 06/29 23:50 This 59 yrs old Female presents to ER via Wheelchair with complaints of ma2 Nausea/Vomiting, Chest Pain. 23:50 The patient presents to the emergency department with nausea, vomiting, chest pain. ma2 Onset: The symptoms/episode began/occurred suddenly, 4 hour(s) ago. Associated signs and symptoms: Pertinent negatives: belching, GI bleeding. Severity of symptoms: At their worst the symptoms were moderate in the emergency department the symptoms are unchanged. The patient has experienced similar episodes in the past. Historical: - Allergies: 21:42 IV contrast; jb4 21:42 Adhesives; jb4 21:42 Metformin HCl; jb4 - Home Meds: 21:42 hydrocodone-acetaminophen 7.5-325 mg Oral tab 1 tab every 6 hours [Active]; jb4 levothyroxine oral 1 tab once daily [Active]; lisinopril 10 mg Oral tab 1 tab once daily [Active]; Lyrica Oral 2 times per day [Active]; Novolog Sub-Q [Active]; clopidogrel 75 mg oral tab 1 tab once daily [Active]; furosemide 40 mg Oral tab 1 tab once daily [Active]; - PMHx: 21:42 Arthritis; Diabetes - IDDM; Fibromyalgia; GERD; Hypertension; Hypothyroidism; jb4 neuropathy; rectocele; spinal stenosis; - PSHx: 21:42 Hernia repair; Cholecystectomy; ; jb4 - Immunization history:: Adult Immunizations up to date. - Social history:: Smoking status: Patient denies any tobacco usage or history of. Patient/guardian denies using alcohol, street drugs, Patient/guardian denies using The patient lives with family. - Family history:: not pertinent. ROS: 23:50 Constitutional: Negative for fever, chills, and weight loss. ma2 23:50 All other systems are negative. Exam: 23:50 Constitutional: This is a well developed, well nourished patient who is awake, alert, ma2 and in no acute distress. Neck: Trachea midline, no thyromegaly or masses palpated, and no cervical lymphadenopathy. Supple, full range of motion without nuchal rigidity, or vertebral point tenderness. No Meningismus. Chest/axilla: Normal chest wall appearance and motion. Nontender with no deformity. No lesions are appreciated. Cardiovascular: Regular rate and rhythm with a normal S1 and S2. No gallops, murmurs, or rubs. Normal PMI, no JVD. No pulse deficits. Respiratory: Lungs have equal breath sounds bilaterally, clear to auscultation and percussion. No rales, rhonchi or wheezes noted. No increased work of breathing, no retractions or nasal flaring. Abdomen/GI: Soft, non-tender, with normal bowel sounds. No distension or tympany. No guarding or rebound. No evidence of tenderness throughout. MS/ Extremity: Pulses equal, no cyanosis. Neurovascular intact. Full, normal range of motion. Neuro: Awake and alert, GCS 15, oriented to person, place, time, and situation. Cranial nerves II-XII grossly intact. Motor strength 5/5 in all extremities. Sensory grossly intact. Cerebellar exam normal. Normal gait. Vital Signs: 21:42 BP 158 / 92; Pulse 76; Resp 18; Temp 98.3(TE); Pulse Ox 96% on R/A; Weight 77.11 kg jb4 (R); Height 5 ft. 0 in. (152.40 cm) (R); Pain 10/10; 23:45 BP 138 / 81; Pulse 70; Resp 20; Pulse Ox 94% on R/A; Pain 4/10; sg 06/30 02:00 BP 120 / 75; Pulse 66; Resp 18 S; Pulse Ox 95% on R/A; sg 04:36 BP 98 / 62; Pulse 65; Resp 18; Temp 98.0; Pulse Ox 96% on R/A; ea 06/29 21:42 Body Mass Index 33.20 (77.11 kg, 152.40 cm) jb4 MDM: 06/29 22:14 Patient medically screened. ma2 23:50 Differential diagnosis: gastritis, viral gastroenteritis, gastroenteritis, chest pain. ma2 Data reviewed: vital signs, nurses notes. Counseling: I had a detailed discussion with the patient and/or guardian regarding: the historical points, exam findings, and any diagnostic results supporting the discharge/admit diagnosis, the presence of at least one elevated blood pressure reading (>120/80) during this emergency department visit, the need for outpatient follow up. Response to treatment: the patient's symptoms have markedly improved after treatment. 23:53 ED course: . mi06/29 21:44 Order name: Basic Metabolic Panel [facility] 06/29 21:44 Order name: CBC with Diff 06/29 21:44 Order name: LFT's 06/29 21:44 Order name: Magnesium [facility] 06/29 21:44 Order name: NT PRO-BNP [facility] 06/29 21:44 Order name: PT-INR [facility] 06/29 21:44 Order name: Troponin (emerg Dept Use Only); Complete Time: 23:49 [facility] 06/29 21:44 Order name: Lipase; Complete Time: 23:49 [facility] 06/29 21:44 Order name: Basic Metabolic Panel; Complete Time: 23:49 EDMS 06/29 21:44 Order name: CBC with Automated Diff; Complete Time: 00:00 MS 06/29 21:44 Order name: Liver (Hepatic) Function; Complete Time: 23:49 EDMS 06/29 21:44 Order name: Magnesium; Complete Time: 23:49 EDMS 06/29 21:44 Order name: NT PRO-BNP; Complete Time: 23:49 MS 06/29 21:44 Order name: Protime (+INR); Complete Time: 23:49 MS 06/29 21:44 Order name: XRAY Chest (1 view) mi06/29 21:44 Order name: EKG; Complete Time: 21:45 06/29 21:44 Order name: Cardiac monitoring; Complete Time: 21:51 mi2 06/29 21:44 Order name: EKG - Nurse/Tech; Complete Time: 21:59 mi2 06/29 21:44 Order name: IV Saline Lock; Complete Time: 23:03 [facility] 06/29 21:44 Order name: Labs collected and sent; Complete Time: 23:03 mi2 06/29 22:43 Order name: Manual Differential; Complete Time: 00:00 EDMS 06/30 00:31 Order name: CORONAVIRUS [facility] 06/30 04:15 Order name: SARS-COV-2 RT PCR [facility] 06/29 21:44 Order name: O2 Per Protocol; Complete Time: 21:51 ma2 02 21:44 Order name: O2 Sat Monitoring; Complete Time: 21:51 ma2 Administered Medications: 23:00 Drug: Pepcid 20 mg Route: IVP; Site: right forearm; sg 06/30 00:00 Follow up: Response: No adverse reaction ea 06/29 23:00 Drug: Zofran (Ondansetron) 4 mg Route: IVP; Site: right forearm; sg 06/30 00:00 Follow up: Response: No adverse reaction ea 06/29 23:00 Drug: GI Cocktail without - (Maalox Suspension 30 ml, Lidocaine Liquid 2 % 15 sg ml) Route: PO; 06/30 00:00 Follow up: Response: No adverse reaction ea 06/29 23:00 Drug: NS 0.9% 1000 ml Route: IV; Rate: 125 ml/hr; Site: right forearm; sg 06/30 04:34 Follow up: Response: No adverse reaction; IV Status: Infusion continued upon admission ea 06/29 23:07 Drug: morphine 4 mg Route: IVP; Site: right forearm; sg 06/30 00:00 Follow up: Response: No adverse reaction ea 01:17 Drug: Aspirin Chewable Tablet 324 mg Route: PO; sg 02:00 Follow up: Response: No adverse reaction ea 01:17 Drug: Lovenox 1 mg/kg Route: Sub-Q; Site: right lower abdomen; sg 02:00 Follow up: Response: No adverse reaction ea Disposition: 06/29/20 23:55 Hospitalization ordered by Reji Trotter for Observation. Preliminary diagnosis are Non-ST elevation (NSTEMI) myocardial infarction, Vomiting. - Bed requested for Telemetry/MedSurg (observation). - Status is Observation. sg - Condition is Stable. - Problem is new. - Symptoms are unchanged. Signatures: Dispatcher [employer] EDMS Dao Shah RN RN Koby Wetzel PA PA jr8 Georgia Magallon RN RN tl1 Ramon De RN RN jb4 Omega Melgar MD MD ma2 Kimberly Clement RN, ea Corrections: (The following items were deleted from the chart) 00:33 06/29 23:55 Hospitalization Ordered by Reji Trotter for Inpatient Admission. jr8 Preliminary diagnosis is Non-ST elevation (NSTEMI) myocardial infarction; Vomiting. Bed requested for Telemetry/MedSurg (Inpatient). Status is Inpatient Admission. Condition is Stable. Problem is new. Symptoms are unchanged. ma2 06/30 04:21 00:33 06/29/2020 23:55 Hospitalization Ordered by Reji Trotter for Observation. tl1 Preliminary diagnosis is Non-ST elevation (NSTEMI) myocardial infarction; Vomiting. Bed requested for Telemetry/MedSurg (observation). Status is Observation. Condition is Stable. Problem is new. Symptoms are unchanged. jr8 04:50 04:21 06/29/2020 23:55 Hospitalization Ordered by Reji Trotter for Observation. sg Preliminary diagnosis is Non-ST elevation (NSTEMI) myocardial infarction; Vomiting. Bed requested for Telemetry/MedSurg (observation). Status is Observation. Condition is Stable. Problem is new. Symptoms are unchanged. tl1
--- NOTE | 2020-06-29 23:55 | ER ---
Nurse's Notes [facility] Name: Shana Patel Age: 59 yrs Sex: Female : 1960 Arrival Date: 06/29/2020 Time: 21:38 Bed 5 Private MD: Diagnosis: Non-ST elevation (NSTEMI) myocardial infarction;Vomiting Presentation: 06/29 21:42 Chief complaint: Patient states: I have been vomiting since last night, I have chest jb4 pain that started around 1600 today and radiates to my neck. It is a tightness pain that is 10/10 and I have a history of MT. 21:42 Coronavirus screen: Client denies travel out of the [place] in the last 14 days. cough jb4 unrelated to allergies, nausea, Client presents with at least one sign or symptom that may indicate coronavirus-19. Standard/surgical mask placed on the client. Provider contacted for isolation considerations. Ebola Screen: No symptoms or risks identified at this time. Initial Sepsis Screen: Does the patient meet any 2 criteria? No. Patient's initial sepsis screen is negative. Does the patient have a suspected source of infection? No. Patient's initial sepsis screen is negative. Risk Assessment: Do you want to hurt yourself or someone else? Patient reports no desire to harm self or others. Onset of symptoms was June 29, 2020. Transition of care: patient was not received from another setting of care. 21:42 Method Of Arrival: Wheelchair jb4 21:42 Acuity: TERESA 3 jb4 Historical: - Allergies: 21:42 IV contrast; jb4 21:42 Adhesives; jb4 21:42 Metformin HCl; jb4 - Home Meds: 21:42 hydrocodone-acetaminophen 7.5-325 mg Oral tab 1 tab every 6 hours [Active]; jb4 levothyroxine oral 1 tab once daily [Active]; lisinopril 10 mg Oral tab 1 tab once daily [Active]; Lyrica Oral 2 times per day [Active]; Novolog Sub-Q [Active]; clopidogrel 75 mg oral tab 1 tab once daily [Active]; furosemide 40 mg Oral tab 1 tab once daily [Active]; - PMHx: 21:42 Arthritis; Diabetes - IDDM; Fibromyalgia; GERD; Hypertension; Hypothyroidism; jb4 neuropathy; rectocele; spinal stenosis; - PSHx: 21:42 Hernia repair; Cholecystectomy; ; jb4 - Immunization history:: Adult Immunizations up to date. - Social history:: Smoking status: Patient denies any tobacco usage or history of. Patient/guardian denies using alcohol, street drugs, Patient/guardian denies using The patient lives with family. - Family history:: not pertinent. Screenin/11 01:00 Fall Risk IV access (20 points). ea 01:24 Abuse screen: Denies threats or abuse. Nutritional screening: No deficits noted. ea Tuberculosis screening: No symptoms or risk factors identified. Assessment: 06/29 23:40 Reassessment: Patient appears in no apparent distress at this time. Patient and/or sg family updated on plan of care and expected duration. Pain level reassessed. Patient is alert, oriented x 3, equal unlabored respirations, skin warm/dry/pink. 06/30 00:55 Reassessment: Patient and/or family updated on plan of care and expected duration. Pain ea level reassessed. Patient is alert, oriented x 3, equal unlabored respirations, skin warm/dry/pink. Awaiting on covid results. 03:30 Reassessment: Patient and/or family updated on plan of care and expected duration. Pain ea level reassessed. Patient is alert, oriented x 3, equal unlabored respirations, skin warm/dry/pink. 04:50 Reassessment: Patient and/or family updated on plan of care and expected duration. Pain ea level reassessed. Patient is alert, oriented x 3, equal unlabored respirations, skin warm/dry/pink. Pt admitted to fourth floor, report given to receiving nurse, pt left ED via stretcher per tech. Pt tolerating well. Vital Signs: 06/29 21:42 BP 158 / 92; Pulse 76; Resp 18; Temp 98.3(TE); Pulse Ox 96% on R/A; Weight 77.11 kg jb4 (R); Height 5 ft. 0 in. (152.40 cm) (R); Pain 10; 23:45 BP 138 / 81; Pulse 70; Resp 20; Pulse Ox 94% on R/A; Pain 08/27; sg 06/30 02:00 BP 120 / 75; Pulse 66; Resp 18 S; Pulse Ox 95% on R/A; sg 04:36 BP 98 / 62; Pulse 65; Resp 18; Temp 98.0; Pulse Ox 96% on R/A; ea 06/29 21:42 Body Mass Index 33.20 (77.11 kg, 152.40 cm) jb4 ED Course: 06/29 21:38 Patient arrived in ED. ag3 21:42 Arm band placed on right wrist. jb4 21:43 Omega Melgar MD is Attending Physician. ma2 21:51 Triage completed. jb4 21:57 EKG done, by ED staff, reviewed by Omega Melgar MD. em 22:00 Patient has correct armband on for positive identification. Bed in low position. Call ea light in reach. Side rails up X2. 22:01 Inserted saline lock: 22 gauge in right forearm, using aseptic technique. Blood ds4 collected. 22:14 XRAY Chest (1 view) In Process Unspecified. EDMS 23:06 Dao Shah, ESPERANZA is Primary Nurse. sg 23:54 Reji Trotter is Hospitalizing Provider. ma2 06/30 03:59 CORONAVIRUS Sent. ds4 04:32 No provider procedures requiring assistance completed. Patient admitted, IV remains in ea place. Administered Medications: 06/29 23:00 Drug: Pepcid 20 mg Route: IVP; Site: right forearm; 06/30 00:00 Follow up: Response: No adverse reaction 06/29 23:00 Drug: Zofran (Ondansetron) 4 mg Route: IVP; Site: right forearm; 06/30 00:00 Follow up: Response: No adverse reaction 06/29 23:00 Drug: GI Cocktail without - (Maalox Suspension 30 ml, Lidocaine Liquid 2 % 15 sg ml) Route: PO; 06/30 00:00 Follow up: Response: No adverse reaction 06/29 23:00 Drug: NS 0.9% 1000 ml Route: IV; Rate: 125 ml/hr; Site: right forearm; 06/30 04:34 Follow up: Response: No adverse reaction; IV Status: Infusion continued upon admission ea 06/29 23:07 Drug: morphine 4 mg Route: IVP; Site: right forearm; 06/30 00:00 Follow up: Response: No adverse reaction ea 01:17 Drug: Aspirin Chewable Tablet 324 mg Route: PO; 02:00 Follow up: Response: No adverse reaction quoc 01:17 Drug: Lovenox 1 mg/kg Route: Sub-Q; Site: right lower abdomen; 02:00 Follow up: Response: No adverse reaction quoc Outcome: 06/29 23:55 Decision to Hospitalize by Provider. annie 06/30 04:33 Admitted to Med/surg accompanied by tech, room 414, with chart, Report called to ea Receiving nurse on fourth Condition: stable Instructed on the need for admit. 04:50 Patient left the ED. Signatures: Dispatcher [employer] Dao Lopez RN RN Carmelo Peña RN RN Yogi Zapata4 Ramon De RN RN john4 Kimberly Clement RN RN ea Alzahri, Mohammad, MD MD ks2 Leslee Mccarty3
[2020-06-29 23:57] LABS: Blood Morphology Comment NOT SEEN (NOT SEEN); Platelet Estimate ADEQ
[2020-06-30] MEDS ORDERED: ASPIRIN 81 MG CHEWABLE TABLET ONE (01:28)
[2020-06-30] MEDS ORDERED: ENOXAPARIN 80 MG/0.8 ML SQ ONE (01:29)
--- NOTE | 2020-06-30 03:24 | P.HP ---
Certification for Inpatient Patient admitted to: Observation With expected LOS: <2 Midnights Patient will require the following post-hospital care: None Practitioner: I am a practitioner with admitting privileges, knowledge of patient current condition, hospital course, and medical plan of care. Services: Services provided to patient in accordance with Admission requirements found in Title 42 Section 412.3 of the Code of Federal Regulations <SamiraPhilly chenMorales - Last Filed: 06/30/20 03:18> Patient History Date of Service: 06/30/20 Reason for admission: Unstable Angina History of Present Illness: This is a 59-year-old [facility] onset of chest tightness that started 4 hr ago. Patient with history of insulin-dependent diabetes mellitus, hypertension, hypothyroid, coronary artery disease. Patient was admitted for non ST segment elevated myocardial infarction this past March where she had stent placed. Patient since then have 's had a couple bouts of chest pain but without significant findings. Patient tonight started to again have chest tightness. Patient was worked up in the emergency room and found to have mild troponin elevation of 0.05. BNP was 9755. No specific EKG changes noted in the emergency room. Medicine consulted at that time for admission. Patient did say that after she was medicated she is now feeling better. Home medications list reviewed: Yes - Past Medical/Surgical History Diabetic: Yes -: CHF -: Depression -: Hyperlipidemia -: Hypothyroidism -: IDDM -: CAD -: HTN -: GERD -: sleep apnea -: fibromyalgia -: cholecystectomy -: 10 surgical scars due to allergy to metformin -: 5 c - sections -: Cardiac stents - Social History Smoking Status: Never smoker Smoking therapy provided: No Alcohol use: No CD- Drugs: No Caffeine use: No Place of Residence: Home <Morales Wetzel - Last Filed: 06/30/20 03:18> Date of Service: 06/30/20 <jaquelin christensen - Last Filed: 06/30/20 15:51> Allergies Latex, Natural Rubber Allergy (Severe, Verified 04/09/20 05:26) Hives/Rash metformin Allergy (Severe, Verified 04/09/20 05:26) Anaphylaxis iodine Allergy (Mild, Verified 04/10/20 16:15) Itching/Hives/Rash Metformin HCl Allergy (Severe, Uncoded 04/09/20 05:26) Anaphylaxis Adhesives Allergy (Mild, Uncoded 04/09/20 05:26) Itching/Hives/Rash Tape Allergy (Mild, Uncoded 04/09/20 05:26) Itching/Hives/Rash Home Medications: Insulin 70/30 NPH/Reg Human [Novolin 70/30*] 20 unit SQ DAILY WITH BREAKFAST 05/10/13 Gabapentin 1 cap PO TID 04/09/20 Hydrocodone Bit/Acetaminophen [[place]umming 7.5-325 Tablet] 1 tab PO Q6HP PRN 04/09/20 Levothyroxine Sodium [Synthroid] 150 mcg PO DAILY 04/09/20 Atorvastatin Calcium [Lipitor*] 40 mg PO BEDTIME 30 Days #30 tab 04/16/20 Albuterol Inhaler [Ventolin Inhaler*] 2 puff IH Q4HP PRN 06/02/20 Amlodipine Besylate 10 mg PO DAILY 06/02/20 Clopidogrel Bisulfate [Plavix*] 75 mg PO DAILY #30 tablet 06/02/20 Dapagliflozin Propanediol [Farxiga] 1 tab PO DAILY 06/02/20 Enalapril [Vasotec*] 20 mg PO BID 06/02/20 Fluoxetine HCl [Prozac*] 40 mg PO DAILY 06/02/20 Furosemide [Lasix] 40 mg PO DAILY #30 tablet 06/02/20 Silver [Silvasorb] 1 marybel TD DAILY 06/02/20 Insulin 70/30 NPH/Reg Human [Novolin 70/30*] 30 unit SQ DAILY AT SUPPER 06/30/20 Review of Systems General: Unremarkable Eyes: Unremarkable ENT: Unremarkable Respiratory: Unremarkable Cardiovascular: Chest Pain Gastrointestinal: Nausea, Vomiting Genitourinary: Unremarkable Musculoskeletal: Unremarkable Integumentary: Unremarkable Neurological: Unremarkable Lymphatics: Unremarkable <Morales Wetzel - Last Filed: 06/30/20 03:18> Physical Examination - Vital Signs Temperature: 98.3 F Blood Pressure: 158/92 Pulse: 76 Respirations: 18 Pulse Ox (%): 96 (Room air) - Physical Exam General: Alert, In no apparent distress, Oriented x3, Cooperative HEENT: PERRLA, Mucous membr. moist/pink, EOMI Neck: Supple, 2+ carotid pulse no bruit, JVD not distended, No Thyromegaly, No LAD Respiratory: Clear to auscultation bilaterally, Normal air movement Cardiovascular: No edema, Normal pulses, Regular rate/rhythm, Normal S1 S2, No gallops, No rubs, No murmurs Capillary refill: <2 Seconds Gastrointestinal: Normal bowel sounds, Soft and benign, Non-distended, No ascites, No tenderness, No masses, No rebound, No guarding Musculoskeletal: No clubbing, No swelling, No contractures, No erythema, No tenderness, No warmth Integumentary: No rashes, No breakdown, No significant lesion, No tenderness/swelling, No erythema, No warmth, No cyanosis Neurological: Normal speech, Normal strength at 5/5 x4 extr, Normal tone, Sensation intact, Cranial nerves 3-12 intact, Normal affect Lymphatics: No axilla or inguinal lymphadenopathy - Studies Laboratory Data (last 24 hrs) 06/29/20 22:00: PT 10.7, INR 0.93 06/29/20 22:00: WBC 3.60 L, Hgb 11.2 L, Hct 33.6 L, Plt Count 191 06/29/20 22:00: Sodium 143, Potassium 3.5, BUN 16, Creatinine 1.20, Glucose 155 H, Magnesium 2.0, Total Bilirubin 0.7, AST 13 L, ALT 10 L, Alkaline Phosphatase 82, Lipase 76 <Morales Wetzel - Last Filed: 06/30/20 03:18> - Studies Laboratory Data (last 24 hrs) 06/29/20 22:00: PT 10.7, INR 0.93 06/29/20 22:00: WBC 3.60 L, Hgb 11.2 L, Hct 33.6 L, Plt Count 191 06/29/20 22:00: Sodium 143, Potassium 3.5, BUN 16, Creatinine 1.20, Glucose 155 H, Magnesium 2.0, Total Bilirubin 0.7, AST 13 L, ALT 10 L, Alkaline Phosphatase 82, Lipase 76 <jaquelin christensen - Last Filed: 06/30/20 15:51> Assessment and Plan - Problems (Diagnosis) (1) Unstable angina Current Visit: Yes Status: Acute Plan: Patient will be placed in telemetry unit where she will be monitored throughout the next 24 hr. Cardiology has been consulted for the unstable angina with mild elevation in troponin. Patient put on therapeutic Lovenox and daily aspirin along with her Plavix. We will continue to trend troponins throughout the night. EKGs as necessary. Await cardiology consult for further recommendation. (2) CAD (coronary artery disease) Current Visit: No Status: Chronic Plan: Will continue patient's medications. Qualifiers: Coronary Disease-Associated Artery/Lesion type: due to lipid rich plaque Qualified Code(s): I25.10 - Atherosclerotic heart disease of [place] coronary artery without angina pectoris; I25.83 - Coronary atherosclerosis due to lipid rich plaque (3) Hypertension Current Visit: Yes Status: Chronic Plan: Blood pressure will be monitored and BP will be controlled with antihypertensives for systolic greater than 160 or diastolic greater than 110 Qualifiers: Hypertension type: essential hypertension (4) Insulin dependent diabetes mellitus Current Visit: Yes Status: Chronic Plan: Blood glucose will be monitored. Will put on mild sliding scale as necessary. Blood glucose in emergency room was only 155. Discharge Plan: Home Plan to discharge in: 24 Hours - Advance Directives Does patient have a Living Will: No Does patient have a Durable POA for Healthcare: No - Code Status/Comfort Care Code Status Assessed: Yes Code Status: Full Code Critical Care: No Time Spent Managing Pts Care (In Minutes): 70 <Morales Wetzel - Last Filed: 06/30/20 03:18> Physician Review: Patient Assessed, Agree with Above Assessment and Plan Physician Review Additional Text: NSTEMI COVID 19 infection. Plan: Full-dose lovenox, aspirin and Plavix. Continue oral Lasix. Cardiology consult. <jaquelin christensen - Last Filed: 06/30/20 15:51>
[2020-06-30] MEDS ORDERED: ONDANSETRON 4 MG/2 ML VIAL IV PRN (04:42)
[2020-06-30 05:07] VITALS: BMI 33.2
[2020-06-30] MEDS: METOPROLOL TAR 25 MG TAB PO SCH ×2 (06:00→17:25)
[2020-06-30] MEDS ORDERED: PNEUMOCOCCAL VACCINE 0.5 ML IMVAC ONE (08:00)
[2020-06-30] MEDS ORDERED: INFLUENZA VACCINE (for 3y+) 0.5 ML DOSE IMVAC ONE (08:00)
[2020-06-30] MEDS: ASPIRIN EC 81 MG TAB PO SCH (08:11)
[2020-06-30] MEDS: FUROSEMIDE 40 MG TABLET PO SCH (08:11)
[2020-06-30] MEDS: CLOPIDOGREL 75 MG TABLET PO SCH (08:11)
--- NOTE | 2020-06-30 08:39 | RAD REPORT ---
EXAM DESCRIPTION: RAD - Chest Single View - 06/29/2020 10:14 pm CLINICAL HISTORY: CHEST PAIN Chest pain. COMPARISON: Chest Single View dated 06/01/2020; Chest Single View dated 04/08/2020; Chest Single View dated 03/14/2020; Chest Single View dated 11/15/2019 FINDINGS: Portable technique limits examination quality. Mild to moderate bilateral pulmonary opacities are noted likely representing pulmonary edema. The hea rt is moderately enlarged in size. Trace bilateral pleural effusions. IMPRESSION: Mild to moderate CHF.
[2020-06-30] MEDS ORDERED: ENOXAPARIN 80 MG/0.8 ML SQ SCH (09:00)
[2020-06-30] MEDS: MORPHINE 4 MG/ML SYR IV PRN (15:29)
--- NOTE | 2020-06-30 15:54 | P.PN ---
Date of Service: 06/30/20 Patient seen and examined. She has no complain. She denies any chest pain at this time. Troponin trended flat. Plan: Case discussed with cardiology-Dr. Rosen. Troponin trended flat and no acute rice to suggest ACS. Repeat echocardiogram per cardiology. Continue full-dose Lovenox for 1 more day. Further intervention pending echocardiogram result. Continue aspirin and Plavix. Patient has no respiratory symptoms from the COVID 19.
--- NOTE | 2020-06-30 18:55 | CON ---
Date of Consultation: 06/30/2020 Reason For Consultation: Chest pain, elevated troponin. History Of Present Illness: This is a 59-year-old female, very well known to me, who presented to [facility] after she started having some nausea and chest pain yesterday and some shortness of breath and cough. Evaluated in the emergency room. Troponin was borderline elevated at 0.05 and also she was tested positive for COVID. She was admitted, evaluated her by bedside today, and she is chest pa in-free and does not have any shortness of breath. She has minimal cough for sure. Past Medical History: Coronary artery disease, status post recent PCI that was very complicated on t he RCA with significant thrombosis and no reflow in the artery that has improved. History of CHF, de pression, dyslipidemia, hypothyroidism, diabetes, hypertension. Past Surgical History: Recent PCI to the RCA. She has LAD disease that needs to be intervened upon. Medications: Refer to reconciliation sheet for detailed list. Allergies: LONG ALLERGY LIST WAS REVIEWED. PLEASE REFER TO THE NURSE'S NOTE. Family History: No premature coronary artery disease or cancer. Social History: Does not smoke or drink. Does not use any drugs. Review of Systems: All systems reviewed and they were negative except for what mentioned in the HPI. Physical Examination: Vital Signs: Temperature is 97.5, pulse 60, breathing at 16, blood pressure 118/77, saturating 95%. General: Pleasant middle-aged female, in no apparent distress. Head and Neck: Pupils are equal, reactive to light. Intact eye movements. No JVD. No cervical lym phadenopathy. Neck: Supple. Thyroid is not enlarged. Lungs: Clear to auscultation bilaterally. No rhonchi, rales, or crackles. No accessory muscle use. Heart: Regular rate and rhythm. No extra sounds. Abdomen: Soft, nontender. Bowel sounds positive. No organomegaly. No masses or hernia. No rigidi ty or rebound. Extremities: No edema, clubbing, cyanosis. Intact pulses. Skin: No rash. Neurologic: Alert, awake, oriented x3. No acute focal deficits appreciated. Investigations: Troponin 0.04, 0.06 and creatinine 1.2. Assessment And Plan: Chest pain with borderline elevated troponin. This could be unstable angina or acute coronary syndrome, however, could be COVID related. I will trend 1 more troponin. If there i s no significant rise in the troponin, also obtain echocardiogram if there are no changes in ejection fraction, I will monitor until her COVID status clears completely. At what time, patient will requi re a PCI of her LAD and coronary angiogram to further evaluate the RCA. Again, recommend to obtain e chocardiogram. If EF has not changed from before and no significant rise in troponin and patient sta ys hemodynamically stable, we will hold on the LAD PCI. That was supposed to be staged until she is COVID status negative. Thank you for the consultation. /ANA Voice ID: [id number] Report ID: [id number]
[2020-07-01 04:49] LABS: Absolute Lymphocytes (CBC) 0.9 K/uL (0.7-4.9); Basophils % 0.6 % (0-1.3); Hematocrit 30.4 % (36.0-45.0); Lymphocytes % 22.9 % (15.3-44.8); MPV 10.2 fL (7.6-11.3); RBC Red Blood Cell Count 3.58 M/uL (3.86-4.86)
[2020-07-01 05:08] LABS: Potassium 3.7 mmol/L (3.5-5.1)
[2020-07-01] MEDS: METOPROLOL TAR 25 MG TAB PO SCH ×2 (05:08→17:01)
[2020-07-01] MEDS: CLOPIDOGREL 75 MG TABLET PO SCH (07:44)
[2020-07-01] MEDS: ASPIRIN EC 81 MG TAB PO SCH (07:45)
[2020-07-01] MEDS: FUROSEMIDE 40 MG TABLET PO SCH (08:33)
[2020-07-01] MEDS: MORPHINE 4 MG/ML SYR IV PRN (08:40)
[2020-07-01] MEDS ORDERED: CEPACOL LOZENGES PO PRN (11:43)
[2020-07-01 16:59] VITALS: BP 145/90; TEMP 97.8
--- NOTE | 2020-07-01 17:51 | P.DS ---
Admission Date: 06/30/20 Discharge Date: 07/01/20 Disposition: ROUTINE DISCHARGE Discharge Condition: FAIR Reason for Admission: Unstable Angina Consultations: Cardiology-Dr. Rosen. Brief History of Present Illness: 59-year-old woman with a history of hypertension, hyperlipidemia, recently diagnosed with NSTEMI and had a cardiac stent placed in March 2020 presented to the emergency department with a complaint of sudden onset of chest pain which occurred at rest. Patient has been experiencing intermittent chest pain since her cardiac catheterization. Her initial troponin in the ED was mildly eleva linda. EKG did not demonstrate any significant acute changes. Patient tested positive for COVID 19. She was hospitalized for further evaluation and management. Hospital Course: Patient placed under observation and started on full-dose Lovenox. Troponin trended flat with no acute rice to suggest ACS. Patient was seen and evaluated by cardiology-Dr. Rosen who recommended to continue trending troponin and to obtain an echocardiogram. If troponin remained flat and echocardiogram shows no change in the EF, he will plan to do on staged cardiac catheterization as an out patient once patient COVID infection as resolved. Troponin trended flat. Echocardiogram done showed unchanged EF. Patient was asymptomatic the rest of the hospital stay except intermittent cough. Patient is discharged to follow with Dr. Rosen. She is prescribed oral prednisone and vitamin supplementation to continue treatment for COVID 19. Vital Signs/Physical Exam: Temp Pulse Resp BP Pulse Ox 97.8 F 62 18 145/90 H 100 07/01/20 16:00 07/01/20 17:01 07/01/20 16:00 07/01/20 17:01 07/01/20 16:00 General: Alert, In no apparent distress, Oriented x3 Neck: JVD not distended Cardiovascular: No edema, Regular rate/rhythm, Normal S1 S2 Gastrointestinal: Soft and benign, Non-distended Musculoskeletal: No swelling Integumentary: No rashes Neurological: Normal speech, Normal strength at 5/5 x4 extr Laboratory Data at Discharge: WBC 3.90 K/uL (4.3-10.9) L 07/01/20 03:57 Hgb 9.8 g/dL (12.0-15.0) L 07/01/20 03:57 Hct 30.4 % (36.0-45.0) L 07/01/20 03:57 Plt Count 161 K/uL (152-406) 07/01/20 03:57 PT 10.7 SECONDS (9.5-12.5) 06/29/20 22:00 INR 0.93 06/29/20 22:00 Sodium 139 mmol/L (136-145) 07/01/20 03:57 Potassium 3.7 mmol/L (3.5-5.1) 07/01/20 03:57 BUN 22 mg/dL (7-18) H 07/01/20 03:57 Creatinine 1.21 mg/dL (0.55-1.3) 07/01/20 03:57 Glucose 159 mg/dL (74-106) H 07/01/20 03:57 Magnesium 2.0 mg/dL (1.8-2.4) 06/29/20 22:00 Total Bilirubin 0.7 mg/dL (0.2-1.0) 06/29/20 22:00 AST 13 U/L (15-37) L 06/29/20 22:00 ALT 10 U/L (12-78) L 06/29/20 22:00 Alkaline Phosphatase 82 U/L (45-117) 06/29/20 22:00 Troponin I 0.05 ng/mL (0.0-0.045) H 06/30/20 17:56 Lipase 76 U/L (73-393) 06/29/20 22:00 Home Medications: Insulin 70/30 NPH/Reg Human [Novolin 70/30*] 20 unit SQ DAILY WITH BREAKFAST 05/10/13 Gabapentin 1 cap PO TID 04/09/20 Hydrocodone Bit/Acetaminophen [Eva 7.5-325 Tablet] 1 tab PO Q6HP PRN 04/09/20 Levothyroxine Sodium [Synthroid] 150 mcg PO DAILY 04/09/20 Atorvastatin Calcium [Lipitor*] 40 mg PO BEDTIME 30 Days #30 tab 04/16/20 Albuterol Inhaler [Ventolin Inhaler*] 2 puff IH Q4HP PRN 06/02/20 Clopidogrel Bisulfate [Plavix*] 75 mg PO DAILY #30 tablet 06/02/20 Dapagliflozin Propanediol [Farxiga] 1 tab PO DAILY 06/02/20 Enalapril [Vasotec*] 20 mg PO BID 06/02/20 Fluoxetine HCl [Prozac*] 40 mg PO DAILY 06/02/20 Furosemide [Lasix] 40 mg PO DAILY #30 tablet 06/02/20 Silver [Silvasorb] 1 marybel TD DAILY 06/02/20 Insulin 70/30 NPH/Reg Human [Novolin 7030*] 30 unit SQ DAILY AT SUPPER 06/30/20 Ascorbic Acid [Vitamin C] 2,000 mg PO BID #240 tab.chew 07/01/20 Cholecalciferol (Vitamin D3) [Vitamin D3] 4,000 unit PO DAILY #30 capsule 07/01/20 Dextromethorphan/Benzocaine [Cepacol Sorethroat-Cough Ramesh] 1 each PO Q4H PRN #30 lozenge 07/01/20 Metoprolol Tartrate [Lopressor*] 25 mg PO BID 6AM 6PM #60 tab 07/01/20 Zinc Sulfate [Zinc Sulfate*] 220 mg PO DAILY #30 cap 07/01/20 predniSONE [Deltasone] 20 mg PO BID #21 tab 07/01/20 New Medications: Dextromethorphan/Benzocaine [Cepacol Sorethroat-Cough Ramesh] 1 each PO Q4H PRN #30 lozenge PRN Reason: Sore Throat Metoprolol Tartrate [Lopressor*] 25 mg PO BID 6AM 6PM #60 tab predniSONE [Deltasone] 20 mg PO BID #21 tab Ascorbic Acid [Vitamin C] 2,000 mg PO BID #240 tab.chew Cholecalciferol (Vitamin D3) [Vitamin D3] 4,000 unit PO DAILY #30 capsule Zinc Sulfate [Zinc Sulfate*] 220 mg PO DAILY #30 cap Diet: ADA Activity: Ad matt Followup: Nicolas Waldrop MD [Primary Care Provider] -
[2020-07-01 18:19] VITALS: O2SAT 96
--- NOTE | 2020-07-03 11:01 | PN ---
Date of Progress Note: 07/01/2020 Ms. Patel was seen by Dr. Rosen for chest pain. She is known to have a history of coronary arter y disease. She is status post RCA stent, is known to have diffuse LAD disease. Dr. Rosen recommend ed medical therapy and an echocardiogram. Her echocardiogram shows no wall motion abnormalities. He r troponin is 0.05 x 2, not consistent with an acute coronary syndrome. The plan is to send her home on her medical therapy. We will plan a staged catheterization with an LAD stent after her COVID pne umonia is resolved. No change in medical therapy for now. Case was discussed with Dr. Trotter. COSME/ANA Voice ID: [id number] Report ID: [id number]
--- NOTE | 2020-07-06 15:09 | ECHO ---
HEIGHT: 5 ft 0 in WEIGHT: 170 lb 0 oz DATE OF STUDY: 07/01/[address]: Chino Rosen 2-DIMENSIONAL: YES M.MODE: YES DOPPLER: YES COLOR FLOW: YES TDS: NO PORTABLE: NO DEFINITY: NO BUBBLE STUDY: NO DIAGNOSIS: NSTEMI CARDIAC HISTORY: CATHERIZATION: NO SURGERY: NO PROSTHETIC VALVE: NO PACEMAKER: NO MEASUREMENTS (cm) DIASTOLIC (NORMALS) SYSTOLIC (NORMALS) IVSd 1.0 (0.6-1.2) LA Diam 3.8 (1.9-4.0) LVEF 23% LVIDd 5.0 (3.5-5.7) LVIDs 4.4 (2.0-3.5) %FS 11% LVPWd 1.1 (0.6-1.2) Ao Diam 2.5 (2.0-3.7) 2 DIMENSIONAL ASSESSMENT: RIGHT ATRIUM: NORMAL LEFT ATRIUM: NORMAL RIGHT VENTRICLE: NORMAL LEFT VENTRICLE: NORMAL SIZE TRICUSPID VALVE: NORMAL MITRAL VALVE: NORMAL PULMONIC VALVE: NORMAL AORTIC VALVE: NORMAL PERICARDIAL EFFUSION: NONE AORTIC ROOT: NORMAL LEFT VENTRICULAR WALL MOTION: SEVERE GLOBAL HYPOKINESIS. DOPPLER/COLOR FLOW: MILD TRICUSPID REGURGITATION. RIGHT VENTRICULAR SYSTOLIC PRESSURE 36mmHg. COMMENTS: SEVERE GLOBAL HYPOKINESIS. EJECTION FRACTION IS 23%. MILD TRICUSPID REGURGITATION. NO THROMBUS. TECHNOLOGIST: NOAH POTTS
== END 2020-07-01 18:33 | disposition home or self-care (01) ==
LOC: ER 21:20 → INTOOBSV 06-30 00:08 → ERHOLD 06-30 00:08 → 4TH 06-30 04:33
PROVIDERS: ADMIT Internal Medicine; ATTEND Internal Medicine
DX: U07.1 COVID-19 (principal); J12.82 Pneumonia due to coronavirus disease 2019; I11.0 Hypertensive heart disease with heart failure; I50.9 Heart failure, unspecified; I25.2 Old myocardial infarction; E78.5 Hyperlipidemia, unspecified; I25.10 Atherosclerotic heart disease of native coronary artery without angina pectoris; F32.9 Major depressive disorder, single episode, unspecified; E03.9 Hypothyroidism, unspecified; E11.9 Type 2 diabetes mellitus without complications; R94.31 Abnormal electrocardiogram [ECG] [EKG]; Z79.4 Long term (current) use of insulin; K21.9 Gastro-esophageal reflux disease without esophagitis; M79.7 Fibromyalgia; Z95.5 Presence of coronary angioplasty implant and graft; I25.83 Coronary atherosclerosis due to lipid rich plaque
CPT/HCPCS: 96361; 93005 ×2; 93306; 85025 ×2; 80048 ×2; 36415 ×2; 83735; 85610; 82947 ×7; 80076; 84484 ×4; 83690; 83880; 71045; 90471 ×2; 90732; 11042; 96375; 96372; 96374; 99285; U0003; Q2035; J7030; J2405

== ENCOUNTER 2020-07-08 02:41 | Inpatient (IN) | payer OTHER ==
[2020-07-08 04:09] LABS: Absolute Lymphocytes (CBC) 1.1 K/uL (0.7-4.9); Basophils % 0.8 % (0-1.3); Hematocrit 35.3 % (36.0-45.0); Lymphocytes % 16.1 % (15.3-44.8); MPV 9.9 fL (7.6-11.3); RBC Red Blood Cell Count 4.24 M/uL (3.86-4.86)
[2020-07-08 04:10] LABS: Protime INR 0.97
[2020-07-08 04:21] LABS: Albumin 2.9 g/dL (3.4-5.0); Bilirubin Direct 0.1 mg/dL (0-0.2); Bilirubin Total 0.5 mg/dL (0.2-1.0); Magnesium 1.8 mg/dL (1.8-2.4); Potassium 3.6 mmol/L (3.5-5.1); Troponin (Emerg Dept Use Only) 0.02 ng/mL (0.0-0.045)
[2020-07-08] MEDS ORDERED: KETOROLAC 30 MG/ML INJ ONE (04:31)
[2020-07-08] MEDS ORDERED: ONDANSETRON 4 MG/2 ML VIAL ONE (04:31)
--- NOTE | 2020-07-08 05:16 | ER ---
Nurse's Notes [facility] Name: Shana Patel Age: 59 yrs Sex: Female : 1960 Arrival Date: 07/08/2020 Time: 02:42 Bed 2 Private MD: Diagnosis: Coronavirus infection, unspecified;Hypoxemia Presentation: 07/08 02:53 Chief complaint: Patient states: she started coughing yesterday then started having bb chest tightness with her cough pt was recently in the hospital for similar symptoms. Coronavirus screen: cough unrelated to allergies, headache. Ebola Screen: No symptoms or risks identified at this time. Initial Sepsis Screen: Does the patient meet any 2 criteria? No. Patient's initial sepsis screen is negative. Does the patient have a suspected source of infection? No. Patient's initial sepsis screen is negative. Risk Assessment: Do you want to hurt yourself or someone else? Patient reports no desire to harm self or others. Onset of symptoms was July 06, 2020. 02:53 Method Of Arrival: Wheelchair 02:53 Acuity: TERESA 3 bb Historical: - Allergies: 02:55 Adhesives; bb 02:55 IV contrast; bb 02:55 Metformin HCl; bb - Home Meds: 05:33 clopidogrel 75 mg Oral tab 1 tab once daily [Active]; furosemide 40 mg Oral tab 1 tab em once daily [Active]; hydrocodone-acetaminophen 7.5-325 mg Oral tab 1 tab every 6 hours [Active]; levothyroxine oral 1 tab once daily [Active]; lisinopril 10 mg Oral tab 1 tab once daily [Active]; Lyrica Oral 2 times per day [Active]; Novolog Sub-Q [Active]; - PMHx: 05:33 Arthritis; neuropathy; Hypertension; Fibromyalgia; Diabetes - IDDM; GERD; em Hypothyroidism; spinal stenosis; rectocele; - PSHx: 05:33 Hernia repair; Cholecystectomy; ; em - Immunization history:: Adult Immunizations up to date. - Social history:: Smoking status: Patient denies any tobacco usage or history of. Screenin:00 Abuse screen: Denies threats or abuse. Nutritional screening: No deficits noted. em Tuberculosis screening: No symptoms or risk factors identified. Fall Risk None identified. Assessment: 04:00 General: Appears in no apparent distress. uncomfortable, Behavior is calm, cooperative, em appropriate for age, Denies fever. Pain: Complains of pain in chest Pain does not radiate. Neuro: Level of Consciousness is awake, alert, obeys commands, Oriented to person, place, time, situation, Appropriate for age. Cardiovascular: Capillary refill < 3 seconds Patient's skin is warm and dry. Rhythm is sinus rhythm. Respiratory: Airway is patent Respiratory effort is even, unlabored, Respiratory pattern is regular, symmetrical. GI: Reports nausea. Derm: Skin is intact, is fragile, is thin, Skin is pink, warm \T\ dry. Musculoskeletal: Capillary refill < 3 seconds, Range of motion: intact in all extremities. 05:29 Reassessment: Patient appears in no apparent distress at this time. Patient and/or em family updated on plan of care and expected duration. Pain level reassessed. Patient is alert, oriented x 3, equal unlabored respirations, skin warm/dry/pink. rates pain 5/10 Patient states feeling better. Patient states symptoms have improved. 06:40 Reassessment: Patient appears in no apparent distress at this time. Patient and/or mg2 family updated on plan of care and expected duration. Pain level reassessed. Patient is alert, oriented x 3, equal unlabored respirations, skin warm/dry/pink. 07:29 Reassessment: Patient and/or family updated on plan of care and expected duration. Pain jd3 level reassessed. Patient is alert, oriented x 3, equal unlabored respirations, skin warm/dry/pink. awaiting admission Patient states symptoms have improved. 07:47 Reassessment: hospital provider at bedside. jd3 08:20 General: Appears in no apparent distress. comfortable, Behavior is calm, cooperative, jd3 appropriate for age. Pain: Complains of pain in chest Quality of pain is described as pressure. Neuro: Level of Consciousness is awake, alert, obeys commands, Oriented to person, place, time, situation. Cardiovascular: Heart tones present Capillary refill < 3 seconds Patient's skin is warm and dry. Rhythm is regular. Respiratory: Airway is patent Respiratory effort is even, unlabored, Respiratory pattern is regular, symmetrical, Breath sounds are clear bilaterally. GI: No signs and/or symptoms were reported involving the gastrointestinal system. : No signs and/or symptoms were reported regarding the genitourinary system. EENT: No signs and/or symptoms were reported regarding the EENT system. Derm: Skin is intact, Skin is dry, Skin is normal, Skin temperature is warm. Musculoskeletal: Circulation, motion, and sensation intact. Range of motion: intact in all extremities. 09:07 Reassessment: Patient appears in no apparent distress at this time. No changes from [facility] previously documented assessment. Patient and/or family updated on plan of care and expected duration. Pain level reassessed. Patient is alert, oriented x 3, equal unlabored respirations, skin warm/dry/pink. awaiting admission. 10:22 Reassessment: Patient appears in no apparent distress at this time. Patient and/or jd3 family updated on plan of care and expected duration. Pain level reassessed. Patient is alert, oriented x 3, equal unlabored respirations, skin warm/dry/pink. charting continued in [facility]. Vital Signs: 02:53 BP 127 / 76; Pulse 77; Resp 18 S; Temp 98.1(TE); Pulse Ox 88% on R/A; Weight 77.11 kg bb (R); Height 5 ft. 0 in. (152.40 cm) (R); Pain 10/10; 04:05 Pulse Ox 87% on R/A; em 04:35 BP 121 / 75; Pulse 66; Resp 16; Pulse Ox 99% on 2 lpm NC; Pain 9/10; em 05:29 BP 115 / 79; Pulse 111; Resp 18; Pulse Ox 100% on 2 lpm NC; em 07:29 BP 103 / 65; Pulse 60; Resp 19 S; Pulse Ox 99% on 2 lpm NC; jd3 08:19 BP 115 / 72; Pulse 60; Resp 17 S; Pulse Ox 98% on 2 lpm NC; jd3 09:07 BP 101 / 68; Pulse 61; Resp 18 S; Pulse Ox 98% on 2 lpm NC; jd3 10:23 BP 142 / 81; Pulse 61; Resp 17 S; Pulse Ox 95% on R/A; jd3 02:53 Body Mass Index 33.20 (77.11 kg, 152.40 cm) bb ED Course: 02:42 Patient arrived in ED. cl3 02:55 Triage completed. bb 02:55 Arm band placed on Patient placed in an exam room, on a stretcher, on pulse oximetry. bb 03:06 EKG completed in triage. Results shown to MD. bb 03:30 Carmelo Chi, ESPERANZA is Primary Nurse. em 03:31 Stephon Olivera MD is Attending Physician. tw4 03:49 XRAY Chest (1 view) In Process Unspecified. EDMS 04:00 Patient has correct armband on for positive identification. Placed in gown. Bed in low em position. Call light in reach. Side rails up X2. rug hooker hand on. Pulse ox on. NIBP on. 04:00 Inserted saline lock: 20 gauge in right hand, using aseptic technique. Blood collected. mg2 04:05 Oxygen administration via nasal cannula \T\ 2L/min. em 04:38 No provider procedures requiring assistance completed. mg2 05:14 Valentin Rosario DO is Hospitalizing Provider. tw4 07:23 Primary Nurse role handed off by Carmelo Chi RN eb 07:29 Rashad Valdes RN is Primary Nurse. jd3 10:23 Patient admitted, IV remains in place. jd3 Administered Medications: 04:16 Drug: Zofran (Ondansetron) 4 mg Route: IVP; Site: right hand; em 04:51 Follow up: Response: No adverse reaction mg2 04:19 Drug: TORadol 30 mg Route: IVP; Site: right hand; em 04:51 Follow up: Response: No adverse reaction mg2 05:37 Drug: Decadron - Dexamethasone 10 mg Route: IVP; Site: right hand; em 06:41 Follow up: Response: No adverse reaction mg2 05:39 Drug: Lasix 40 mg Route: IVP; Site: right hand; em 06:41 Follow up: Response: No adverse reaction mg2 Outcome: 05:16 Decision to Hospitalize by Provider. tw4 10:23 Admitted to ER Hold. Please see [facility] for further documentation. jd3 10:23 Condition: stable 10:23 Instructed on the need for admit. 13:49 Patient left the ED. jd3 Signatures: Dispatcher [employer] Carmelo Reyes, RN ESPERANZA em Maureen Lr RN RN bb Rashad Valdes RN RN jd3 Stephon Olivera MD MD tw4 Carmen Pillai Anmol Ogden RN Tika Cohen cl3 Corrections: (The following items were deleted from the chart) 05:25 04:35 BP 121 / 75; Pulse 66bpm; Resp 16bpm; Pulse Ox 99% RA; Pain 9/10; em em 08:22 07:29 BP 103 / 65; Pulse 60bpm; Resp 19bpm; Spontaneous; Pulse Ox 99% RA; jd3 jd3 08:22 08:19 BP 115 / 72; Pulse 60bpm; Resp 17bpm; Spontaneous; Pulse Ox 98% RA; jd3 jd3 09:07 07:29 Reassessment: Patient and/or family updated on plan of care and expected jd3 duration. Pain level reassessed. Patient is alert, oriented x 3, equal unlabored respirations, skin warm/dry/pink. awaiting admission Patient states feeling better. jd3
--- NOTE | 2020-07-08 05:16 | EDPHYS ---
Physician Documentation [facility] Name: Shana Patel Age: 59 yrs Sex: Female : 1960 Arrival Date: 07/08/2020 Time: 02:42 Bed 2 Private MD: ED Physician Stephon Olivera HPI: 07/08 05:33 This 59 yrs old Female presents to ER via Wheelchair with complaints of Chest tw4 Tightness. 05:33 The patient or guardian reports chest pain that is located primarily in the anterior tw4 chest wall. Onset: 2 day(s) ago. The pain does not radiate. Associated signs and symptoms: The patient has no apparent associated signs or symptoms. The chest pain is described as sharp. Duration: The patient or guardian reports a single episode. Severity of pain: At its worst the pain was moderate in the emergency department the pain is unchanged. Historical: - Allergies: 02:55 Adhesives; bb 02:55 IV contrast; bb 02:55 Metformin HCl; bb - Home Meds: 05:33 clopidogrel 75 mg Oral tab 1 tab once daily [Active]; furosemide 40 mg Oral tab 1 tab em once daily [Active]; hydrocodone-acetaminophen 7.5-325 mg Oral tab 1 tab every 6 hours [Active]; levothyroxine oral 1 tab once daily [Active]; lisinopril 10 mg Oral tab 1 tab once daily [Active]; Lyrica Oral 2 times per day [Active]; Novolog Sub-Q [Active]; - PMHx: 05:33 Arthritis; neuropathy; Hypertension; Fibromyalgia; Diabetes - IDDM; GERD; em Hypothyroidism; spinal stenosis; rectocele; - PSHx: 05:33 Hernia repair; Cholecystectomy; ; em - Immunization history:: Adult Immunizations up to date. - Social history:: Smoking status: Patient denies any tobacco usage or history of. ROS: 05:33 Constitutional: Negative for fever, chills, and weight loss, Eyes: Negative for injury, tw4 pain, redness, and discharge, Respiratory: Negative for shortness of breath, cough, wheezing, and pleuritic chest pain, Abdomen/GI: Negative for abdominal pain, nausea, vomiting, diarrhea, and constipation, Back: Negative for injury and pain, MS/Extremity: Negative for injury and deformity, Skin: Negative for injury, rash, and discoloration, Neuro: Negative for headache, weakness, numbness, tingling, and seizure. 05:33 Cardiovascular: Positive for chest pain. Exam: 05:33 Constitutional: This is a well developed, well nourished patient who is awake, alert, tw4 and in no acute distress. Head/Face: Normocephalic, atraumatic. Chest/axilla: Normal chest wall appearance and motion. Nontender with no deformity. No lesions are appreciated. Cardiovascular: Regular rate and rhythm with a normal S1 and S2. No gallops, murmurs, or rubs. Normal PMI, no JVD. No pulse deficits. Respiratory: Lungs have equal breath sounds bilaterally, clear to auscultation and percussion. No rales, rhonchi or wheezes noted. No increased work of breathing, no retractions or nasal flaring. Abdomen/GI: Soft, non-tender, with normal bowel sounds. No distension or tympany. No guarding or rebound. No evidence of tenderness throughout. Back: No spinal tenderness. No costovertebral tenderness. Full range of motion. MS/ Extremity: Pulses equal, no cyanosis. Neurovascular intact. Full, normal range of motion. Neuro: Awake and alert, GCS 15, oriented to person, place, time, and situation. Cranial nerves II-XII grossly intact. Motor strength 5/5 in all extremities. Sensory grossly intact. Cerebellar exam normal. Normal gait. Vital Signs: 02:53 BP 127 / 76; Pulse 77; Resp 18 S; Temp 98.1(TE); Pulse Ox 88% on R/A; Weight 77.11 kg bb (R); Height 5 ft. 0 in. (152.40 cm) (R); Pain 10/10; 04:05 Pulse Ox 87% on R/A; em 04:35 BP 121 / 75; Pulse 66; Resp 16; Pulse Ox 99% on 2 lpm NC; Pain 9/10; em 05:29 BP 115 / 79; Pulse 111; Resp 18; Pulse Ox 100% on 2 lpm NC; em 07:29 BP 103 / 65; Pulse 60; Resp 19 S; Pulse Ox 99% on 2 lpm NC; jd3 08:19 BP 115 / 72; Pulse 60; Resp 17 S; Pulse Ox 98% on 2 lpm NC; jd3 09:07 BP 101 / 68; Pulse 61; Resp 18 S; Pulse Ox 98% on 2 lpm NC; jd3 10:23 BP 142 / 81; Pulse 61; Resp 17 S; Pulse Ox 95% on R/A; jd3 02:53 Body Mass Index 33.20 (77.11 kg, 152.40 cm) bb MDM: 03:31 Patient medically screened. tw4 05:33 Differential diagnosis: chest wall pain, cholecystitis, gastroesophageal reflux disease tw4 (GERD), pulmonary embolus, stable angina, unstable angina. Data reviewed: vital signs, nurses notes. Data interpreted: Pulse oximetry: Interpretation: normal. Counseling: I had a detailed discussion with the patient and/or guardian regarding: the historical points, exam findings, and any diagnostic results supporting the discharge/admit diagnosis, lab results, radiology results. Physician consultation: Valentin Rsoario DO and will see patient in ED, in inpatient room. 07/08 03:30 Order name: Basic Metabolic Panel 07/08 03:30 Order name: CBC with Diff 07/08 03:30 Order name: LFT's; Complete Time: 05:16 tw4 07/08 05:16 Interpretation: Normal except: ALB 2.9; GLOB 4.1; A/G 0.7. 07/08 03:30 Order name: Magnesium; Complete Time: 05:13 07/08 03:30 Order name: NT PRO-BNP; Complete Time: 05:16 tw4 07/08 05:16 Interpretation: Normal except: NT PRO-BNP [id number]. 07/08 03:30 Order name: PT-INR; Complete Time: 05:16 tw4 07/08 05:16 Interpretation: Within normal limits: PT 11.2. 07/08 03:30 Order name: Troponin (emerg Dept Use Only); Complete Time: 05:13 07/08 03:30 Order name: Basic Metabolic Panel; Complete Time: 05:16 EDMS 07/08 03:30 Order name: CBC with Automated Diff; Complete Time: 05:16 EDMS 07/08 05:16 Interpretation: Normal except: WBC 6.70; HGB 11.6; HCT 35.3; PLT 205. 07/08 05:42 Order name: CRP 07/08 05:42 Order name: Ferritin tw4 07/08 05:42 Order name: C-Reactive Protein EDMS 07/08 06:31 Order name: Comprehensive Metabolic Panel EDMS 07/08 06:31 Order name: Comprehensive Metabolic Panel EDMS 07/08 03:30 Order name: XRAY Chest (1 view) tw4 07/08 03:30 Order name: EKG; Complete Time: 03:31 tw4 07/08 03:30 Order name: Cardiac monitoring; Complete Time: 03:57 tw4 07/08 06:31 Order name: Magnesium EDMS 07/08 06:31 Order name: Magnesium EDMS 07/08 06:31 Order name: Phosphorus EDMS 07/08 06:32 Order name: Consistent Carb (ADA) [address] EDMS 07/08 06:32 Order name: CBC with Automated Diff EDMS 07/08 06:32 Order name: CBC with Automated Diff EDMS 07/08 06:32 Order name: Phosphorus EDMS 07/08 10:05 Order name: Glucose, Ancillary Testing EDMS 07/08 12:22 Order name: Glucose, Ancillary Testing EDMS 07/08 03:30 Order name: EKG - Nurse/Tech; Complete Time: 03:50 tw4 07/08 03:30 Order name: IV Saline Lock; Complete Time: 03:50 tw4 07/08 03:30 Order name: Labs collected and sent; Complete Time: 03:31 tw4 07/08 03:30 Order name: O2 Per Protocol; Complete Time: 03:50 tw4 07/08 03:30 Order name: O2 Sat Monitoring; Complete Time: 03:50 tw4 Administered Medications: 04:16 Drug: Zofran (Ondansetron) 4 mg Route: IVP; Site: right hand; em 04:51 Follow up: Response: No adverse reaction mg2 04:19 Drug: TORadol 30 mg Route: IVP; Site: right hand; em 04:51 Follow up: Response: No adverse reaction mg2 05:37 Drug: Decadron - Dexamethasone 10 mg Route: IVP; Site: right hand; em 06:41 Follow up: Response: No adverse reaction mg2 05:39 Drug: Lasix 40 mg Route: IVP; Site: right hand; em 06:41 Follow up: Response: No adverse reaction mg2 Disposition: 07/08/20 05:16 Hospitalization ordered by Valentin Rosario for Inpatient Admission. Preliminary diagnosis are Coronavirus infection, unspecified, Hypoxemia. - Bed requested for Telemetry/MedSurg (Inpatient). - Status is Inpatient Admission. jd3 - Condition is Stable. - Problem is new. - Symptoms have improved. Signatures: Dispatcher [employer] EDCarmelo King, RN RN Maureen Lr RN RN Rashad Valdes RN RN j Stephon Olivera MD MD tw4 Carmen Pillai Anmol Ogden RN mg2 Corrections: (The following items were deleted from the chart) 10:06 05:16 Hospitalization Ordered by Valentin Rosario DO for Inpatient Admission. Preliminary eb diagnosis is Coronavirus infection, unspecified; Hypoxemia. Bed requested for Telemetry/MedSurg (Inpatient). Status is Inpatient Admission. Condition is Stable. Problem is new. Symptoms have improved. [facility] 13:06 10:06 07/08/2020 05:16 Hospitalization Ordered by Valentin Rosario DO for Inpatient eb Admission. Preliminary diagnosis is Coronavirus infection, unspecified; Hypoxemia. Bed requested for [facility] ER HOLD. Status is Inpatient Admission. Condition is Stable. Problem is new. Symptoms have improved. eb 13:49 13:06 07/08/2020 05:16 Hospitalization Ordered by Valentin Rosario DO for Inpatient jd3 Admission. Preliminary diagnosis is Coronavirus infection, unspecified; Hypoxemia. Bed requested for Telemetry/MedSurg (Inpatient). Status is Inpatient Admission. Condition is Stable. Problem is new. Symptoms have improved. eb
[2020-07-08] MEDS ORDERED: dexAMETHasone 10 MG/ML VIAL ONE (05:48)
[2020-07-08] MEDS ORDERED: FUROSEMIDE 40 MG/4 ML VIAL ONE ×2 (05:48→09:34)
[2020-07-08] MEDS ORDERED: ALBUTEROL 2.5 MG/3 ML NEB SOL NEB PRN (06:23)
[2020-07-08] MEDS ORDERED: ACETAMINOPHEN 500 MG TAB PO PRN (06:23)
[2020-07-08 06:24] LABS: C-Reactive Protein 28.7 mg/L (<3.00); Ferritin 643.5 ng/mL (8-388)
[2020-07-08] MEDS ORDERED: ONDANSETRON 4 MG/2 ML VIAL IV PRN (06:29)
--- NOTE | 2020-07-08 06:52 | P.HP ---
Patient History Date of Service: 07/08/20 Reason for admission: CHF exacerbation, chest pain. History of Present Illness: 59 y o female pt with DM type 2, Hypertension, Hyperlipidemia, CHF, recent diagnosis of COVID 19 disease who came to the hospital for c/o chest pain and sob. she has been having symptoms of orthopnea and PND for a while. she also has lethargy and malaise. she also has mild fever and mild cough. she denies any diarrhea, n/v. CXR done showed bilateral pulm infiltrates depi cting viral pneumonia/pulm edema. she was started on diuretics and supplemental oxygen and was admitted for inpt care. Allergies Latex, Natural Rubber Allergy (Severe, Verified 04/09/20 05:26) Hives/Rash metformin Allergy (Severe, Verified 04/09/20 05:26) Anaphylaxis iodine Allergy (Mild, Verified 04/10/20 16:15) Itching/Hives/Rash Metformin HCl Allergy (Severe, Uncoded 04/09/20 05:26) Anaphylaxis Adhesives Allergy (Mild, Uncoded 04/09/20 05:26) Itching/Hives/Rash Tape Allergy (Mild, Uncoded 04/09/20 05:26) Itching/Hives/Rash Home Medications: Insulin 70/30 NPH/Reg Human [Novolin 70/30*] 20 unit SQ DAILY WITH BREAKFAST 05/10/13 Gabapentin 1 cap PO TID 04/09/20 Hydrocodone Bit/Acetaminophen [[place] 7.5-325 Tablet] 1 tab PO Q6HP PRN 04/09/20 Levothyroxine Sodium [Synthroid] 150 mcg PO DAILY 04/09/20 Atorvastatin Calcium [Lipitor*] 40 mg PO BEDTIME 30 Days #30 tab 04/16/20 Albuterol Inhaler [Ventolin Inhaler*] 2 puff IH Q4HP PRN 06/02/20 Clopidogrel Bisulfate [Plavix*] 75 mg PO DAILY #30 tablet 06/02/20 Dapagliflozin Propanediol [Farxiga] 1 tab PO DAILY 06/02/20 Enalapril [Vasotec*] 20 mg PO BID 06/02/20 Fluoxetine HCl [Prozac*] 40 mg PO DAILY 06/02/20 Furosemide [Lasix] 40 mg PO DAILY #30 tablet 06/02/20 Silver [Silvasorb] 1 maryebl TD DAILY 06/02/20 Insulin 70/30 NPH/Reg Human [Novolin 70/30*] 30 unit SQ DAILY AT SUPPER 06/30/20 Ascorbic Acid [Vitamin C] 2,000 mg PO BID #240 tab.chew 07/01/20 Cholecalciferol (Vitamin D3) [Vitamin D3] 4,000 unit PO DAILY #30 capsule 07/01/20 Dextromethorphan/Benzocaine [Cepacol Sorethroat-Cough Ramesh] 1 each PO Q4H PRN #30 lozenge 07/01/20 Metoprolol Tartrate [Lopressor*] 25 mg PO BID 6AM 6PM #60 tab 07/01/20 Zinc Sulfate [Zinc Sulfate*] 220 mg PO DAILY #30 cap 07/01/20 predniSONE [Deltasone] 20 mg PO BID #21 tab 07/01/20 - Past Medical/Surgical History Diabetic: Yes -: CHF -: Depression -: Hyperlipidemia -: Hypothyroidism -: IDDM -: CAD -: HTN -: GERD -: sleep apnea -: fibromyalgia -: cholecystectomy -: 10 surgical scars due to allergy to metformin -: 5 c - sections -: Cardiac stents - Social History Alcohol use: No CD- Drugs: No Caffeine use: Yes Review of Systems General: Unremarkable Eyes: Unremarkable Respiratory: Shortness of Breath, SOB with Excertion Cardiovascular: Chest Pain, Orthopnea, Paroxysmal Noc. Dyspnea, Unremarkable Gastrointestinal: Unremarkable Genitourinary: Unremarkable Musculoskeletal: Unremarkable Neurological: Unremarkable Physical Examination - Physical Exam General: Alert, Oriented x3 HEENT: Atraumatic, Normocephalic Neck: Supple Respiratory: Diminished Cardiovascular: Regular rate/rhythm, Normal S1 S2, Edema Gastrointestinal: Soft and benign Neurological: Normal speech, Normal strength at 5/5 x4 extr, Cranial nerves 3-12 intact - Studies Laboratory Data (last 24 hrs) 07/08/20 03:45: PT 11.2, INR 0.97 07/08/20 03:45: WBC 6.70 D, Hgb 11.6 L, Hct 35.3 L D, Plt Count 205 D 07/08/20 03:45: Sodium 140, Potassium 3.6, BUN 25 H, Creatinine 1.27, Glucose 159 H, Magnesium 1.8, Total Bilirubin 0.5, AST 24, ALT 16, Alkaline Phosphatase 73 Assessment and Plan - Plan 1.CHF exacerbation-She does have orthopnea and PND symptoms. we will continue lasix for diuresis. we will ensure I/O monitoring and fluid restriction. we will start 2g sodium diet. 2.Hypertension-we will monitor vitals and continue antihypertensive medications if needed. 3.Diabetes type 2-we will continue SSI and long acting insulin. 4.Hyperlipidemia-we will continue statin therapy. 5.Chest pain-we will work up for possible ACS. 6.COVID 19 disease- recently diagnosed with covid 19 disease. we will start dexamethasone and vit c, zinc and antibiotics. - Advance Directives Does patient have a Living Will: No Does patient have a Durable POA for Healthcare: Yes
[2020-07-08] MEDS: IPRATROPIUM BROM 0.5MG/2.5ML NEB SCH ×2 (08:00→14:00)
[2020-07-08] MEDS ORDERED: ENOXAPARIN 40 MG/0.4 ML SQ ONE (09:34)
--- NOTE | 2020-07-08 09:36 | RAD REPORT ---
EXAM DESCRIPTION: RAD - Chest Single View - 07/08/2020 3:49 am CLINICAL HISTORY: CHEST PAIN Chest pain. COMPARISON: Chest Single View dated 06/29/2020; Chest Single View dated 06/01/2020; Chest Single View dated 04/08/2020; Chest Single View dated 03/14/2020 FINDINGS: Portable technique limits examination quality. Extensive bilateral pulmonary opacities are present probably representing viral infection/ COVID-19 i nfection. Pulmonary edema would be a less likely possibility. The heart is upper limit normal in size .
[2020-07-08] MEDS: INSULIN -REGULAR HUMAN 50 UNIT/0.5 ML ML SQ SCH ×4 (10:00→20:52)
[2020-07-08] MEDS: ENOXAPARIN 40 MG/0.4 ML SQ SCH (10:00)
[2020-07-08] MEDS: FUROSEMIDE 40 MG/4 ML VIAL IV SCH ×2 (10:00→16:52)
[2020-07-08] MEDS ORDERED: INSULIN -REGULAR HUMAN 50 UNIT/0.5 ML ML ONE ×2 (10:15→12:37)
[2020-07-08 10:39] VITALS: BMI 33.2
[2020-07-08] MEDS ORDERED: IPRATROPIUM BROM 0.5MG/2.5ML NEB PRN (15:38)
[2020-07-09] MEDS: BENZONATATE 100 MG CAP PO PRN (00:29)
[2020-07-09] MEDS: HYDROCODONE/APAP 7.5/325 MG TAB PO PRN (00:29)
[2020-07-09] MEDS: FUROSEMIDE 40 MG/4 ML VIAL IV SCH ×2 (00:31→07:58)
[2020-07-09] MEDS: GABAPENTIN 400 MG CAP PO SCH ×4 (00:31→21:51)
[2020-07-09 04:44] LABS: Absolute Lymphocytes (CBC) 0.8 K/uL (0.7-4.9); Basophils % 0.2 % (0-1.3); Hematocrit 30.5 % (36.0-45.0); Lymphocytes % 11.4 % (15.3-44.8); MPV 10.3 fL (7.6-11.3); RBC Red Blood Cell Count 3.68 M/uL (3.86-4.86)
[2020-07-09 04:56] LABS: Albumin 2.4 g/dL (3.4-5.0); Bilirubin Total 0.4 mg/dL (0.2-1.0); Phosphorus 3.3 mg/dL (2.5-4.9); Potassium 3.3 mmol/L (3.5-5.1); Protein, Total 6.2 g/dL (6.4-8.2)
[2020-07-09 04:57] LABS: Magnesium 1.7 mg/dL (1.8-2.4)
[2020-07-09] MEDS: ENOXAPARIN 40 MG/0.4 ML SQ SCH (07:58)
[2020-07-09] MEDS: INSULIN -REGULAR HUMAN 50 UNIT/0.5 ML ML SQ SCH ×4 (07:59→21:52)
[2020-07-09] MEDS ORDERED: GLUCAGON 1 MG/VIAL IM PRN (10:37)
[2020-07-09] MEDS ORDERED: D50W 25 GM/50 ML SYRINGE IV PRN (10:37)
[2020-07-09] MEDS ORDERED: IVERMECTIN 3 MG TABLET PO ONE (10:42)
--- NOTE | 2020-07-09 10:43 | P.PN ---
Subjective Date of Service: 07/09/20 (Hospital is) Chief Complaint: Respiratory failure from arnold virus Subjective: Improving (Patient is doing better was recently diagnosed with arnold virus she is currently nasal cannula oxygen) Review of Systems General: Weakness Respiratory: Shortness of Breath Physical Examination - Vital Signs Temperature: 97.3 F Blood Pressure: 130/70 Pulse: 65 Respirations: 17 Pulse Ox (%): 90 - Physical Exam General: Alert, In no apparent distress Respiratory: Clear to auscultation bilaterally Cardiovascular: No edema, Normal S1 S2 Assessment & Plan - Problems (Diagnosis) (1) Acute respiratory failure due to severe acute respiratory syndrome coronavirus 2 (SARS-CoV-2) infection Current Visit: Yes Status: Acute Plan: Patient is 59 years of age admitted with respiratory failure from arnold virus stable on 2 L of nasal cannula oxygen chest x-ray shows bilateral pulmonary infiltrate renal failure the trial of IV fluids patient has multiple problems including coronary artery disease will resume her home medications continue to monitor possible discharge tomorrow for home oxygen possible discharge tomorrow BNP was also very elevated reduce dose of Lasix as no evidence of volume overload renal insufficiency continue to monitor
[2020-07-09] MEDS: METHYLPREDNISOLONE 125 MG INJ IV SCH ×2 (11:16→21:51)
[2020-07-09] MEDS: INSULIN 70/30 100 UNITS/ML SQ SCH (16:56)
[2020-07-09] MEDS: METOPROLOL TAR 25 MG TAB PO SCH (17:35)
[2020-07-09] MEDS: ATORVASTATIN 20 MG TAB PO SCH (21:51)
[2020-07-10] MEDS: BENZONATATE 100 MG CAP PO PRN (04:21)
[2020-07-10] MEDS: HYDROCODONE/APAP 7.5/325 MG TAB PO PRN (04:21)
[2020-07-10 05:30] LABS: Potassium 3.7 mmol/L (3.5-5.1)
[2020-07-10] MEDS: METOPROLOL TAR 25 MG TAB PO SCH ×2 (06:09→18:40)
[2020-07-10] MEDS ORDERED: D50W 25 GM/50 ML VIAL IV PRN (08:00)
[2020-07-10] MEDS: FUROSEMIDE 40 MG TABLET PO SCH (08:53)
[2020-07-10] MEDS: ENOXAPARIN 40 MG/0.4 ML SQ SCH (08:53)
[2020-07-10] MEDS: INSULIN 70/30 100 UNITS/ML SQ SCH ×2 (08:53→17:29)
[2020-07-10] MEDS: FLUOXETINE 10 MG CAP PO SCH (08:53)
[2020-07-10] MEDS: GABAPENTIN 400 MG CAP PO SCH ×3 (08:54→21:10)
[2020-07-10] MEDS: LEVOTHYROXINE SOD 0.05 MG TABLET PO SCH (08:54)
[2020-07-10] MEDS: CLOPIDOGREL 75 MG TABLET PO SCH (08:54)
[2020-07-10] MEDS: METHYLPREDNISOLONE 125 MG INJ IV SCH (08:55)
[2020-07-10] MEDS: INSULIN -REGULAR HUMAN 50 UNIT/0.5 ML ML SQ SCH ×4 (08:55→21:12)
[2020-07-10] MEDS: METHYLPREDNISOLONE 40 MG INJ IV SCH ×2 (08:56→21:10)
--- NOTE | 2020-07-10 08:59 | P.DS ---
Admission Date: 07/08/20 (Hospitalist) Discharge Date: 07/10/20 Disposition: ROUTINE DISCHARGE Discharge Condition: FAIR Reason for Admission: Respiratory failure from arnold virus - Problems (1) Acute respiratory failure due to severe acute respiratory syndrome coronavirus 2 (SARS-CoV-2) infection Current Visit: Yes Status: Acute Brief History of Present Illness: Patient is 59 years of age admitted with arnold virus infection Hospital Course: Patient did well during the course of the stay recovered quickly and discharge patient was to stable on 2 L of nasal cannula oxygen renal function is slightly worse patient has been instructed to hold the enalapril and be discharged home on prednisone 1 dose off ivermectin will be given she has been instructed to follow up with Nephrology ultrasound ordered not sure if he will be able to done patient does not appear to be septic patient received 2 doses of ivermectin on examination alert oriented responsive cooperative vital signs all stable chest clear cardiovascular system os sounds normal abdomen soft Vital Signs/Physical Exam: Temp Pulse Resp BP Pulse Ox 97.0 F 58 17 126/67 89 L 07/10/20 04:00 07/10/20 08:53 07/10/20 05:21 07/10/20 08:53 07/10/20 05:21 Laboratory Data at Discharge: WBC 7.20 K/uL (4.3-10.9) 07/09/20 03:58 Hgb 10.2 g/dL (12.0-15.0) L 07/09/20 03:58 Hct 30.5 % (36.0-45.0) L 07/09/20 03:58 Plt Count 196 K/uL (152-406) 07/09/20 03:58 PT 11.2 SECONDS (9.5-12.5) 07/08/20 03:45 INR 0.97 07/08/20 03:45 Sodium 138 mmol/L (136-145) 07/10/20 04:02 Potassium 3.7 mmol/L (3.5-5.1) 07/10/20 04:02 BUN 46 mg/dL (7-18) H 07/10/20 04:02 Creatinine 1.68 mg/dL (0.55-1.3) H 07/10/20 04:02 Glucose 256 mg/dL (74-106) H 07/10/20 04:02 Phosphorus 3.3 mg/dL (2.5-4.9) 07/09/20 03:58 Magnesium 1.7 mg/dL (1.8-2.4) L 07/09/20 03:58 Total Bilirubin 0.4 mg/dL (0.2-1.0) 07/09/20 03:58 AST 17 U/L (15-37) 07/09/20 03:58 ALT 13 U/L (12-78) 07/09/20 03:58 Alkaline Phosphatase 63 U/L (45-117) 07/09/20 03:58 Home Medications: Insulin 70/30 NPH/Reg Human [Novolin 70/30*] 20 unit SQ DAILY WITH BREAKFAST 05/10/13 Gabapentin 1 cap PO TID 04/09/20 Hydrocodone Bit/Acetaminophen [[place] 7.5-325 Tablet] 1 tab PO Q6HP PRN 04/09/20 Levothyroxine Sodium [Synthroid] 150 mcg PO DAILY 04/09/20 Atorvastatin Calcium [Lipitor*] 40 mg PO BEDTIME 30 Days #30 tab 04/16/20 Albuterol Inhaler [Ventolin Inhaler*] 2 puff IH Q4HP PRN 06/02/20 Clopidogrel Bisulfate [Plavix*] 75 mg PO DAILY #30 tablet 06/02/20 Fluoxetine HCl [Prozac*] 40 mg PO DAILY 06/02/20 Furosemide [Lasix] 40 mg PO DAILY #30 tablet 06/02/20 Insulin 70/30 NPH/Reg Human [Novolin 70/30*] 30 unit SQ DAILY AT SUPPER 06/30/20 Metoprolol Tartrate [Lopressor*] 25 mg PO BID 6AM 6PM #60 tab 07/01/20 Methylpred Na Suc [Solu-Medrol*] 80 mg IV Q12HR vial 07/10/20 predniSONE [Deltasone*] 10 mg PO BID #20 tab 07/10/20 New Medications: predniSONE [Deltasone*] 10 mg PO BID #20 tab Physician Discharge Instructions: Patient to go do a telephone visit with me in 1 week prednisone sent to the pharmacy please make sure patient gets 1 dose of ivermectin prior to discharge/ Patient to hold the enalapril to see Nephrology prior to discharge Diet: Regular Activity: Ad matt Followup: Unknown,U [Primary Care Provider] -
[2020-07-10] MEDS ORDERED: IVERMECTIN 3 MG TABLET PO ONE (09:00)
[2020-07-10 14:20] LABS: Thyroid Stimulating Hormone 2.91 uIU/mL (0.360-3.740)
--- NOTE | 2020-07-10 14:42 | RAD REPORT ---
EXAM DESCRIPTION: US - Renal Ultrasound-Complete - 07/10/2020 1:33 pm CLINICAL HISTORY: Renal failure COMPARISON: [place] Protocol dated 02/01/2019 FINDINGS: The right kidney measures 11.3 x 4.2 x 3.9 cm. The left kidney measures 11.0 x 4.4 x 3.7 cm. Renal cortical thickness and echogenicity are normal. No right-sided hydronephrosis. Dilated left renal pelvis matches the 2019 study and is not believed be acute. No suspicious mass of either kidne y. Bladder assessment is limited. No gross abnormality seen. IMPRESSION: No hydronephrosis or suspicious renal mass. No gross bladder abnormality seen.
[2020-07-10] MEDS: ATORVASTATIN 20 MG TAB PO SCH (21:10)
[2020-07-11] MEDS: METOPROLOL TAR 25 MG TAB PO SCH (06:25)
[2020-07-11] MEDS: INSULIN -REGULAR HUMAN 50 UNIT/0.5 ML ML SQ SCH ×2 (08:26→11:41)
[2020-07-11] MEDS: INSULIN 70/30 100 UNITS/ML SQ SCH (08:31)
[2020-07-11] MEDS: GABAPENTIN 400 MG CAP PO SCH ×2 (08:32→12:54)
[2020-07-11] MEDS: ENOXAPARIN 40 MG/0.4 ML SQ SCH (08:32)
[2020-07-11] MEDS: METHYLPREDNISOLONE 40 MG INJ IV SCH (08:33)
[2020-07-11] MEDS: LEVOTHYROXINE SOD 0.05 MG TABLET PO SCH (08:33)
[2020-07-11] MEDS: CLOPIDOGREL 75 MG TABLET PO SCH (08:33)
[2020-07-11] MEDS: FLUOXETINE 10 MG CAP PO SCH (08:35)
[2020-07-11] MEDS: FUROSEMIDE 40 MG TABLET PO SCH (08:35)
[2020-07-11] MEDS: BENZONATATE 100 MG CAP PO PRN (08:52)
[2020-07-11] MEDS: HYDROCODONE/APAP 7.5/325 MG TAB PO PRN (08:52)
[2020-07-11 12:43] VITALS: BP 134/66; TEMP 96.9
[2020-07-11 13:44] VITALS: O2SAT 95
--- NOTE | 2020-07-11 21:09 | P.PN ---
Date of Service: 07/11/20 Vital Signs Temp Pulse Resp BP Pulse Ox 96.9 F 63 22 H 134/66 95 07/11/20 12:00 07/11/20 12:00 07/11/20 12:00 07/11/20 12:00 07/11/20 12:00 Assessment/ Plan: Nephrology No acute cardiac or pulmonary complaints. No CP or SOB. No acute events overnight. Vitals, medications, blood work and imaging reviewed in the chart. NAD. MMM. Neck supple. CTA. RRR. Soft Abd. No C/C/E. No rash. AAO. Normal Speech. A/P: Continue the current POC and Medications other than the changes listed. AM Labs PRN. Recommend daily weight. Please see the orders for complete details. CKD III -No NSAIDs Hypokalemia -Replete potassium prn Hypomagnesemia -Replete magnesium HTN with CKD -Continue Metoprolol DM II with CKD -Continue insulin Moderate malnutrition -Recommend protein supplementation Anemia in chronic illness -Monitor H&H
[2020-07-12] MEDS ORDERED: FLUOXETINE 20 MG CAP PO SCH (09:00)
--- NOTE | 2020-07-13 14:52 | CON ---
Date of Consultation: 07/10/2020 History Of Present Illness: Patient is a 59-year-old female seen on fourth floor at [facility]. Patient is looking clinically stable currently. She is breathing comfortably but requiring oxygen to keep her O2 sats above 90%. Her blood pressure is stable at 116/63. She still i s having some mild shortness of breath more than her baseline, has recently been diagnosed with COVID -19, and has been quarantining at home. Patient has been on steroids, has gotten ivermectin. Joni hagen, the plan is to discharge her with 2 L oxygen and she is awaiting oxygen setup for home. She has some chronic kidney disease from before, follows up in our practice with Dr. Kapoor as her primary ca re doctor. She has also seen me in the past for nephrology. Patient denies any difficulty with pain . Currently, she feels like her breathing is somewhat stable and she seems to have improved compared to when she came in. Physical Examination: Vital Signs: On evaluation, she is afebrile. Heart rate is about 70. O2 saturations are about 90% to 93%; on 2 L nasal cannula, it is about 93%. Lungs: Clear anteriorly. Abdomen: Soft. Extremities: Reveal no edema. Skin: Dry. Heart: Sounds are regular. Family History: Noncontributory. Allergies: REVIEWED. PATIENT IS ALLERGIC TO LATEX, NATURAL RUBBER, METFORMIN, IODINE. Laboratory Data: Reviewed. Patient's labs show WBC 7.2 yesterday, hemoglobin and hematocrit 10.2 an d 30.5, platelet count of 196. Chemistries show sodium 138, potassium 3.7, chloride 104, bicarb is 2 6, BUN 46, creatinine 1.68. Her glucose was elevated in the 150-200 range. Medications: Reviewed. Assessment And Plan: Patient is a pleasant 59-year-old female with history of diabetes, mild diabeti c nephropathy. Patient has now COVID-19, presents with respiratory failure, awaiting oxygen setup to go back at home. Agree with holding off on LEX inhibitor for now given slight worsening of her valeri l disease. Agree with cutting back on Lasix to only once a day. Patient can take 40 mg once a day L asix when she gets home. Advised to keep water intake adequate. Patient is on prednisone and iverme ctin, planning for oxygen as per Dr. Matson. Continue monitoring her sugars and blood pressure at home. Patient has been advised to follow up with Dr. Kapoor, her primary care physician, also with me for evaluation of her kidney function, CKD status once acute issues are resolved. Patient knows how to reach us. She has seen us in the past and knows how to reach our office. In summary, hold enalapril, continue Lasix at once a day, keep water intake adequate. Patient's volu me status seems to be okay. Respiratory failure seems to be secondary to COVID, planning for COVID t reatment and quarantine as per Dr. Matson. I appreciate your consultation. /ANA Voice ID: [id number] Report ID: [id number]
--- NOTE | 2020-07-28 14:51 | P.DS ---
Discharge Date: 07/11/20 Disposition: ROUTINE DISCHARGE Discharge Condition: FAIR Reason for Admission: Respiratory failure from arnold virus Consultations: Nephrology Brief History of Present Illness: Patient is a 59-year-old gentleman who came to the hospital with COVID-19 pneumonia. Patient was treated with IV steroids along with nebs. Patient was admitted to the hospital for further evaluation. Hospital Course: Patient has done well with nebs, steroids and ivermectin. Patient did well during hospital stay. Patient was supposed to go home yesterday but decision was made to hold discharge until today. Patient stable for discharge. Vital Signs/Physical Exam: Temp Pulse Resp BP Pulse Ox 96.9 F 63 22 H 134/66 95 07/11/20 12:00 07/11/20 12:00 07/11/20 12:00 07/11/20 12:00 07/11/20 12:00 General: Alert, In no apparent distress, Oriented x3 Laboratory Data at Discharge: WBC 7.20 K/uL (4.3-10.9) 07/09/20 03:58 Hgb 10.2 g/dL (12.0-15.0) L 07/09/20 03:58 Hct 30.5 % (36.0-45.0) L 07/09/20 03:58 Plt Count 196 K/uL (152-406) 07/09/20 03:58 PT 11.2 SECONDS (9.5-12.5) 07/08/20 03:45 INR 0.97 07/08/20 03:45 Sodium 138 mmol/L (136-145) 07/10/20 04:02 Potassium 3.7 mmol/L (3.5-5.1) 07/10/20 04:02 BUN 46 mg/dL (7-18) H 07/10/20 04:02 Creatinine 1.68 mg/dL (0.55-1.3) H 07/10/20 04:02 Glucose 256 mg/dL (74-106) H 07/10/20 04:02 Phosphorus 3.3 mg/dL (2.5-4.9) 07/09/20 03:58 Magnesium 1.7 mg/dL (1.8-2.4) L 07/09/20 03:58 Total Bilirubin 0.4 mg/dL (0.2-1.0) 07/09/20 03:58 AST 17 U/L (15-37) 07/09/20 03:58 ALT 13 U/L (12-78) 07/09/20 03:58 Alkaline Phosphatase 63 U/L (45-117) 07/09/20 03:58 Home Medications: Gabapentin 1 cap PO TID 04/09/20 Hydrocodone Bit/Acetaminophen [[place] 7.5-325 Tablet] 1 tab PO Q6HP PRN 04/09/20 Levothyroxine Sodium [Synthroid] 150 mcg PO DAILY 04/09/20 Atorvastatin Calcium [Lipitor*] 40 mg PO BEDTIME 30 Days #30 tab 04/16/20 Albuterol Inhaler [Ventolin Inhaler*] 2 puff IH Q4HP PRN 06/02/20 Clopidogrel Bisulfate [Plavix*] 75 mg PO DAILY #30 tablet 06/02/20 Fluoxetine HCl [Prozac*] 40 mg PO DAILY 06/02/20 Furosemide [Lasix] 40 mg PO DAILY #30 tablet 06/02/20 Insulin 70/30 NPH/Reg Human [Novolin 70/30*] 30 unit SQ DAILY AT SUPPER 06/30/20 Metoprolol Tartrate [Lopressor*] 25 mg PO BID 6AM 6PM #60 tab 07/01/20 Apixaban [Eliquis *] 2.5 mg PO BID #20 tablet 07/17/20 Ascorbic Acid [Vitamin C*] 500 mg PO QID #60 tablet 07/17/20 Cholecalciferol (Vitamin D3) [Vitamin D 5,000 IU Cap*] 5,000 unit PO DAILY #30 cap 07/17/20 Famotidine [Pepcid] 20 mg PO BID #60 tablet 07/17/20 Ivermectin 12 mg PO Q72H #8 tablet 07/17/20 Zinc Sulfate [Zinc Sulfate*] 220 mg PO DAILY #30 cap 07/17/20 predniSONE [Prednisone*] 20 mg PO BID #21 tab 07/17/20 Physician Discharge Instructions: Patient to go do a telephone visit with me in 1 week prednisone sent to the pharmacy please make sure patient gets 1 dose of ivermectin prior to discharge/ Patient to hold the enalapril/patient to follow up with Nephrology Diet: Regular Activity: Ad matt Followup: Dominick Matson MD [ACTIVE - CAN ADMIT] - Unknown,U [Primary Care Provider] - MICKI CARSON BARBARA [OUTSIDE PHYSICIAN] - Time spent managing pt's care (in minutes): 35
== END 2020-07-11 16:00 | disposition home or self-care (01) | DRG 177 ==
LOC: ER 02:41 → ERHOLD 06:58 → 4TH 13:21
PROVIDERS: ADMIT Internal Medicine Sleep Medicine; ATTEND Hospitalist
DX: U07.1 COVID-19 (principal); J96.00 Acute respiratory failure, unspecified whether with hypoxia or hypercapnia; I50.31 Acute diastolic (congestive) heart failure; I13.0 Hypertensive heart and chronic kidney disease with heart failure and stage 1 through stage 4 chronic kidney disease, or unspecified chronic kidney disease; E44.0 Moderate protein-calorie malnutrition; N18.30 Chronic kidney disease, stage 3 unspecified; E11.22 Type 2 diabetes mellitus with diabetic chronic kidney disease; E78.5 Hyperlipidemia, unspecified; E03.9 Hypothyroidism, unspecified; K21.9 Gastro-esophageal reflux disease without esophagitis; I25.10 Atherosclerotic heart disease of native coronary artery without angina pectoris; E87.6 Hypokalemia; E83.42 Hypomagnesemia; D63.8 Anemia in other chronic diseases classified elsewhere; R07.9 Chest pain, unspecified; Z79.4 Long term (current) use of insulin; Z91.048 Other nonmedicinal substance allergy status; Z79.52 Long term (current) use of systemic steroids; Z68.33 Body mass index [BMI] 33.0-33.9, adult; Z91.040 Latex allergy status; Z79.890 Hormone replacement therapy; Z79.02 Long term (current) use of antithrombotics/antiplatelets; Z79.899 Other long term (current) drug therapy; Z95.5 Presence of coronary angioplasty implant and graft; Z88.8 Allergy status to other drugs, medicaments and biological substances
CPT/HCPCS: 36415; 71045; 76770; 80048; 80053; 80076; 82728; 82947; 83735; 83880; 84100; 84443; 84484; 85025; 85610; 86140; 96374; 96375; 99285; J1100; J1650; J1815; J1940; J2405; J2920; J2930

== ENCOUNTER 2020-07-14 17:57 | Inpatient (IN) | payer OTHER ==
--- OUTSIDE RECORDS SUMMARY | 2020-07-14 18:14 | XMS REPORT | Continuity of Care Document ---
:1960 Author Organization [facility] t Address [address] [place] [address] Care Team Providers Name Role Phone Doctor [...] ID 2019-12-04 2019-12-04 Orders Doctor DARSHANA [id number] 00:00:00 00:00:00 Only UnassignedJEFFREY [id number] [place] [facility] [id number] 2019-11-25 2019-11-25 Office [place] [id number] 14:41:52 15:49:56 Visit Erica Grimaldo [id number] [place] [id number] [place] [id number] [address] 2019-04-08 2019-04-08 Emergency E [facility] [id number] [facility] 20:32:00 20:32:00 2018-10-20 2018-10-20 Emergency E [facility] [id number] [facility] 10:28:00 10:28:00 Results This patient has no known results.
--- NOTE | 2020-07-14 19:28 | RAD REPORT ---
EXAM DESCRIPTION: Panda Single View07/14/2020 7:19 pm CLINICAL HISTORY: Shortness of breath COMPARISON: July 08, 2020 FINDINGS: Moderate to marked bilateral pulmonary opacities minimally improved. Heart is mildly enla rged IMPRESSION: Moderate to marked bilateral pulmonary opacities could represent pneumonia or pulmonary edema
[2020-07-14 20:12] LABS: Albumin 2.8 g/dL (3.4-5.0); Bilirubin Direct 0.3 mg/dL (0-0.2); Bilirubin Total 1.1 mg/dL (0.2-1.0); C-Reactive Protein 55.5 mg/L (<3.00); Ferritin 622.3 ng/mL (8-388); Potassium 3.2 mmol/L (3.5-5.1); Protein, Total 7.1 g/dL (6.4-8.2); Troponin (Emerg Dept Use Only) 0.02 ng/mL (0.0-0.045)
[2020-07-14] MEDS ORDERED: METHYLPREDNISOLONE 125 MG INJ ONE (20:13)
[2020-07-14] MEDS ORDERED: ONDANSETRON 4 MG/2 ML VIAL ONE (20:13)
[2020-07-14] MEDS ORDERED: NA CHLORIDE 0.9% 1,000 ML ONE (20:14)
[2020-07-14 20:33] LABS: Absolute Lymphocytes (CBC) 0.4 K/uL (0.7-4.9); Basophils % 0.2 % (0-1.3); Hematocrit 37.3 % (36.0-45.0); Lymphocytes % 5.7 % (15.3-44.8); MPV 9.5 fL (7.6-11.3); RBC Red Blood Cell Count 4.49 M/uL (3.86-4.86)
--- NOTE | 2020-07-14 20:34 | ER ---
Nurse's Notes [facility] Name: Shana Patel Age: 59 yrs Sex: Female : 1960 Arrival Date: 07/14/2020 Time: 17:58 Bed 13 Private MD: Diagnosis: Coronavirus infection, unspecified;Hypoxia;Nausea and vomiting;Diarrhea, unspecified Presentation: 07/14 18:15 Chief complaint: Patient states: i started feeling bad last night. Coronavirus screen: tw2 Client presents with at least one sign or symptom that may indicate coronavirus-19. Standard/surgical mask placed on the client. Provider contacted for isolation considerations. Ebola Screen: Patient denies travel to an Ebola-affected area in the 21 days before illness onset. Initial Sepsis Screen: Does the patient meet any 2 criteria? No. Patient's initial sepsis screen is negative. Does the patient have a suspected source of infection? No. Patient's initial sepsis screen is negative. Risk Assessment: Do you want to hurt yourself or someone else? Patient reports no desire to harm self or others. Onset of symptoms was July 14, 2020. 18:15 Method Of Arrival: Wheelchair tw2 18:15 Acuity: TERESA 2 tw2 Triage Assessment: 18:16 General: Appears ill, Behavior is appropriate for age. Pain: Complains of pain in tw2 abdomen. Respiratory: Reports shortness of breath at rest on exertion Onset: The symptoms/episode began/occurred yesterday, the patient has moderate shortness of breath. Historical: - Allergies: 18:21 Adhesives; tw2 18:21 IV contrast; tw2 18:21 Metformin HCl; tw2 18:21 Latex, Natural Rubber; tw2 - Home Meds: 18:21 Novolog Sub-Q [Active]; Lyrica Oral 2 times per day [Active]; lisinopril 10 mg Oral tab tw2 1 tab once daily [Active]; levothyroxine oral 1 tab once daily [Active]; hydrocodone-acetaminophen 7.5-325 mg Oral tab 1 tab every 6 hours [Active]; clopidogrel 75 mg Oral tab 1 tab once daily [Active]; furosemide 40 mg Oral tab 1 tab once daily [Active]; - PMHx: 18:21 Arthritis; Diabetes - IDDM; Fibromyalgia; GERD; Hypertension; Hypothyroidism; tw2 neuropathy; rectocele; spinal stenosis; - PSHx: 18:21 Hernia repair; Cholecystectomy; ; tw2 - Immunization history:: Adult Immunizations. - Social history:: Smoking status: . Screenin:24 Abuse screen: Denies threats or abuse. Nutritional screening: No deficits noted. em Tuberculosis screening: No symptoms or risk factors identified. Fall Risk None identified. Assessment: 18:47 Reassessment: pt called to go to exam room at this time pt states "i am not ready i am tw2 having diarrhea". 20:28 General: Appears in no apparent distress. uncomfortable, Behavior is calm, cooperative, em appropriate for age, Reports feeling ill for > 3 days, fatigue for >3 days. Pain: Complains of pain in chest and abdomen Pain currently is 8 out of 10 on a pain scale. Neuro: Level of Consciousness is awake, alert, obeys commands, Oriented to person, place, time, situation. Cardiovascular: Rhythm is sinus rhythm. Respiratory: Airway is patent Respiratory effort is even, unlabored, Respiratory pattern is regular, symmetrical. GI: Reports nausea. Derm: Skin is intact, is thin, Skin is pink, warm \\T\\ dry. Musculoskeletal: Capillary refill < 3 seconds, Range of motion: intact in all extremities. 23:30 Reassessment: Patient appears in no apparent distress at this time. Patient and/or em family updated on plan of care and expected duration. Pain level reassessed. Patient is alert, oriented x 3, equal unlabored respirations, skin warm/dry/pink. 07/15 01:00 Reassessment: request something for pain and nausea medication, KATERYNA Whalen notified, em received VO for new medication. Vital Signs: 07/14 18:15 BP 153 / 87; Pulse 77; Resp 16; Temp 97.9(TE); Pulse Ox 87% on 2 lpm NC; Weight 76.66 tw2 kg (R); 18:15 pt placed on 4L nc at this time tw2 ED Course: 17:58 Patient arrived in ED. as 18:16 Triage completed. tw2 18:17 Arm band placed on. tw2 18:56 Clara [facility]avera [facility]C [facility]. kb 18:56 Clyde Jordan MD is Attending Physician. kb 19:01 Alex Figueroa, ESPERANZA is Primary Nurse. bp 19:19 CXR XRAY In Process Unspecified. EDMS 19:30 Patient has correct armband on for positive identification. Bed in low position. Call em light in reach. Adult w/ patient. environmental monitoring technician on. Pulse ox on. NIBP on. 19:30 No provider procedures requiring assistance completed. Initial lab(s) drawn, by me, em sent to lab. Inserted saline lock: 20 gauge in right antecubital area, using aseptic technique. Blood collected. 20:34 Omega Macedo MD is Hospitalizing Provider. kb 07/15 01:49 Patient admitted, IV remains in place. em Administered Medications: 07/14 20:25 Drug: Zofran (Ondansetron) 4 mg Route: IVP; Site: right antecubital; em 22:14 Follow up: Response: No adverse reaction; Marked relief of symptoms; Nausea is decreasedem 20:27 Drug: SOLU-Medrol 125 mg Route: IVP; Site: right antecubital; em 22:14 Follow up: Response: No adverse reaction em 20:27 Drug: NS 0.9% 1000 ml Route: IV; Rate: 1000 ml; Site: right antecubital; em 22:14 Follow up: IV Status: Completed infusion; IV Intake: 1000ml em 21:33 Drug: Potassium Chloride 40 mEq Route: PO; em 07/15 01:47 Follow up: Response: No adverse reaction em 01:32 Drug: Zofran (Ondansetron) 4 mg Route: IVP; Site: left antecubital; em 01:47 Follow up: Response: No adverse reaction em 01:34 Drug: TORadol - Ketorolac 10 mg Route: IVP; Site: left antecubital; em 01:47 Follow up: Response: No adverse reaction em Intake: 07/14 22:14 IV: 1000ml; Total: 1000ml. em Outcome: 20:34 Decision to Hospitalize by Provider. kb 07/15 01:48 Admitted to Tele accompanied by tech, via stretcher, room 412, with chart, Report em called to ESPERANZA [place] Condition: stable Instructed on the need for admit, Demonstrated understanding of instructions. 02:06 Patient left the ED. em Signatures: Dispatcher [employer] Clara Neal, [employer] F[employer]-C ANITA-Carmelo Harris, RN RN em Nahomi Leonard as Therese Jurado, RN RN tw2 Alex Figueroa, RN RN bp
--- NOTE | 2020-07-14 20:34 | EDPHYS ---
Physician Documentation [facility] Name: Shana Patel Age: 59 yrs Sex: Female : 1960 Arrival Date: 07/14/2020 Time: 17:58 Bed 13 Private MD: JENNIE Physician Clyde Jordan HPI: 07/14 20:30 This 59 yrs old Female presents to ER via Wheelchair with complaints of kb Shortness Of Breath, Weakness. 20:30 The patient or guardian reports cough, that is intermittent, described as mild, kb difficulty breathing, flu symptoms, myalgias, no appetite. Onset: The symptoms/episode began/occurred yesterday. Severity of symptoms: At their worst the symptoms were moderate, in the emergency department the symptoms are unchanged. Modifying factors: The symptoms are alleviated by nothing, the symptoms are aggravated by nothing. Associated signs and symptoms: Pertinent positives: diarrhea, nausea, vomiting. The patient has not experienced similar symptoms in the past. The patient has not recently seen a physician. Pt diagnosed with COVID 2 weeks ago. States her symptoms got worse yesterday. c/o n/v/d, but also has cough and shortness of breath. Historical: - Allergies: 18:21 Adhesives; tw2 18:21 IV contrast; tw2 18:21 Metformin HCl; tw2 18:21 Latex, Natural Rubber; tw2 - Home Meds: 18:21 Novolog Sub-Q [Active]; Lyrica Oral 2 times per day [Active]; lisinopril 10 mg Oral tab tw2 1 tab once daily [Active]; levothyroxine oral 1 tab once daily [Active]; hydrocodone-acetaminophen 7.5-325 mg Oral tab 1 tab every 6 hours [Active]; clopidogrel 75 mg Oral tab 1 tab once daily [Active]; furosemide 40 mg Oral tab 1 tab once daily [Active]; - PMHx: 18:21 Arthritis; Diabetes - IDDM; Fibromyalgia; GERD; Hypertension; Hypothyroidism; tw2 neuropathy; rectocele; spinal stenosis; - PSHx: 18:21 Hernia repair; Cholecystectomy; ; tw2 - Immunization history:: Adult Immunizations. - Social history:: Smoking status: . ROS: 20:29 Constitutional: Negative for fever, chills, and weight loss, Cardiovascular: Negative kb for chest pain, palpitations, and edema, Back: Negative for injury and pain, MS/Extremity: Negative for injury and deformity, Skin: Negative for injury, rash, and discoloration, Neuro: Negative for headache, weakness, numbness, tingling, and seizure. 20:29 Respiratory: Positive for cough, dyspnea on exertion, shortness of breath. 20:29 Abdomen/GI: Positive for nausea, vomiting, and diarrhea, Negative for abdominal pain. Exam: 20:29 Constitutional: This is a well developed, well nourished patient who is awake, alert, kb and in no acute distress. Head/Face: Normocephalic, atraumatic. Chest/axilla: Normal chest wall appearance and motion. Nontender with no deformity. No lesions are appreciated. Cardiovascular: Regular rate and rhythm with a normal S1 and S2. No gallops, murmurs, or rubs. Normal PMI, no JVD. No pulse deficits. Respiratory: Lungs have equal breath sounds bilaterally, clear to auscultation and percussion. No rales, rhonchi or wheezes noted. No increased work of breathing, no retractions or nasal flaring. Abdomen/GI: Soft, non-tender, with normal bowel sounds. No distension or tympany. No guarding or rebound. No evidence of tenderness throughout. Skin: Warm, dry with normal turgor. Normal color with no rashes, no lesions, and no evidence of cellulitis. MS/ Extremity: Pulses equal, no cyanosis. Neurovascular intact. Full, normal range of motion. 20:29 Neuro: Orientation: is normal, Mentation: is normal, Motor: is normal, Sensation: is normal, Gait: is steady. Vital Signs: 18:15 BP 153 / 87; Pulse 77; Resp 16; Temp 97.9(TE); Pulse Ox 87% on 2 lpm NC; Weight 76.66 tw2 kg (R); 18:15 pt placed on 4L nc at this time tw2 MDM: 18:57 Patient medically screened. kb 20:28 Data reviewed: vital signs, nurses notes. Data interpreted: Pulse oximetry: on room air kb is 87 %. Interpretation: hypoxia. Plan: O2 by NC applied. Counseling: I had a detailed discussion with the patient and/or guardian regarding: the historical points, exam findings, and any diagnostic results supporting the discharge/admit diagnosis, lab results, radiology results, the need for further work-up and treatment in the hospital. 20:33 Physician consultation: Koby AVENDAÑO was contacted at 20:33, regarding admission, to the telemetry unit. patient's condition, and will see patient in ED, shortly. 07/14 18:58 Order name: Blood Culture Adult (2) 07/14 18:58 Order name: BMP 07/14 18:58 Order name: C-Reactive Protein 07/14 18:58 Order name: CBC with Diff 07/14 18:58 Order name: D-Dimer 07/14 18:58 Order name: Ferritin 07/14 18:58 Order name: Lactate 07/14 18:58 Order name: LFT's 07/14 18:58 Order name: Lipase 07/14 18:58 Order name: Procalcitonin 07/14 18:58 Order name: PT-INR 07/14 18:58 Order name: Ptt, Activated 07/14 18:58 Order name: Troponin (emerg Dept Use Only); Complete Time: 20:18 07/14 18:58 Order name: CXR XRAY; Complete Time: 19:42 07/14 18:59 Order name: Blood Culture EDMN 07/14 18:59 Order name: Basic Metabolic Panel; Complete Time: 20:18 EDMN 07/14 18:59 Order name: C-Reactive Protein; Complete Time: 20:18 EDMN 07/14 18:59 Order name: CBC with Automated Diff [facility] 07/14 18:59 Order name: D-Dimer; Complete Time: 20:42 EDMN 07/14 18:59 Order name: Ferritin; Complete Time: 20:18 EDMN 07/14 18:59 Order name: Lactate; Complete Time: 20:10 EDMN 07/14 18:59 Order name: Liver (Hepatic) Function; Complete Time: 20:18 EDMN 07/14 18:59 Order name: Lipase; Complete Time: 20:18 EDMN 07/14 18:59 Order name: Procalcitonin; Complete Time: 20:27 EDMN 07/14 18:59 Order name: Protime (+INR); Complete Time: 20:42 EDMN 07/14 18:59 Order name: PTT, Activated Partial Thromb; Complete Time: 20:42 EDMS 07/14 20:43 Order name: CT Chest For PE Angio kb 07/14 22:33 Order name: SARS-COV-2 RT PCR EDMS 07/14 22:47 Order name: Manual Differential EDMS 07/14 18:58 Order name: EKG; Complete Time: 19:00 kb 07/14 18:58 Order name: Cardiac monitoring; Complete Time: 20:28 kb 07/14 18:58 Order name: Droplet/Contact Precautions; Complete Time: 20:28 kb 07/14 18:58 Order name: EKG - Nurse/Tech; Complete Time: 20:42 kb 07/14 18:58 Order name: IV Start; Complete Time: 20:28 kb 07/14 18:58 Order name: Labs collected and sent; Complete Time: 20:27 kb 07/14 18:58 Order name: O2 Per Protocol; Complete Time: 20:27 kb 07/14 18:58 Order name: O2 Sat Monitoring; Complete Time: 20:27 kb 07/14 21:42 Order name: CONS Physician Consult EDMS Administered Medications: 20:25 Drug: Zofran (Ondansetron) 4 mg Route: IVP; Site: right antecubital; em 22:14 Follow up: Response: No adverse reaction; Marked relief of symptoms; Nausea is decreasedem 20:27 Drug: SOLU-Medrol 125 mg Route: IVP; Site: right antecubital; em 22:14 Follow up: Response: No adverse reaction em 20:27 Drug: NS 0.9% 1000 ml Route: IV; Rate: 1000 ml; Site: right antecubital; em 22:14 Follow up: IV Status: Completed infusion; IV Intake: 1000ml em 21:33 Drug: Potassium Chloride 40 mEq Route: PO; em 07/15 01:47 Follow up: Response: No adverse reaction em 01:32 Drug: Zofran (Ondansetron) 4 mg Route: IVP; Site: left antecubital; em 01:47 Follow up: Response: No adverse reaction em 01:34 Drug: TORadol - Ketorolac 10 mg Route: IVP; Site: left antecubital; em 01:47 Follow up: Response: No adverse reaction em Disposition: 07/14/20 20:34 Hospitalization ordered by Omega Macedo for Inpatient Admission. Preliminary diagnosis are Coronavirus infection, unspecified, Hypoxia, Nausea and vomiting, Diarrhea, unspecified. - Bed requested for Telemetry/MedSurg (Inpatient). - Status is Inpatient Admission. em - Condition is Fair. - Problem is new. - Symptoms are unchanged. Addendum: 07/18/2020 06:28 Co-signature as Attending Physician, Clyde Jordan MD I agree with the assessment and c garcia plan of care. Signatures: Dispatcher [employer] [facility] Clara Tavera, ANITA-Ashley SUPERVISOR [employer]-Mili Mancuso, RN RN Clyde Harding MD MD cha Munoz, Edgar, RN RN em Therese Jurado RN RN tw2 Corrections: (The following items were deleted from the chart) 07/14 21:22 19:00 CORONAVIRUS+LAB.BRZ ordered. [facility] 22:33 20:34 Hospitalization Ordered by Omega Macedo MD for Inpatient Admission. Preliminary diagnosis is Coronavirus infection, unspecified; Hypoxia; Nausea and vomiting; Diarrhea, unspecified. Bed requested for Telemetry/MedSurg (Inpatient). Status is Inpatient Admission. Condition is Fair. Problem is new. Symptoms are unchanged. kb 07/15 00:03 07/14 22:33 07/14/2020 20:34 Hospitalization Ordered by Omega Macedo MD for Inpatient dw Admission. Preliminary diagnosis is Coronavirus infection, unspecified; Hypoxia; Nausea and vomiting; Diarrhea, unspecified. Bed requested for Intensive Care Unit. Status is Inpatient Admission. Condition is Fair. Problem is new. Symptoms are unchanged. dw 07/15 02:06 00:03 07/14/2020 20:34 Hospitalization Ordered by Omega Macedo MD for Inpatient em Admission. Preliminary diagnosis is Coronavirus infection, unspecified; Hypoxia; Nausea and vomiting; Diarrhea, unspecified. Bed requested for Telemetry/MedSurg (Inpatient). Status is Inpatient Admission. Condition is Fair. Problem is new. Symptoms are unchanged.
[2020-07-14 20:38] LABS: Protime INR 0.92
[2020-07-14 22:47] LABS: Blood Morphology Comment NOT SEEN (NOT SEEN); Platelet Estimate ADEQ
[2020-07-14] MEDS ORDERED: POTASSIUM 25 MEQ EFFERV TAB ONE (22:56)
[2020-07-15] MEDS ORDERED: ONDANSETRON 4 MG/2 ML VIAL ONE (01:21)
[2020-07-15] MEDS ORDERED: KETOROLAC 30 MG/ML INJ ONE (01:21)
[2020-07-15] MEDS ORDERED: Remdesivir 200 MG in NA CHLORIDE 0.9% 250 ML IV ONE ×2 (02:23→09:00)
[2020-07-15] MEDS ORDERED: D50W 25 GM/50 ML SYRINGE IV PRN ×2 (02:23→12:13)
[2020-07-15] MEDS ORDERED: GLUCAGON 1 MG/VIAL IM PRN ×2 (02:23→12:13)
--- NOTE | 2020-07-15 03:21 | P.HP ---
Certification for Inpatient Patient admitted to: Inpatient With expected LOS: >2 Midnights Patient will require the following post-hospital care: None Practitioner: I am a practitioner with admitting privileges, knowledge of patient current condition, hospital course, and medical plan of care. Services: Services provided to patient in accordance with Admission requirements found in Title 42 Section 412.3 of the Code of Federal Regulations <Morales Wetzel - Last Filed: 07/15/20 03:15> Patient History Date of Service: 07/15/20 Primary Care Provider: Dr. Waldrop Reason for admission: COVID Pneumonia, Hypoxia History of Present Illness: This is a 59-year-old female with a history of insulin-dependent diabetes mellitus, hypertension, hypothyroid, coronary artery disease that presented to the emergency room today with increased shortness of breath that has started over the last few days. Patient had been diagnosed with COVID but continues to have increased symptoms. Patient was brought to the emergency room via has been for further evaluation. Patient had oxygen saturation in the 80s upon arrival. Patient was worked up in the emergency room and found to have a sodium 139, potassium 3.2, chloride 104, bicarb 26, BUN of 32, creatinine 1.05, glucose 302. Patient had a white cell count is 7.4, hemoglobin 12.4, hematocrit 37.3, platelet 286. Patient had a CRP of 55.5, ferritin of 622, D-dimer 14 84. Negative troponin and chest x-ray showed bilateral pulmonary opacities consistent with COVID pneumonia. Patient was given steroids and was placed on oxygen therapy upon arrival in emergency room. Patient seems to be doing better at this time but will be admitted for further evaluation. Home medications list reviewed: Yes - Past Medical/Surgical History Diabetic: Yes -: CHF -: Depression -: Hyperlipidemia -: Hypothyroidism -: IDDM -: CAD -: HTN -: GERD -: sleep apnea -: fibromyalgia -: cholecystectomy -: 10 surgical scars due to allergy to metformin -: 5 c - sections -: Cardiac stents - Family History Family History: Reviewed- Non-Contributory - Social History Smoking Status: Never smoker Smoking therapy provided: No Alcohol use: No CD- Drugs: No Caffeine use: Yes Place of Residence: Home <Philly Wetzelshua - Last Filed: 07/15/20 03:15> Date of Service: 07/15/20 <Omega Macedozal - Last Filed: 07/18/20 00:35> Allergies Latex, Natural Rubber Allergy (Severe, Verified 07/15/20 04:52) Hives/Rash metformin Allergy (Severe, Verified 07/15/20 04:52) Anaphylaxis iodine Allergy (Mild, Verified 07/15/20 04:52) Itching/Hives/Rash Metformin HCl Allergy (Severe, Uncoded 04/09/20 05:26) Anaphylaxis Adhesives Allergy (Mild, Uncoded 04/09/20 05:26) Itching/Hives/Rash Tape Allergy (Mild, Uncoded 04/09/20 05:26) Itching/Hives/Rash Home Medications: Gabapentin 1 cap PO TID 04/09/20 Hydrocodone Bit/Acetaminophen [[place] 7.5-325 Tablet] 1 tab PO Q6HP PRN 04/09/20 Levothyroxine Sodium [Synthroid] 150 mcg PO DAILY 04/09/20 Atorvastatin Calcium [Lipitor*] 40 mg PO BEDTIME 30 Days #30 tab 04/16/20 Albuterol Inhaler [Ventolin Inhaler*] 2 puff IH Q4HP PRN 06/02/20 Clopidogrel Bisulfate [Plavix*] 75 mg PO DAILY #30 tablet 06/02/20 Fluoxetine HCl [Prozac*] 40 mg PO DAILY 06/02/20 Furosemide [Lasix] 40 mg PO DAILY #30 tablet 06/02/20 Insulin 70/30 NPH/Reg Human [Novolin 70/30*] 30 unit SQ DAILY AT SUPPER 06/30/20 Metoprolol Tartrate [Lopressor*] 25 mg PO BID 6AM 6PM #60 tab 07/01/20 Apixaban [Eliquis *] 2.5 mg PO BID #20 tablet 07/17/20 Ascorbic Acid [Vitamin C*] 500 mg PO QID #60 tablet 07/17/20 Cholecalciferol (Vitamin D3) [Vitamin D 5,000 IU Cap*] 5,000 unit PO DAILY #30 cap 07/17/20 Famotidine [Pepcid] 20 mg PO BID #60 tablet 07/17/20 Ivermectin 12 mg PO Q72H #8 tablet 07/17/20 Zinc Sulfate [Zinc Sulfate*] 220 mg PO DAILY #30 cap 07/17/20 predniSONE [Prednisone*] 20 mg PO BID #21 tab 07/17/20 Review of Systems General: Malaise Eyes: Unremarkable ENT: Unremarkable Respiratory: Cough, Shortness of Breath, SOB with Excertion Cardiovascular: Unremarkable Gastrointestinal: Nausea, Vomiting, Diarrhea Genitourinary: Unremarkable Musculoskeletal: Unremarkable Integumentary: Unremarkable Neurological: Unremarkable Lymphatics: Unremarkable <Morales Wetzel - Last Filed: 07/15/20 03:15> Physical Examination - Vital Signs Temperature: 97.9 F Blood Pressure: 153/87 Pulse: 77 Respirations: 18 Pulse Ox (%): 87 (2L NC) - Physical Exam General: Alert, In no apparent distress, Oriented x3, Cooperative HEENT: PERRLA, Mucous membr. moist/pink, EOMI Neck: Supple, 2+ carotid pulse no bruit, JVD not distended, No Thyromegaly Respiratory: Clear to auscultation bilaterally, Normal air movement Cardiovascular: Normal pulses, Regular rate/rhythm, Normal S1 S2, No gallops, No rubs, No murmurs Capillary refill: <2 Seconds Gastrointestinal: Normal bowel sounds, Soft and benign, Non-distended, No ascites, No tenderness, No masses, No rebound, No guarding Musculoskeletal: No clubbing, No swelling, No contractures, No erythema, No tenderness, No warmth Integumentary: No rashes, No breakdown, No significant lesion, No tenderness/swelling, No erythema, No warmth, No cyanosis Neurological: Normal speech, Normal strength at 5/5 x4 extr, Normal tone, Sensation intact, Cranial nerves 3-12 intact, Normal affect Lymphatics: No axilla or inguinal lymphadenopathy - Studies Laboratory Data (last 24 hrs) 07/14/20 19:35: PT 10.6, INR 0.92, APTT 26.0 07/14/20 19:35: WBC 7.40, Hgb 12.4, Hct 37.3 D, Plt Count 286 D 07/14/20 19:35: Sodium 139, Potassium 3.2 L, BUN 32 H, Creatinine 1.05, Glucose 302 H, Total Bilirubin 1.1 H, AST 14 L, ALT 23, Alkaline Phosphatase 87, Lipase 243 <Morales Wetzel - Last Filed: 07/15/20 03:15> Assessment and Plan - Problems (Diagnosis) (1) Pneumonia due to COVID-19 virus Current Visit: Yes Status: Acute Plan: Patient placed on telemetry unit and will continue to be monitored with daily vital signs and continuous pulse oximetry for viral pneumonia. Patient placed on steroid therapy and oxygen therapy amongst antiviral therapy anticoagulation therapy and vitamin therapy. Pulmonology has been consulted for further evaluation. We will continue to monitor respiratory status and will escalate oxygen therapy as needed. (2) Hypoxia Current Visit: Yes Status: Acute Plan: The patient placed on nasal cannula and doing well at this time. Will escalate oxygen status based on respiratory drive and pulse oximetry. Patient continues to be on steroid therapy to improve viral inflammatory response secondary to SARs virus. (3) Hypokalemia Current Visit: Yes Status: Acute Plan: The patient had potassium replaced emergency room. Will keep patient on potassium protocol monitor chemistries while patient is in the inpatient setting. (4) Hypertension Current Visit: Yes Status: Chronic Plan: We will treat blood pressure for systolic greater than 160 or diastolic greater than 90. Otherwise will continue to monitor vital signs throughout the day. Qualifiers: Hypertension type: essential hypertension (5) Insulin dependent diabetes mellitus Current Visit: Yes Status: Chronic Plan: Patient had elevated glucose of 302 upon arrival. Patient placed on aggressive sliding scale as patient will require steroid therapy secondary to her viral process. We will continue to monitor this closely. Patient also placed on ADA diet. Discharge Plan: Home Plan to discharge in: Greater than 2 days - Advance Directives Does patient have a Living Will: No Does patient have a Durable POA for Healthcare: Yes - Code Status/Comfort Care Code Status Assessed: Yes Code Status: Full Code Critical Care: No Time Spent Managing Pts Care (In Minutes): 70 <Morales Wetzel - Last Filed: 07/15/20 03:15> - Problems (Diagnosis) (1) Pneumonia due to COVID-19 virus Current Visit: Yes Status: Acute (2) Hypertension Current Visit: Yes Status: Chronic Qualifiers: Hypertension type: essential hypertension (3) Congestive heart failure (CHF) Current Visit: No Status: Acute (4) GERD (gastroesophageal reflux disease) Current Visit: No Status: Acute (5) Hx of heart artery stent Current Visit: No Status: Acute (6) Hyperlipidemia Current Visit: No Status: Acute (7) Hypothyroidism Current Visit: No Status: Acute (8) Neuropathy Current Visit: No Status: Acute (9) Obesity (BMI 30.0-34.9) Current Visit: No Status: Acute <Omega Macedo - Last Filed: 07/18/20 00:35> Date of Service: 07/15/20 Patient diagnosed with COVID pneumonia. Slightly hypoxic. Patient also had episode of atrial fibrillation with rapid ventricular response. This was controlled with beta leslie therapy and digoxin. At this time patient clinically doing well and anticipate discharge home in the next 48-72 hours if oxygenation improved. <Omega Macedo - Last Filed: 07/18/20 00:35>
[2020-07-15 03:46] LABS: Absolute Lymphocytes (CBC) 0.2 K/uL (0.7-4.9); Hematocrit 33.3 % (36.0-45.0); Lymphocytes % 2.6 % (15.3-44.8); MPV 9.5 fL (7.6-11.3); RBC Red Blood Cell Count 4.02 M/uL (3.86-4.86)
[2020-07-15 04:35] LABS: C-Reactive Protein 45.1 mg/L (<3.00); Potassium 3.7 mmol/L (3.5-5.1)
[2020-07-15 04:44] VITALS: BMI 33.0
[2020-07-15] MEDS: INSULIN -REGULAR HUMAN 50 UNIT/0.5 ML ML SQ SCH ×4 (07:30→21:00)
[2020-07-15] MEDS: ASCORBIC ACID 500 MG TABLET PO SCH ×4 (08:46→22:07)
[2020-07-15] MEDS: APIXABAN 2.5 MG TABLET PO SCH ×2 (08:46→22:09)
[2020-07-15] MEDS: VITAMIN D 5,000 UNIT CAP PO SCH (08:47)
[2020-07-15] MEDS: ZINC SULFATE 220 MG CAP PO SCH (08:47)
[2020-07-15] MEDS: FAMOTIDINE 20 MG/2 ML VIAL IV SCH ×2 (08:47→22:07)
[2020-07-15] MEDS: METHYLPREDNISOLONE 40 MG INJ IV SCH ×2 (08:47→22:07)
[2020-07-15] MEDS ORDERED: POTASSIUM CL SA 10 MEQ TAB PO ONE (09:00)
[2020-07-15] MEDS ORDERED: Remdesivir 100 MG in NA CHLORIDE 0.9% 250 ML IV SCH (09:00)
[2020-07-15] MEDS: THIAMINE 200 MG/2 ML INJ IVP SCH ×2 (09:39→22:07)
[2020-07-15] MEDS: METOPROLOL TARTRATE 5 MG/5 ML INJ IV SCH ×2 (11:08→11:11)
[2020-07-15] MEDS ORDERED: DIGOXIN 0.25 MG/ML AMP IV ONE (11:30)
[2020-07-15] MEDS ORDERED: NA CHLORIDE 0.9% 250 ML ONE (11:42)
--- NOTE | 2020-07-15 12:14 | P.CNS ---
Date of Consult: 07/15/20 Primary Care Provider: Dr. Waldrop Chief Complaint: COVID Pneumonia, Hypoxia History of Present Illness: Patient is 59 years of age history of diabetes hypertension coronary artery disease admitted with arnold virus pneumonia although her oxygenation is controlled on nasal cannula oxygen she continues to feel very weak and nauseated Allergies Latex, Natural Rubber Allergy (Severe, Verified 07/15/20 04:52) Hives/Rash metformin Allergy (Severe, Verified 07/15/20 04:52) Anaphylaxis iodine Allergy (Mild, Verified 07/15/20 04:52) Itching/Hives/Rash Metformin HCl Allergy (Severe, Uncoded 04/09/20 05:26) Anaphylaxis Adhesives Allergy (Mild, Uncoded 04/09/20 05:26) Itching/Hives/Rash Tape Allergy (Mild, Uncoded 04/09/20 05:26) Itching/Hives/Rash Home Medications: Gabapentin 1 cap PO TID 04/09/20 Hydrocodone Bit/Acetaminophen [[place] 7.5-325 Tablet] 1 tab PO Q6HP PRN 04/09/20 Levothyroxine Sodium [Synthroid] 150 mcg PO DAILY 04/09/20 Atorvastatin Calcium [Lipitor*] 40 mg PO BEDTIME 30 Days #30 tab 04/16/20 Albuterol Inhaler [Ventolin Inhaler*] 2 puff IH Q4HP PRN 06/02/20 Clopidogrel Bisulfate [Plavix*] 75 mg PO DAILY #30 tablet 06/02/20 Fluoxetine HCl [Prozac*] 40 mg PO DAILY 06/02/20 Furosemide [Lasix] 40 mg PO DAILY #30 tablet 06/02/20 Insulin 70/30 NPH/Reg Human [Novolin 70/30*] 30 unit SQ DAILY AT SUPPER 06/30/20 Metoprolol Tartrate [Lopressor*] 25 mg PO BID 6AM 6PM #60 tab 07/01/20 Methylpred Na Suc [Solu-Medrol*] 80 mg IV Q12HR vial 07/10/20 predniSONE [Deltasone*] 10 mg PO BID #20 tab 07/10/20 - Past Medical/Surgical History Diabetic: Yes -: CHF -: Depression -: Hyperlipidemia -: Hypothyroidism -: IDDM -: CAD -: HTN -: GERD -: sleep apnea -: fibromyalgia -: cholecystectomy -: 10 surgical scars due to allergy to metformin -: 5 c - sections -: Cardiac stents - Social History Smoking Status: Never smoker Alcohol use: No CD- Drugs: No Caffeine use: Yes Place of Residence: Home Review of Systems General: Weakness Respiratory: Cough, Shortness of Breath Gastrointestinal: Nausea Physical Examination Temp Pulse Resp BP Pulse Ox 97.4 F 119 H 18 122/84 91 07/15/20 08:00 07/15/20 12:05 07/15/20 11:57 07/15/20 12:05 07/15/20 11:57 General: Alert, Moderate distress Respiratory: Clear to auscultation bilaterally Cardiovascular: No edema, Normal S1 S2 Laboratory Data (last 24 hrs) 07/14/20 19:35: PT 10.6, INR 0.92, APTT 26.0 07/14/20 19:35: WBC 7.40, Hgb 12.4, Hct 37.3 D, Plt Count 286 D 07/14/20 19:35: Sodium 139, Potassium 3.2 L, BUN 32 H, Creatinine 1.05, Glucose 302 H, Total Bilirubin 1.1 H, AST 14 L, ALT 23, Alkaline Phosphatase 87, Lipase 243 - Problems (1) Pneumonia due to COVID-19 virus Current Visit: Yes Status: Acute Plan: Patient is 59 years of age multiple medical problems admitted with pneumonia due to arnold virus she has significant bilateral interstitial disease labs reviewed oxygenation satisfactory on nasal cannula oxygen vital signs otherwise stable labs reviewed patient is anti coagulated I have ordered ivermectin
[2020-07-15] MEDS: IVERMECTIN 3 MG TABLET PO SCH (14:55)
[2020-07-15] MEDS: INSULIN 70/30 100 UNITS/ML SQ SCH (16:50)
[2020-07-15] MEDS: ACETAMINOPHEN 325 MG TABLET PO PRN (22:07)
[2020-07-15] MEDS: MELATONIN 5 MG TABLET PO SCH (22:09)
[2020-07-16 04:09] LABS: Absolute Lymphocytes (CBC) 0.4 K/uL (0.7-4.9); Basophils % 0.1 % (0-1.3); Hematocrit 32.7 % (36.0-45.0); Lymphocytes % 2.8 % (15.3-44.8); MPV 9.4 fL (7.6-11.3); RBC Red Blood Cell Count 3.94 M/uL (3.86-4.86)
[2020-07-16 04:24] LABS: Potassium 3.8 mmol/L (3.5-5.1)
--- NOTE | 2020-07-16 07:56 | EKG ---
Test Date: 2020-07-15 Test Time: 12:20:39 Jboss Architect: HELGA MEASUREMENT RESULTS: Intervals: Rate: 123 [place]: 128 QRSD: 94 QT: 342 QTc: 489 [place]: P: -90 TX: 128 QRS: 84 T: -55 INTERPRETIVE STATEMENTS: Unusual P axis and short TX, probable junctional tachycardia with fusion complexes Possible Inferior infarct, age undetermined Cannot rule out Anterior infarct, age undetermined Abnormal ECG Compared to ECG 07/14/2020 20:34:31 Sinus rhythm no longer present Left posterior fascicular block no longer present ST (T wave) deviation no longer present Possible ischemia no longer present Myocardial infarct finding still present Electronically Signed On 07-16-20 07:54:26 DAY HABILITATION SUPERVISOR by Sudhakar Benitez
[2020-07-16] MEDS ORDERED: D50W 25 GM/50 ML VIAL IV PRN (08:00)
[2020-07-16] MEDS: METHYLPREDNISOLONE 40 MG INJ IV SCH ×2 (08:48→20:39)
[2020-07-16] MEDS: INSULIN -REGULAR HUMAN 50 UNIT/0.5 ML ML SQ SCH ×4 (08:49→20:40)
[2020-07-16] MEDS: APIXABAN 2.5 MG TABLET PO SCH ×2 (08:50→20:39)
[2020-07-16] MEDS: VITAMIN D 5,000 UNIT CAP PO SCH (08:50)
[2020-07-16] MEDS: INSULIN 70/30 100 UNITS/ML SQ SCH ×2 (08:50→16:05)
[2020-07-16] MEDS: ASCORBIC ACID 500 MG TABLET PO SCH ×4 (08:51→20:39)
[2020-07-16] MEDS: ZINC SULFATE 220 MG CAP PO SCH (08:51)
[2020-07-16] MEDS: FAMOTIDINE 20 MG/2 ML VIAL IV SCH ×2 (08:51→20:40)
[2020-07-16] MEDS ORDERED: POTASSIUM CL SA 10 MEQ TAB PO ONE (09:00)
[2020-07-16] MEDS: THIAMINE 200 MG/2 ML INJ IVP SCH ×2 (09:23→20:40)
[2020-07-16] MEDS: MELATONIN 5 MG TABLET PO SCH (20:39)
[2020-07-17] MEDS ORDERED: MORPHINE 2 MG/ML SYR IV ONE (03:00)
[2020-07-17 04:00] LABS: Absolute Lymphocytes (CBC) 0.5 K/uL (0.7-4.9); Basophils % 0.4 % (0-1.3); MPV 9.5 fL (7.6-11.3); RBC Red Blood Cell Count 4.11 M/uL (3.86-4.86)
[2020-07-17 04:14] LABS: Potassium 4.1 mmol/L (3.5-5.1)
[2020-07-17] MEDS: INSULIN -REGULAR HUMAN 50 UNIT/0.5 ML ML SQ SCH ×4 (07:30→21:10)
[2020-07-17] MEDS: ASCORBIC ACID 500 MG TABLET PO SCH ×5 (09:00→21:12)
--- NOTE | 2020-07-17 09:17 | P.PN ---
Subjective Date of Service: 07/16/20 Patient doing well with no new complaints. Still hypoxic and a little short of breath. She does have home oxygen at home. She does not feel like she is radial home at this time. Continue with beta-leslie therapy as well. Review of Systems 10-point ROS is otherwise unremarkable Physical Examination - Vital Signs Temperature: 97.3 F Blood Pressure: 135/79 Pulse: 64 Respirations: 18 Pulse Ox (%): 94 - Physical Exam General: Alert, In no apparent distress, Oriented x3 Respiratory: Diminished, Expiratory wheezes Cardiovascular: Irregular heart rate/rhythm, Systolic murmur Gastrointestinal: Normal bowel sounds, Soft and benign, Non-distended Musculoskeletal: No clubbing, Swelling Neurological: Sensation intact, Cranial nerves 3-12 intact, Abnormal strength Assessment & Plan - Problems (Diagnosis) (1) Pneumonia due to COVID-19 virus Current Visit: Yes Status: Acute (2) Hypertension Current Visit: Yes Status: Chronic Qualifiers: Hypertension type: essential hypertension Qualified Code(s): I10 - Essential (primary) hypertension (3) Congestive heart failure (CHF) Current Visit: No Status: Acute (4) GERD (gastroesophageal reflux disease) Current Visit: No Status: Acute (5) Hx of heart artery stent Current Visit: No Status: Acute (6) Hyperlipidemia Current Visit: No Status: Acute (7) Hypothyroidism Current Visit: No Status: Acute (8) Neuropathy Current Visit: No Status: Acute (9) Obesity (BMI 30.0-34.9) Current Visit: No Status: Acute - Plan Plan: 1. Continue IV steroids. Continue inhaler therapy. Possible discharge home tomorrow. Continue to monitor and continue with IV steroids 2. Continue medication for rate control. Will start anticoagulation 3. GI and DVT prophylaxis Discharge Plan: Home Plan to discharge in: Greater than 2 days - Advance Directives Does patient have a Living Will: No Does patient have a Durable POA for Healthcare: Yes - Code Status/Comfort Care Code Status: Full Code Critical Care: No Time Spent Managing PTS Care (In Minutes): 30
[2020-07-17] MEDS: APIXABAN 2.5 MG TABLET PO SCH ×2 (09:22→21:10)
[2020-07-17] MEDS: ZINC SULFATE 220 MG CAP PO SCH (09:22)
[2020-07-17] MEDS: FAMOTIDINE 20 MG/2 ML VIAL IV SCH ×2 (09:23→21:11)
[2020-07-17] MEDS: THIAMINE 200 MG/2 ML INJ IVP SCH ×2 (09:23→21:12)
[2020-07-17] MEDS: METHYLPREDNISOLONE 40 MG INJ IV SCH (09:23)
[2020-07-17] MEDS: VITAMIN D 5,000 UNIT CAP PO SCH (09:23)
[2020-07-17] MEDS: INSULIN 70/30 100 UNITS/ML SQ SCH ×2 (09:25→17:07)
--- NOTE | 2020-07-17 11:37 | P.PN ---
Subjective Date of Service: 07/17/20 Primary Care Provider: Dr. Waldrop Chief Complaint: COVID Pneumonia, Hypoxia Subjective: Improving ( patient is doing better saturation satisfactory on 2-4 L on nasal cannula oxygen) Review of Systems General: Weakness Respiratory: Shortness of Breath Physical Examination - Vital Signs Temperature: 97.3 F Blood Pressure: 135/79 Pulse: 64 Respirations: 18 Pulse Ox (%): 94 Assessment & Plan - Problems (Diagnosis) (1) Pneumonia due to COVID-19 virus Current Visit: Yes Status: Acute Plan: patient is doing well still feeling a bit weak able to ambulate plan for discharge labs reviewed
[2020-07-17] MEDS: predniSONE 20 MG TAB PO SCH (21:07)
[2020-07-17] MEDS: MELATONIN 5 MG TABLET PO SCH (21:10)
--- NOTE | 2020-07-18 00:41 | P.PN ---
Subjective Date of Service: 07/17/20 Patient with no new complaints. She is ready to go home. She is unable to leave without her who was in the room next to her in room 411. If he is discharged she will go home with him. She really does not have anyone to take her home except her and he takes care of most of the ADLs. Review of Systems 10-point ROS is otherwise unremarkable Physical Examination - Vital Signs Temperature: 97.3 F Blood Pressure: 135/79 Pulse: 64 Respirations: 18 Pulse Ox (%): 94 - Physical Exam General: Alert, In no apparent distress, Oriented x3 Respiratory: Clear to auscultation bilaterally, Normal air movement Cardiovascular: Regular rate/rhythm, Normal S1 S2, Systolic murmur Gastrointestinal: Normal bowel sounds, Soft and benign, Non-distended Musculoskeletal: No clubbing, No swelling Neurological: Normal tone, Sensation intact, Cranial nerves 3-12 intact, Abnormal gait Assessment & Plan - Problems (Diagnosis) (1) Pneumonia due to COVID-19 virus Current Visit: Yes Status: Acute (2) Hypertension Current Visit: Yes Status: Chronic Qualifiers: Hypertension type: essential hypertension Qualified Code(s): I10 - Essential (primary) hypertension (3) Congestive heart failure (CHF) Current Visit: No Status: Acute (4) GERD (gastroesophageal reflux disease) Current Visit: No Status: Acute (5) Hx of heart artery stent Current Visit: No Status: Acute (6) Hyperlipidemia Current Visit: No Status: Acute (7) Hypothyroidism Current Visit: No Status: Acute (8) Neuropathy Current Visit: No Status: Acute (9) Obesity (BMI 30.0-34.9) Current Visit: No Status: Acute - Plan Plan: 1. Change to oral steroids. Anticipate discharge home today. Outpatient pulmonary followup. 2. Continue medication for rate control. Will start anticoagulation 3. Continue strict blood pressure and blood sugar control 4. GI and DVT prophylaxis Discharge Plan: Home Plan to discharge in: Greater than 2 days - Advance Directives Does patient have a Living Will: No Does patient have a Durable POA for Healthcare: Yes - Code Status/Comfort Care Code Status: Full Code Critical Care: No Time Spent Managing PTS Care (In Minutes): 35
[2020-07-18] MEDS: ACETAMINOPHEN 325 MG TABLET PO PRN (04:16)
[2020-07-18] MEDS: INSULIN -REGULAR HUMAN 50 UNIT/0.5 ML ML SQ SCH (07:30)
[2020-07-18 09:18] VITALS: O2SAT 95
[2020-07-18] MEDS: APIXABAN 2.5 MG TABLET PO SCH (09:26)
[2020-07-18] MEDS: IVERMECTIN 3 MG TABLET PO SCH (09:26)
[2020-07-18] MEDS: ASCORBIC ACID 500 MG TABLET PO SCH (09:26)
[2020-07-18] MEDS: VITAMIN D 5,000 UNIT CAP PO SCH (09:26)
[2020-07-18] MEDS: predniSONE 20 MG TAB PO SCH (09:26)
[2020-07-18] MEDS: ZINC SULFATE 220 MG CAP PO SCH (09:26)
[2020-07-18] MEDS: INSULIN 70/30 100 UNITS/ML SQ SCH (09:27)
[2020-07-18] MEDS: THIAMINE 200 MG/2 ML INJ IVP SCH (09:27)
[2020-07-18] MEDS: FAMOTIDINE 20 MG/2 ML VIAL IV SCH (09:27)
[2020-07-18 12:06] VITALS: BP 148/80; TEMP 97.6
--- NOTE | 2020-07-18 12:37 | P.DS ---
Admission Date: 07/15/20 Discharge Date: 07/18/20 Primary Care Provider: Dr. Waldrop Disposition: ROUTINE DISCHARGE Discharge Condition: GOOD Reason for Admission: COVID Pneumonia, Hypoxia Consultations: Pulmonary-Dr. Matson Procedures: COVID: Positive CXR: FINDINGS: Moderate to marked bilateral pulmonary opacities minimally improved. Heart is mildly enlarged IMPRESSION: Moderate to marked bilateral pulmonary opacities could represent pneumonia or pulmonary edema Medical Problem list: Dyspnea secondary to bilateral COVID 19 pneumonia Hypertension Chronic congestive heart failure, diastolic Diabetes mellitus type 2 insulin-dependent CAD with prior stent GERD Hypothyroidism Neuropathy Hypothyroidism Obesity, BMI 33 Brief History of Present Illness: 59-year-old these panic female with a history of insulin-dependent diabetes mellitus, hypertension, hypothyroid, coronary artery disease that presented to the emergency room today with increased shortness of breath that has started over the last few days. Patient had been diagnosed with COVID but continues to have increased symptoms. Patient was brought to the emergency room via has been for further evaluation. Patient had oxygen saturation in the 80s upon arrival. Patient was worked up in the emergency room and found to have a sodium 139, potassium 3.2, chloride 104, bicarb 26, BUN of 32, creatinine 1.05, glucose 302. Patient had a white cell count is 7.4, hemoglobin 12.4, hematocrit 37.3, platelet 286. Patient had a CRP of 55.5, ferritin of 622, D-dimer 14 84. Negative troponin and chest x-ray showed bilateral pulmonary opacities consistent with COVID pneumonia. Patient admitted for further evaluation and treatment. Hospital Course: Patient presented with dyspnea secondary to bilateral COVID 19 pneumonia. Patient has done well during her stay. Patient was seen and evaluated by pulmonology. At discharge patient without significant shortness of breath. Patient still requires oxygen. At discharge she will continue with prednisone 20 mg 1 pill twice daily for 7 days then 1 pill once daily for 7 days. Patient will continue with oral supplementation including vitamin-C, vitamin-D, and melatonin. Patient will continue with Eliquis 2.5 mg 1 pill twice daily due to increase risk for pulmonary embolism with COVID. At discharge she will continue with oxygen to maintain sats above 93%. Patient currently on 2 L per nasal cannula. Recommend follow up with pulmonology in 1 week to follow up this hospitalization and continue her care. Patient will continue with COVID 19 guidelines on isolation. Patient with hypertension. At discharge she will continue with her medications including metoprolol. Recommend to maintain blood pressure less than 130/80. Further adjustment can be done by her PCP. Patient with diabetes mellitus type 2. Patient insulin dependent. At discharge she will continue with insulin 70/30 as directed. Recommend to maintain blood sugar less than 140 fasting less than 200 after meals. Further adjustment can be done by her PCP. Patient with hyperlipidemia. At discharge she will continue with Lipitor 20 mg daily. Patient with GERD. At discharge she will continue with Pepcid as directed. Patient with depression. At discharge she will continue with Prozac. Patient with history of chronic diastolic CHF. She will continue with a 1500 cc per day fluid restriction and low-salt diet. At discharge she will continue with Lasix 40 mg daily. Patient with diabetic neuropathy. At discharge she will continue with Neurontin as directed. Patient with hypothyroidism. At discharge she will continue with levothyroxine 150 mcg daily. Vital Signs/Physical Exam: Temp Pulse Resp BP Pulse Ox 97.6 F 64 19 148/80 H 96 07/18/20 12:00 07/18/20 12:00 07/18/20 12:00 07/18/20 12:00 07/18/20 12:00 General: Alert, In no apparent distress, Oriented x3, Cooperative HEENT: Atraumatic Neck: Supple Respiratory: Other (Patient on 2 L per nasal cannula) Cardiovascular: Normal pulses, Regular rate/rhythm Gastrointestinal: No masses, No rebound, No guarding Integumentary: No erythema, No warmth, No cyanosis Neurological: Normal speech, Normal strength at 5/5 x4 extr, Normal tone, Normal affect Laboratory Data at Discharge: WBC 11.50 K/uL (4.3-10.9) H D 07/17/20 03:05 Hgb 11.0 g/dL (12.0-15.0) L 07/17/20 03:05 Hct 34.0 % (36.0-45.0) L 07/17/20 03:05 Plt Count 333 K/uL (152-406) 07/17/20 03:05 PT 10.6 SECONDS (9.5-12.5) 07/14/20 19:35 INR 0.92 07/14/20 19:35 APTT 26.0 SECONDS (24.3-36.9) 07/14/20 19:35 Sodium 139 mmol/L (136-145) 07/17/20 03:05 Potassium 4.1 mmol/L (3.5-5.1) 07/17/20 03:05 BUN 57 mg/dL (7-18) H 07/17/20 03:05 Creatinine 1.36 mg/dL (0.55-1.3) H 07/17/20 03:05 Glucose 88 mg/dL (74-106) 07/17/20 03:05 Total Bilirubin 1.1 mg/dL (0.2-1.0) H 07/14/20 19:35 AST 14 U/L (15-37) L 07/14/20 19:35 ALT 23 U/L (12-78) 07/14/20 19:35 Alkaline Phosphatase 87 U/L (45-117) 07/14/20 19:35 Triglycerides 96 mg/dL (<150) 07/15/20 03:10 Cholesterol 134 mg/dL (<200) 07/15/20 03:10 HDL Cholesterol 52 mg/dL (40-60) 07/15/20 03:10 Cholesterol/HDL Ratio 2.58 07/15/20 03:10 Lipase 243 U/L (73-393) 07/14/20 19:35 Home Medications: Gabapentin 1 cap PO TID 04/09/20 Hydrocodone Bit/Acetaminophen [[place] 7.5-325 Tablet] 1 tab PO Q6HP PRN 04/09/20 Levothyroxine Sodium [Synthroid] 150 mcg PO DAILY 04/09/20 Atorvastatin Calcium [Lipitor*] 40 mg PO BEDTIME 30 Days #30 tab 04/16/20 Albuterol Inhaler [Ventolin Inhaler*] 2 puff IH Q4HP PRN 06/02/20 Clopidogrel Bisulfate [Plavix*] 75 mg PO DAILY #30 tablet 06/02/20 Fluoxetine HCl [Prozac*] 40 mg PO DAILY 06/02/20 Furosemide [Lasix] 40 mg PO DAILY #30 tablet 06/02/20 Insulin 70/30 NPH/Reg Human [Novolin 70/30*] 30 unit SQ DAILY AT SUPPER 06/30/20 Metoprolol Tartrate [Lopressor*] 25 mg PO BID 6AM 6PM #60 tab 07/01/20 Apixaban [Eliquis *] 2.5 mg PO BID #20 tablet 07/17/20 Ascorbic Acid [Vitamin C*] 500 mg PO QID #60 tablet 07/17/20 Cholecalciferol (Vitamin D3) [Vitamin D 5,000 IU Cap*] 5,000 unit PO DAILY #30 cap 07/17/20 Famotidine [Pepcid] 20 mg PO BID #60 tablet 07/17/20 Ivermectin 12 mg PO Q72H #8 tablet 07/17/20 Zinc Sulfate [Zinc Sulfate*] 220 mg PO DAILY #30 cap 07/17/20 predniSONE [Prednisone*] 20 mg PO BID #21 tab 07/17/20 New Medications: Apixaban [Eliquis *] 2.5 mg PO BID #20 tablet Ivermectin 12 mg PO Q72H #8 tablet Famotidine [Pepcid] 20 mg PO BID #60 tablet predniSONE [Prednisone*] 20 mg PO BID #21 tab Ascorbic Acid [Vitamin C*] 500 mg PO QID #60 tablet Cholecalciferol (Vitamin D3) [Vitamin D 5,000 IU Cap*] 5,000 unit PO DAILY #30 cap Zinc Sulfate [Zinc Sulfate*] 220 mg PO DAILY #30 cap Physician Discharge Instructions: Patient presented with dyspnea secondary to bilateral COVID 19 pneumonia. Patient has done well during her stay. Patient was seen and evaluated by pulmonology. At discharge patient without significant shortness of breath. Patient still requires oxygen. At discharge she will continue with prednisone 20 mg 1 pill twice daily for 7 days then 1 pill once daily for 7 days. Patient will continue with oral supplementation including vitamin-C, vitamin-D, and melatonin. Patient will continue with Eliquis 2.5 mg 1 pill twice daily due to increase risk for pulmonary embolism with COVID. At discharge she will continue with oxygen to maintain sats above 93%. Patient currently on 2 L per nasal cannula. Recommend follow up with pulmonology in 1 week to follow up this hospitalization and continue her care. Patient will continue with COVID 19 guidelines on isolation. Patient with hypertension. At discharge she will continue with her medications including metoprolol. Recommend to maintain blood pressure less than 130/80. Further adjustment can be done by her PCP. Patient with diabetes mellitus type 2. Patient insulin dependent. At discharge she will continue with insulin 70/30 as directed. Recommend to maintain blood sugar less than 140 fasting less than 200 after meals. Further adjustment can be done by her PCP. Patient with hyperlipidemia. At discharge she will continue with Lipitor 20 mg daily. Patient with GERD. At discharge she will continue with Pepcid as directed. Patient with depression. At discharge she will continue with Prozac. Patient with history of chronic diastolic CHF. She will continue with a 1500 cc per day fluid restriction and low-salt diet. At discharge she will continue with Lasix 40 mg daily. Patient with diabetic neuropathy. At discharge she will continue with Neurontin as directed. Patient with hypothyroidism. At discharge she will continue with levothyroxine 150 mcg daily. OK TO DC IV AND DC HOME FOLLOW-UP WITH PRIMARY CARE PROVIDER IN 1-2 WEEKS FOLLOW-UP WITH Nephrology IN 1-2 WEEKS RETURN TO THE ER IF symptoms worsens CALL or TEXT DR. CARLOS AT [phone] IF ANY QUESTIONS REGARDING HOSPITAL STAY. PLEASE CALL THE FLOOR AT [phone] IF ANY MEDICATION OR NURSING QUESTIONS. Diet: AHA Activity: Fall precautions Followup: Nicolas Waldrop MD [COURTESY - CAN ADMIT] - 1-2 Weeks (PCP- call to schedule an appointment ) Time spent managing pt's care (in minutes): 55
--- NOTE | 2020-07-18 17:16 | EKG ---
Test Date: 2020-07-14 Test Time: 20:34:31 Clinical Documentation Clerk: LEIGH ANN MEASUREMENT RESULTS: Intervals: Rate: 77 MA: 170 QRSD: 98 QT: 384 QTc: 434 [place]: P: 12 MA: 170 QRS: 116 T: -43 INTERPRETIVE STATEMENTS: Normal sinus rhythm Left posterior fascicular block Cannot rule out Anterior infarct, age undetermined ST & T wave abnormality, consider inferolateral ischemia Abnormal ECG Compared to ECG 07/08/2020 03:06:29 Left posterior fascicular block now present ST (T wave) deviation now present Right-axis deviation no longer present T-wave abnormality no longer present Myocardial infarct finding still present Possible ischemia still present Electronically Signed On 07-18-20 17:07:07 CLUTCH SPECIALIST by Sudhakar Benitez
== END 2020-07-18 13:42 | disposition home or self-care (01) | DRG 177 ==
LOC: ER 17:57 → ERHOLD 21:46 → INTOOBSV 21:46 → 4TH 07-15 01:24 → OBSVTOIN 07-15 14:15
PROVIDERS: ADMIT Hospitalist; ATTEND Family Medicine
DX: U07.1 COVID-19 (principal); J12.82 Pneumonia due to coronavirus disease 2019; I50.32 Chronic diastolic (congestive) heart failure; I11.0 Hypertensive heart disease with heart failure; E03.9 Hypothyroidism, unspecified; E11.40 Type 2 diabetes mellitus with diabetic neuropathy, unspecified; E78.5 Hyperlipidemia, unspecified; F32.9 Major depressive disorder, single episode, unspecified; E87.6 Hypokalemia; I25.10 Atherosclerotic heart disease of native coronary artery without angina pectoris; I48.91 Unspecified atrial fibrillation; K21.9 Gastro-esophageal reflux disease without esophagitis; E66.9 Obesity, unspecified; R09.02 Hypoxemia; Z68.33 Body mass index [BMI] 33.0-33.9, adult; Z91.041 Radiographic dye allergy status; Z91.040 Latex allergy status; Z88.8 Allergy status to other drugs, medicaments and biological substances; Z91.048 Other nonmedicinal substance allergy status; Z79.890 Hormone replacement therapy; Z79.4 Long term (current) use of insulin; Z79.02 Long term (current) use of antithrombotics/antiplatelets; Z79.899 Other long term (current) drug therapy; Z90.49 Acquired absence of other specified parts of digestive tract; Z95.5 Presence of coronary angioplasty implant and graft; Z79.52 Long term (current) use of systemic steroids
CPT/HCPCS: 36415; 71045; 80048; 80061; 80076; 82728; 82947; 83605; 83690; 84145; 84484; 85025; 85379; 85610; 85730; 86140; 87040; 93005; 94760; 94762; 99285; G0378; J1160; J1815; J2270; J2405; J2920; J2930; J3411; J7030; J7050; J7512; U0003